=== PATIENT | female | born 1950 | race Caucasian/White ===

== ENCOUNTER → 2018-03-16 09:42 | Outpatient (CLI) | payer MEDICARE, SELFPAY ==
[2018-03-16 13:06] LABS: Absolute Lymphocyte Count 1.81 X10^3/ul (0.83-4.51); Absolute Neutrophil Count 7.1 X10^3/uL (2.0-7.7); Basophil# 0.03 X10^3/uL; Basophil% 0.3 % (0-1); Eosinophil# 0.27 X10^3/uL; Eosinophils% 2.7 % (0-5); Hematocrit 35.3 % (37-47); Hemoglobin 11.6 g/dl (12.0-15.0); Lymphocyte # 1.81 X10^3/ul (4.0); Lymphocyte % 18.4 % (19-41); Mean Corp Hgb Conc 32.9 g/gl (32-36); Mean Corpuscular Hgb 31.4 pg (27.0-32.0); Mean Corpuscular Volume 95.7 fL (81-99); Mean Platelet Vol. 10.9 fl (6.2-12.0); Monocyte# 0.65 X10^3/uL; Monocyte% 6.6 % (0-10); Neutrophil # 7.08 X10^3/uL (2.7-7.7); Neutrophil % 71.9 % (47-70); POSITIVE COUNT NO; POSITIVE DIFFERENTIAL NO; POSITIVE MORPHOLOGY NO; Platelet Count 295 K/mm3 (150-450); RBC Distribution Width CV 14.4 % (11.6-14.6); Red Blood Count 3.69 M/mm3 (4.2-5.4); White Blood Count 9.9 K/mm3 (4.4-11.0)
[2018-03-16 13:12] LABS: International Normalized Ratio 1.1; Prothrombin Time (Protime)PT. 13.7 SECONDS (11.7-14.9)
[2018-03-16 13:13] LABS: Partial Thromboplast Time 33.5 Seconds (24.1-36.2)
[2018-03-16 13:30] LABS: ALB/GLOB Ratio 0.8 RATIO (0.9-2.4); AST(SGOT) 16 U/L (15-37); Alanine Aminotransfer ALT/SGPT 20 U/L (13-56); Albumin, Serum 3.3 g/dL (3.2-5.0); Alkaline Phosphatase 110 U/L (45-117); Anion Gap 10 (5-15); BUN 39 mg/dL (7-18); BUN/Creat Ratio 26.9 RATIO (10-20); Calcium,Total 8.8 mg/dL (8.5-10.1); Chloride 110 mmol/L (98-107); Cholesterol 169 mg/dL (200); Creatinine, Serum 1.45 mg/dL (0.55-1.02); EST Glomerular Filtration Rate 38 mL/min (>60); Est Glom Filt Rate - Afr Amer 46 mL/min (>60); Free T3 2.4 pg/mL (2.18-3.98); Globulin 4.1 g/dL (2.2-4.2); Glucose 95 mg/dL (74-106); High Density Lipoprotein 43 mg/dL; Protein, Total 7.4 g/dL (6.4-8.2); Sodium Level 145 mmol/L (136-145); T4 Free Direct 1.14 ng/dL (0.76-1.46); Thyroid Stim Hormone (TSH) 1.02 uIU/mL (0.358-3.74); Triglycerides 68 mg/dL; Very Low Density Lipoprotein 14 mg/dL (5-40)
[2018-03-22 20:08] LABS: Dilute Russell Viper Venom 49.7 sec (0.0-47.0); Dilute Russell Viper Venom Mix 42.9 sec (0.0-47.0); PTT-LA 37.8 sec (0.0-51.9); Thrombin Time 16.8 sec (0.0-23.0); dPT Confirm Ratio 1.23 Ratio (0.00-1.40)
[2018-03-23 07:02] LABS: Antithrombin 3 Function 105 % (75-135); Interpretation Comment: (.); Protein S, Free 155 % (57-157); Protein S, Total 107 % (60-150)
== END ==
PROVIDERS: Family Provider Family Medicine; PCP Family Medicine; Visit Provider Family Medicine
DX: R68.89 Other general symptoms and signs (principal); I10 Essential (primary) hypertension; Z86.711 Personal history of pulmonary embolism
CPT/HCPCS: 36415; 80053; 80061; 81241; 84439; 84443; 84481; 85025; 85300; 85305; 85306; 85610; 85730; 86147; 86376

== ENCOUNTER 2018-04-09 02:37 | Emergency (ER) | payer MEDICARE, SELFPAY ==
[2018-04-09 02:38] VITALS: BP 136/61; PULSE 94; RESP 16; TEMP 36.6; O2SAT 98; BMI 41.5
[2018-04-09 03:45] LABS: Mucous, Urine 0 SEEN /hpf (<or=2+); Squamous Epithelial Cells - UA 0 SEEN /hpf (5-10)
[2018-04-09 03:46] LABS: Color, Urine Yellow (Yellow); Glucose, Dipstick Normal (Normal); Ketone-Dipstick 15 mg/dl (Negative); Leukocyte Esterase-Dipstick 500 /ul (Negative); Nitrite-Dipstick Positive (Negative); Occult Blood-Urine 25 /ul (Negative); Protein-Dipstick 30 mg/dl (Negative); Specific Gravity, Urine 1.015 (1.002-1.030); Urine Bilirubin Dipstick Negative (Negative); Urine Clarity Cloudy (Clear); Urine Urobilinogen 1 mg/dl (Normal)
[2018-04-09] MEDS: 0.9% Normal Saline 1,000 ML 1000 ML IV (03:50)
[2018-04-09] MEDS: Ondansetron 4 MG/2 ML Vial IV (03:50)
[2018-04-09] MEDS: Morphine 4 MG/ML Syringe IV (03:50)
[2018-04-09 03:57] LABS: Bacteria 2+ /hpf (None Seen); Red Blood Cells-Urine 0-5 SEEN /hpf (0-5); White Blood Cells 25-50 SEEN /hpf (0-5)
[2018-04-09 04:04] LABS: Absolute Neutrophil Count 13.7 X10^3/uL (2.0-7.7); Basophil# 0.03 X10^3/uL; Basophil% 0.2 % (0-1); Eosinophil# 0.02 X10^3/uL; Eosinophils% 0.1 % (0-5); Hematocrit 36.4 % (37-47); Hemoglobin 11.5 g/dl (12.0-15.0); Lymphocyte % 8.2 % (19-41); Mean Corp Hgb Conc 31.6 g/gl (32-36); Mean Corpuscular Hgb 30.2 pg (27.0-32.0); Mean Corpuscular Volume 95.5 fL (81-99); Mean Platelet Vol. 9.5 fl (6.2-12.0); Monocyte# 0.75 X10^3/uL; Monocyte% 4.7 % (0-10); Neutrophil # 13.73 X10^3/uL (2.7-7.7); Neutrophil % 86.6 % (47-70); Platelet Count 460 K/mm3 (150-450); RBC Distribution Width CV 14.2 % (11.6-14.6); RBC Distribution Width SD 49.1 fl (35.1-43.9); Red Blood Count 3.81 M/mm3 (4.2-5.4); White Blood Count 15.9 K/mm3 (4.4-11.0)
[2018-04-09 04:08] LABS: POSITIVE COUNT NO; POSITIVE DIFFERENTIAL NO; POSITIVE MORPHOLOGY NO
[2018-04-09 04:11] LABS: Anion Gap 8 (5-15); BUN 29 mg/dL (7-18); BUN/Creat Ratio 19.7 RATIO (10-20); Calcium,Total 9.2 mg/dL (8.5-10.1); Chloride 106 mmol/L (98-107); Creatinine, Serum 1.47 mg/dL (0.55-1.02); EST Glomerular Filtration Rate 38 mL/min (>60); Est Glom Filt Rate - Afr Amer 46 mL/min (>60); Estimated Creatinine Clearance 29.77 ml/min; Glucose 129 mg/dL (74-106); Potassium 4.2 mmol/L (3.5-5.1); Sodium Level 144 mmol/L (136-145)
--- NOTE | 2018-04-09 05:50 | ED.VISSUMM ---
- ER Visit Summary Date of Service: 04/09/18 Chief Complaint: Constipation History of Present Illness: The patient is a 68 F presents with concerns for constipation. She is status post left total knee arthroplasty on the and [place] by Dr. Sorenson. Patient is on oxycodone to taking it every 4 hours. She is on Senokot. However today states had nausea vomiting ?6-8 times with no hematemesis. Complains of chills and sweats. States that discomfort suprapubically. No urinary symptoms. Denies previous similar symptoms in the past. Patient states colonoscopy 4 years ago in [place]. Physical Examination: General: Alert and oriented ?3, no acute distress HEENT: Normocephalic, atraumatic. Moist mucosa membranes Neck: supple, nontender. Cardiovascular: Regular rate and rhythm, no murmurs Respiratory: Normal breath sounds, symmetric, no distress Abdomen: Soft, mild suprapubic tenderness without guarding or rebound. No right lower quadrant or left lower quadrant tenderness. Nondistended Extremities: Nontender, no edema, pulses intact ?4 Neuro: no focal neurological deficits. Test Results: CBC white count 15.9, hemoglobin 0.5. Creatinine 1.47. Urine leukocytes 500, positive nitrites, WBCs 25-50, 2+ bacteria. Urine culture sent and is pending. CT scan abdomen pelvis normal appendix, diffuse stools however mostly right side with no fecal impaction. Emergency Department Course and Treatment: Patient nontoxic, nonsurgical abdomen. With her suprapubic discomfort complains of chills and sweats. Workup initiated rule out potential diverticulitis. White count 15.9, urine did note signs of infection. Her CT scan notes a normal appendix with stool in the right side primarily there is no impaction. Initially treated morphine and Zofran IV fluids. Symptoms significantly improved. Due to her discomfort suprapubically with a white count chills and sweats will cover for urinary tract infection. Rocephin given. She started on Keflex. Given anti-emetics along with added MiraLAX for her constipation. Patient will follow-up as an outpatient. She return if any worsening symptoms. All questions were answered. Treatment Plan: [] Disposition: Discharge Impression: 1. Suprapubic abdominal pain 2. Urinary tract infection 3. Constipation This note was generated with [employer] dictation software. It may contain incorrect words, spelling, and punctuation that were not noted in review of the chart prior to signing ED Disposition - Plan for ED Patient: Disposition: Home or Assisted Living Chief Complaint: Constipation Diagnosis: Abdominal pain, Constipation, UTI (urinary tract infection) Instructions: ED Constipation, ED UTI Cystitis Female Prescriptions: Ondansetron [Zofran Odt] 4 mg PO Q8H PRN PRN #10 tablet PRN Reason: Nausea Cephalexin [Keflex] 500 mg PO Q12H #20 capsule Polyethylene Glycol 3350 [Miralax] 119 gm PO TID #1 bottle Referrals: Rober Cannon MD [Primary Care Provider] - 3-5 Days
[2018-04-09] MEDS: Ceftriaxone 1 GM/50 ML BAG IV (05:59)
[2018-04-09 06:53] VITALS: BP 124/60; PULSE 87; RESP 16; O2SAT 98
== END 2018-04-09 06:54 | disposition home or self-care (01) ==
PROVIDERS: Emergency Provider Emergency Medicine; Family Provider Family Medicine; PCP Family Medicine
DX: R10.9 Unspecified abdominal pain (principal); K59.00 Constipation, unspecified; N39.0 Urinary tract infection, site not specified; Z96.652 Presence of left artificial knee joint; E78.00 Pure hypercholesterolemia, unspecified
CPT/HCPCS: 74176; 80048; 81001; 85025; 87077; 87086; 87088; 87186; 96361; 96365; 96375; 99284; J7030; J2405

== ENCOUNTER → 2019-07-19 17:18 | Outpatient (CLI) | payer MEDICARE, MEDICAID, SELFPAY ==
--- NOTE | 2019-07-19 17:25 | RAD_ITS ---
STUDY: X-RAY - LEFT ANKLE REASON FOR EXAM: Female, 69 years old. Pain TECHNIQUE: 3 view(s) of the ankle. COMPARISON: None. FINDINGS: There is remote nonunited fracture of the medial malleolus with residual ossicle. There is no acute fracture or dislocation. Mineralization is decreased with possible periarticular accentuation. There are degenerative changes in the subtalar joint. Soft tissues demonstrate atherosclerotic calcifications in the arterial vessels and a possible calcified post traumatic granuloma in the Achilles tendon. There is irregularity of the superior talus seen on only one view, unclear etiology. There is smooth dense periosteal reaction in the mid tibia, incompletely evaluated due to extension superior to the top of the film. RAD/Ankle min 3 Views IMPRESSION: 1. No acute findings. 2. Remote medial malleolar fracture. 3. Periarticular osteopenia, this can be seen with inflammatory arthritis. Serologic evaluation is advised. 4. Questionable superior talar irregularity, possibly focal AVM. 5. Chronic Achilles tendon trauma. 6. Accelerated atherosclerosis. 7. Fibula periosteal reaction, incompletely evaluated. Refer to assessment with full lower leg radiography. Electronically Signed: Aston Vance, at 18:08 EST Tel , Service support ,
== END ==
PROVIDERS: Family Provider Family Medicine; PCP Family Medicine; Referring Provider Family Medicine; Visit Provider Family Medicine
DX: M79.672 Pain in left foot (principal)
CPT/HCPCS: 73610

== ENCOUNTER → 2019-07-22 09:22 | Outpatient (CLI) | payer MEDICARE, SELFPAY ==
--- NOTE | 2019-07-22 09:30 | RAD_ITS ---
STUDY: X-RAY - LEFT FOOT CLINICAL: Female, 69 years old. Worsening pain. TECHNIQUE: 3 view(s) of the foot. COMPARISON: None. FINDINGS: Plantar calcaneal spur otherwise normal talus, calcaneus, and tarsal bones. Mild narrowing of the visualized subtalar, talonavicular, calcaneocuboid, tarsal and tarsometatarsal articulations. Normal metatarsi. There is mild degenerative arthrosis of the metatarsophalangeal joint of the hallux . Normal tibial and fibular sesamoid bones. There is minimal degenerative arthrosis of the interphalangeal joint of the great toe. Normal phalanges of the great toe. Normal second through fifth metatarsophalangeal joints. Narrowing of the interphalangeal joints otherwise normal phalanges of the lesser toes. Vascular calcifications noted. There is swelling surrounding the ankle. There is no demonstrated fracture. RAD/Foot min 3 Views IMPRESSION: Degenerative disease as described above. No acute fracture or subluxation. Electronically Signed: Marlena Paiz MD at 1:39 EST , Service support ,
--- NOTE | 2019-07-22 09:30 | RAD_ITS ---
STUDY: X-RAY - LEFT TIBIA AND FIBULA REASON FOR EXAM: Female, 69 years old. Worsening pain to heel and leg. TECHNIQUE: 2 view(s) of the tibia and fibula were obtained. COMPARISON: None. FINDINGS: There is demineralization of the tibia. There is demineralization of the fibula. There is a total knee prosthesis in place. There is sequela of an old fracture involving the proximal fibula diaphysis. Vascular calcifications noted. RAD/Tibia & Fibula 2 Views IMPRESSION: Osteopenia. No acute fracture or subluxation. Electronically Signed: Marlena Paiz MD at 1:40 EST , Service support ,
== END ==
PROVIDERS: Family Provider Family Medicine; PCP Family Medicine; Referring Provider Family Medicine; Visit Provider Family Medicine
DX: M79.672 Pain in left foot (principal)
CPT/HCPCS: 73590; 73630

== ENCOUNTER → 2019-09-12 | Outpatient (CLI) | payer MEDICARE, MEDICAID, SELFPAY ==
--- NOTE | 2019-09-12 11:05 | ART_ITS ---
Reason For Study: PVD, Claudication Procedure A bilateral lower extremity continuous wave Doppler with analog waveform analysis,segmental pressures,and ankle brachial indexes without exercise. Left Segmental Pressures Left brachial= 126mmHg. Left posterior tibial artery = 126mmHg. Left dorsalis pedis artery = 148mmHg. Left digit = 62 mmHg. The left dorsalis pedis waveforms are triphasic. The left posterior tibial artery waveforms are triphasic. Right Segmental Pressures Right brachial= 117mmHg. Right posterior tibial artery = >254mmHg. Right dorsalis pedis artery = >254mmHg. Right digit = 89 mmHg. The right dorsalis pedis waveforms are triphasic. The right posterior tibial artery waveforms are triphasic. Indices The right ankle brachial index by the dorsalis pedis is NC. The right ankle brachial index by the posterior tibial artery is NC. The right digital-brachial index is 0.71. The left ankle brachial index by the dorsalis pedis is 1.17. The left ankle brachial index by the posterior tibial artery is 1.00. The left digital-brachial index is 0.49. Interpretation Summary Triphasic Doppler waveforms are noted at ankle level bilaterally. Pulse-volume recordings appear satisfactory at all levels bilaterally, including low-thigh, calf, ankle, and digital levels. The resting right ankle-brachial index could not be determined due to the non-compressibility of the vasculature. The resting left ankle-brachial index is normal. The right digital-brachial index is low-normal. The left digital-brachial index is moderately diminished. There is evidence of arterial calcification at ankle level on the right. Arterial flow appears to be normal at ankle level bilaterally, and at digital level on the right. There is evidence of moderate, distal, small-vessel arterial occlusive disease at digital level on the left. Ordering Physician: Marsha Montgomery Referring Physician: Kang Cannon Performed By: Willinger, Kala, RVT
== END | disposition home or self-care (01) ==
LOC: CVS 11:00
PROVIDERS: PCP Family Medicine; Referring Provider Podiatrist; Visit Provider Podiatrist
DX: I73.9 Peripheral vascular disease, unspecified (principal)
CPT/HCPCS: 93923

== ENCOUNTER → 2020-02-21 | Outpatient (CLI) | payer MEDICARE, SELFPAY ==
[2020-02-21 18:16] LABS: Vitamin D,25 Hydroxy 33.6 ng/mL
[2020-02-21 18:46] LABS: ALB/GLOB Ratio 0.8 RATIO (0.9-2.4); AST(SGOT) 14 U/L (15-37); Alanine Aminotransfer ALT/SGPT 18 U/L (13-56); Albumin, Serum 3.6 g/dL (3.2-5.0); Alkaline Phosphatase 141 U/L (45-117); Anion Gap 6 (5-15); BUN 48 mg/dL (7-18); BUN/Creat Ratio 31.2 RATIO (10-20); Calcium,Total 8.7 mg/dL (8.5-10.1); Chloride 113 mmol/L (98-107); Cholesterol 189 mg/dL (200); Creatinine, Serum 1.54 mg/dL (0.55-1.02); EST Glomerular Filtration Rate 36 mL/min (>60); Est Glom Filt Rate - Afr Amer 43 mL/min (>60); Globulin 4.3 g/dL (2.2-4.2); Glucose 86 mg/dL (74-106); High Density Lipoprotein 48 mg/dL; Potassium 4.9 mmol/L (3.5-5.1); Protein, Total 7.9 g/dL (6.4-8.2); Sodium Level 143 mmol/L (136-145); Thyroid Stim Hormone (TSH) 1.06 uIU/mL (0.358-3.74); Triglycerides 53 mg/dL; Very Low Density Lipoprotein 11 mg/dL (5-40)
== END | disposition home or self-care (01) ==
LOC: MFPLAB 14:45
PROVIDERS: PCP Family Medicine; Referring Provider Family Medicine; Visit Provider Family Medicine
DX: I10 Essential (primary) hypertension (principal); Z13.21 Encounter for screening for nutritional disorder; Z13.29 Encounter for screening for other suspected endocrine disorder; Z13.220 Encounter for screening for lipoid disorders
CPT/HCPCS: 36415; 80053; 80061; 82306; 84443

== ENCOUNTER → 2020-03-01 | Outpatient (CLI) | payer MEDICARE, MEDICAID, SELFPAY ==
--- NOTE | 2020-03-01 14:30 | BI_ITS ---
MAMMOGRAPHY - BILATERAL SCREENING REASON FOR EXAM: Female, 70 years old. Routine annual screening examination. PERTINENT HISTORY: Daughter with breast cancer. Grandmother with breast cancer. TECHNIQUE: Digital bilateral breast katia (3D mammographic acquisition) in the CC and MLO projections. 2-D mediolateral oblique (MLO) and craniocaudad (CC) views of both breasts were obtained. CAD: Full Field Digital Mammography with Computer Added Detection was performed. COMPARISON: None. Baseline examination. FINDINGS: Breast Composition: There are scattered areas of fibroglandular density. There are no dominant masses or suspicious calcifications. Scattered benign appearing bilateral calcifications. Benign appearing axillary lymph nodes. No other significant abnormalities are identified. There has been no significant change since the prior study. BI/SCREEN MAMM (CAD) W/KATIA BILAT IMPRESSION: Stable bilateral screening mammogram. Yearly follow-up mammogram recommended. (A) ASSESSMENT CATEGORY: BIRADS Category 2: Benign. A letter regarding these results will be sent to the patient by the facility within 30 days. Approximately 10% of breast cancers are not detected by mammography. A normal mammogram should not delay biopsy of a clinically suspicious abnormality. [id number] Electronically Signed: Angel Johnson, at 8:37 EDT , Service support ,
--- NOTE | 2020-03-01 14:47 | BD_ITS ---
STUDY: DUAL ENERGY X-RAY ABSORPTIOMETRY / DXA REASON FOR EXAM: Female, 70 years old. 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 COMPARISON: None. FINDINGS: Lumbar Spine (L1-L4): g/cm2 (1.449) / T-score (2.4) / Z-score (4.0) Findings are suggestive of normal bone density with a low fracture risk. Left Femur Total: g/cm2 (0.928) / T-score (-0.6) / Z-score (0.7) Left Femoral Neck: g/cm2 (0.788) / T-score (-1.8) / Z-score (-0.2) Right Femur Total: g/cm2 (0.870) / T-score (-1.1) / Z-score (0.3) Right Femoral Neck: g/cm2 (0.729) / T-score (-2.2) / Z-score (-0.6) BD/Dexa Bone Density Study IMPRESSION: The patient is considered osteopenic as outlined below according to World [place] Organization (WHO) criteria with a moderate fracture risk. Reference Information: The T-score is the number of standard deviations above or below the standard which is normal for young adults at their peak bone mineral density. The World Health Organization (WHO) interprets the T-scores as follows: Above -1 Normal bone density Between -1 and -2.5 Osteopenia Equal to / or below -2.5 Osteoporosis As a practical clinical guideline, osteopenia may be graded as follows: Mild -1 through -1.5 Moderate -1.6 through -2.0 Severe -2.1 through -2.4 The Z-score is the number of standard deviations above or below age-matched controls. A Z-score of less than -1.5 would be considered abnormal. References: 1. NIH Osteoporosis and Related Bone Diseases http://www.osteo.org 2. International Society for Clinical Densitometry http://www.iscd.org 3. National Osteoporosis Foundation http://www.nof.org Electronically Signed: Angel Johnson, at 11:51 EDT , Service support ,
== END | disposition home or self-care (01) ==
LOC: OPBD 14:15
PROVIDERS: PCP Family Medicine; Referring Provider Family Medicine; Visit Provider Family Medicine
DX: Z12.31 Encounter for screening mammogram for malignant neoplasm of breast (principal); N95.9 Unspecified menopausal and perimenopausal disorder
CPT/HCPCS: 77063; 77067; 77080

== ENCOUNTER → 2020-05-21 | Outpatient (CLI) | payer MEDICARE, MEDICAID, SELFPAY ==
[2020-05-21 13:26] LABS: Anion Gap 6 (5-15); BUN 37 mg/dL (7-18); BUN/Creat Ratio 23.1 RATIO (10-20); Calcium,Total 9.4 mg/dL (8.5-10.1); Chloride 108 mmol/L (98-107); EST Glomerular Filtration Rate 34 mL/min (>60); Est Glom Filt Rate - Afr Amer 41 mL/min (>60); Glucose 117 mg/dL (74-106); Magnesium 2.2 mg/dL (1.6-2.6); Phosphorus 2.9 mg/dL (2.5-4.9); Potassium 4.8 mmol/L (3.5-5.1); Sodium Level 138 mmol/L (136-145)
[2020-05-22 13:12] LABS: PTHIN 73.1 pg/mL (18.4-80.1)
== END | disposition home or self-care (01) ==
LOC: MFPLAB 09:54
PROVIDERS: PCP Family Medicine; Visit Provider Family Medicine
DX: M85.80 Other specified disorders of bone density and structure, unspecified site (principal)
CPT/HCPCS: 36415; 80048; 82330; 83735; 83970; 84100

== ENCOUNTER → 2020-06-26 16:37 | Outpatient (CLI) | payer MEDICARE, MEDICAID, SELFPAY ==
--- NOTE | 2020-06-26 16:40 | RAD_ITS ---
STUDY: X-RAY - LEFT WRIST REASON FOR EXAM: Female, 70 years old. Left wrist pain. Lumps at the base of the thumb. TECHNIQUE: 3 view(s) of the wrist were obtained. COMPARISON: None. FINDINGS: Normal visualized distal radius and ulna. There is degenerative arthrosis of the radiocarpal articulation. Normal distal radioulnar articulation. Normal carpal bones. There is widening of the scapholunate articulation suggesting a sprain of the scapholunate interosseous ligament. Normal carpometacarpal articulation of the thumb. Normal second through fifth carpometacarpal articulations. Normal visualized metacarpal bones. The soft tissue structures are unremarkable. No soft tissue mass is seen. Vascular calcifications are seen within the volar aspect of the lateral wrists. 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 Electronically Signed: Shilo Maya DO at 22:43 EST Tel [phone], Service support ,
== END ==
PROVIDERS: PCP Family Medicine; Referring Provider Family Medicine; Visit Provider Family Medicine
DX: M25.532 Pain in left wrist (principal)
CPT/HCPCS: 73110

== ENCOUNTER → 2020-07-13 | Outpatient (CLI) | payer MEDICARE, MEDICAID, SELFPAY | END | disposition home or self-care (01) | LOC: LABSPEC 10:32 | PROVIDERS: PCP Family Medicine; Referring Provider Family Medicine; Visit Provider Family Medicine | DX: N39.0 Urinary tract infection, site not specified (principal) | CPT/HCPCS: 87077; 87086; 87088; 87186 ==

== ENCOUNTER 2020-09-15 16:53 | Emergency (ER) | payer MEDICARE, MEDICAID, SELFPAY ==
[2020-09-15 16:53] VITALS: BP 149/85; PULSE 77; RESP 18; TEMP 36.3; O2SAT 99; BMI 46.3
--- NOTE | 2020-09-15 17:12 | ED.DCSUM_ITS ---
- ER Visit Summary Date of Service: 09/15/20 Chief Complaint: Atraumatic left lateral wrist pain mild redness. History of Present Illness: The patient is a 70 F of gout. Also kidney stones renal insufficiency. She is not diabetic. She denies any trauma or injury to her left wrist or hand. She denies any cat or animal bites. States yesterday started having some mild pain to left lateral wrist minimal redness. Minimal swelling. Denies any streaks. No fever or chills. She has had gout in her foot before and says it feels similar but she is never had no wrist or hand. She is also had cellulitis before but said this seems to be different than that. Physical Examination: Appearing older female. Vital signs are stable afebrile. HEENT exam unremarkable. Neck nontender no lymphadenopathy. Lungs clear to auscultation bilaterally. Heart regular rhythm rate about 75. Abdomen soft nontender. Patient moving all 4 extremities. Neurovascular intact. The left lateral wrist is mildly tender. She has pain with flexion extension of left wrist ulnar and radial deviation. There is really not significant swelling there is minimal redness. There is no lymphangitic streaking is not warm to the touch. Its only mildly tender. The left hand is neurovascular intact she is a strong radial pulse. The forearm otherwise is unremarkable with no signs of trauma. No streaks. There is no axillary lymphadenopathy. Neurologically she is awake and alert with no focal motor deficits. Test Results: None Emergency Department Course and Treatment: Clinically this appears to be an acute gout flareup. I do not think an cellulitis. Is not warm to touch. There is no streaks. She is had no constitutional symptoms. There is no lymphadenopathy. She will be started on prednisone here 60 mg and Vicodin for pain. Treatment Plan: Vicodin for pain. Prednisone daily 40 mg for 9 more days. She has appointment to see her primary care physician on Thursday. If she is doing a lot worse return to emergency department. She understands we will treat this is gout and currently not has an infection. Disposition: Discharge Impression: Acute atraumatic left wrist pain secondary to acute gout flare This note was generated with [employer] ([employer])ation software. It may contain incorrect words, spelling, and punctuation that were not noted in review of the chart prior to signing ED Disposition - Plan for ED Patient: Referrals: Rober Cannon MD [Primary Care Provider] -
--- NOTE | 2020-09-15 17:15 | ED.DEP ---
ED Disposition - Plan for ED Patient: Disposition: Home or Assisted Living Instructions: ED Gout Prescriptions: Prednisone [Deltasone] 40 mg PO DAILY 9 Days tab Prescription Printed Hydrocodone Bitart/Apap 5-325 [Napanoch 5MG-325MG] 1 tab PO Q4H PRN PRN #20 tab PRN Reason: Pain/Inflammation Prescription Printed Referrals: Rober Cannon MD [Primary Care Provider] - Keep Samm appointment Additional Instructions: Is an 40 mg a day for the next 9 days starting tomorrow. Vicodin (Napanoch) for pain. May take 1 of these every 4 hours for pain. This is a narcotic pain medication it may cause you to be drowsy or constipated. Make sure you are drinking plenty of water and fruits, vegetables and fiber to prevent constipation. Follow-up with your doctor's appointment on Thursday. Return to the emergency department if you are feeling a lot worse or if you get a fever or red streaks.
[2020-09-15] MEDS: HYDROcodone Bitartrate/Apap 5/325 Tablet PO (17:24)
[2020-09-15] MEDS: predniSONE 20 MG Tablet 60 MG PO (17:25)
== END 2020-09-15 17:33 | disposition home or self-care (01) ==
PROVIDERS: Emergency Provider Emergency Medicine; PCP Family Medicine
DX: M10.9 Gout, unspecified (principal); I10 Essential (primary) hypertension; Z79.899 Other long term (current) drug therapy
CPT/HCPCS: 99283

== ENCOUNTER → 2021-07-11 14:56 | Outpatient (CLI) | payer MEDICARE, MEDICAID, SELFPAY ==
--- NOTE | 2021-07-11 15:00 | BI_ITS ---
MAMMOGRAPHY - BILATERAL SCREENING REASON FOR EXAM: Female, 71 years old. Routine annual screening examination. PERTINENT HISTORY: Daughter with breast cancer. Grandmother with breast cancer. TECHNIQUE: Digital bilateral breast katia (3D mammographic acquisition) in the CC and MLO projections. 2-D mediolateral oblique (MLO) and craniocaudad (CC) views of both breasts were obtained. CAD: Full Field Digital Mammography with Computer Added Detection was performed. COMPARISON: Comparison is made with prior study dated 03/01/2020. FINDINGS: Breast Composition: There are scattered areas of fibroglandular density. There now is evidence of a 1.2 cm nodule in the lateral superior aspect of the left breast anteriorly. Correlation with ultrasound is recommended. Stable small benign appearing bilateral axillary lymph nodes. No other significant abnormalities are identified. BI/SCRN MAMM (CAD)W/KATIA BILAT IMPRESSION: 1.2 cm nodule in the lateral superior aspect of the left breast anteriorly. Correlation with ultrasound is recommended. ASSESSMENT CATEGORY: BIRADS Category 0: Incomplete. Need additional imaging evaluation. A letter regarding these results will be sent to the patient by the facility within 30 days. Approximately 10% of breast cancers are not detected by mammography. A normal mammogram should not delay biopsy of a clinically suspicious abnormality. [id number] Electronically Signed: Angel Johnson MD at 15:47 EST , Service support ,
== END ==
PROVIDERS: PCP Family Medicine; Referring Provider Family Medicine; Visit Provider Family Medicine
DX: Z12.31 Encounter for screening mammogram for malignant neoplasm of breast (principal)
CPT/HCPCS: 77063; 77067

== ENCOUNTER → 2021-07-16 10:51 | Outpatient (CLI) | payer MEDICARE, MEDICAID, SELFPAY ==
--- NOTE | 2021-07-16 10:53 | US_ITS ---
STUDY: ULTRASOUND BREAST - LEFT REASON FOR EXAM: Female, 71 years old. Abnormal screening mammogram. TECHNIQUE: Axial and longitudinal images of the LEFT breast were performed with a high resolution ultrasound transducer. # OF IMAGES: 31 COMPARISON: Comparison is made with prior mammogram dated 07/11/2021. FINDINGS: LEFT Breast: The mammographic abnormality corresponds to 1.4 cm x 1.2 cm x 1.4 cm irregular jagged hypoechoic nodule at the 1 o''clock position of the breast at 3 cm from the nipple. Biopsy is recommended. US/Breast Limited Unilateral IMPRESSION: 1.4 cm x 1.2 cm x 1.4 cm irregular jagged hypoechoic nodule at the 1 o''clock position of the breast at 3 cm from nipple. Biopsy recommended. ASSESSMENT CATEGORY: BIRADS Category 4: Suspicious - Biopsy Should Be Considered. A letter regarding these results will be sent to the patient by the facility within 30 days. Electronically Signed: Angel Johnson MD at 12:35 EST , Service support ,
== END ==
PROVIDERS: PCP Family Medicine; Referring Provider Family Medicine; Visit Provider Family Medicine
DX: N63.21 Unspecified lump in the left breast, upper outer quadrant (principal)
CPT/HCPCS: 76642

== ENCOUNTER → 2021-07-23 13:37 | Outpatient (CLI) | payer MEDICARE, MEDICAID, SELFPAY ==
--- NOTE | 2021-07-23 | IMM_PTH ---
PATIENT: BREANNA YANES LOC: [facility] U#:[id number] AGE/SX: 75/F ROOM: RE07/23/[address]: Dr. Nichole Barrett MD : 1950 BED: DIS: SPEC #: [id number] RECD: 07/24/21 13:12 STATUS: HAYDEE REQ #: [id number] MARIAM: 07/23/21 00:[address]: Nichole Barrett DEPT: IMMUNOHISTOCHEMISTRY RECD BY: Norma Hernadez ENTERED: 07/24/21 13:14 SP TYPE: IMMUNO OTHR DR: Dr. Kang Cannon MD Tissues: Left breast, NOS Procedures: CALPONIN-1 (add) CK5-6 (add) CK8 (add) REYES-2 (add) E-CAD (add) HER2 ODILON (add) AR (add) P40 (add) ER (initial) PHYSICIAN & INSTITUTION [place] [facility] [phone] SPECIMEN INFORMATION: Tissue Source: Left breast Clinical Info: Left breast mass Specimen Number: [id number] CPT code: 23249, 44161 x7, 87294 x3 METHODOLOGY: Deparaffinized sections of prefer/formalin-fixed tissue or PAP/DQ stained slides are incubated with monoclonal/polyclonal antibodies/oligonucleotide probes. Localization is made via biotin free immunoperoxidase method. Appropriate controls are performed and reacted as expected. Results on target cell population are indicated in the following table: RESULTS: ANTIBODY / CLONE RESULT P53 (DO-7) positive, 2%, dim Ki-67 (30-9) positive, 75% CK8 (83ogkxS25) positive CK5-6 (D5 & 1684) negative Calponin-1 (RX533T) negative P40 (BC28) negative E-Cad (ECH-6) positive REYES-2 (SP21) positive, dim MORPHOMETRIC ANALYSIS ER (clone 6F11) >95%, strong AR (clone 16/1E2) >90%, weak to moderate Her-2Neu (clone CB11) 0 The prognostic test for HER2 is performed on formalin-fixed paraffin embedded tissue. A 3+ (positive) staining pattern is defined as intense, homogeneous, complete, circumferential membranous staining in >10% of contiguous tumor cells. A similar weak (2+) staining pattern is interpreted as equivocal. PINEDA follow-up testing is recommended for all equivocal cases. Positivity/negativity for ER/AR is reported if > or < 1% of the tumor cells are immuno- reactive, respectively. The ASCO/CAP criteria is used for scoring. Reference: Journal of Clinical Oncology, 2013; 31:5150-3474 & 2010; 16:2514-7199. Duration of fixation: 11.5 Hrs; Sample Adequate: Yes. These assays have not been validated on decalcified tissues. Results should be interpreted with caution given the likelihood of false negativity on decalcified specimens. These tests were developed and their performance characteristics determined by [facility]. They may not have been cleared or approved by the U.S. Food and Drug Administration. The FDA has determined that such clearance or approval is not necessary. The above immunohistochemical/dualISH markers are ordered and reviewed by the Pathologist. INTERPRETATION: Left breast, core biopsy: Invasive ductal carcinoma, grade 3. Positive for estrogen receptors (favorable prognostic indicator). Positive for progesterone receptors (favorable prognostic indicator). Negative for overexpression of RUI3bnz. AM:wiley 07/25/2021
--- NOTE | 2021-07-23 | BRBX_PTH ---
PATIENT: BREANNA YANES LOC: [facility] U#:[id number] AGE/SX: 75/F ROOM: RE07/23/[address]: Dr. Nichole Barrett MD : 1950 BED: DIS: SPEC #: [id number] RECD: 07/23/21 14:31 STATUS: HAYDEE MICHELLE #: [id number] MARIAM: 07/23/21 00:[address]: Nichole Barrett DEPT: SURGICAL PATHOLOGY RECD BY: Tony De La Paz ENTERED: 07/23/21 14:32 SP TYPE: BREAST BX DAREN DR: Dr. Kang Cannon MD Tissues: Left breast, NOS Procedures: Surgery Specimen Level IV HEADER OPERATION: Left breast biopsy PRE-OP DIAGNOSIS: Left breast mass TISSUE SUBMITTED: Left breast tissue MICROSCOPIC DIAGNOSIS Left breast mass, core biopsy: Invasive ductal carcinoma with the following characteristics: Maximal length ? 9.5 millimeters Nuclear grade ? 3/3 Other findings ? focal microcalcifications. See comment. AM:wiley 07/24/2021 COMMENT ER/CT/Wkf4kvs studies are being performed on sections of tumor and the results from this study will be reported separately ([id number]). MICROSCOPIC DESCRIPTION Slides are reviewed. GROSS DESCRIPTION Received in fixative is one container labeled with the patient's name and designated left breast biopsy. The specimen consists of multiple irregular and elongated fragments of madrid-yellow soft tissue ranging in size from 0.7 to 1 cm in length and averaging 0.2 cm in diameter. The specimen is submitted in its entirety in one cassette. / AM:wiley 07/23/21 TC:0 CPT: 75619
== END ==
PROVIDERS: PCP Family Medicine; Referring Provider Surgery; Visit Provider Surgery
DX: N63.0 Unspecified lump in unspecified breast (principal)
CPT/HCPCS: 88305; 88341; 88342

== ENCOUNTER 2021-08-15 08:24 | Day surgery (SDC) | payer MEDICARE, MEDICAID, SELFPAY ==
[2021-08-15] VITALS (11 sets, daily range): BP systolic 105–154; BP diastolic 57–85; PULSE 65–84; RESP 16–18; TEMP 35.6–36.8; O2SAT 94–100; BMI 45.3
--- NOTE | 2021-08-15 | IMM_PTH ---
PATIENT: BREANNA YANES LOC: [facility] – [place] U#:[id number] AGE/SX: 71/F ROOM: RE08/15/[address]: Dr. Nichole Barrett MD : 1950 BED: DIS: 08/15/2021 SPEC #: [id number] RECD: 08/20/21 14:04 STATUS: HAYDEE RECarmen #: [id number] MARIAM: 08/15/21 00:[address]: Nichole Barrett DEPT: IMMUNOHISTOCHEMISTRY RECD BY: Norma Hernadez ENTERED: 08/20/21 14:07 SP TYPE: IMMUNO OTHR DR: Dr. Kang Cannon MD Tissues: B - Axillary lymph node, NOS C - Left breast, NOS Procedures: E-CAD (initial) CALPONIN-1 (add) CK7 (add) CK8 (add) E-CAD (add) Pankeratin (initial) Pankeratin (add) P40 (add) PHYSICIAN & [address] [address] SPECIMEN INFORMATION: Tissue Source: A - Axillary sentinel lymph node, B - Additional axillary sentinel lymph node, C - Left breast mass Clinical Info: Invasive ductal carcinoma left breast Specimen Number: [id number] A1, B1, B2, C3, C7, C8, C10, C12 CPT code: 16880 x3, 33395 x26 METHODOLOGY: Deparaffinized sections of prefer/formalin-fixed tissue or PAP/DQ stained slides are incubated with monoclonal/polyclonal antibodies/oligonucleotide probes. Localization is made via biotin free immunoperoxidase method. Appropriate controls are performed and reacted as expected. Results on target cell population are indicated in the following table: RESULTS: ANTIBODY / CLONE RESULT Block A AE1-3 (AE1/AE3/PCK26) negative CK7 (OV-TL12/30) negative Block B1 AE1-3 (AE1/AE3/PCK26) negative CK7 (OV-TL12/30) negative Block B2 AE1-3 (AE1/AE3/PCK26) negative CK7 (OV-TL12/30) negative Block C3 P40 (BC28) negative E-Cad (ECH-6) positive CK8 (98tzqdW88) positive Calponin-1 (FP326Q) negative Block C7 P40 (BC28) negative E-Cad (ECH-6) positive CK8 (19zhynD15) positive Calponin-1 (MP368F) negative Block C8 P40 (BC28) negative E-Cad (ECH-6) negative CK8 (47qitkY75) positive Calponin-1 (PK360R) negative AE1-3 (AE1/AE3/PCK26) positive Block C10 P40 (BC28) negative E-Cad (ECH-6) negative CK8 (66atyeK11) positive Calponin-1 (NI748X) negative AE1-3 (AE1/AE3/PCK26) positive Block C12 P40 (BC28) negative E-Cad (ECH-6) positive CK8 (26qpxlH52) positive Calponin-1 (SA513M) negative AE1-3 (AE1/AE3/PCK26) positive These tests were developed and their performance characteristics determined by [facility]. They may not have been cleared or approved by the U.S. Food and Drug Administration. The FDA has determined that such clearance or approval is not necessary. The above immunohistochemical/dualISH markers are ordered and reviewed by the Pathologist. INTERPRETATION: A. Axillary sentinel lymph node, biopsy: One lymph node, negative for metastatic carcinoma. B. Additional axillary sentinel lymph node, biopsy: Two lymph nodes, negative for metastatic carcinoma. C. Left breast mass, lumpectomy with needle localization: Invasive ductal carcinoma (block C3, two foci, C7, C12). Invasive lobular carcinoma (C8 and C10). SJ:wiley 08/22/2021 Case has been reviewed in consultation with Dr. Brandt who concurs with the above diagnosis. IDC:AM
--- NOTE | 2021-08-15 | AXNB_PTH ---
PATIENT: BREANNA YANES LOC: [facility] – [place] U#:[id number] AGE/SX: 71/F ROOM: RE08/15/[address]: Dr. Nichole Barrett MD : 1950 BED: DIS: 08/15/2021 SPEC #: [id number] RECD: 08/15/21 12:12 STATUS: HAYDEE MICHELLE #: [id number] MARIAM: 08/15/21 00:[address]: Nichole Barrett DEPT: SURGICAL PATHOLOGY RECD BY: oNrma Hernadez ENTERED: 08/15/21 13:05 SP TYPE: AX NODE BX OTHR DR: Dr. Kang Cannon MD Tissues: A - Axillary lymph node, NOS B - Axillary lymph node, NOS C - Left breast, NOS D - Left breast, NOS Procedures: Frozen Section (charge) Frozen Section Add'l ([facility]) Surgery Specimen Level IV Surgery Specimen Level V Comments: @ Specimen number changed from [id number] to [id number] @ on 08/15/21 at 1344 by RGOOD. HEADER OPERATION: Left breast ultrasound-guided wire localized lumpectomy with sentinel node biopsy PRE-OP DIAGNOSIS: Invasive ductal carcinoma left breast TISSUE SUBMITTED: A - Axillary sentinel lymph node, FS, B - Additional axillary sentinel lymph node x2, FS, C - Left breast mass (long stitch - lateral, short stitch - superior), D - Inferior deep margin (long stitch - medial, short stitch - new margin) FROZEN SECTION DIAGNOSIS A. Left axillary sentinel lymph node, biopsy: One out of one lymph node negative for carcinoma. AM:wiley 08/15/2021 Case has been reviewed in consultation with Dr. Kaufman who concurs with the above diagnosis. IDC:LATASHA B. Additional left axillary sentinel lymph nodes, biopsy: Two out of two lymph nodes negative for carcinoma. AM:wiley 08/15/2021 MICROSCOPIC DIAGNOSIS A. Left axillary sentinel lymph node, biopsy: One lymph node, negative for metastatic carcinoma. See comment. B. Additional left axillary sentinel lymph nodes, biopsy: Two out of two lymph nodes, negative for metastatic carcinoma. See comment. C. Left breast, lumpectomy with needle localization: Invasive ductal carcinoma, multiple foci (x4). Invasive lobular carcinoma. Ductal carcinoma in situ. See cancer summary in the comment section. D. Inferior deep margin: Intraductal hyperplasia with multifocal atypia. Intraductal papilloma with atypia. Negative for carcinoma. LATASHA:wiley 08/20/2021 COMMENT A. The lymph node is negative for metastatic carcinoma on multiple H & E levels and immunohisto-chemical stains for cytokeratins ([id number]). B. The lymph nodes are negative for metastatic carcinoma on multiple H & E levels and immunohisto-chemical stains for cytokeratins ([id number]). C - Immunohistochemistry ([id number]) supports the diagnosis of multiple foci of invasive ductal carcinoma and invasive lobular carcinoma. C. BREAST CANCER SUMMARY Procedure - excision with needle localization Specimen laterality ? left Invasive tumor: Tumor site ? not specified Tumor size ? size of largest carcinoma 1.2 x 1 cm Histologic type ? invasive ductal carcinoma x 4 foci - Invasive lobular carcinoma, one focus. Histologic grade (Jessica grade) Invasive ductal carcinoma: Glandular/tubular differentiation score - 2 Nuclear pleomorphism score - 3 Mitotic count score - 3 Overall grade ? grade 3 (score of 8) Histologic grade (Boulder grade) invasive lobular carcinoma: Glandular/tubular differentiation score - 3 Nuclear pleomorphism score - 1 Mitotic count score - 1 Overall grade ? grade 1 (score of 5) Tumor focality ? multiple foci of invasive carcinoma Number of foci - 5 Size of individual foci ? largest focus of invasive ductal carcinoma measures 1.2 x 1 cm. Additional smaller foci measures 0.3 to 1 cm in greatest dimension (grossly identified tumor mass measures 1.0 cm in greatest dimension). Invasive lobular carcinoma measures 0.5 cm in greatest dimension. Ductal carcinoma in situ ? present Negative for extensive intraductal component (EIC). Size (extent) of DCIS ? DCIS comprise about 20% of the total tumor volume. Number of blocks with DCIS ? 7 Number of blocks examined ? 15 (including specimens C & D) Architectural pattern ? papillary, micropapillary, cribriform and solid Nuclear grade ? grade 2 (intermediate) Necrosis ? not identified Lobular carcinoma in situ - not identified Tumor extension: Skin ? not present Nipple ? not applicable Skeletal muscle ? not present Margins: Invasive and ductal carcinoma in situ are 0.1 cm away from the closest inferior margin in the lumpectomy specimen. Additional specimen D inferior margin is 0.8 cm in thickness, overall, the inferior margin is at least 0.9 cm from the invasive ductal carcinoma and ductal carcinoma in situ. Invasive ductal carcinoma and ductal carcinoma in situ are 0.2 cm away from the next closest posterior and superior margins. Invasive lobular carcinoma is present at the anterior margin. Regional lymph nodes: Number of lymph nodes examined ? 3 Number of sentinel lymph nodes examined - 3 Number of lymph nodes with macrometastases, micrometastases or isolated tumor cells - 0 Treatment effect ? no known presurgical therapy. Lymphvascular invasion ? not identified Distant metastasis ? not applicable Additional Pathologic Findings ? intraductal hyperplasia with multifocal atypia. Intraductal papilloma with atypia. Ancillary Studies: Previously performed on same tumor ([id number] / [id number]) ER: positive (>95%, strong) MD: positive (.90%, weak to moderate) Iny1lcj: negative (0) Microcalcifications ? not identified Clinical History - Please make reference to previous specimen ([id number]) left breast, core biopsy with diagnosis of ?invasive ductal carcinoma.? PATHOLOGIC STAGE: pT1c(m) pN0(sn) pMx The above summary is in compliance with [employer] (CAP) Cancer Protocols Checklist and [place] Joint Committee on Cancer (AJCC), Staging Manual, 8th Ed. This case is discussed with Dr. Barrett on 08/22/21. Case has been reviewed in consultation with Dr. Brandt who concurs with the above diagnosis. IDC:AM MICROSCOPIC DESCRIPTION Slides are reviewed. GROSS DESCRIPTION A - Received fresh for frozen section consultation labeled with the patient's name is a specimen designated axillary sentinel lymph node, left. The specimen consists of an irregular fragment of yellow fatty tissue measuring 2.7 x 1.5 x 0.8 cm. Sections reveal a single nodule measuring 2.5 cm in greatest dimension. The nodule is bisected and totally submitted for frozen section consultation in one cassette. B - Received fresh for frozen section consultation labeled with the patient's name is a specimen designated additional left axillary sentinel lymph node x2. The specimen consists of two irregular fragments of yellow fatty tissue ranging in size from 1 to 2 cm. Each fragment is bisected and totally submitted in two blocks for frozen section consultation with each cassette containing one nodule. C - Received fresh for OR consultation labeled with the patient's name is a specimen designated left breast mass. The specimen consists of a wire-guided lumpectomy specimen measuring 5 x 4 x 2 cm and weighing 14 gm. The specimen is differentially inked as follows: anterior - yellow, posterior - black, superior - blue, inferior - green, medial - red and lateral - orange. Serial sections reveal a pink-madrid mass measuring 1 x 1 x 0.8 cm and located 0.2 cm from its closest (inferior) margin of excision. The proximity of the lesion to the margin is conveyed to the surgeon intraoperatively. The specimen is serially sectioned and totally submitted in 12 cassettes as follows: 1 & 2 - perpendicular margins, 3-6 ? mass, entirely submitted, 712 - remainder of the tissue. Note, specimen is submitted after additional fixation. D - Received in fixative is one container labeled with the patient's name and designated inferior deep margin. The specimen consists of an irregular fragment of madrid-yellow fibrofatty tissue measuring 3 x 2.5 x 0.8 cm. A short suture is present along one surface signifying the new (true) margin. This margin is inked in black ink. A long suture is present at one edge signifying the medial margin. This margin is inked in red ink. The opposite margin is inked in blue ink. The specimen is serially sectioned in a medial to lateral fashion and totally submitted in three cassettes. / AM:wiley 08/16/2021 TC:0 CPT: 61162 x3, 95587, 75255 x2, 48261, 41118
--- NOTE | 2021-08-15 08:34 | HP.PCM_ITS ---
History and Physical Date of Admission: 08/15/21 Date of Service: 07/26/21 MR#:[id number]:[id number]: René YANES #:[id number]:1950 Provider:Dr. Nichole Barrett MDAge/Sex: 71/F [place] [place] Intake Intake Visit Reasons: Discuss breat biopsy results Chief Complaint: BIRADS 4 Left Breast Allergies No Known Allergies Allergy (Verified 07/26/21 08:36) Medications rivaroxaban [Xarelto] 10 mg PO DAILY 04/09/18 [History Confirmed 07/26/21] lisinopril-hydrochlorothiazide 1 ea PO DAILY 09/28/19 [History Confirmed 07/26/21] [facility] Medical History (Updated 07/26/21 @ 09:[address] Nichole Barrett MD) Abnormal mammogram of left breast DVT (deep venous thrombosis) Hypertension Pulmonary embolism UTI (urinary tract infection) Surgical History History of cholecystectomy History of total knee replacement Family History Grandmother Breast cancer Daughter Breast cancer Mother Colon cancer Social History Smoking Status: Never smoker alcohol intake: never substance use type: does not use HPI HPI HPI: BREANNA YANES, is a 71 F who presents to the office today for discussion of left breast biopsy pathology. Patient's pathology did show invasive ductal car cinoma, grade 3/3, ER/MT positive, HER-2/jersey negative, maximal length 9.5 mm. Patient is very apprehensive about the diagnosis as well as treatment. Patient is accompanied by her daughter who did previously have triple negative breast cancer. Patient's mother also had breast cancer and had issues with radiation so she is concerned about possibly getting radiation if she wanted the lumpectomy. Exam Const General: cooperative, healthy appearing and comfortable Chest Other: Left breast biopsy incision healing well with Steri-Strips, ecchymosis resolving Assessment and Plan Assessment and Plan (1) Invasive ductal carcinoma of left breast: Status: Acute Plan - Dr. Nichole Barrett MD: I have given the patient and her daughter options for initial surgical treatment. Options are the following: lumpectomy followed by radiation therapy vs. mastectomy vs. mastectomy followed by immediate reconstruction. I have described the procedures to the patient. I have described the advantages and disadvantages of the options, but I have told the patient that among the options, the survival rate for breast cancer is the same. I have told the patient that with all the surgeries that a sentinel lymph node biopsy is required. I have described the procedure of sentinel lymph node biopsy to the patient. I have told the patient that if the biopsy is positive for metastatic disease, then a full axillary lymph node dissection is required. I have told the patient that adjuvant chemotherapy will be required should the lymph nodes reveal metastatic disease. Also, a full lymph node dissection will increase the risk for lymphedema, especially if there are 4 or more lymph nodes positive for metastatic disease and radiation to the axilla is also required. I have told the patient the risks of surgery, including but not limited to: infection, bleeding, scar tissue, seroma and persistent seroma, lymph leak, injury to any blood vessels, injury to any nerves (particularly the long thoraci c, the thoracodorsal, and the second intercostal brachial and the resultant sequelae), lymphedema, cosmetic deformity, dysesthesias, wound infections, further surgery (especially if margins are not clear), complications of anesthesia, etc. the patient understands. The patient will think about the options and discuss it further with the family. The patient patient will have a follow-up appointment with Dr. Rivera discuss possible radiation. Patient will call the office to let us know what surgery she is planning on. I have answered all the patient?s questions at this point to her satisfaction and she has no further questions. Greater than 50% of direct patient contact was spent in counseling or coordination of care. I spent 25 minutes counseling the patient on breast cancer treatment surgically/medical and coordinating care. Addendum: Patient did meet with Dr. Rivera and does plan to have a left lumpectomy with sentinel lymph node biopsy, possible axillary lymph node dissection Nichole Barrett M.D. Pager: [phone] [facility] [address] [place] [address], [address] [place] [address] Office: [phone] Coding Level of Care Code Off vis,est,level 4 Diagnoses Invasive ductal carcinoma of left breast C50.912 07/26/21 1220<Electronically signed by Nichole Barrett MD>Date Nichole Barrett MD
[2021-08-15] MEDS: Lactated Ringers 1,000 ML 100 ML IV (08:55)
--- NOTE | 2021-08-15 09:00 | NM_ITS ---
PROCEDURE: NUCLEAR MEDICINE Injection Jackson Node - LEFT breast(s). REASON FOR EXAM: Female, 71 years old. Left breast cancer. TECHNIQUE: Jackson node localization using radionuclide methods of the LEFT breast(s) was performed following subcutaneous administration of 1.1 mCi of of sulfur colloid Tc-99m. COMPARISON STUDIES : NM - None. CR - Not available for review at this time. CT - Not available for review at this time. MR - Not available for review at this time. US - Not available for review at this time. FINDINGS: 1.1 mCi of technetium labeled sulfur colloid was injected subcutaneously in 4 equal aliquots in the left periareolar region. NM/Lymph Node Injection Only IMPRESSION: Subcutaneous injection of 1.1 mCi of technetium labeled sulfur colloid for sentinel node imaging. Electronically Signed: Angel Johnson MD at 9:50 EST , Service support ,
[2021-08-15] MEDS: 0.9% Normal Saline (Pres. free 10 ML Vial (11:35)
[2021-08-15] MEDS: Isosulfan Blue 1% 5 ML Vial (11:35)
--- NOTE | 2021-08-15 13:01 | BI_ITS ---
SURGICAL BREAST SPECIMEN RADIOGRAPH CLINICAL: Document presence of tissue clip marker in biopsy specimen. FINDINGS: Specimen shows presence of tissue clip marker. Electronically Signed: Angel Johnson MD at 14:05 EST , Service support , BI/Breast Biopsy Specimen
--- NOTE | 2021-08-15 13:05 | PCM.OPRPT ---
Report of Operation Date of Procedure: 08/15/21 Pre-Operative Diagnosis: Left invasive ductal carcinoma Post-Operative Diagnosis: Same Surgery/Procedure Performed:: Left ultrasound-guided needle localization lumpectomy, sentinel lymph node biopsy Description of Surgical Findings:: 3 sentinel lymph nodes negative Surgeon: Nichole Barrett wet process miller head assistant: Yumiko Smith Type of Anesthesia: General/Supplemental Anesthesiologist: Merrick Leary Special Medications: Ancef 2 g IV x1 Specimen's removed: 1. Left sentinel lymph node, 2. Additional left sentinel lymph nodes, 3. Left lumpectomy, 4. New inferior/deep margin Estimated Blood Loss (mL): 15 cc Description of Procedure: In radiology the breast tissue was injected with TC-9 9 sulfur colloid. 90 minutes later the patient was taken to the operating room and general anesthesia was induced. 5 cc of Lymphazurin 1% blue dye was injected in the 4 quadrants periareolar along with 10 cc of normal saline. This was massaged gently for 5 minutes. The left breast and axilla were prepped and draped in usual sterile fashion. A timeout was completed verifying correct patient, procedure, site, positioning, special equipment prior to beginning procedure. Handheld gamma probe was used to identify the location of the hottest spot in the axilla. Prior to the incision, the counts were made for. The incision was made in the blue and hot node was identified. The probe was placed in contact with the node in the 10 count was 238. The bed of the node measured 19 counts. Additional hot node was taken 10 count was 898 residual blood count was 4. An additional node with blue lymphatics was also taken with no 10 count. No additional blue or hot nodes were detected. Ultrasound was used to place the Kopan's needle just inferior to the mass. A curvilinear incision was planned in such a way as to minimize the amount of dissection to reach the mass. Flaps were raised in the location of the wire confirmed. The wire was delivered into the wound. 2 silk erilkj-yr-iaxde stay suture was placed around the wire and used for traction. Dissection was then taken down circumferentially, taking care to include the entire localization needle and wide margin of grossly normal tissue. The specimen and entire localizing wire were removed. The specimen was oriented and sent to radiology with the localization studies. Additional deep/inferior margin was taken and oriented and sent to pathology. Confirmation was received that the entire target lesion had been resected. The wound was irrigated. Hemostasis was checked. The breast and axillary wounds were closed with interrupted sutures of 3-0 Vicryl and subcuticular sutures of 4-0 Monocryl. No attempt was made to close the space. A dressing of fluff gauze and supportive bra placed. The patient tolerated procedure well was taken to the postanesthesia care in stable condition. Complications none
--- NOTE | 2021-08-15 13:09 | EX.PCM.DISCH ---
Discharge Instructions Diet Discharge Diet: Light diet - advance as tolerated Activity Discharge Activity: May Not Drive (while taking narcotic pain medications.) May shower in (days): 1 Lifting Restrictions: no lifting >20 lbs x 1 wk Dressing / Incision Call your doctor if your incision/area has: Continuous Slow Oozing, Sudden Increased Bleeding, Increased Pain/ Swelling, Increased Redness, Foul Smelling Discharge and Swelling at the incision site Call your doctor if you observe: Fever of 101 or Higher Remove Dressing in: 2 days Cleanse incision/area with: Soap & Water Additional Dressing/Incision Instructions:: Steri-Strips will fall off in 7 to 10 days, if they do not fall off okay to remove after 10 days. Wear supportive bra at night for the first couple nights as well as during the day. Okay to remove breast dressing in 1 to 2 days. Axilla incision will have glue which will start coming off around 5 days. Follow Up Care Please Follow Up With: Nichole Barrett MD When: Call the office for a follow-up appointment 2 weeks; after 5 PM and on the weekends call [phone] with any concerns. Test Results: Test results from this visit will be discussed in further detail at your follow-up appointment, if applicable. Discharge Plan Admission Attending Provider: Nichole Barrett Primary Care Provider: Rober Cannon Discharge Orders/Prescriptions Prescriptions: New oxycodone-acetaminophen [Percocet] 5-325 mg tablet 1 tab PO Q6H PRN (Reason: pain) 3 Days Qty: 10 RF: 0 Continued phenazopyridine 95 mg Tablet 190 mg PO DAILY RF: 0 lisinopril 10 mg tablet 10 mg PO DAILY RF: 0 Held Xarelto 10 MG tablet 10 mg PO DAILY RF: 0 Hold Instructions: Resume on 08/17/21. Referrals / Follow Up: Rober Cannon MD [Primary Care Provider] - Disposition Disposition (needs filled in before D/C Order can be placed): Home, Self Care
[2021-08-15] MEDS: Bupivacaine Mpf 0.5% 30 ML VIAL (13:15)
== END 2021-08-15 23:59 | disposition home or self-care (01) ==
LOC: SDC 08:25 → AC 08:26
PROVIDERS: PCP Family Medicine; Referring Provider Surgery; Visit Provider Surgery
PROC: 0HBV0ZZ Excision of Bilateral Breast, Open Approach (ICD-10-PCS; CPT 19302; principal; 2021-08-15 10:45)
DX: C50.912 Malignant neoplasm of unspecified site of left female breast (principal); Z17.0 Estrogen receptor positive status [ER+]; N60.92 Unspecified benign mammary dysplasia of left breast; D24.2 Benign neoplasm of left breast; I10 Essential (primary) hypertension; Z79.01 Long term (current) use of anticoagulants; Z79.899 Other long term (current) drug therapy; Z86.711 Personal history of pulmonary embolism; Z86.718 Personal history of other venous thrombosis and embolism; Z80.3 Family history of malignant neoplasm of breast
CPT/HCPCS: 19301; 38525; 00404; 38792; 76098; 88305; 88307; 88331; 88332; 88341; 88342; A9541; J7120; J2405; J3490; Q9968

== ENCOUNTER 2021-08-29 10:26 | Outpatient (CLI) | payer MEDICARE, MEDICAID, SELFPAY ==
--- NOTE | 2021-08-29 10:30 | MRI_ITS ---
STUDY: BILATERAL BREAST MR WITHOUT AND WITH CONTRAST REASON FOR EXAM: Female, 71 years old. Status post lumpectomy for multifocal invasive ductal carcinoma and invasive lobular carcinoma. TECHNIQUE: Multi-sequence multi-echo imaging of both breasts was performed with a dedicated breast coil. T1-weighted and T2-weighted images were performed before the administration of contrast. T1-weighted images were also performed after the administration of 21 cc of Dotarem contrast without complications. COMPARISON: Screening mammograms dated 07/11/2021 and 03/01/2020 and left breast ultrasound dated 07/16/2021. FINDINGS: RIGHT BREAST: The breast tissue is fatty with minimal background enhancement. There are no abnormal enhancing masses or areas of non-mass enhancement in the right breast. LEFT BREAST: The breast tissue is fatty with minimal background enhancement. Large seroma cavity in the retroareolar region measuring approximately 6.6 cm x 3 cm x 2.7 cm. Postsurgical changes in the upper outer left breast. There are no enlarged or abnormal lymph nodes. There is no abnormality in the visualized regions of the chest or liver. MRI/Breast Bilateral W/O and W IMPRESSION: Postsurgical changes of lumpectomy. No suspicious enhancing masses. Six-month follow-up diagnostic left breast mammogram would be appropriate. CATEGORY: BIRADS Category 2: Benign. A letter regarding these results will be sent to the patient by the facility within 30 days. Electronically Signed: Lawrence Dalal MD at 9:14 EST , Service support ,
[2021-08-29 11:11] LABS: CREATININE FINGERSTICK 1.1 mg/dL (0.55-1.02)
== END 2021-08-29 23:59 | disposition short-term general hospital (02) ==
LOC: MRI 10:30
PROVIDERS: PCP Family Medicine; Referring Provider Surgery; Visit Provider Surgery
DX: C50.912 Malignant neoplasm of unspecified site of left female breast (principal)
CPT/HCPCS: 77049; A9575; A4216; C8908

== ENCOUNTER 2021-09-05 14:41 | Observation (INO) | payer MEDICARE, MEDICAID, SELFPAY ==
[2021-09-03 11:12] LABS: Hematocrit 41.3 % (37-47); Hemoglobin 13.5 g/dL (12.0-15.0); Mean Corp Hgb Conc 32.7 g/dL (32-36); Mean Corpuscular Hgb 31.7 pg (27.0-32.0); Mean Corpuscular Volume 96.9 fL (81-99); Mean Platelet Vol. 10.3 fl (6.2-12.0); Platelet Count 302 K/mm3 (150-450); RBC Distribution Width CV 13.2 % (11.6-14.6); RBC Distribution Width SD 47.1 fl (35.1-43.9); Red Blood Count 4.26 M/mm3 (4.2-5.4)
[2021-09-03 11:21] LABS: International Normalized Ratio 1.1; Prothrombin Time (Protime)PT. 13.2 SECONDS (11.7-14.9)
[2021-09-03 11:22] LABS: Partial Thromboplast Time 33.6 Seconds (24.1-36.2)
[2021-09-03 11:55] LABS: AST(SGOT) 14 U/L (15-37); Alanine Aminotransfer ALT/SGPT 20 U/L (13-56); Albumin, Serum 3.3 g/dL (3.2-5.0); Alkaline Phosphatase 131 U/L (45-117); Anion Gap 4 (5-15); BUN 26 mg/dL (7-18); BUN/Creat Ratio 19.7 RATIO (10-20); Bilirubin, Direct 0.15 mg/dL (0.00-0.30); Calcium,Total 9.4 mg/dL (8.5-10.1); Chloride 111 mmol/L (98-107); Creatinine, Serum 1.32 mg/dL (0.55-1.02); EST Glomerular Filtration Rate 42 mL/min (>60); Est Glom Filt Rate - Afr Amer 51 mL/min (>60); Globulin 4.7 g/dL (2.2-4.2); Glucose 93 mg/dL (74-106); Potassium 4.5 mmol/L (3.5-5.1); Sodium Level 141 mmol/L (136-145)
--- NOTE | 2021-09-04 09:05 | EKG12_ITS ---
Test Reason : PRE OP Blood Pressure : / mmHG Vent. Rate : 063 BPM Atrial Rate : 063 BPM P-R Int : 136 ms QRS Dur : 072 ms QT Int : 404 ms P-R-T Axes : -08 005 057 degrees QTc Int : 413 ms Normal sinus rhythm Normal ECG Confirmed by BALWINDER LIMA, PARTH ([id number]), graphics editor YAMILETH HARMON ([id number]) on 09/04/2021 9:09:26 AM Referred By: Nichole Barrett Confirmed By:PARTH BRITT MD
[2021-09-05] VITALS (10 sets, daily range): BP systolic 102–157; BP diastolic 49–80; PULSE 65–92; RESP 15–18; TEMP 36.6–37.4; O2SAT 91–99; BMI 45.3; BMI 46.3
--- NOTE | 2021-09-05 | IMM_PTH ---
PATIENT: BREANNA YANES LOC: MS3 U#:[id number] AGE/SX: 71/F ROOM: NC311 RE09/05/[address]: Dr. Nichole Barrett MD : 1950 BED: 1 DIS: 09/06/2021 SPEC #: [id number] RECD: 09/11/21 12:20 STATUS: HAYDEE REQ #: [id number] MARIAM: 09/05/21 00:[address]: Nichole Barrett DEPT: IMMUNOHISTOCHEMISTRY RECD BY: Norma Hernadez ENTERED: 09/11/21 12:22 SP TYPE: IMMUNO OTHR DR: MD Dr. Kang Owens MD Tissues: A - Axillary lymph node, NOS B - Left breast, NOS Procedures: CK8 (initial) CALPONIN-1 (add) CK8 (add) E-CAD (add) Pankeratin (add) P40 (add) CK7 (initial) PHYSICIAN & [address] [address] SPECIMEN INFORMATION: Tissue Source: A ? Left axillary lymph node, B ? Left breast Clinical Info: Left breast cancer Specimen Number: [id number] A, B5-8, B11 CPT code: 56773 x2, 87370 x13 METHODOLOGY: Deparaffinized sections of prefer/formalin-fixed tissue or PAP/DQ stained slides are incubated with monoclonal/polyclonal antibodies/oligonucleotide probes. Localization is made via biotin free immunoperoxidase method. Appropriate controls are performed and reacted as expected. Results on target cell population are indicated in the following table: RESULTS: ANTIBODY / CLONE RESULT Block A CK7 (OV-TL12/30) negative AE1-3 (AE1/AE3/PCK26) negative Block B5 CK8 (55wuevA98) positive P40 (BC28) positive Calponin-1 (XI535M) positive Block B6 CK8 (94fqsrO97) positive P40 (BC28) positive Calponin-1 (SU217K) positive Block B7 CK8 (57cnjfZ60) positive P40 (BC28) negative Calponin-1 (LO118A) negative Block B8 CK8 (95uinmK23) positive P40 (BC28) positive Calponin-1 (PC583E) positive Block B11 E-Cad (ECH-6) positive These tests were developed and their performance characteristics determined by [facility]. They may not have been cleared or approved by the U.S. Food and Drug Administration. The FDA has determined that such clearance or approval is not necessary. The above immunohistochemical/dualISH markers are ordered and reviewed by the Pathologist. INTERPRETATION: A. Left axillary lymph node, biopsy: One out of one lymph node negative for carcinoma. B. Left breast, mastectomy: Minute focus of invasive ductal carcinoma (1 mm in diameter). AM:wiley 09/12/2021
--- NOTE | 2021-09-05 | AXNB_PTH ---
PATIENT: BREANNA YANES LOC: MS3 U#:[id number] AGE/SX: 71/F ROOM: [facility] RE09/05/[address]: Dr. Nichole Barrett MD : 1950 BED: 1 DIS: 09/06/2021 SPEC #: [id number] RECD: 09/05/21 15:30 STATUS: HAYDEE REQ #: [id number] MARIAM: 09/05/21 00:[address]: Nichole Barrett DEPT: SURGICAL PATHOLOGY RECD BY: Norma Hernadez ENTERED: 09/06/21 07:46 SP TYPE: AX NODE BX OTHR DR: MD Dr. Kang Owens MD Tissues: A - Axillary lymph node, NOS B - Left breast, NOS Procedures: Frozen Section (charge) Surgery Specimen Level IV Surgery Specimen Level V HEADER OPERATION: Mastectomy PRE-OP DIAGNOSIS: Left breast cancer TISSUE SUBMITTED: A - Left axillary lymph node, FS, B - Left breast, long stitch - lateral, short stitch - superior FROZEN SECTION DIAGNOSIS A. Left axillary lymph node, biopsy: Hemorrhagic node, negative for metastatic carcinoma. SJ:wiley 09/06/2021 MICROSCOPIC DIAGNOSIS A. Left axillary sentinel lymph node, biopsy: One out of one lymph node negative for carcinoma. B. Left breast, mastectomy: Invasive ductal carcinoma. See cancer checklist. AM:wiley 09/12/2021 COMMENT BREAST CANCER SUMMARY Procedure: Mastectomy Specimen Type: Total breast Size: 23 x 17 x 4 cm Laterality: Left breast Invasive Tumor: Tumor site: adjacent to biopsy cavity Size: 1 millimeter in diameter Histologic type: Invasive ductal carcinoma. Focality: Single focus of invasive carcinoma. Histologic grade ([place] grade): Glandular/tubular differentiation score: 1 Nuclear pleomorphism score: 2 Mitotic count score: 1 Overall grade: 1 (score of 4) Ductal Carcinoma In Situ: Not present Lobular Carcinoma In Situ: Not present Tumor extension: Skin: Free of carcinoma Nipple: Free of carcinoma Skeletal muscle: Not applicable (not present) Margins: Distance of invasive carcinoma from closest margin: 2.5 cm from posterior margin Lymph Nodes: Number of sentinel lymph nodes examined: 1 Total number of lymph nodes examined: 1 No evidence of macrometastases, micrometastases or isolated tumor cells Treatment Effect: Unknown Lymphvascular invasion: Not identified Calcifications: Present in non-neoplastic tissue Additional Pathologic Findings: Intraductal hyperplasia with focal atypical intraductal and lobular hyperplasia, intraductal papilloma, fibrocystic change, adenosis and Basal microcalcifications. Changes of previous biopsy/lumpectomy. Ancillary Studies: Previously performed on same tumor ([id number]) ER: positive (95%, strong) NH: positive (90%, weak to moderate) Fbj9ool: negative (0) Clinical History: Mass of breast. PATHOLOGIC STAGE: pTic N0(sn) Mx The above summary is in compliance with [employer] [place] [employer] (CAP) Cancer Protocol Checklist and [place] Joint Committee on Cancer (AJCC) Staging Manual, 8th Ed. Reference is made to the patient's previous left breast lumpectomy (S2) in which invasive ductal carcinoma, grade 3 was identified. Clinical correlation is suggested. A & B. Immunohistochemistry ([id number]) supports the above diagnosis. MICROSCOPIC DESCRIPTION Slides are reviewed. GROSS DESCRIPTION A - Received fresh for frozen section diagnosis labeled with the patient's name is a specimen designated left axillary lymph node. The specimen consists of a piece of adipose tissue containing a nodule measuring 2 x 1.5 x 0.7 cm. The specimen is bisected and reveals hemorrhagic cut surfaces. The entire specimen is submitted for frozen section diagnosis in one cassette. 09/06/2021 B - Received in fixative is one container labeled with the patient's name and designated left breast. The specimen consists of a mastectomy specimen consisting of breast tissue with overlying skin ellipse. The breast tissue measures 23 x 17 x 4 cm. The overlying skin piece measures 23 x 17 cm. The nipple measures 1.4 cm in greatest dimension. The specimen is oriented as follows: long suture ? lateral, short suture ? superior. The specimen is inked as follows: posterior - black, superior - blue, inferior - green, medial - red and lateral - orange. No skin lesion is identified. Serial sections reveal a biopsy cavity filled with serosanguinous fluid measuring 4 x 4 x 1.5 cm. The biopsy cavity is 2.5 cm away from the closest posterior margin. Sections of the rest of the specimen reveal madrid-yellow adipose cut surfaces without any mass lesion. Dynamics Ax Developer sections are submitted as follows: 1 ? nipple, entirely submitted. More sections will be submitted after additional fixation. / SJ:wiley 09/06/2021 2 & 3 ? perpendicular margin and skin, 4-9 ? biopsy cavity with adjacent tissue, 10-14 ? life assurance representative sections from the other uninvolved areas. Sections will be submitted after additional fixation. / SJ:wiley 09/09/2021 TC:0 CPT: 23515, 78997 x2
[2021-09-05] MEDS: Lactated Ringers 1,000 ML 15 ML IV (12:46)
--- NOTE | 2021-09-05 13:45 | HP.PCM.SX_ITS ---
HPI - General HPI Narrative BREANNA YANES, is a 71 F who presents for completion mastectomy. Patient did have a lumpectomy on the left she had multi foci of invasive ductal as well as invasive lobular which was at the margin. Patient did need to have the anterior margin reresected however patient has been thinking more about radiation and does not want any radiation just we we will plan to proceed with mastectomy of the left. At the time of surgery both sentinel nodes were negative [facility] Medical History (Updated 09/02/21 @ 14:53 by Violetta Hester) Abnormal mammogram of left breast Arthritis DVT (deep venous thrombosis) Easy bruising Excessive bleeding Hypertension Non-smoker PONV (postoperative nausea and vomiting) Post-menopausal Pulmonary embolism Shortness of breath on exertion UTI (urinary tract infection) Home Medications Xarelto 10 mg PO DAILY 04/09/18 [History Last Taken 09/01/21] lisinopril 10 mg PO DAILY 08/12/21 [History Last Taken Unknown] kkppxfqroei-txzhxt-hvzg gins [Azo Confidence] 2 tab PO DAILY 09/02/21 [History Last Taken Unknown] Allergy/AdvReac Type Severity Reaction Status Date / Time No Known Allergies Allergy Verified 09/05/21 12:37 Family History Grandmother Breast cancer Daughter Breast cancer Mother Colon cancer Surgical History (Updated 09/02/21 @ 14:53 by Violetta Hester) History of cholecystectomy History of lumpectomy of left breast History of total knee replacement Hx of abdominoplasty Social History Smoking Status: Never smoker alcohol intake: never substance use type: does not use Vital Signs Vital Signs Vital Signs: 09/05/21 12:39 Temperature 98.9 F Temperature Source Temporal Pulse Rate 65 Respiratory Rate 16 Respiratory Pattern Normal Blood Pressure 103/49 L Blood Pressure Mean 67 Blood Pressure Source Monitor Blood Pressure Position Semi-Fowlers Blood Pressure Location Right Arm Pulse Ox 99 Oxygen Delivery Method Room Air Weight Weight: 240 lb 4.862 oz Body Mass Index (BMI) 45.3 Physical Exam Const oriented x3 and no apparent distress Chest Chest Narrative: Left breast incision healing well, left axillary incision also healing well. Resp normal respiratory effort Cardio regular rate GI soft to palpation and non-tender Skin Skin Narrative: Incisions healing well in the left breast/left axilla Neuro oriented x3 and CN's II-XII intact bilaterally Psych Mood & Affect: anxious Results Lab / Micro Data Result Diagrams: 09/03/21 10:15 09/03/21 10:15 Assessment & Plan Assessment/Plan (1) Invasive ductal carcinoma of left breast: (2) Invasive lobular carcinoma of left breast in female: PLAN: Patient has elected to do a completion mastectomy on the left-- as she does not want radiation therapy. I have told the patient the risks of surgery, including but not limited to: infection, bleeding, scar tissue, seroma and persistent seroma, lymph leak, injury to any blood vessels, injury to any nerves (particularly the long thoracic, the thoracodorsal, and the second intercostal brachial and the resultant sequelae), lymphedema, cosmetic deformity, dysesthesias, wound infections, further surgery (especially if margins are not clear), complications of anesthesia, etc. the patient understands. I have answered all the patient?s questions at this point to her satisfaction and she has no further questions. Nichole Barrett M.D. Pager: [phone] [facility] [address] [place] [address] [place] [address] Office: [phone] Procedure Criteria Type of Procedure Procedure Type: Elective Elective Risks - COVID COVID Risk Discussion: The surgeon/proceduralist and patient have discussed in detail the risk of exposure to and/or potential harm posed by the COVID-19 virus with having a surgery/procedure at this time versus the risk of delaying the surgery/procedure. It is not possible to know either the risk of delaying the surgery or procedure or chance of getting an infection with perfect accuracy, but a joint decision was made between the patient and the surgeon/proceduralist to proceed at this time with the scheduled surgery/procedure as indicated on the consent form.
[2021-09-05] MEDS: Cefazolin 2 GM in 0.9% Normal Saline 100 ML IV (14:58)
--- NOTE | 2021-09-05 16:15 | OP.PCM_ITS ---
Report of Operation Date of Procedure: 09/05/21 Pre-Operative Diagnosis: Left invasive ductal carcinoma, left invasive lobular carcinoma Post-Operative Diagnosis: Same Surgery/Procedure Performed:: Left mastectomy Description of Surgical Findings:: Frozen blue left axillary nodule?negative Surgeon: Nichole Barrett Type of Anesthesia: General/Supplemental Anesthesiologist: Henry Sloan Special Medications: Ancef 2 g IV x1 Specimen's removed: 1. Left axillary nodule, 2. Left mastectomy Drains: 15 Japanese LUCILLE drains x2 Estimated Blood Loss (mL): 60 cc Fluids Replaced: 1500 cc Description of Procedure: Indications: 71-year-old female previously underwent left lumpectomy and sentinel lymph node biopsy. 2 out of 2 nodes were negative however she did have a positive anterior margin with invasive lobular carcinoma and multi foci of invasive ductal in the specimen. Patient decided that she does not want to get radiation thus proceeding with a left mastectomy. Description of procedure: The patient was taken to the operating room and and a timeout was completed verifying correct patient, procedure, site, positioning, especially prior to beginning procedure. General anesthesia was induced. The left breast and axilla were prepped and draped in usual sterile fashion. Skin incision was made that encompassed the nipple areolar complex and the previous biopsy scar in past and generally oblique direction across the breast. Flaps are raised in the avascular plane between the prescription he continues tissues in the breast tissue from the clavicle superiorly, the sternum medially, the anterior rectus sheath inferiorly, and posterolateral border of the pectoralis major muscle laterally. Hemostasis was achieved in the flaps. Next, the breast tissue and underlying pectoralis fascia were excised from the pectoralis major muscle, progressing from medial to laterally. At the lateral border of the pectoralis major muscle, the breast tissue was swung laterally and the lateral pedicle identified with the breast tissue gave way to the fat of the axilla. There was an blue nodule in the axilla which was removed and sent for frozen. Frozen came back benign. The lateral pedicle was incised and the specimen removed and oriented for pathology. The wound was irrigated and hemostasis was achieved. Closed suction drains were brought into the operating field through a separate stab incision and sutured to skin with 3-0 nylon suture. The wound was closed with interrupted 3-0 Vicryl to the simultaneously followed by a subcuticular layer of 4-0 Monocryl and Steri-Strips. The wound was dressed with Telfa/4 x 4 fluffs/ABD pads/Jez wrap The patient tolerated procedure well and sent to postanesthesia care unit in stable condition. Complications none
[2021-09-05] MEDS: Bupivacaine 0.5% PF 10 ML VIAL (16:30)
[2021-09-05] MEDS: Ketorolac 15 MG/ML Vial IV (17:35)
--- NOTE | 2021-09-05 18:46 | PCS.PANDOC ---
PANDEMIC DOCUMENTATION INITIATED: Date: 03/25/2021 Time: 190
[2021-09-05] MEDS: Lactated Ringers 1,000 ML 100 ML IV (19:50)
[2021-09-05] MEDS: oxyCODONE 5 MG Tablet PO ×2 (19:50→23:53)
[2021-09-05] MEDS: Acetaminophen 325 MG Tablet 650 MG PO (19:50)
[2021-09-06 04:25] VITALS: BP 112/46; PULSE 64; RESP 18; TEMP 36.6; O2SAT 96
[2021-09-06] MEDS: oxyCODONE 5 MG Tablet PO ×4 (04:38→15:28)
[2021-09-06] MEDS: Acetaminophen 325 MG Tablet 650 MG PO ×2 (04:38→15:28)
[2021-09-06] MEDS: Lactated Ringers 1,000 ML 100 ML IV (04:39)
[2021-09-06 06:21] LABS: Absolute Lymphocyte Count 0.64 X10^3/uL (0.83-4.51); Absolute Neutrophil Count 12.9 X10^3/uL (2.0-7.7); Basophil# 0.01 X10^3/uL; Basophil% 0.1 % (0-1); Hematocrit 34.1 % (37-47); Hemoglobin 11.4 g/dL (12.0-15.0); Lymphocyte # 0.64 X10^3/ul (0.83-4.51); Lymphocyte % 4.5 % (19-41); Mean Corp Hgb Conc 33.4 g/dL (32-36); Mean Corpuscular Volume 95.8 fL (81-99); Mean Platelet Vol. 10.3 fl (6.2-12.0); Monocyte# 0.52 X10^3/uL; Monocyte% 3.7 % (0-10); NRBC Flagged by Analyzer 0 % (0-5); Neutrophil % 91.3 % (47-70); Platelet Count 254 K/mm3 (150-450); RBC Distribution Width CV 13.1 % (11.6-14.6); RBC Distribution Width SD 46.1 fl (35.1-43.9); Red Blood Count 3.56 M/mm3 (4.2-5.4); White Blood Count 14.1 K/mm3 (4.4-11.0)
--- NOTE | 2021-09-06 08:05 | PCM.PN.SRG ---
Subjective Subjective Patient's pain is controlled with pain meds. LUCILLE sanguinous only a small amount of output. Objective Data Objective Data Vital Signs: Vital Signs Temp Pulse Resp BP Pulse Ox 97.8 F 64 18 112/46 L 96 09/06/21 04:25 09/06/21 04:25 09/06/21 04:25 09/06/21 04:25 09/06/21 04:25 Oxygen Flow Rate (L/min) 2 Oxygen Delivery Method Room Air Weight: 245 lb 1.6 oz Body Mass Index (BMI) 46.3 Intake & Output: Intake and Output for Last 24 Hours 09/04/21 09/05/21 09/06/21 23:59 23:59 23:59 Intake Total 218.5 / 818.5 1681.67 / 1681.67 Output Total 30 / 480 475 / 475 Balance 188.5 / 338.5 1206.67 / 1206.67 Lab / Micro Data Result Diagrams: 09/06/21 05:50 09/03/21 10:15 Labs: Laboratory Results - last 24 hr 09/06/21 05:50: WBC 14.1 H, RBC 3.56 L, Hgb 11.4 L, Hct 34.1 L, MCV 95.8, MCH 32.0, MCHC 33.4, RDW Std Deviation 46.1 H, RDW Coeff of Zachary 13.1, Plt Count 254, MPV 10.3, Immature Gran % (Auto) 0.400, Neut % (Auto) 91.3 H, Lymph % (Auto) 4.5 L, [place] % (Auto) 3.7, Eos % (Auto) 0.0, Baso % (Auto) 0.1, Absolute Neuts (auto) 12.9 H, Absolute Lymphs (auto) 0.64 L, Nucleated RBC % 0 Physical Exam Narrative Left mastectomy incision dressed, clean dry and intact, healing well with Steri's. Jez wrap in place Const oriented x3 and no apparent distress Resp normal respiratory effort Cardio regular rate Assessment & Plan Assessment/Plan (1) S/P left mastectomy: (2) Invasive ductal carcinoma of left breast: (3) Invasive lobular carcinoma of left breast in female: PLAN: Patient is doing well. Tolerating diet. Continue JPs as well as Jez wrap on DC. Continue pain control Follow-up Thursday or Thursday in the office for one of the LUCILLE removals. Nichole Barrett M.D. Pager: [phone] [facility] [address] [place] [address] [address] [id number] Office: [phone]
--- NOTE | 2021-09-06 08:07 | EX.PCM.DISCH ---
Discharge Instructions Procedure Breast Surgery Diet Discharge Diet: No restrictions Activity Discharge Activity: May Not Drive (while taking narcotic pain meds.) May shower in (days): 1 Lifting Restrictions: 10 pounds for 2 weeks on the right Dressing / Incision Call your doctor if your incision/area has: Continuous Slow Oozing, Sudden Increased Bleeding, Increased Pain/ Swelling and Increased Redness Call your doctor if you observe: Fever of 101 or Higher Suture Line Care: Avoid Pulling/Pushing Remove Dressing in: 1 day (bulky dressing--change and replace ABD pads/ JEZ Wrap) Additional Dressing/Incision Instructions:: Remove bulky dressing tomorrow. ok to remove JEZ Wrap for redressing but replace JEZ wrap after. Okay to use a small towel placed over the incision to help create compression as well as comfort with the Jez wrap. Follow Up Care Please Follow Up With: Nichole Barrett MD When: Please call [phone] for an appointment to be seen Thursday or Thursday for one of the LUCILLE/drain removal Test Results: Test results from this visit will be discussed in further detail at your follow-up appointment, if applicable. Discharge Plan Admission Admit Date/Time: 09/05/21 14:41 Attending Provider: Nichole Barrett Primary Care Provider: Rober Cannon Consulting Providers: Felix Gutierres Instructions Additional Instructions / Restrictions: Okay to take ibuprofen 400-600 mg PO q6hr PRN along with the Percocet. Avoid Tylenol since there is already Tylenol in the Percocet. Take all pain meds with food. Percocet can cause constipation recommend taking daily or twice daily stool softener (i.e. Colace/docusate) while taking the pain meds. Recommend starting some MiraLAX later today (or tomorrow patient did get Dulcolax this morning) if no bowel movement. If still no bowel movement in 1 to 2 days recommend taking magnesium citrate half the bottle and waiting 4-6 hours if still no results take the other half the bottle. Discharge Orders/Prescriptions Prescriptions: New oxycodone-acetaminophen 5-325 mg tablet 1 tab PO Q6H PRN (Reason: pain) 3 Days Qty: 15 RF: 0 Continued lisinopril 10 mg tablet 10 mg PO DAILY RF: 0 raqnrmkmime-gswrzf-pcjp gins Tablet 2 tab PO DAILY RF: 0 Held Xarelto 10 MG tablet 10 mg PO DAILY RF: 0 Hold Instructions: until LUCILLE both removed Referrals / Follow Up: Rober Cannon MD [Primary Care Provider] - Disposition Disposition (needs filled in before D/C Order can be placed): Home, Self Care
[2021-09-06 08:25] VITALS: BP 102/49; PULSE 70; RESP 16; TEMP 36.4; O2SAT 97
[2021-09-06] MEDS: FLUCONAZOLE 150 MG TABLET PO (09:47)
[2021-09-06] MEDS: Docusate Sodium 100 MG Capsule PO (09:51)
--- NOTE | 2021-09-06 10:30 | CASEMGMT ---
RN CM in to pt room, pt up at window closing blinds. Pt states she feels comfortable with LUCILLE drains and going home. Denies any dc needs.
[2021-09-06] MEDS: Bisacodyl 5 MG Tablet PO (11:24)
[2021-09-06 15:24] VITALS: BP 115/63; PULSE 90; RESP 16; TEMP 36.5; O2SAT 96
== END 2021-09-06 18:58 | disposition home or self-care (01) ==
LOC: SDC 16:26 → MS3 16:26
PROVIDERS: Anesthesiology; Admitting Provider Surgery; PCP Family Medicine; Referring Provider Surgery; Visit Provider Surgery
PROC: (CPT 19307; principal; 2021-09-05 13:05)
DX: C50.912 Malignant neoplasm of unspecified site of left female breast (principal); Z79.01 Long term (current) use of anticoagulants; I10 Essential (primary) hypertension; Z86.718 Personal history of other venous thrombosis and embolism; M19.90 Unspecified osteoarthritis, unspecified site; Z86.711 Personal history of pulmonary embolism; Z79.899 Other long term (current) drug therapy
CPT/HCPCS: 19303; 38525; 38900; 36415; 80048; 80076; 85025; 85027; 85610; 85730; 88305; 88307; 88331; 88341; 88342; 93005; 96360; 96361; 99218; J7120; G0378; J2405

== ENCOUNTER 2021-10-02 09:02 | Day surgery (SDC) | payer MEDICARE, SELFPAY ==
--- NOTE | 2021-10-02 | COLBX_PTH ---
PATIENT: BREANNA YANES LOC: EN U#:[id number] AGE/SX: 71/F ROOM: RE10/02/[address]: Dr. Nichole Barrett MD : 1950 BED: DIS: 10/02/2021 SPEC #: [id number] RECD: 10/02/21 16:45 STATUS: HAYDEE MICHELLE #: [id number] MARIAM: 10/02/21 00:[address]: Nichole Barrett DEPT: SURGICAL PATHOLOGY RECD BY: Tony De La Paz ENTERED: 10/03/21 08:39 SP TYPE: COLON BX OT DR: Dr. Kang Cannon MD Tissues: A - Ascending colon B - Rectum, NOS Procedures: Surgery Specimen Level IV HEADER OPERATION: Colonoscopy (MAC) biopsy PRE-OP DIAGNOSIS: Status post left mastectomy, breast cancer TISSUE SUBMITTED: A ? Ascending colon biopsy, B ? Rectal biopsy MICROSCOPIC DIAGNOSIS A. Ascending colon polyp, biopsy: Polypoid fragment of benign colonic mucosa. See comment. B. Rectum, biopsy: Tubular adenoma. AM:wiley 10/04/2021 COMMENT A. Neither hyperplastic nor adenomatous change is identified. Clinical correlation is suggested. MICROSCOPIC DESCRIPTION Slides are reviewed. GROSS DESCRIPTION A - Received in fixative is one container labeled with the patient's name and designated ascending colon biopsy. The specimen consists of one irregular fragment of light madrid soft tissue that measures 0.5 x 0.3 x 0.1 cm. The specimen is totally submitted in one cassette. B - Received in fixative is one container labeled with the patient's name and designated rectal biopsy. The specimen consists of one irregular fragment of light madrid soft tissue that measures 0.3 x 0.3 x 0.1 cm. The specimen is totally submitted in one cassette. / AM:wiley 10/03/2021 TC:5 CPT: 38144 x2
--- NOTE | 2021-10-02 09:23 | HP.PCM_ITS ---
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 Nichole Barrett MD) Arthritis Cancer of left female breast Degenerative joint disease DVT (deep venous thrombosis) Easy bruising Encounter for education ER+ (estrogen receptor positive status) Excessive bleeding Family history of colon cancer in mother Hypertension Hypertension Non-smoker Osteopenia after menopause Post-menopausal Pulmonary embolism Shortness of breath on exertion UTI (urinary tract infection) Surgical History History of cholecystectomy History of left mastectomy (~08/2021) History of lumpectomy of left breast History of total knee replacement Hx of abdominoplasty Family History Grandmother Breast cancer Daughter Breast cancer Mother Colon cancer Social History Smoking Status: Never smoker alcohol intake: never substance use type: does not use HPI HPI HPI: BREANNA YANES, is a 71 F who presents to the office today for follow-up status post completion left mastectomy after initial lumpectomy and sentinel lymph node biopsy. Patient is doing well incision healing well. Patient has been wearing her Jez wrap. Patient is due to start endocrine therapy. Patient states that her mom had colon cancer in her early to mid 60s and she her last colonoscopy was 3 years ago but she did have polyps at that time and is due for another colonoscopy. Patient states she has bowel movements every day or every other day. Denies any blood in her stool. Denies any chronic abdominal pain. ROS General General: No weight change, appetite, fatigue, colon cancer or breast cancer HEENT HEENT: No difficulty swallowing, eye injury, eye surgery, swollen glands or ho arseness Endo Endocrine: No thyroid disease, diabetes mellitus, thyroid cancer, Hair loss, heat intolerance or cold intolerance Skin Skin: No rash or changing moles Musc Musculoskeletal: No back problems, arthritis, rheumatoid arthritis, gout or joint pain Cardio Cardiovascular: Yes high blood pressure; No murmur, pacemaker, heart disease, atrial fibrillation, heart attack, heart stent, palpitations, shortness of breat with exertion or chest pain Psych Psychiatric: No depression, anxiety or hearing voices Resp Respiratory: No shortness of breath, No sleep apnea, No cough, No COPD, No asthma, No emphysema and No wheezing Gastro Gastrointestinal: No abdominal pain, No nausea or vomiting, No diarrhea, No constipation, No blood in stool, No acid reflux, No hemorrhoids, No ulcers, No gallbladder problem and No black,tarry stools Terence Hematologic: Yes blood thinners, No blood disorders, No bleeding, No anemia and Yes blood clots Neuro Neurologic: No confusion Exam Const General: cooperative, healthy appearing, comfortable and no acute distress Neck Neck: normal visual inspection Chest Other: Left mastectomy incision healing well. Previous LUCILLE sites also healing well Resp Effort & Inspection: normal respiratory effort Cardio Rate: regular rate GI Inspection: non-distended Palpation: soft, no guarding and nontender Skin General: no rashes or lesions noted Neuro General: patient oriented x3 Psych Affect: normal affect COVID (Procedure Consent) Procedure Criteria Procedure Criteria: Yes Elective The surgeon/proceduralist and patient have discussed in detail the risk of exposure to and/or potential harm posed by the COVID-19 virus with having a surgery/procedure at this time versus the risk of delaying the surgery/procedure. It is not possible to know either the risk of delaying the surgery or procedure or chance of getting an infection with perfect accuracy, but a joint decision was made between the patient and the surgeon/proceduralist to proceed at this time with the scheduled surgery/procedure as indicated on the consent form. Assessment and Plan Assessment and Plan (1) S/P left mastectomy: Status: Chronic Plan - Dr. Nichole Barrett MD: Patient mastectomy incisions healing well. Continue to follow-up with oncology. We will plan to see the patient again in approximately 6 months from surgery. Did give her a brochure for prosthesis/bras from [employer] in [place], do not need to wear the Jez wrap for compression anymore. (2) Cancer of left female breast : Status: Acute Qualifiers: Breast location: overlapping sites of breast Estrogen receptor status: positive Qualified Code(s): C50.812 - Malignant neoplasm of overlapping sites of left female breast; Z17.0 - Estrogen receptor positive status [ER+] (3) Family history of colon cancer in mother: Status: Acute Plan - Dr. Nichole Barrett MD: Patient will need to hold her Xarelto x 3 days I have discussed the above with the patient. I have offered the patient colonoscopy for evaluation. I have explained the risks/benefits of the procedure and described the procedure. I have discussed the risks with the patient, including but not limited to: infection, bleeding, perforation of the GI tract requiring emergency surgery, inability to complete the procedure, injury to any internal organs, complications of anesthesia, etc. - the patient understands and agrees to proceed. I have answered all the patient's questions to the patient's satisfaction and the patient has no further questions. The patient has been given instructions for the colon cleansing preparation. Dulcolax/magnesium citrate prep x 2 days Nichole Barrett M.D. Pager: [phone] [facility] [address] [place] [address], [address] [place] [address] Office: [phone] Coding Level of Care Code Global Post Op Diagnoses S/P left mastectomy Z90.12 Cancer of left female breast C50.812; Z17.0 Breast location: overlapping sites of breast Estrogen receptor status: positive Family history of colon cancer in mother Z80.0 09/25/21 0917<Electronically signed by Nichole Barrett MD>Date Nichole Barrett MD
[2021-10-02 09:28] VITALS: BP 130/50; PULSE 76; RESP 16; TEMP 36.4; O2SAT 98; BMI 44.1
[2021-10-02] MEDS: Lactated Ringers 1,000 ML 15 ML IV (09:36)
[2021-10-02 10:30] VITALS: BP 130/50; BP 93/52; PULSE 70; RESP 16; TEMP 36.8; O2SAT 99
--- NOTE | 2021-10-02 10:30 | OP.COLON_ITS ---
Patient Name: Leyla Webster Procedure Date: 10/02/2021 9:50 AM Date of : 1950 Age: 71 Procedure: Colonoscopy Indications: High risk colon cancer surveillance: Personal history of colonic polyps, Family history of colon cancer in a first-degree relative Providers: Nichole Barrett MD Referring MD: Rober Cannon Medicines: Monitored Anesthesia Care Patient Profile: This is a 71 year old female. Last Colonoscopy: 3 years ago. Complications: No immediate complications. Procedure: Pre-Anesthesia Assessment: - Prior to the procedure, a History and Physical was performed, and patient medications and allergies were reviewed. The patient's tolerance of previous anesthesia was also reviewed. The risks and benefits of the procedure and the sedation options and risks were discussed with the patient. All questions were answered, and informed consent was obtained. Prior Anticoagulants: The patient has taken Xarelto (rivaroxaban), last dose was 3 days prior to procedure. ASA Grade Assessment: Per anesthesia. After reviewing the risks and benefits, the patient was deemed in satisfactory condition to undergo the procedure. After I obtained informed consent, the scope was passed under direct vision. Throughout the procedure, the patient's blood pressure, pulse, and oxygen saturations were monitored continuously. The colonoscope was introduced through the anus and advanced to the cecum, identified by the appendiceal orifice, ileocecal valve and palpation. The colonoscopy was performed without difficulty. The patient tolerated the procedure well. The quality of the bowel preparation was good. Scope In: 10:06:05 AM Scope Withdrawal Time 0 hours 10 minutes 12 seconds Scope Out: 10:24:13 AM Total Procedure Duration Time 0 hours 18 minutes 8 seconds Findings: Hemorrhoids were found on perianal exam. Non-bleeding internal hemorrhoids were found. The hemorrhoids were Grade I (internal hemorrhoids that do not prolapse). Multiple small-mouthed diverticula were found in the entire colon. Two sessile polyps were found in the rectum and ascending colon. The polyps were less than 5 mm in size. These polyps were removed with a cold biopsy forceps. Resection and retrieval were complete. The exam was otherwise without abnormality. Impression: - Hemorrhoids found on perianal exam. - Non-bleeding internal hemorrhoids. - Diverticulosis in the entire examined colon. - Two less than 5 mm polyps in the rectum and in the ascending colon, removed with a cold biopsy forceps. Resected and retrieved. - The examination was otherwise normal. Recommendation: - Discharge patient to home. - High fiber diet. - Continue present medications. - Await pathology results. - Repeat colonoscopy in 3 years for surveillance based on pathology results. Procedure Code(s): --- Professional --- 79174, PT, Colonoscopy, flexible; with biopsy, single or multiple Diagnosis Code(s): --- Professional --- Z86.010, Personal history of colonic polyps K64.0, First degree hemorrhoids D12.2, Benign neoplasm of ascending colon K62.1, Rectal polyp Z80.0, Family history of malignant neoplasm of digestive organs K57.30, Diverticulosis of large intestine without perforation or abscess without bleeding CPT copyright 2017 [employer]. All rights reserved. The codes documented in this report are preliminary and upon manager of sales review may be revised to meet current compliance requirements. MD Nichole Liz MD 10/02/2021 10:29:49 AM This report has been signed electronically. Number of Addenda: 0 Note Initiated On: 10/02/2021 9:50 AM
--- NOTE | 2021-10-02 10:31 | OP.CCLET_ITS ---
10/02/2021 Rober Cannon [address] [place] [address] Re : Colonoscopy procedure for Leyla Webster Dear Dr. Cannon This procedure was performed on Saturday, October 02, 2021. My impressions and recommendations are as follows: Impressions : - Hemorrhoids found on perianal exam. - Non-bleeding internal hemorrhoids. - Diverticulosis in the entire examined colon. - Two less than 5 mm polyps in the rectum and in the ascending colon, removed with a cold biopsy forceps. Resected and retrieved. - The examination was otherwise normal. Recommendations : - Discharge patient to home. - High fiber diet. - Continue present medications. - Await pathology results. - Repeat colonoscopy in 3 years for surveillance based on pathology results. My findings are described in the full procedure note, which is enclosed. If I can be of further assistance, please feel free to contact me at Doctor phone number(s): , Work: . Sincerely, MD Nichole Liz MD 10/02/2021 10:29:49 AM This report has been signed electronically.
[2021-10-02 10:40] VITALS: BP 106/61; BP 130/50; PULSE 63; RESP 16; O2SAT 99
[2021-10-02 10:45] VITALS: BP 104/58; BP 130/50; PULSE 64; RESP 16; O2SAT 100
[2021-10-02 10:48] VITALS: BP 104/58; BP 130/50; PULSE 65; RESP 16; TEMP 36.9; O2SAT 100
[2021-10-02 11:30] VITALS: BP 130/50
== END 2021-10-02 23:59 | disposition home or self-care (01) ==
LOC: EN 09:04 → AC 09:04
PROVIDERS: PCP Family Medicine; Referring Provider Family Medicine; Visit Provider Surgery
PROC: 0DJD8ZZ Inspection of Lower Intestinal Tract, Via Natural or Artificial Opening Endoscopic (ICD-10-PCS; CPT 45378; principal; 2021-10-02 10:10)
DX: Z12.11 Encounter for screening for malignant neoplasm of colon (principal); K64.0 First degree hemorrhoids; K57.30 Diverticulosis of large intestine without perforation or abscess without bleeding; K64.4 Residual hemorrhoidal skin tags; D12.8 Benign neoplasm of rectum; K63.5 Polyp of colon; Z80.0 Family history of malignant neoplasm of digestive organs; I10 Essential (primary) hypertension; M19.90 Unspecified osteoarthritis, unspecified site; Z86.718 Personal history of other venous thrombosis and embolism; Z86.711 Personal history of pulmonary embolism; Z79.01 Long term (current) use of anticoagulants; Z79.899 Other long term (current) drug therapy
CPT/HCPCS: 45380; 88305; J7120; J2405

== ENCOUNTER 2022-06-07 12:42 | Emergency (ER) | payer MEDICARE, MEDICAID, SELFPAY ==
[2022-06-07 12:43] VITALS: BP 139/61; PULSE 83; RESP 14; TEMP 36.8; O2SAT 100; BMI 45.1
--- NOTE | 2022-06-07 13:04 | EX.ED.UPPERE ---
HPI History of Present Illness Chief Complaint: Upper Extremity Injury Informant: patient Onset/Context/Timing Onset: Weeks (1-2) Context: Gradual Onset Timing: Continuous Quality of Pain: Aching Location: R wrist Current Severity: Moderate Maximum Severity: Severe Worsened by: movement Relieved by: remaining still Associated Symptoms Associated Symptoms: Negative for Parasthesia, Weakness or Loss of Funtion Narrative Narrative: Gradual onset without injury of pain in the right wrist. She is right-hand dominant. It is really becoming disabling because now she is having trouble wiping herself due to the pain. She was scheduled to see her doctor but that got delayed because of a in the family and she cannot be seen for over another week which is why she presents here since the pain is getting worse. She denies any fevers or chills. She is on anastrozole for breast cancer, she has had gout in the past in her ankles. This is according to the patient's history. She denies any injury or any other symptoms. [facility] Medical History Arthritis Cancer of left female breast Degenerative joint disease DVT (deep venous thrombosis) Easy bruising Encounter for education ER+ (estrogen receptor positive status) Excessive bleeding Family history of colon cancer in mother Foot fracture, left Hypertension Hypertension Non-smoker Osteopenia after menopause Post-menopausal Pulmonary embolism Shortness of breath on exertion UTI (urinary tract infection) Home Medications rivaroxaban 10 mg tablet (Xarelto) 10 mg PO DAILY 04/09/18 [History Last Taken 09/27/21] lisinopril 10 mg tablet 10 mg PO DAILY 08/12/21 [History Last Taken 10/02/21] tramadol 50 mg tablet 50 mg PO Q6H PRN pain 3 days #15 tabs 09/16/21 [Rx Last Taken 10/01/21] cranberry fruit concentrate 250 mg chewable tablet (Azo Cranberry) 250 mg PO DAILY 09/17/21 [History Last Taken 10/01/21] anastrozole 1 mg tablet 1 mg PO DAILY #90 tabs 01/07/22 [Rx Last Taken Unknown] calcium carbonate 500 mg calcium (1,250 mg) chewable tablet (Calcium 500) 500 mg PO BID 04/02/22 [History Last Taken Unknown] cholecalciferol (vitamin D3) 50 mcg (2,000 unit) capsule 50 mcg PO DAILY 04/02/22 [History Last Taken Unknown] hydrocodone-acetaminophen 5-325mg 5mg-325mg 1 tab PO Q6H PRN PRN Pain 3 days #10 TABLETS 06/07/22 [Rx Last Taken Unknown] prednisone 10 mg tablet 10 mg PO UD #30 tabs 06/07/22 [Rx Last Taken Unknown] Allergy/AdvReac Type Severity Reaction Status Date / Time No Known Allergies Allergy Verified 06/07/22 12:43 Family History Grandmother Breast cancer Daughter Breast cancer Mother Colon cancer Surgical History History of cholecystectomy History of left mastectomy (~08/2021) History of lumpectomy of left breast History of total knee replacement Hx of abdominoplasty Social History Smoking Status: Never smoker alcohol intake: never substance use type: does not use ROS ROS ED Constitutional Constitutional ED: Denies chills or fever(s) Musculoskeletal Musculoskeletal: Reports extremity pain; Denies neck pain Integumentary Denies Abrasions, rash or wounds Neurologic Neurologic: Denies paresthesias or weakness EXAM Physical Exam Const Vital Signs: 06/07/22 12:43 Temperature 98.2 F Temperature Source Temporal Pulse Rate 83 Respiratory Rate 14 Blood Pressure 139/61 H Blood Pressure Mean 87 Pulse Ox 100 Oxygen Delivery Method Room Air Positive well nourished and well developed General Appearance ED: well developed and NAD Neck full ROM and supple Back/Spine normal ROM and normal to inspection Extremity normal to inspection Extremity Narrative: Excellent short arc range of motion of the right wrist, but with pain at extremes especially. No erythema. Mildly warm compared with the surrounding hand and forearm. No swelling. Mild tenderness in the right wrist area, not specific to a bony prominence. Neurovascularly intact distally, 2+/4 radial pulse. Neuro oriented x3, no focal motor deficits and no sensory deficits noted Sensorium / Orientation: alert Psych mental status grossly normal and thought process normal Skin no wounds Rashes: no rashes MDM MDM MDM Narrative Medical decision making narrative: Work-up is consistent with gout, as I discussed with the patient, definitive diagnosis involves point fluid out of the joint for analysis, but I really feel the patient does not likely have a septic arthritis, and she does feel like this probably is gout based on her prior experience with it. Furthermore, I think the risks of putting a needle in her joint with her anticoagulated outweighs the potential benefits here. I started her on prednisone, she was advised that if the prednisone happens to make it worse to return to the ER immediately and discontinue it, but otherwise to follow-up with her doctor as scheduled. She is comfortable with that plan was also given a prescription for some analgesics and a splint to use as needed for comfort. Laboratory Tests 06/07/22 06/07/22 Range/Units 13:54 13:54 WBC 10.3 (4.4-11.0) K/mm3 RBC 4.13 L (4.2-5.4) M/mm3 Hgb 13.4 (12.0-15.0) g/dL Hct 40.1 (37-47) % MCV 97.1 (81-99) fL MCH 32.4 H (27.0-32.0) pg MCHC 33.4 (32-36) g/dL RDW Std Deviation 48.4 H (35.1-43.9) fl RDW Coeff of Zachary 13.5 (11.6-14.6) % Plt Count 293 (150-450) K/mm3 MPV 10.3 (6.2-12.0) fl Immature Gran % (Auto) 0.300 (0.0-0.9) % Neut % (Auto) 68.9 (47-70) % Lymph % (Auto) 19.9 (19-41) % Paulding % (Auto) 7.5 (0-10) % Eos % (Auto) 2.6 (0-5) % Baso % (Auto) 0.8 (0-1) % Absolute Neuts (auto) 7.1 (2.0-7.7) X10^3/uL Absolute Lymphs (auto) 2.06 (0.83-4.51) X10^3/uL Nucleated RBC % 0 (0-5) % ESR 37 H (0-30) mm/hr Sodium 142 (136-145) mmol/L Potassium 4.3 (3.5-5.1) mmol/L Chloride 110 H (98-107) mmol/L Carbon Dioxide 27.0 (21.0-32.0) mmol/L Anion Gap 5 (5-15) BUN 37 H (7-18) mg/dL Creatinine 1.61 H (0.55-1.02) mg/dL Estim Creat Clear Calc 24.54 ml/min Est GFR (MDRD) Af Amer 41 L (>60) mL/min Est GFR (MDRD) Non-Af 34 L (>60) mL/min BUN/Creatinine Ratio 23.0 H (10-20) RATIO Glucose 129 H (74-106) mg/dL Uric Acid 8.6 H (2.6-6.0) mg/dL Calcium 9.5 (8.5-10.1) mg/dL C-React Prot Ext Range 4.33 H (0.0-3.0) mg/L Discharge Plan Triage Chief Complaint: Upper Extremity Injury ED Provider: Javier Vela Dx/Rx/DC Orders Clinical Impression: Acute gout of right wrist Instructions: ED Gout Prescriptions: New hydrocodone-acetaminophen [hydrocodone-acetaminophen] 1 TABLET tablet 1 tab PO Q6H PRN PRN (Reason: Pain) 3 Days Qty: 10 0RF prednisone 10 MG tablet 10 mg PO UD Qty: 30 0RF Rx Instructions: Take 4 tablets daily for 3 days, then 3 daily for 3 days, then 2 daily for 3 days, then 1 a day for 3 days No Action tramadol 50 mg tablet 50 mg PO Q6H PRN (Reason: pain) 3 Days Qty: 15 0RF Azo Cranberry 250 mg tablet,chewable 250 mg PO DAILY calcium carbonate [Calcium 500] 500 mg calcium (1,250 mg) tablet,chewable 500 mg PO BID cholecalciferol (vitamin D3) 50 mcg (2,000 unit) capsule 50 mcg PO DAILY Xarelto 10 MG tablet 10 mg PO DAILY Hold Instructions: until LUCILLE both removed Label Comments: pt states last dose was 09/01/[address] 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 lisinopril 10 mg tablet 10 mg PO DAILY Label Comments: TAKE 1 TABLET BY MOUTH DAILY anastrozole 1 mg tablet 1 mg PO DAILY Qty: 90 1RF Primary Care Provider: Rober Cannon Referrals: Ranney,Rober, MD [Primary Care Provider] - Keep Samm appointment Disposition Disposition: Home, Self Care
--- NOTE | 2022-06-07 13:12 | RAD_ITS ---
STUDY: X-RAY - RIGHT WRIST REASON FOR EXAM: Female, 72 years old. pain TECHNIQUE: 3 view(s) of the wrist were obtained. COMPARISON: None. FINDINGS: There is demineralization of the radius and ulna. Abnormal radiocarpal articulation with narrowing. There is a missing proximal marker of the wrist. Normal distal radioulnar articulation. There is a degenerative appearance of the carpal bones. There is a abnormal placement of the lunate seen on the dorsal aspect of the wrist with a abnormal appearing scapholunate angle best seen on the lateral view.-Since the lunate appears directly dorsal to the scaphoid rather than lateral or towards the ulnar side. Normal carpometacarpal articulation of the thumb. There is degenerative arthrosis with of the second through fifth carpometacarpal. There is demineralization of the metacarpal bones. There is soft tissue edema. RAD/Wrist min 3 Views IMPRESSION: Findings are highly suspicious for age-indeterminate lunotriquetral ligament injury and volar intercalated segment instability, visi . Recommend consideration for follow-up MRI of the wrist. Electronically Signed: Nida Rader MD at 14:09 EDT ,
[2022-06-07 14:06] LABS: Erythrocyte Sedimentation Rate 37 mm/hr (0-30)
[2022-06-07 14:08] LABS: Absolute Lymphocyte Count 2.06 X10^3/uL (0.83-4.51); Absolute Neutrophil Count 7.1 X10^3/uL (2.0-7.7); Basophil# 0.08 X10^3/uL; Basophil% 0.8 % (0-1); Eosinophil# 0.27 X10^3/uL; Eosinophils% 2.6 % (0-5); Hematocrit 40.1 % (37-47); Hemoglobin 13.4 g/dL (12.0-15.0); Lymphocyte # 2.06 X10^3/ul (0.83-4.51); Lymphocyte % 19.9 % (19-41); Mean Corp Hgb Conc 33.4 g/dL (32-36); Mean Corpuscular Hgb 32.4 pg (27.0-32.0); Mean Corpuscular Volume 97.1 fL (81-99); Mean Platelet Vol. 10.3 fl (6.2-12.0); Monocyte# 0.77 X10^3/uL; Monocyte% 7.5 % (0-10); NRBC Flagged by Analyzer 0 % (0-5); Neutrophil # 7.12 X10^3/uL (2.7-7.7); Neutrophil % 68.9 % (47-70); Platelet Count 293 K/mm3 (150-450); RBC Distribution Width CV 13.5 % (11.6-14.6); RBC Distribution Width SD 48.4 fl (35.1-43.9); Red Blood Count 4.13 M/mm3 (4.2-5.4); White Blood Count 10.3 K/mm3 (4.4-11.0)
[2022-06-07 14:15] LABS: Anion Gap 5 (5-15); BUN 37 mg/dL (7-18); CRP 4.33 mg/L (0.0-3.0); Calcium,Total 9.5 mg/dL (8.5-10.1); Chloride 110 mmol/L (98-107); Creatinine, Serum 1.61 mg/dL (0.55-1.02); EST Glomerular Filtration Rate 34 mL/min (>60); Est Glom Filt Rate - Afr Amer 41 mL/min (>60); Estimated Creatinine Clearance 24.54 ml/min; Glucose 129 mg/dL (74-106); Potassium 4.3 mmol/L (3.5-5.1); Sodium Level 142 mmol/L (136-145); Uric Acid 8.6 mg/dL (2.6-6.0)
[2022-06-07] MEDS: predniSONE 20 MG Tablet 40 MG PO (14:59)
== END 2022-06-07 15:15 | disposition home or self-care (01) ==
PROVIDERS: Emergency Provider Emergency Medicine; PCP Family Medicine; Visit Provider Emergency Medicine
DX: M10.031 Idiopathic gout, right wrist (principal); Z79.52 Long term (current) use of systemic steroids
CPT/HCPCS: 73110; 80048; 84550; 85025; 85652; 86140; 99282

== ENCOUNTER → 2022-09-09 | Outpatient (CLI) | payer MEDICARE, MEDICAID, SELFPAY ==
--- NOTE | 2022-09-09 13:29 | BI_ITS ---
MAMMOGRAPHY - UNILATERAL SCREENING: RIGHT BREAST REASON FOR EXAM: Female, 72 years old. Routine annual screening examination (unilateral). PERTINENT HISTORY: Personal history of breast cancer. Prior left mastectomy. The right with breast cancer. Grandmother with breast cancer. TECHNIQUE: Digital unilateral breast katia (3D mammographic acquisition) in the CC and MLO projections. 2-D mediolateral oblique (MLO) and craniocaudad (CC) views of both breasts were obtained. CAD: Full Field Digital Mammography with Computer Added Detection was performed. COMPARISON: Comparison is made with prior study dated 07/11/2021 and 08/15/2021. FINDINGS: Breast Composition: There are scattered areas of fibroglandular density. There are no dominant masses or suspicious calcifications. Stable small benign-appearing right axillary lymph nodes. No other significant abnormalities are identified. There has been no significant change since the prior study. BI/SCREEN MAMM (CAD) W/KATIA UNI R IMPRESSION: Stable unilateral screening mammogram. Yearly follow-up mammogram recommended. (A) ASSESSMENT CATEGORY: BIRADS Category 2: Benign. A letter regarding these results will be sent to the patient by the facility within 30 days. Approximately 10% of breast cancers are not detected by mammography. A normal mammogram should not delay biopsy of a clinically suspicious abnormality. [id number] Electronically Signed: Angel Johnson MD at 14:42 EST ,
== END | disposition home or self-care (01) ==
PROVIDERS: PCP Family Medicine; Visit Provider Internal Medicine Hematology & Oncology
DX: Z12.31 Encounter for screening mammogram for malignant neoplasm of breast (principal); Z90.12 Acquired absence of left breast and nipple
CPT/HCPCS: 77063; 77067

== ENCOUNTER → 2022-09-25 | Outpatient (CLI) | payer MEDICARE, MEDICAID, SELFPAY ==
--- NOTE | 2022-09-25 12:59 | BD_ITS ---
STUDY: DUAL ENERGY X-RAY ABSORPTIOMETRY / DXA REASON FOR EXAM: Female, 72 years old. M85.89 TECHNIQUE: Bone Mineral Density (BMD) measurements of lumbar spine and bilateral hips were obtained. COMPARISON: Comparison is made with prior study 03/01/2020. FINDINGS: Lumbar Spine (L1-L4): g/cm2 (1.204) / T-score (1.5) / Z-score (3.7) Findings are suggestive of normal bone density with a low fracture risk. Left Femur Total: g/cm2 (0.898) / T-score (-0.4) / Z-score (1.2) Left Femoral Neck: g/cm2 (0.762) / T-score (-0.8) / Z-score (1.0) Right Femur Total: g/cm2 (0.815) / T-score (-1.0) / Z-score (0.5) Right Femoral Neck: g/cm2 (0.622) / T-score (-2.0) / Z-score (-0.2) The T-Scores on the most recent prior examination were: Lumbar Spine (L1-L4): There has been worsening of bone density since the previous examination. Left Femur Total: which represents an improvement of 4%. Right Femur Total: which represents an improvement of 0.9%. BD/Dexa Bone Density Study IMPRESSION: The patient is considered osteopenic as outlined below according to World [place] Organization (WHO) criteria with a moderate fracture risk. There has been improvement of bone density since the previous examination. Reference Information: The T-score is the number of standard deviations above or below the standard which is normal for young adults at their peak bone mineral density. The World Health Organization (WHO) interprets the T-scores as follows: Above -1 Normal bone density Between -1 and -2.5 Osteopenia Equal to / or below -2.5 Osteoporosis As a practical clinical guideline, osteopenia may be graded as follows: Mild -1 through -1.5 Moderate -1.6 through -2.0 Severe -2.1 through -2.4 The Z-score is the number of standard deviations above or below age-matched controls. A Z-score of less than -1.5 would be considered abnormal. References: 1. NIH Osteoporosis and Related Bone Diseases www osteo.org 2. International Society for Clinical Densitometry www iscd.org 3. National Osteoporosis Foundation www nof.org Electronically Signed: Angel Johnson MD at 13:27 EST ,
== END | disposition home or self-care (01) ==
PROVIDERS: PCP Family Medicine; Visit Provider Family Medicine
DX: I10 Essential (primary) hypertension (principal); M85.89 Other specified disorders of bone density and structure, multiple sites
CPT/HCPCS: 36415; 77080; 80048; 82306; 82330; 83735; 83970; 84100; 84443

== ENCOUNTER → 2022-09-25 | Outpatient (CLI) | payer MEDICARE, MEDICAID, SELFPAY ==
[2022-09-25 15:27] LABS: Vitamin D,25 Hydroxy 47.6 ng/mL
[2022-09-25 15:35] LABS: Anion Gap 8 (5-15); BUN 35 mg/dL (7-18); BUN/Creat Ratio 24.5 RATIO (10-20); Calcium,Total 9.4 mg/dL (8.5-10.1); Chloride 109 mmol/L (98-107); Creatinine, Serum 1.43 mg/dL (0.55-1.02); EST Glomerular Filtration Rate 39 mL/min (>60); Est Glom Filt Rate - Afr Amer 47 mL/min (>60); Glucose 110 mg/dL (74-106); Magnesium 2.4 mg/dL (1.6-2.6); Potassium 4.8 mmol/L (3.5-5.1); Sodium Level 142 mmol/L (136-145); Thyroid Stim Hormone (TSH) 1.28 uIU/mL (0.358-3.74)
[2022-09-25 16:05] LABS: PTHIN 89.9 pg/mL (18.4-80.1)
== END | disposition home or self-care (01) ==
LOC: MFPLAB 12:25
PROVIDERS: PCP Family Medicine; Referring Provider Family Medicine; Visit Provider Family Medicine
DX: M85.80 Other specified disorders of bone density and structure, unspecified site (principal); I10 Essential (primary) hypertension
CPT/HCPCS: 36415; 80048; 82306; 82330; 83735; 83970; 84100; 84443

== ENCOUNTER 2022-09-29 11:46 | Emergency (ER) | payer MEDICARE, MEDICAID, SELFPAY ==
[2022-09-29 11:47] VITALS: BP 141/75; PULSE 69; RESP 18; TEMP 36.3; O2SAT 100; BMI 44.6
--- NOTE | 2022-09-29 12:42 | ED.VIS.CHEST ---
HPI History of Present Illness Chief Complaint: Chest Other Detail of Chief Complaint: Left-sided chest pain Informant: patient Onset/Context/Timing Onset: Weeks (1 week ago after walking friend's dog) Activity at onset: sudden Timing: Continuous Quality: Positive for Aching Location: Left Parasternal Current Severity: Mild Maximum Severity: Severe Worsened By: Movement of Arm, Movement of Torso and Palpation; Not Worsened By Exertion, Eating, Breathing or Coughing Relieved By: Remaining Still Associated Symptoms: Negative for Nausea, Vomiting, Diaphoresis, Dyspnea, Cough, Fever, Lightheadedness, Acid Reflux or Palpitations Narrative Narrative: Patient is a 72-year-old woman with history of hypertension, osteopenia, breast cancer status post left mastectomy. She also has history of degenerative joint disease. Patient presents with left chest pain after walking friend's dog. She states the dog jerked. She had pain immediately. She has been applying heat. She has done nothing else for the pain. Movement makes it worse. Palpation makes it worse. She denies radiation. She denies nausea, vomiting, diaphoresis or shortness of breath. She denies leg pain, swelling discoloration. She has a remote history of DVT. She is on Xarelto. Prior Similar Symptoms: No Recent Illness/Hospitalization: No CVD Risk Factors: Positive for Hypertension; Negative for Diabetes, Hypercholesterolemia or Family History 1' </=55 PE Risk Factors: Positive for Prior DVT or PE; Negative for Recent Travel/Surgery, Recent Immobilization, Cancer or OCP + Smoking + >/=35 TAD Risk Factors: Positive for Hypertension; Negative for Marfan's Syndrome or Family History [facility] Medical History Arthritis Cancer of left female breast Degenerative joint disease DVT (deep venous thrombosis) Easy bruising Encounter for education ER+ (estrogen receptor positive status) Excessive bleeding Family history of colon cancer in mother Foot fracture, left Hypertension Hypertension Non-smoker Osteopenia after menopause Post-menopausal Pulmonary embolism Shortness of breath on exertion UTI (urinary tract infection) Home Medications rivaroxaban 10 mg tablet (Xarelto) 10 mg PO DAILY 04/09/18 [History Last Taken 09/27/21] lisinopril 10 mg tablet 10 mg PO DAILY 08/12/21 [History Last Taken 10/02/21] tramadol 50 mg tablet 50 mg PO Q6H PRN pain 3 days #15 tabs 09/16/21 [Rx Last Taken 10/01/21] cranberry fruit concentrate 250 mg chewable tablet (Azo Cranberry) 250 mg PO DAILY 09/17/21 [History Last Taken 10/01/21] calcium carbonate 500 mg calcium (1,250 mg) chewable tablet (Calcium 500) 500 mg PO BID 04/02/22 [History Last Taken Unknown] cholecalciferol (vitamin D3) 50 mcg (2,000 unit) capsule 50 mcg PO DAILY 04/02/22 [History Last Taken Unknown] hydrocodone-acetaminophen 5-325mg 5mg-325mg 1 tab PO Q6H PRN PRN Pain 3 days #10 TABLETS 06/07/22 [Rx Last Taken Unknown] prednisone 10 mg tablet 10 mg PO UD #30 tabs 06/07/22 [Rx Last Taken Unknown] anastrozole 1 mg tablet 1 mg PO DAILY #90 tabs 06/24/22 [Rx Last Taken Unknown] Allergy/AdvReac Type Severity Reaction Status Date / Time No Known Allergies Allergy Verified 09/09/22 14:33 Family History Grandmother Breast cancer Daughter Breast cancer Mother Colon cancer Surgical History History of cholecystectomy History of left mastectomy (~08/2021) History of lumpectomy of left breast History of total knee replacement Hx of abdominoplasty Social History (Updated 09/29/22 @ 12:[address] William Madsen MD) household members: spouse Smoking Status: Never smoker alcohol intake: never substance use type: does not use ROS ROS ED Constitutional Constitutional ED: Denies chills, fever(s), subjective, sweats or weight loss Eyes Eyes: Reports none ENT ENT ED: Denies ear pain, rhinorrhea or sore throat Cardiovascular Cardiovascular: Reports as per HPI Respiratory/Chest Respiratory/Chest: Denies cough, dyspnea or dyspnea on exertion Gastrointestinal Gastrointestinal: Denies abdominal pain, nausea or vomiting Musculoskeletal Musculoskeletal: Denies arthralgias, back pain, myalgias or neck pain Hematologic/Lymphatic Hematologic/Lymphatic: Denies easy bleeding or easy bruising EXAM Physical Exam Const Vital Signs: 09/29/22 11:47 Temperature 97.4 F L Temperature Source Temporal Pulse Rate 69 Respiratory Rate 18 Blood Pressure 141/75 H Blood Pressure Mean 97 Pulse Ox 100 Oxygen Delivery Method Room Air Positive well nourished, well developed and obese; Negative for cachectic, contractures or unkempt General Appearance ED: well developed and NAD; Negative for unkempt, cachectic or contractures Nutritional Appearance: obese; Negative for cachectic HEENT Reports TM's clear and moist mucous membranes normocephalic and atraumatic Tympanic Membrane ED: Yes TM's clear Eyes PERRL and EOMs intact bilaterally General Eye ED: Negative for pale conjunctiva or scleral icterus Neck no lymphadenopathy, supple and no JVD Chest Wall inspection of chest normal and palpation of chest normal Chest Narrative: There is pain to palpation over the second, third, fourth and fifth left intercostal space. There is no crepitus or subcutaneous air. Resp normal respiratory effort and clear to auscultation bilaterally Cardio regular rate, regular rhythm, S1 normal heart sound, S2 normal heart sound and no murmurs Extremity normal to inspection General Extremety ED: Negative for edema or pulses abnormal General Extremity: Negative for edema or pulses abnormal Neuro oriented x3, CN's II-XII intact bilaterally and no sensory deficits noted Sensorium / Orientation: awake Psych mental status grossly normal Appearance: Negative for unkempt Skin no rashes or lesions noted and no wounds MDM MDM MDM Narrative Medical decision making narrative: Patient left-sided chest pain. History and physicals consistent with muscular pain. Patient was informed that application of heat initially makes the pain worse. She was instructed to apply ice 6-10 times a day and take Tylenol since NSAIDs are contraindicated and steroids are of no value. Patient was informed and based on her age and recent studies muscle relaxants are not indicated. She was informed that the muscle axis on beers list and have significant potential complications in person of her age. Rhythm Strip Rhythm Strip: Sinus Rhythm Rate: 65 Ectopy: None Discharge Plan Triage Chief Complaint: Chest Other ED Provider: CaleWilliam Dx/Rx/DC Orders Clinical Impression: Muscle strain of anterior chest wall, S/P left mastectomy, Osteopenia after menopause, Hypertension, Anticoagulant long-term use Instructions: ED Chest Wall Strain Prescriptions: No Action tramadol 50 mg tablet 50 mg PO Q6H PRN (Reason: pain) 3 Days Qty: 15 0RF Azo Cranberry 250 mg tablet,chewable 250 mg PO DAILY calcium carbonate [Calcium 500] 500 mg calcium (1,250 mg) tablet,chewable 500 mg PO BID cholecalciferol (vitamin D3) 50 mcg (2,000 unit) capsule 50 mcg PO DAILY Xarelto 10 MG tablet 10 mg PO DAILY Hold Instructions: until LUCILLE both removed Label Comments: pt states last dose was 09/01/[address] 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 Apply ice 20 to 30 minutes per application 6-10 times a day 2. Take Tylenol for pain [id number] for the next 3 to 5 days 3. Avoid activity that causes you to have increased pain Disposition Disposition: Home, Self Care
== END 2022-09-29 13:08 | disposition home or self-care (01) ==
PROVIDERS: Emergency Provider Emergency Medicine; PCP Family Medicine; Visit Provider Emergency Medicine
DX: S29.011A Strain of muscle and tendon of front wall of thorax, initial encounter (principal); I10 Essential (primary) hypertension; Z78.0 Asymptomatic menopausal state; Z90.12 Acquired absence of left breast and nipple; Z79.01 Long term (current) use of anticoagulants; E66.9 Obesity, unspecified; Z79.899 Other long term (current) drug therapy; M85.80 Other specified disorders of bone density and structure, unspecified site; Z85.3 Personal history of malignant neoplasm of breast; X50.0XXA Overexertion from strenuous movement or load, initial encounter; Y93.K1 Activity, walking an animal
CPT/HCPCS: 99282

== ENCOUNTER → 2022-10-06 | Outpatient (CLI) | payer MEDICARE, SELFPAY ==
--- NOTE | 2022-10-06 12:54 | CT_ITS ---
PROCEDURE: CT RIGHT KNEE WITHOUT CONTRAST REASON FOR EXAM: Female, 72 years old. Preoperative planning for the [employer] Robotic knee surgery. Knee pain. TECHNIQUE: Transaxial CT of the hip, knee and ankle were obtained. Coronal and sagittal reconstruction images of the knee were provided. Individualized dose optimization techniques were used for this CT. COMPARISON: None. FINDINGS: Standard protocol for the preoperative planning for the [employer] robotic knee surgery was performed. Osteopenia. Moderate arthrosis of the right hip with osteophytes. Enthesopathic changes. Moderate tricompartmental arthrosis of the right knee with osteophytes. Superior and inferior patellar spurs. Moderate arthrosis of the tibiotalar joint, the subtalar joint and mid foot. Large calcaneal spurs. CT/Extremity Lower without Contra IMPRESSION: Preoperative M[employer] Robotic knee surgical CT evaluation with findings as described above. Electronically Signed: Lawrence Dalal, at 13:29 EST ,
== END | disposition home or self-care (01) ==
PROVIDERS: PCP Family Medicine; Referring Provider Specialist; Visit Provider Specialist
DX: M21.161 Varus deformity, not elsewhere classified, right knee (principal); G89.29 Other chronic pain; M25.569 Pain in unspecified knee
CPT/HCPCS: 73700

== ENCOUNTER 2022-11-06 18:33 | Emergency (ER) | payer MEDICARE, MEDICAID, SELFPAY ==
[2022-11-06 18:34] VITALS: BP 111/63; PULSE 76; RESP 14; TEMP 36.1; O2SAT 97
[2022-11-06 20:14] VITALS: BMI 42.8
--- NOTE | 2022-11-06 20:34 | EX.ED.DYSGE1 ---
HPI <NASREEN Grewal - Last Filed: 11/06/22 21:20> History of Present Illness Chief Complaint: Lower Extremity Injury Narrative Narrative: Presenting today with postop pain after having a right-sided total knee replacement last Thursday. She states that she has had a difficult time controlling her pain with the prescription pain medication she was given and has also had a difficult time eating as she is nauseous and dry heaves almost every time she eats. Patient also reports that she has had a productive cough since having her surgery as well as chills and is worried that she could have pneumonia. She denies any chest pain, shortness of breath, abdominal pain, and fever. She had this procedure done at [place] and is unsure who her surgeon was. [facility] <NASREEN Grewal - Last Filed: 11/06/22 21:20> [facility] Medical History Arthritis Cancer of left female breast Degenerative joint disease DVT (deep venous thrombosis) Easy bruising Encounter for education ER+ (estrogen receptor positive status) Excessive bleeding Family history of colon cancer in mother Foot fracture, left Hypertension Hypertension Non-smoker Osteopenia after menopause Post-menopausal Pulmonary embolism Shortness of breath on exertion UTI (urinary tract infection) Home Medications rivaroxaban 10 mg tablet (Xarelto) 10 mg PO DAILY 04/09/18 [History Last Taken 09/27/21] lisinopril 10 mg tablet 10 mg PO DAILY 08/12/21 [History Last Taken 10/02/21] tramadol 50 mg tablet 50 mg PO Q6H PRN pain 3 days #15 tabs 09/16/21 [Rx Last Taken 10/01/21] cranberry fruit concentrate 250 mg chewable tablet (Azo Cranberry) 250 mg PO DAILY 09/17/21 [History Last Taken 10/01/21] calcium carbonate 500 mg calcium (1,250 mg) chewable tablet (Calcium 500) 500 mg PO BID 04/02/22 [History Last Taken Unknown] cholecalciferol (vitamin D3) 50 mcg (2,000 unit) capsule 50 mcg PO DAILY 04/02/22 [History Last Taken Unknown] hydrocodone-acetaminophen 5-325mg 5mg-325mg 1 tab PO Q6H PRN PRN Pain 3 days #10 TABLETS 06/07/22 [Rx Last Taken Unknown] prednisone 10 mg tablet 10 mg PO UD #30 tabs 06/07/22 [Rx Last Taken Unknown] anastrozole 1 mg tablet See Rx Instructions .Route .COMPLEX #90 tabs 10/15/22 [Rx Last Taken Unknown] ondansetron 4 mg disintegrating tablet 4 mg PO Q8H PRN PRN Nausea #10 tabs 11/06/22 [Rx Last Taken Unknown] Allergy/AdvReac Type Severity Reaction Status Date / Time No Known Allergies Allergy Verified 11/06/22 18:34 Family History Grandmother Breast cancer Daughter Breast cancer Mother Colon cancer Surgical History History of cholecystectomy History of left mastectomy (~08/2021) History of lumpectomy of left breast History of total knee replacement Hx of abdominoplasty Social History household members: spouse Smoking Status: Never smoker alcohol intake: never substance use type: does not use ROS <NASREEN Grewal - Last Filed: 11/06/22 21:20> ROS ED Constitutional Constitutional ED: Denies chills, fever(s) or sweats Eyes Eyes: Denies blurry vision or diplopia Cardiovascular Cardiovascular: Denies chest pain or palpitations Respiratory/Chest Respiratory/Chest: Reports cough; Denies dyspnea, tachypnea or wheezing Gastrointestinal Gastrointestinal: Reports nausea and vomiting; Denies abdominal pain, constipation or diarrhea Genitourinary Genitourinary ED: Denies dysuria, hematuria or urinary urgency Musculoskeletal Musculoskeletal: Reports arthralgias; Denies back pain, myalgias or neck pain Integumentary Denies abscess, Abrasions or rash Neurologic Neurologic: Denies confusion, dizziness or paresthesias Psychiatric Psychiatric: Denies anxiety, depression, suicidal ideation or suicidal thoughts EXAM <NASREEN Grewal - Last Filed: 11/06/22 21:20> Physical Exam Const Vital Signs: 11/06/22 18:34 Temperature 97 F L Temperature Source Temporal Pulse Rate 76 Respiratory Rate 14 Blood Pressure 111/63 Blood Pressure Mean 79 Pulse Ox 97 Oxygen Delivery Method Room Air Positive well nourished, well developed and no apparent distress General Appearance ED: well developed HEENT Reports normocephalic and head/scalp atraumatic Mouth ED: Yes moist mucous membranes normal Eyes PERRL and EOMs intact bilaterally Neck full ROM and supple Chest Wall inspection of chest normal Resp normal respiratory effort and clear to auscultation bilaterally Cardio regular rate and regular rhythm GI soft to palpation, non-tender, non-distended and no masses Back/Spine normal ROM and normal to inspection Extremity Extremity Narrative: Right-sided knee replacement with sutures intact, no dehiscence, no erythema, warmth, edema, or purulent discharge from the area. Neuro oriented x3, CN's II-XII intact bilaterally, moves all extremities, no focal motor deficits and no sensory deficits noted Sensorium / Orientation: awake and alert Psych mental status grossly normal and thought process normal Skin no rashes or lesions noted and no wounds <Dr. William Madsen MD - Last Filed: 11/06/22 23:03> Physical Exam Const Vital Signs: 11/06/22 18:34 Temperature 97 F L Temperature Source Temporal Pulse Rate 76 Respiratory Rate 14 Blood Pressure 111/63 Blood Pressure Mean 79 Pulse Ox 97 Oxygen Delivery Method Room Air MDM <NASREEN Grewal - Last Filed: 11/06/22 21:20> [facility] MDM Narrative Medical decision making narrative: Patient presenting today with postop pain, nausea, vomiting, and a cough. She had a total knee replacement on the right side last Thursday at [place]. She is unsure who her surgeon is. She states her pain is uncontrolled with the prescription pain medication she was given. Chest x-ray obtained to rule out pneumonia patient states her cough is worsening and she had chills. Patient has been given pain control and Zofran. Lab Data Labs: Laboratory Results - last 24 hr 11/06/22 11/06/22 21:12 21:12 WBC 7.1 RBC 3.30 L Hgb 10.1 L Hct 31.4 L MCV 95.2 MCH 30.6 MCHC 32.2 RDW Std Deviation 47.1 H RDW Coeff of Zachary 13.5 Plt Count 354 MPV 9.7 Immature Gran % (Auto) 0.400 Neut % (Auto) 60.5 Lymph % (Auto) 24.3 [place] % (Auto) 13.4 H Eos % (Auto) 1.0 Baso % (Auto) 0.4 Absolute Neuts (auto) 4.3 Absolute Lymphs (auto) 1.72 Nucleated RBC % 0 Differential Comment SCANNED Atypical Lymphocytes 1+ Sodium 134 L Potassium 3.9 Chloride 100 Carbon Dioxide 28.0 Anion Gap 6 BUN 45 H Creatinine 2.05 H Estim Creat Clear Calc 20.20 Est GFR (MDRD) Af Amer 31 L Est GFR (MDRD) Non-Af 25 L BUN/Creatinine Ratio 22.0 H Glucose 104 Calcium 9.2 Radiography Diagnostic Testing: Clinical Impression(s) from Imaging Studies Chest X-Ray 11/06/22 21:20 IMPRESSION: Right basilar interstitial prominence. Electronically Signed: Camden Hagen DO at 22:15 EDT , <Dr. William Madsen MD - Last Filed: 11/06/22 23:03> [facility] Narrative Medical decision making narrative: Patient presenting today with postop pain, nausea, vomiting, and a cough. She had a total knee replacement on the right side last Thursday at [place]. She is unsure who her surgeon is. She states her pain is uncontrolled with the prescription pain medication she was given. Chest x-ray obtained to rule out pneumonia patient states her cough is worsening and she had chills. Patient has been given pain control and Zofran. I have personally performed a face to face assessment of the patient and have reviewed the CHRISTIN Note. I performed a substantive portion of the visit including all aspects of the following. My posada findings include: History is remarkable for recent total knee arthroplasty. She also presents with cough. Patient denies fever or chills. She states the cough is slightly productive. She denies wheezing. She denies pleuritic chest pain. She denies hemoptysis. She denies GI symptoms. She denies urologic symptoms. Exam is remarkable for morbid obesity. Vital signs unremarkable. HEENT exam is unremarkable. Lungs are clear to auscultation. There are symmetric breath sounds noted. Heart is regular. There is no murmur, gallop or rub. Lower extremity exam is unremarkable. There is expected postoperative changes noted. There is no concern for DVT. Medical Decision Making with patient having cough will obtain x-ray to evaluate for aspiration/pneumonia. Suspect the cough is due to recent intubation for total knee arthroplasty. CBC was obtained to assess white count differential. BMP was obtained since she does have history of renal insufficiency and has had nausea and vomiting. She was treated with Zofran. She has passed p.o. challenge. She complained of heartburn and was treated with GI cocktail with improvement. Other additions or changes: Patient's been informed of her laboratory results. She was instructed to increase fluid intake. She was instructed to take antiacid 4 times a day. Lab Data Attestation: I reviewed the patient's lab results. Lab results narrative: Patient is anemic compared to most recent H&H however she has been anemic in the past. Suspect this is due to blood loss from her total knee arthroplasty. Creatinine is elevated 2.05. This is above baseline. She has acute on chronic kidney disease. Electrolytes are couple. Labs: Laboratory Results - last 24 hr 11/06/22 11/06/22 21:12 21:12 WBC 7.1 RBC 3.30 L Hgb 10.1 L Hct 31.4 L MCV 95.2 MCH 30.6 MCHC 32.2 RDW Std Deviation 47.1 H RDW Coeff of Zachary 13.5 Plt Count 354 MPV 9.7 Immature Gran % (Auto) 0.400 Neut % (Auto) 60.5 Lymph % (Auto) 24.3 [place] % (Auto) 13.4 H Eos % (Auto) 1.0 Baso % (Auto) 0.4 Absolute Neuts (auto) 4.3 Absolute Lymphs (auto) 1.72 Nucleated RBC % 0 Differential Comment SCANNED Atypical Lymphocytes 1+ Sodium 134 L Potassium 3.9 Chloride 100 Carbon Dioxide 28.0 Anion Gap 6 BUN 45 H Creatinine 2.05 H Estim Creat Clear Calc 20.20 Est GFR (MDRD) Af Amer 31 L Est GFR (MDRD) Non-Af 25 L BUN/Creatinine Ratio 22.0 H Glucose 104 Calcium 9.2 Radiography Chest X-Ray - ED: 2 View and Read by ED Physician (2 view chest x-ray is suboptimal due to insufficient inspiratory volume. Cardiac silhouette is unremarkable. Heart size is unremarkable. Perihilar regions unremarkable. Osseous structures are unremarkable.) Diagnostic Testing: Clinical Impression(s) from Imaging Studies Chest X-Ray 11/06/22 21:20 IMPRESSION: Right basilar interstitial prominence. Electronically Signed: Camden Hagen DO at 22:15 EDT , Treatment and Re-Evaluation :: Patient was reassessed at 2242. She did report improvement with GI cocktail and is passed p.o. challenge. Her nausea is resolved. Will discharge with prescription for Zofran. Discharge Plan Triage Chief Complaint: Lower Extremity Injury ED Midlevel Provider: Janey Hedrick ED Provider: William Madsen Dx/Rx/DC Orders Clinical Impression: Post-operative nausea and vomiting, S/P left mastectomy, Hypertension, Acute kidney injury superimposed on CKD, Cough Instructions: ED Chronic Kidney Disease (CKD), ED Vomiting (Adult) Prescriptions: New ondansetron [ondansetron] 4 mg tablet,disintegrating 4 mg PO Q8H PRN PRN (Reason: Nausea) Qty: 10 0RF No Action tramadol 50 mg tablet 50 mg PO Q6H PRN (Reason: pain) 3 Days Qty: 15 0RF Azo Cranberry 250 mg tablet,chewable 250 mg PO DAILY calcium carbonate [Calcium 500] 500 mg calcium (1,250 mg) tablet,chewable 500 mg PO BID cholecalciferol (vitamin D3) 50 mcg (2,000 unit) capsule 50 mcg PO DAILY Xarelto 10 MG tablet 10 mg PO DAILY Hold Instructions: until LUCILLE both removed Label Comments: pt states last dose was 09/01/[address] 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 lisinopril 10 mg tablet 10 mg PO DAILY Label Comments: TAKE 1 TABLET BY MOUTH DAILY hydrocodone-acetaminophen [hydrocodone-acetaminophen] 1 TABLET tablet 1 tab PO Q6H PRN PRN (Reason: Pain) 3 Days Qty: 10 0RF prednisone 10 MG tablet 10 mg PO UD Qty: 30 0RF Rx Instructions: Take 4 tablets daily for 3 days, then 3 daily for 3 days, then 2 daily for 3 days, then 1 a day for 3 days anastrozole 1 mg tablet See Rx Instructions .ROUTE .COMPLEX Qty: 90 0RF Dose Instruction: TAKE 1 TABLET BY MOUTH EVERY DAY Rx Instructions: TAKE 1 TABLET BY MOUTH EVERY DAY Primary Care Provider: Rober Cannon Referrals: Rober Cannon MD [Primary Care Provider] - 3-5 Days Activity Restrictions/Additional Instructions: 1. You need to increase your p.o. intake over the next 2 to 3 days. 2. You need to contact Dr. Alcazar for outpatient blood test to reassess your kidney function in 3 to 5 days Disposition Disposition: Home, Self Care
[2022-11-06] MEDS: Ondansetron 4 MG/2 ML Vial IV (21:11)
[2022-11-06] MEDS: Morphine 4 MG/ML Syringe IV ×2 (21:11→23:15)
--- NOTE | 2022-11-06 21:20 | RAD_ITS ---
INDICATION: cough EXAMINATION/TECHNIQUE: X-RAY - XR Chest 2 Views COMPARISON: None. FINDINGS: LINES/DEVICES: None. LUNGS: No consolidation, edema or effusion. Right basilar interstitial prominence. No pneumothorax. MEDIASTINUM AND CARDIOVASCULAR STRUCTURES: Cardiac silhouette not enlarged. Central airways and mediastinal contour are unremarkable. BONES AND SOFT TISSUES: Degenerative vertebral changes. RAD/Chest PA and Lateral IMPRESSION: Right basilar interstitial prominence. Electronically Signed: Camden Hagen DO at 22:15 EDT Reading Location ID and State: [id number] / [place] Tel [phone], Service support ,
[2022-11-06 21:43] LABS: Absolute Lymphocyte Count 1.72 X10^3/uL (0.83-4.51); Absolute Neutrophil Count 4.3 X10^3/uL (2.0-7.7); Basophil# 0.03 X10^3/uL; Basophil% 0.4 % (0-1); Eosinophil# 0.07 X10^3/uL; Hematocrit 31.4 % (37-47); Hemoglobin 10.1 g/dL (12.0-15.0); Lymphocyte # 1.72 X10^3/ul (0.83-4.51); Lymphocyte % 24.3 % (19-41); Mean Corp Hgb Conc 32.2 g/dL (32-36); Mean Corpuscular Hgb 30.6 pg (27.0-32.0); Mean Corpuscular Volume 95.2 fL (81-99); Mean Platelet Vol. 9.7 fl (6.2-12.0); Monocyte# 0.95 X10^3/uL; Monocyte% 13.4 % (0-10); NRBC Flagged by Analyzer 0 % (0-5); Neutrophil # 4.27 X10^3/uL (2.7-7.7); Neutrophil % 60.5 % (47-70); POSITIVE MORPHOLOGY YES; Platelet Count 354 K/mm3 (150-450); RBC Distribution Width CV 13.5 % (11.6-14.6); RBC Distribution Width SD 47.1 fl (35.1-43.9); White Blood Count 7.1 K/mm3 (4.4-11.0)
[2022-11-06 21:56] LABS: Anion Gap 6 (5-15); BUN 45 mg/dL (7-18); Calcium,Total 9.2 mg/dL (8.5-10.1); Chloride 100 mmol/L (98-107); Creatinine, Serum 2.05 mg/dL (0.55-1.02); EST Glomerular Filtration Rate 25 mL/min (>60); Est Glom Filt Rate - Afr Amer 31 mL/min (>60); Glucose 104 mg/dL (74-106); Potassium 3.9 mmol/L (3.5-5.1); Sodium Level 134 mmol/L (136-145)
[2022-11-06 22:11] LABS: Differential Indicated SCAN CRITERIA MET
[2022-11-06 22:15] LABS: Atypical Lymphocyte 1+ %
[2022-11-06 22:16] LABS: Differential Comment SCANNED
[2022-11-06] MEDS: Mag Hydrox/Al Hydrox/Simeth 30 ML UDC PO (22:26)
== END 2022-11-06 23:56 | disposition home or self-care (01) ==
PROVIDERS: Physician Assistant; Emergency Provider Emergency Medicine; PCP Family Medicine; Visit Provider Emergency Medicine
DX: G89.18 Other acute postprocedural pain (principal); Z96.651 Presence of right artificial knee joint; I12.9 Hypertensive chronic kidney disease with stage 1 through stage 4 chronic kidney disease, or unspecified chronic kidney disease; N18.9 Chronic kidney disease, unspecified; R11.2 Nausea with vomiting, unspecified; Z90.12 Acquired absence of left breast and nipple; R05.9 Cough, unspecified
CPT/HCPCS: 71046; 80048; 85025; 96374; 96375; 96376; 99283; A4216; J2405

== ENCOUNTER 2022-11-10 04:32 | Emergency (ER) | payer MEDICARE, MEDICAID, SELFPAY ==
[2022-11-10 04:33] VITALS: BP 132/65; PULSE 88; RESP 15; TEMP 37; O2SAT 98
[2022-11-10 04:34] VITALS: BP 132/65; PULSE 91; RESP 16; TEMP 36.9; O2SAT 98; BMI 41.1
--- NOTE | 2022-11-10 05:13 | CT_ITS ---
EXAM: CT ABDOMEN AND PELVIS WITH INTRAVENOUS CONTRAST CLINICAL INDICATION: abd pain and constipation abd pain and constipation. Black stool. Patient is on Coumadin. History of breast cancer, cholecystectomy, left mastectomy and lumpectomy. TECHNIQUE: Helically acquired images were obtained of the abdomen and pelvis with intravenous contrast. This CT exam was performed using one or more of the following dose reduction techniques: automated exposure control, adjustment of the mA and/or kV according to patient size, and/or use of iterative reconstruction technique. This report was created using [employer] report [employer] technology. CONTRAST: IV 100mL Isovue-370 RADIATION DOSE: CTDIvol = 19.03 mGy, DLP = 1351.87 mGy-cm COMPARISON: CT scan abdomen and pelvis . FINDINGS: LOWER THORAX: There is a small hiatal hernia. Lung bases are clear. No cardiomegaly. No significant pericardial effusion. ABDOMEN: LIVER: Unremarkable. Homogeneous. No focal mass. GALLBLADDER AND BILE DUCTS: The gallbladder is absent. No intra- or extrahepatic biliary ductal dilation. PANCREAS: Unremarkable. No focal cystic or solid mass. SPLEEN: Unremarkable. Normal size without focal cystic or solid mass. ADRENALS: Unremarkable. No nodules. KIDNEYS AND URETERS: See below. STOMACH AND BOWEL: There are colonic diverticula. There is mural thickening of the mid and proximal sigmoid colon with adjacent fat infiltration, consistent with mild acute diverticulitis. There is no demonstrated abscess or free intraperitoneal air. There is prominent fecal material in the rectum, which might represent fecal impaction. No stomach or bowel distention. PELVIS: APPENDIX: A normal appendix is seen on axial images 65-67. BLADDER: Unremarkable. REPRODUCTIVE: There is a T-shaped IUD which is adequately positioned in the uterus. ABDOMEN and PELVIS: INTRAPERITONEAL SPACE: Unremarkable. No ascites or other fluid collection. No free air. BONES/JOINTS: There are multilevel degenerative changes in the visualized spine. No suspicious lytic or blastic abnormality. SOFT TISSUES: Unremarkable. No discrete abdominal or pelvic wall hernia. VASCULATURE: Unremarkable. Abdominal aorta is non-dilated. LYMPH NODES: Unremarkable. No enlarged lymph nodes. TUBES, LINES AND DEVICES: There are 5 mm and 3 mm nonobstructive right renal calculi. There are no demonstrated ureteral catheter hydronephrosis. CT/Abdomen/Pelvis W IV Cont ONLY IMPRESSION: 1. Mild acute diverticulitis of the sigmoid colon. No demonstrated abscess or free intraperitoneal air. 2. Prominent rectal feces, possibly representing fecal impaction. 3. Small hiatal hernia. 4. Previous cholecystectomy. 5. Small nonobstructive right renal calculi. No demonstrated ureteral calculi or hydronephrosis. 6. IUD in place. Electronically Signed: Darrel Haji MD at 7:06 EDT ,
--- NOTE | 2022-11-10 05:15 | ED.VIS.GI ---
HPI HPI - GI History of Present Illness Chief Complaint: Constipation Detail of Chief Complaint: Lower abdominal and rectal pain. Informant: patient and spouse/S.O. Abdominal Pain/Flank Pain Onset: Days Context: Gradual Onset Timing: Intermittent Current Severity: Mild Maximum Severity: Mild Worsened by: Nothing Relieved by: Nothing Nausea/Vomiting/Emesis GI Symptom: Positive for Nausea and Vomiting Onset: Days Quality: Positive for Nonbilious Severity: Mild Diarrhea/Melena/Hematochezia GI Symptom: Negative for Diarrhea, Melena or Hematochezia Associated Symptoms Associated Symptoms: Negative for Dysuria, Frequency, Hematuria or Urgency Narrative Narrative: 72-year-old female history of breast cancer diagnosed in 2021. Prior history of DVT and PE reportedly on Coumadin. Patient states that she had knee replacement surgery done in the right knee around October [address] Sammy Singleton done at [facility]. States that she has had constipation and is now having small amounts of loose stool. Prior similar symptoms: No Recent Illness/Hospitalization: Yes PFSH [facility] Medical History Arthritis Cancer of left female breast Degenerative joint disease DVT (deep venous thrombosis) Easy bruising Encounter for education ER+ (estrogen receptor positive status) Excessive bleeding Family history of colon cancer in mother Foot fracture, left Hypertension Hypertension Non-smoker Osteopenia after menopause Post-menopausal Pulmonary embolism Shortness of breath on exertion UTI (urinary tract infection) Home Medications rivaroxaban 10 mg tablet (Xarelto) 10 mg PO DAILY 04/09/18 [History Last Taken 09/27/21] lisinopril 10 mg tablet 10 mg PO DAILY 08/12/21 [History Last Taken 10/02/21] tramadol 50 mg tablet 50 mg PO Q6H PRN pain 3 days #15 tabs 09/16/21 [Rx Last Taken 10/01/21] cranberry fruit concentrate 250 mg chewable tablet (Azo Cranberry) 250 mg PO DAILY 09/17/21 [History Last Taken 10/01/21] calcium carbonate 500 mg calcium (1,250 mg) chewable tablet (Calcium 500) 500 mg PO BID 04/02/22 [History Last Taken Unknown] cholecalciferol (vitamin D3) 50 mcg (2,000 unit) capsule 50 mcg PO DAILY 04/02/22 [History Last Taken Unknown] hydrocodone-acetaminophen 5-325mg 5mg-325mg 1 tab PO Q6H PRN PRN Pain 3 days #10 TABLETS 06/07/22 [Rx Last Taken Unknown] prednisone 10 mg tablet 10 mg PO UD #30 tabs 06/07/22 [Rx Last Taken Unknown] anastrozole 1 mg tablet See Rx Instructions .Route .COMPLEX #90 tabs 10/15/22 [Rx Last Taken Unknown] ondansetron 4 mg disintegrating tablet 4 mg PO Q8H PRN PRN Nausea #10 tabs 11/06/22 [Rx Last Taken Unknown] amoxicillin 875 mg-potassium clavulanate 125 mg tablet 1 tab PO BID 14 days #28 tabs 11/10/22 [Rx Last Taken Unknown] Allergy/AdvReac Type Severity Reaction Status Date / Time No Known Allergies Allergy Verified 11/06/22 18:34 Family History Grandmother Breast cancer Daughter Breast cancer Mother Colon cancer Surgical History History of cholecystectomy History of left mastectomy (~08/2021) History of lumpectomy of left breast History of total knee replacement Hx of abdominoplasty Social History household members: spouse Smoking Status: Never smoker alcohol intake: never substance use type: does not use ROS ROS ED ROS Narrative Nausea and vomiting. Rectal pain. Review of Systems ROS Unobtainable: Denies due to encephalopathy Constitutional Constitutional ED: Denies chills or fever(s) ENT ENT ED: Denies ear pain Cardiovascular Cardiovascular: Denies chest pain Respiratory/Chest Respiratory/Chest: Denies cough Gastrointestinal Gastrointestinal: Reports abdominal pain, constipation, nausea and vomiting Genitourinary Genitourinary ED: Denies dysuria or hematuria Musculoskeletal Musculoskeletal: Denies arthralgias or back pain Integumentary Denies abscess or Abrasions Neurologic Neurologic: Denies headache(s) Psychiatric Psychiatric: Denies anxiety Endocrine Endocrinology: Denies polydipsia Hematologic/Lymphatic Hematologic/Lymphatic: Denies easy bleeding or easy bruising Allergic/Immunologic Allergic/Immunologic ED: Denies mouth swelling or tongue swelling EXAM Physical Exam Narrative Exam Narrative: 72-year-old female. Vital signs are stable afebrile. She does look septic or toxic. No distress. H EENT exam unremarkable. Neck nontender. Lungs clear to auscultation bilaterally. Heart regular rhythm rate about 90 no murmur. Abdomen soft nondistended normal bowel sounds no peritoneal signs. Minimal suprapubic tenderness. No organomegaly or masses. No pulsatile mass. No signs of obstruction. Moving all 4 extremities. Well-healing right knee anterior incision dry and clean. No signs of infection. Calves are nontender without edema. Neurologically she is awake alert with no focal motor deficits. Const Vital Signs: 11/10/22 04:34 11/10/22 04:33 Temperature 98.5 F 98.6 F Temperature Source Temporal Temporal Pulse Rate 91 88 Respiratory Rate 16 15 Blood Pressure 132/65 H 132/65 H Blood Pressure Mean 87 87 Pulse Ox 98 98 Oxygen Delivery Method Room Air Room Air Positive well nourished, well developed and obese; Negative for cachectic, contractures or unkempt General Appearance ED: well developed and NAD; Negative for unkempt, cachectic, contractures or pallor Nutritional Appearance: obese; Negative for cachectic HEENT Reports moist mucous membranes normocephalic and atraumatic; Negative for trauma or tenderness Eyes PERRL and EOMs intact bilaterally General Eye ED: Negative for pale conjunctiva or scleral icterus Neck no lymphadenopathy, supple and no JVD General: Negative for tenderness Carotids: Negative for other Lymph Lymphatic: Negative for other Resp normal respiratory effort and clear to auscultation bilaterally Effort and Inspection: Negative for respiratory distress Auscultation: Negative for rales, rhonchi or wheezes Cardio regular rate, regular rhythm, S1 normal heart sound, S2 normal heart sound and no murmurs Rhythm: Negative for abnormal rhythm GI non-distended and no masses; Negative for non-tender GI Narrative: Very mild suprapubic tenderness only. No peritoneal signs. No signs of obstruction. No distention. Right upper and right lower quadrants are unremarkable. No mass or pulsatile mass. Positive bowel sounds. Inspection: Negative for abdominal distention Auscultation: normoactive bowel sounds Palpation: soft and tender; Negative for guarding, rigid, hepatomegaly, splenomegaly, hernia, mass, pulsatile mass or rebound tenderness present Back/Spine no CVA tenderness Extremity full ROM Extremity Narrative: Except right knee status post right knee replacement. Incision is dry and clean. Sutures in place. No cellulitis. General Extremety ED: Negative for edema or tenderness General Extremity: Negative for edema Neuro CN's II-XII intact bilaterally and moves all extremities Sensorium / Orientation: alert, oriented to person, oriented to place and oriented to time; Negative for orientation impaired, confused, lethargic or stuporous Motor Exam: strength 5/5 throughout Psych mental status grossly normal and thought process normal Appearance: Negative for unkempt Attitude: No agitated Mood & Affect: Negative for depressed, anxious or tearful Skin no wounds General Skin Exam: Negative for jaundice or pallor Lesions: no lesions Rashes: no rashes Trauma: Negative for abrasion Nails: Negative for discolored MDM MDM MDM Narrative Medical decision making narrative: 72-year-old female complaining constipation now may have overflow incontinence of the stool. Complaint of rectal pain. She did have a recent knee replacement surgery which appears to be going well. She was seen here 7 days ago and had unremarkable labs. Screening labs and a CAT scan of the obtained. I do not make much of her abdominal pain on exam her abdomen is pretty benign. CAT scan and labs are consistent with constipation and sigmoid diverticulitis. Per patient and 's request we attempted a manual disimpaction and she could not even remotely tolerate that at all. There is no way she would tolerate a soapsuds enema. She will be treated with GoLytely at home. Placed on Augmentin 875 twice daily for 2 weeks for the diverticulitis. And follow-up with her primary care physician Dr. Gurdeep Alcazar. History & Record Review Discussion w/independent historian: Patient and Significant other Lab Data Attestation: I reviewed the patient's lab results. Lab results narrative: CBC shows elevated white count of 21.1. H&H 10.5 and 32.5. Platelets 433. Electrolytes show a gap of 6 BUN 42 creatinine 1.36 Liver enzymes are unremarkable. Lipase is normal at 209. Urine Alysis is shows 10-25 white cells rare bacteria and no nitrites. She is not having any urinary symptoms. CAT scan is consistent with acute sigmoid diverticulitis. No abscess or intraluminal air. Labs: Laboratory Results - last 24 hr 11/10/22 11/10/22 11/10/22 05:25 05:25 06:00 WBC 21.1 H RBC 3.39 L Hgb 10.5 L Hct 32.5 L MCV 95.9 MCH 31.0 MCHC 32.3 RDW Std Deviation 47.0 H RDW Coeff of Zachary 13.4 Plt Count 433 MPV 9.7 Immature Gran % (Auto) 0.600 Neut % (Auto) 92.6 H Lymph % (Auto) 3.7 L Price % (Auto) 3.0 Eos % (Auto) 0.0 Baso % (Auto) 0.1 Absolute Neuts (auto) 19.5 H Absolute Lymphs (auto) 0.79 L Nucleated RBC % 0 Sodium 139 Potassium 3.8 Chloride 107 Carbon Dioxide 26.0 Anion Gap 6 BUN 42 H Creatinine 1.36 H Estim Creat Clear Calc 30.44 Est GFR (MDRD) Af Amer 49 L Est GFR (MDRD) Non-Af 41 L BUN/Creatinine Ratio 30.9 H Glucose 153 H Calcium 9.1 Total Bilirubin 0.70 AST 19 ALT 14 Alkaline Phosphatase 86 Total Protein 7.2 Albumin 2.8 L Globulin 4.4 H Albumin/Globulin Ratio 0.6 L Lipase 209 Urine Color Yellow Urine Clarity Clear Urine pH 5.0 Ur Specific [place] 1.015 Urine Protein 30 H Urine Glucose (UA) Normal Urine Ketones 5 H Urine Occult Blood 25 H Urine Nitrite Negative Urine Bilirubin Negative Urine Urobilinogen 1 H Ur Leukocyte Esterase 25 H Urine RBC 0 SEEN Urine WBC 10-25 SEEN Ur Squamous Epith Cells 0 SEEN Urine Bacteria RARE Urine Mucus 0 SEEN Radiography Diagnostic Testing: Clinical Impression(s) from Imaging Studies Abdomen/Pelvis CT 11/10/22 05:13 IMPRESSION: 1. Mild acute diverticulitis of the sigmoid colon. No demonstrated abscess or free intraperitoneal air. 2. Prominent rectal feces, possibly representing fecal impaction. 3. Small hiatal hernia. 4. Previous cholecystectomy. 5. Small nonobstructive right renal calculi. No demonstrated ureteral calculi or hydronephrosis. 6. IUD in place. Electronically Signed: Darrel Haji MD at 7:06 EDT Reading Location ID and State: [facility] / [place] , Service support , Discharge Plan Triage Chief Complaint: Constipation ED Provider: Frank Jules Dx/Rx/DC Orders Clinical Impression: Diverticulitis of sigmoid colon, Acute constipation, History of knee replacement Instructions: ED Constipation (Adult), ED Diverticulitis Prescriptions: New amoxicillin-pot clavulanate 875-125 mg tablet 1 tab PO BID 14 Days Qty: 28 0RF No Action tramadol 50 mg tablet 50 mg PO Q6H PRN (Reason: pain) 3 Days Qty: 15 0RF Azo Cranberry 250 mg tablet,chewable 250 mg PO DAILY calcium carbonate [Calcium 500] 500 mg calcium (1,250 mg) tablet,chewable 500 mg PO BID cholecalciferol (vitamin D3) 50 mcg (2,000 unit) capsule 50 mcg PO DAILY Xarelto 10 MG tablet 10 mg PO DAILY Hold Instructions: until LUCILLE both removed Label Comments: pt states last dose was 09/01/[address] 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 lisinopril 10 mg tablet 10 mg PO DAILY Label Comments: TAKE 1 TABLET BY MOUTH DAILY hydrocodone-acetaminophen [hydrocodone-acetaminophen] 1 TABLET tablet 1 tab PO Q6H PRN PRN (Reason: Pain) 3 Days Qty: 10 0RF prednisone 10 MG tablet 10 mg PO UD Qty: 30 0RF Rx Instructions: Take 4 tablets daily for 3 days, then 3 daily for 3 days, then 2 daily for 3 days, then 1 a day for 3 days ondansetron [ondansetron] 4 mg tablet,disintegrating 4 mg PO Q8H PRN PRN (Reason: Nausea) Qty: 10 0RF anastrozole 1 mg tablet See Rx Instructions .ROUTE .COMPLEX Qty: 90 0RF Dose Instruction: TAKE 1 TABLET BY MOUTH EVERY DAY Rx Instructions: TAKE 1 TABLET BY MOUTH EVERY DAY Primary Care Provider: Rober Cannon Referrals: Rober Cannon MD [Primary Care Provider] - 3-5 Days Activity Restrictions/Additional Instructions: Plenty of fluids, fruits, vegetables and fiber to help with constipation. GoLytely the jug of liquid drink a 6 to 8 ounce glass every 1-2 hours until you have a significant bowel movement. You can stop once you have a significant bowel movement. Most of the constipation is in your rectum which is in the very far in your colon. You also have diverticulitis of your lower colon. This is an infection with inflammation. We placed on Augmentin 1 pill twice a day for 2 weeks. Follow-up with Dr. Gurdeep Alcazar in the next several days. Return to the emergency department if you are feeling worse or not improving. Disposition Disposition: Home, Self Care
[2022-11-10 05:34] LABS: Absolute Lymphocyte Count 0.79 X10^3/uL (0.83-4.51); Absolute Neutrophil Count 19.5 X10^3/uL (2.0-7.7); Basophil# 0.03 X10^3/uL; Basophil% 0.1 % (0-1); Hematocrit 32.5 % (37-47); Hemoglobin 10.5 g/dL (12.0-15.0); Lymphocyte # 0.79 X10^3/ul (0.83-4.51); Lymphocyte % 3.7 % (19-41); Mean Corp Hgb Conc 32.3 g/dL (32-36); Mean Corpuscular Volume 95.9 fL (81-99); Mean Platelet Vol. 9.7 fl (6.2-12.0); Monocyte# 0.63 X10^3/uL; NRBC Flagged by Analyzer 0 % (0-5); Neutrophil # 19.53 X10^3/uL (2.7-7.7); Neutrophil % 92.6 % (47-70); Platelet Count 433 K/mm3 (150-450); RBC Distribution Width CV 13.4 % (11.6-14.6); Red Blood Count 3.39 M/mm3 (4.2-5.4); White Blood Count 21.1 K/mm3 (4.4-11.0)
[2022-11-10 05:55] LABS: ALB/GLOB Ratio 0.6 RATIO (0.9-2.4); AST(SGOT) 19 U/L (15-37); Alanine Aminotransfer ALT/SGPT 14 U/L (13-56); Albumin, Serum 2.8 g/dL (3.2-5.0); Alkaline Phosphatase 86 U/L (45-117); Anion Gap 6 (5-15); BUN 42 mg/dL (7-18); BUN/Creat Ratio 30.9 RATIO (10-20); Calcium,Total 9.1 mg/dL (8.5-10.1); Chloride 107 mmol/L (98-107); Creatinine, Serum 1.36 mg/dL (0.55-1.02); EST Glomerular Filtration Rate 41 mL/min (>60); Est Glom Filt Rate - Afr Amer 49 mL/min (>60); Estimated Creatinine Clearance 30.44 ml/min; Globulin 4.4 g/dL (2.2-4.2); Glucose 153 mg/dL (74-106); Lipase 209 U/L (73-393); Potassium 3.8 mmol/L (3.5-5.1); Protein, Total 7.2 g/dL (6.4-8.2); Sodium Level 139 mmol/L (136-145)
[2022-11-10 06:14] LABS: Mucous, Urine 0 SEEN /hpf (<or=2+); Red Blood Cells-Urine 0 SEEN /hpf (0-5); Squamous Epithelial Cells - UA 0 SEEN /hpf (5-10)
[2022-11-10 06:24] LABS: Glucose, Dipstick Normal (Normal); Ketone-Dipstick 5 mg/dl (Negative); Leukocyte Esterase-Dipstick 25 /ul (Negative); Nitrite-Dipstick Negative (Negative); Occult Blood-Urine 25 /ul (Negative); Protein-Dipstick 30 mg/dl (Negative); Specific Gravity, Urine 1.015 (1.002-1.030); Urine Bilirubin Dipstick Negative (Negative); Urine Urobilinogen 1 mg/dl (Normal)
[2022-11-10 06:30] LABS: Color, Urine Yellow (Yellow); Urine Clarity Clear (Clear)
[2022-11-10 06:40] LABS: White Blood Cells 10-25 SEEN /hpf (0-5)
[2022-11-10 06:41] LABS: Bacteria RARE /hpf (None Seen)
--- NOTE | 2022-11-10 07:23 | ED.RN ---
STRAIGHT CATH BY ADVICE LINE RN
[2022-11-10 08:09] LABS: International Normalized Ratio 1.4; Prothrombin Time (Protime)PT. 16.6 SECONDS (11.7-14.9)
[2022-11-10 08:11] VITALS: BP 152/60; PULSE 93; RESP 14; O2SAT 95
[2022-11-10 08:23] VITALS: BP 156/72; PULSE 85; RESP 14; O2SAT 93
[2022-11-10 08:28] VITALS: BP 156/72; PULSE 85; RESP 14; O2SAT 93
[2022-11-10] MEDS: Electrolyte Solution/Peg's 4000 ML 2000 ML PO (08:49)
[2022-11-10] MEDS: Amox/Clavulanate 875 MG Tablet PO (08:49)
== END 2022-11-10 08:56 | disposition home or self-care (01) ==
PROVIDERS: Emergency Provider Emergency Medicine; PCP Family Medicine; Visit Provider Emergency Medicine
DX: K57.32 Diverticulitis of large intestine without perforation or abscess without bleeding (principal); Z96.651 Presence of right artificial knee joint; N39.490 Overflow incontinence; K59.00 Constipation, unspecified; E66.9 Obesity, unspecified
CPT/HCPCS: 74177; 80053; 81001; 83690; 85025; 85610; 99285; P9612; Q9967; A4216

== ENCOUNTER 2023-11-25 13:00 | Outpatient (RCR) | payer MEDICARE, MEDICAID, SELFPAY ==
--- NOTE | 2023-11-17 16:40 | HP.PTEVAL_ITS ---
Patient's Visit Information Visit Information Visit Information: BREANNA YANES is a 73 year old F referred to Physical Therapy by Dr. Kang Cannon MD with a diagnosis of BPPV. Date of Evaluation: 11/17/23 Physical Therapist: Merrick Berman, EFET, OCS, CSCS Visit Plan Frequency: 1-2x /Week Duration: 2-4 Weeks Plan: 1-2x/week for 204 weeks as needed to get rid of positional vertigo with positional ex. Much time spent educating patient on BPPV as well as benefits of [id number] says she will never ex but eventully states she loves it in the pool and would do that. but she knows what to do and just has not since (12 yrs ago) Subjective Subjective: I am dizzy intermittently. started 2 weeks ago for no reason. Happens with lying down and room spins for 5 minutes. has to sit up slowly. turning can cause it. Movements of head seem to cause it if she bends over. No prior history of this. Basic ADLs are going OK at home employed, retired. Sleeping is OK, sleeps sitting up to avoid dizzyness Objective Objective: Poor historian saying dizzy two weeks and then 8 months Cancer two years ago then 5 yrs ago. Walks into PT I slow with wide DANIEL and tired after 225 feet needing a rest. Trasnfers bed and chair I. rolling presents a challenge for patient. Steps prefers R up and down and needs a rail or two and pulls. cervical AROM WFL and without pain. UE AROM WFL - L hallpike sharla + R hallpike sharla for 10 sec up torsional nystagmus with spinning. Treated with modified bina and then negative test. Balance/Special Test Scores Functional Gait Assessment Score: 24 % Disability: 20.0000 Dizziness Score: 72 Goals Goal 1:: abolish dizzyness in bed at night Goal Time Frame: 2-4 Weeks Goal 2:: Pt feel dizzyness `100% abolished Goal Time Frame: 2-4 Weeks Goal 3:: pt to consider pool ex on own I Goal Time Frame: 2-4 Weeks Goal 4:: 30 or less DHI Goal Time Frame: 2-4 Weeks Rehabilitation Potential Physical Therapy Diagnosis: positional vertigo making bed uncomfortable Rehabilitation Potential: Good Anticipated Interventions Patient/Client Instruction: Educate patient on: Condition and Risk Factors For the Purpose of:: To increase tolerance to activity/condition/position Comment: positional treatments and ex For the Purpose of:: To increase tolerance to activity/condition/position Text: Thank you for the opportunity to evaluate your patient. For Medicare and Medicare HMO plans, please review the plan of care and approve it. It will need to be FAXED BACK to us at [phone] for Medicare purposes. For Medicare only, by signing this I certify the plan of care. Please let me know if there are questions or concerns regarding this plan of care. Physician Signature: Date:
--- NOTE | 2023-11-25 13:20 | HP.PTDCSUM ---
Discharge Summary D/C summary: It has been my pleasure to treat BREANNA YANES referred by Dr. Kang Cannon MD, with the diagnosis of BPPV for a total of 2 visit(s). Discharge Date: 11/25/23 Please see the following information for a summary of their discharge status. Subjective Subjective: Been feeling good but not confident that it will last. No dizzyness since last session but tries not to move. Overall Improvement % Improvement: 90 Objective Objective/Function: - B hallpike sharla - roll test improved balance. Can bend and touch floor and look up without dizzyness or LOB Moving well with increasing confidence. Goals Goal 1:: abolish dizzyness in bed at night Goal Progress: Goal Met Goal 2:: Pt feel dizzyness `100% abolished Goal Progress: 90%, confidence? Goal 3:: pt to consider pool ex on own I Goal Progress: not desired Goal 4:: 30 or less DHI Goal Progress: Goal Met Plan Plan: d/c, dizzyness appears abolished with positional treatments and pateint does not wish to pursue exercise despite my prompting. D/C Information d/c sentence: If there are questions or concerns regarding this patient's physical therapy, please feel free to call me at [phone]. Thank you for the referral of this patient. Sincerely, Merrick Berman, DPT, OCS, CSCS Balance/Gait/Functional tests Balance/Special Test Scores Functional Gait Assessment Score: 27 % Disability: 10.0000 Dizziness Score: 26 Improvement % Improvement: 90
== END 2023-11-25 19:00 | disposition home or self-care (01) ==
LOC: PT 13:00
PROVIDERS: PCP Family Medicine; Referring Provider Family Medicine; Visit Provider Family Medicine
DX: H81.10 Benign paroxysmal vertigo, unspecified ear (principal)
CPT/HCPCS: 97161; 97530

== ENCOUNTER 2023-12-02 21:36 | Emergency (ER) | payer MEDICARE, MEDICAID, SELFPAY ==
[2023-12-02 21:38] VITALS: BP 153/77; PULSE 82; RESP 16; TEMP 36.1; O2SAT 99; BMI 45.8
--- NOTE | 2023-12-02 22:31 | EX.ED.DYSGE1 ---
HPI History of Present Illness Chief Complaint: Other, Pain/Inj Informant: patient and spouse/S.O. Narrative Narrative: Patient is a 73-year-old female with past medical history of hypertension as well as breast cancer. She states that the breast cancer is old and she has been on daily pills for approximately 5 years. She reports that she noticed a few hours ago that if she touched the left portion of her forehead/zoroastrian that it was painful. She states there was no recent trauma. She denies any fevers or chills or overlying soft tissue changes. She states she looked in the mirror and felt that one of the veins in the head at that region were swollen. She states she contacted her daughter who told her she could potentially be having a stroke and therefore comes in for evaluation. Patient states that since arriving to the ER the pain has spontaneously improved but not completely resolved PFSH PFSH Medical History Anemia Arthritis Cancer of left female breast Degenerative joint disease DVT (deep venous thrombosis) Easy bruising Encounter for education ER+ (estrogen receptor positive status) Excessive bleeding Family history of colon cancer in mother Foot fracture, left Hypertension Hypertension Non-smoker Osteopenia after menopause Post-menopausal Pulmonary embolism Shortness of breath on exertion UTI (urinary tract infection) Home Medications lisinopril 10 mg tablet 10 mg PO DAILY 08/12/21 [History Last Taken 10/02/21] cranberry fruit concentrate 250 mg chewable tablet (Azo Cranberry) 250 mg PO DAILY 09/17/21 [History Last Taken 10/01/21] anastrozole 1 mg tablet See Rx Instructions .Route .COMPLEX #30 tabs 11/23/23 [Rx Last Taken Unknown] Allergy/AdvReac Type Severity Reaction Status Date / Time No Known Allergies Allergy Verified 12/02/23 21:38 Family History Grandmother Breast cancer Daughter Breast cancer Mother Colon cancer Surgical History History of cholecystectomy History of dilation and curettage History of left mastectomy (~08/2021) History of lumpectomy of left breast History of total knee replacement Hx of abdominoplasty Social History household members: spouse Smoking Status: Never smoker alcohol intake: never substance use type: does not use ROS ROS ED Constitutional Constitutional ED: Denies chills or fever(s) Eyes Eyes: Denies blurry vision, change in vision or diplopia ENT ENT ED: Denies ear pain or sore throat Cardiovascular Cardiovascular: Denies chest pain Respiratory/Chest Respiratory/Chest: Denies cough or dyspnea Gastrointestinal Gastrointestinal: Denies abdominal pain, diarrhea, nausea or vomiting Genitourinary Genitourinary ED: Denies dysuria Musculoskeletal Musculoskeletal: Denies myalgias or neck pain Integumentary Denies abscess, Abrasions or rash Neurologic Neurologic: Reports headache(s) and other Details: Positive pain with palpation of the left sided forehead/zoroastrian Hematologic/Lymphatic Hematologic/Lymphatic: Denies easy bleeding or easy bruising EXAM Physical Exam Const Vital Signs: 12/02/23 21:38 12/02/23 22:18 Temperature 97 F L Temperature Source Temporal Pulse Rate 82 Respiratory Rate 16 Respiratory Effort Normal Non-Labored Respiratory Pattern Normal Blood Pressure 153/77 H Blood Pressure Mean 102 Pulse Ox 99 Positive well nourished, well developed and obese General Appearance ED: well developed; Negative for pallor Nutritional Appearance: obese HEENT HEENT Narrative: Normocephalic atraumatic Patient does have 2 small dilated superficial veins along the left lateral forehead/temporal region near the area she reports is painful with palpation. There is no overlying erythema or warmth to suggest cellulitis or abscess and no vesicular lesion to suggest herpes zoster/shingles. No signs of depressed or basilar skull fracture Eyes PERRL and EOMs intact bilaterally Eyes Narrative: No pain with spontaneous eye motion Patient denies any change in vision Neck supple Neck Narrative: No nuchal rigidity or meningeal signs noted Resp normal respiratory effort and clear to auscultation bilaterally Cardio regular rate and regular rhythm Extremity normal to inspection Neuro oriented x3, CN's II-XII intact bilaterally and no sensory deficits noted Neuro Narrative: Cranial nerves II through XII are grossly intact there are no focal neurologic deficits No pronator drift no dysmetria no truncal ataxia NIH stroke scale score of 0 Sensorium / Orientation: alert Motor Exam: strength 5/5 throughout Psych mental status grossly normal Skin no rashes or lesions noted and no wounds General Skin Exam: Negative for jaundice or pallor MDM MDM MDM Narrative Medical decision making narrative: Patient arrived to the ER slightly hypertensive but does have a past medical history of this. She reported pain to the left sided forehead/temporal region of her scalp with palpation over the last few hours. Differential diagnosis is for cellulitis versus abscess versus shingles versus musculoskeletal pain. She did have 2 small superficial dilated blood vessels/veins in this area but when I palpated them she states that they were not painful in nature. There is also concern for potential temporal arteritis. I discussed with patient that the fact she has pain with palpation only in the small blood vessels along the scalp she was seeing would go against any type of acute stroke and she has a stroke scale score of 0 at this time. Therefore my concern that her symptoms would progress to stroke are very low. I did offer that we would perform a CT scan of her brain to ensure that there is no obvious mass or bleed. I also offered basic laboratory studies to check inflammatory markers for potential infection or temporal arteritis. The patient states that she is already starting to feel better after arriving to the ER with less pain with palpation then she had at home and states that at rest as long as she is not touching the area there is no pain whatsoever. Therefore she does not want to undergo the laboratory testing or imaging studies. I informed patient she can follow-up on an outpatient with her family doctor to discuss obtaining these tests or return to the ER if there is worsening of symptoms or change in her exam as the fact there is pain on palpation and a localized pattern is concerning for potential early shingles. Patient states she understands this and at this time as she does not want to undergo any workup other than the exam and my concern that there is an acute infection or neurologic event low she is otherwise safe for discharge History & Record Review Discussion w/independent historian: Patient and Significant other Discharge Plan Triage Chief Complaint: Other, Pain/Inj ED Provider: Yobany Dolan Dx/Rx/DC Orders Clinical Impression: Headache, Hypertension Instructions: Understanding Headache Pain Prescriptions: No Action Azo Cranberry 250 mg tablet,chewable 250 mg PO DAILY lisinopril 10 mg tablet 10 mg PO DAILY Patient Comments: TAKE 1 TABLET BY MOUTH DAILY anastrozole 1 mg tablet See Rx Instructions .ROUTE .COMPLEX Qty: 30 0RF Dose Instruction: TAKE 1 TABLET BY MOUTH EVERY DAY Rx Instructions: TAKE 1 TABLET BY MOUTH EVERY DAY Primary Care Provider: Kang Cannon Referrals: Kang Cannon MD [Primary Care Provider] - Activity Restrictions/Additional Instructions: Continue to watch the area of tenderness because if a rash develops your pain could be secondary to shingles or an infection such as cellulitis or abscess. Follow-up with your family doctor for repeat evaluation and return to the ER should you have any further concerns Disposition Disposition: Home, Self Care Discharge Date/Time: 12/02/23 22:43
== END 2023-12-02 22:43 | disposition home or self-care (01) ==
PROVIDERS: Emergency Provider Emergency Medicine; PCP Family Medicine; Visit Provider Emergency Medicine
DX: R51.9 Headache, unspecified (principal); I10 Essential (primary) hypertension; E66.9 Obesity, unspecified
CPT/HCPCS: 99282

== ENCOUNTER 2024-01-13 18:35 | Emergency (ER) | payer MEDICARE, MEDICAID, SELFPAY ==
[2024-01-13 18:36] VITALS: BP 128/61; PULSE 85; RESP 18; TEMP 36.1; O2SAT 97; BMI 45.0
--- NOTE | 2024-01-13 19:12 | EDS_ITS ---
HPI History of Present Illness Chief Complaint: Rash Detail of Chief Complaint: Rash Informant: patient Narrative Narrative: Patient presents to the emergency department with a rash that started today. She describes a lot of itching and discomfort. Patient tells me she finished Bactrim yesterday for a UTI. Denies any new soaps or detergents or other allergens. Denies any other new medications. She is never had allergy to Bactrim before. She has had it in the past. She denies fevers or chills or sweats or any other illness. PFSH PFS Medical History Anemia Arthritis Cancer of left female breast Degenerative joint disease DVT (deep venous thrombosis) Easy bruising Encounter for education ER+ (estrogen receptor positive status) Excessive bleeding Family history of colon cancer in mother Foot fracture, left Hypertension Hypertension Non-smoker Osteopenia after menopause Post-menopausal Pulmonary embolism Shortness of breath on exertion UTI (urinary tract infection) Home Medications ?Medication ?Instructions ?Recorded ?Last Taken ?Type lisinopril 10 mg tablet 10 mg PO DAILY 08/12/21 10/02/21 History cranberry fruit concentrate 250 mg 250 mg PO DAILY 09/17/21 10/01/21 History chewable tablet (Azo Cranberry) anastrozole 1 mg tablet See Rx Instructions .Route 11/23/23 Unknown Rx .COMPLEX #30 tabs hydroxyzine HCl 25 mg tablet 25 mg PO Q8H PRN itching #20 tabs 01/13/24 Unknown Rx prednisone 20 mg tablet 20 mg PO BID #10 tabs 01/13/24 Unknown Rx Allergy/AdvReac Type Severity Reaction Status Date / Time No Known Allergies Allergy Verified 01/13/24 18:36 Family History Grandmother Breast cancer Daughter Breast cancer Mother Colon cancer Surgical History History of cholecystectomy History of dilation and curettage History of left mastectomy (~08/2021) History of lumpectomy of left breast History of total knee replacement Hx of abdominoplasty Social History household members: spouse Smoking Status: Never smoker alcohol intake: never substance use type: does not use ROS ROS ED Review of Systems ROS Unobtainable: other Constitutional Constitutional ED: Reports lethargy; Denies chills, fever(s), sweats or weight loss Eyes Eyes: Denies blurry vision, change in vision or diplopia ENT ENT ED: Denies rhinorrhea or sore throat Cardiovascular Cardiovascular: Denies chest pain, orthopnea or racing heartbeat Respiratory/Chest Respiratory/Chest: Denies cough, dyspnea, dyspnea on exertion, orthopnea or sputum Gastrointestinal Gastrointestinal: Denies abdominal pain, diarrhea, nausea or vomiting Genitourinary Genitourinary ED: Denies dysuria, hematuria or urinary frequency Musculoskeletal Musculoskeletal: Denies arthralgias, back pain, myalgias or neck pain Integumentary Reports rash; Denies abscess or Abrasions Neurologic Neurologic: Denies headache(s) or weakness Psychiatric Psychiatric: Denies anxiety, depression or suicidal thoughts Endocrine Endocrinology: Denies polydipsia, polyphagia or polyuria Hematologic/Lymphatic Hematologic/Lymphatic: Denies easy bleeding, easy bruising or lymphadenopathy Allergic/Immunologic Allergic/Immunologic ED: Denies mouth swelling, tongue swelling or urticaria EXAM Physical Exam Const Vital Signs: 01/13/24 18:36 Temperature 97 F L Temperature Source Temporal Pulse Rate 85 Respiratory Rate 18 Blood Pressure 128/61 H Blood Pressure Mean 83 Pulse Ox 97 Oxygen Delivery Method Room Air Positive well nourished and well developed General Appearance ED: well developed and NAD HEENT Reports TM's clear and moist mucous membranes normocephalic and atraumatic; Negative for trauma or tenderness Tympanic Membrane ED: Yes TM's clear Eyes PERRL and EOMs intact bilaterally General Eye ED: Negative for pale conjunctiva or scleral icterus Neck no lymphadenopathy, supple and no JVD General: Negative for tenderness Chest Wall inspection of chest normal and palpation of chest normal Chest: Negative for tenderness Resp normal respiratory effort and clear to auscultation bilaterally Effort and Inspection: Negative for respiratory distress or pain with movement Auscultation: Negative for rhonchi, wheezes or diminished lung sounds Cardio regular rate, regular rhythm, S1 normal heart sound, S2 normal heart sound and no murmurs Peripheral Pulses: pulses 2+ throughout GI normal to inspection, nondistended, normoactive bowel sounds, soft to palpation, non-tender, non-distended and no masses Back/Spine no CVA tenderness and no thoracic nor lumbar tenderness Extremity normal to inspection General Extremety ED: Negative for edema General Extremity: Negative for edema Neuro oriented x3, CN's II-XII intact bilaterally, no sensory deficits noted and gait normal Sensorium / Orientation: awake, alert, oriented to person, oriented to place and oriented to time Motor Exam: strength 5/5 throughout and strength abnormal Psych mental status grossly normal Skin no wounds Skin Narrative: Patient with an erythematous red raised rash typical of urticaria involving the upper extremities as well as the abdomen and buttocks. MDM MDM MDM Narrative Medical decision making narrative: Patient presents with urticaria after just finishing antibiotic Bactrim yesterday. I suspect this is likely a reaction to the Bactrim. There is no evidence of angioedema on exam. No involvement of mucous membranes. Patient will be given prednisone and Atarax. Advised to avoid Bactrim in the future. Advised to follow-up with primary care physician within next 3 to 5 days. To return if tongue swelling or difficulty breathing or condition should worsen anyway. Discharge Plan Triage Chief Complaint: Rash ED Provider: Salena Burkett Dx/Rx/DC Orders Clinical Impression: Urticaria, Allergic drug reaction Instructions: ED Drug Reaction, Other, ED Hives (Adult) Prescriptions: New prednisone 20 mg tablet 20 mg PO BID Qty: 10 0RF hydroxyzine HCl 25 mg tablet 25 mg PO Q8H PRN (Reason: itching) Qty: 20 0RF No Action Azo Cranberry 250 mg tablet,chewable 250 mg PO DAILY lisinopril 10 mg tablet 10 mg PO DAILY Patient Comments: TAKE 1 TABLET BY MOUTH DAILY anastrozole 1 mg tablet See Rx Instructions .ROUTE .COMPLEX Qty: 30 0RF Dose Instruction: TAKE 1 TABLET BY MOUTH EVERY DAY Rx Instructions: TAKE 1 TABLET BY MOUTH EVERY DAY Primary Care Provider: Kang Cannon Referrals: Kang Cannon MD [Primary Care Provider] - 3-5 Days Print Language: Montserratian Disposition Disposition: Home, Self Care
[2024-01-13] MEDS: predniSONE 20 MG Tablet 40 MG PO (20:44)
[2024-01-13] MEDS: hydrOXYzine 10 MG Tablet PO (21:30)
[2024-01-13 21:33] VITALS: BP 122/80; PULSE 81; RESP 16; TEMP 36.8; O2SAT 98
== END 2024-01-13 21:34 | disposition home or self-care (01) ==
PROVIDERS: Emergency Provider Emergency Medicine; PCP Family Medicine; Visit Provider Emergency Medicine
DX: L50.9 Urticaria, unspecified (principal); T36.8X5A Adverse effect of other systemic antibiotics, initial encounter; I10 Essential (primary) hypertension
CPT/HCPCS: 99283

== ENCOUNTER 2024-01-22 15:10 | Inpatient (IN) | payer MEDICARE, MEDICAID, SELFPAY ==
[2024-01-22] VITALS (11 sets, daily range): BP systolic 90–128; BP diastolic 49–79; PULSE 102–117; RESP 18–25; TEMP 36.1–37.1; O2SAT 93–98; BMI 45.0; BMI 45.2
--- NOTE | 2024-01-22 15:20 | EKG12_ITS ---
Test Reason : SOB Blood Pressure : / mmHG Vent. Rate : 103 BPM Atrial Rate : 103 BPM P-R Int : 160 ms QRS Dur : 076 ms QT Int : 350 ms P-R-T Axes : 051 -15 048 degrees QTc Int : 458 ms Sinus tachycardia Otherwise normal ECG Confirmed by KVNG LIMA, HELEN ([id number]), subeditor YAMILETH HARMON ([id number]) on 01/25/2024 9:44:45 AM Referred By: Confirmed By:BRAYAN CALDERON MD
--- NOTE | 2024-01-22 15:25 | EDS_ITS ---
<Statement entered by Candy Webber MD - 01/22/24 17:17> I have personally performed a face to face assessment of the patient and have reviewed the CHRISTIN Note. Patient presents secondary to chest pressure, cough, shortness of breath that has been ongoing. She denies having fever. She reports pain is worse with cough but she has constant chest pain. In review of records it appears patient has a history of DVT and PE. She was prescribed Xarelto in February 2023. When I asked her if she was still taking this she denies stating that she stopped it herself because she does not like taking medication. Patient sitting upright in bed in no acute distress. She is anxious. Head and neck examination unremarkable. Heart is slightly tachycardic and regular. Lung sounds are clear throughout. Abdomen is soft and nontender. Neuro exam is unremarkable. CBC was a white count of 18.6 with 78% neutrophils. Chemistry studies significant for BUN of 47 and a creatinine of 1.67. Troponin is elevated at 240. EKG is sinus tach with no evidence of acute ischemia. CTA of the chest reveals bilateral pulmonary emboli per my interpretation. She was started on a heparin drip prior to official return of the CTA read. I did speak with the radiologist. Patient does have fairly extensive bilateral pulmonary emboli with evidence of right heart strain. Patient is currently on a heparin drip and is discussed with the hospitalist. She remains on room air at this time. She will be admitted to the ICU for close monitoring. HPI History of Present Illness Chief Complaint: Shortness of Breath Narrative Narrative: 74-year-old female with past medical history of HTN, DVT/PE, breast cancer s/p mastectomy 2 years ago on anastrozole presents with 4 days of runny nose and productive cough and chest pain with coughing and breathing. No fever or chills. She does not smoke and denies history of asthma or COPD. Her has similar URI symptoms. Patient states she had blood clot several years ago and was on Xarelto but stopped taking it herself. [facility] Medical History Anemia Arthritis Cancer of left female breast Degenerative joint disease DVT (deep venous thrombosis) Easy bruising Encounter for education ER+ (estrogen receptor positive status) Excessive bleeding Family history of colon cancer in mother Foot fracture, left Hypertension Hypertension Non-smoker Osteopenia after menopause Post-menopausal Pulmonary embolism Shortness of breath on exertion UTI (urinary tract infection) Home Medications ?Medication ?Instructions ?Recorded ?Last Taken ?Type lisinopril 10 mg tablet 10 mg PO DAILY 08/12/21 10/02/21 History cranberry fruit concentrate 250 mg 250 mg PO DAILY 09/17/21 10/01/21 History chewable tablet (Azo Cranberry) anastrozole 1 mg tablet See Rx Instructions .Route 11/23/23 Unknown Rx .COMPLEX #30 tabs hydroxyzine HCl 25 mg tablet 25 mg PO Q8H PRN itching #20 tabs 01/13/24 Unknown Rx prednisone 20 mg tablet 20 mg PO BID #10 tabs 01/13/24 Unknown Rx Allergy/AdvReac Type Severity Reaction Status Date / Time No Known Allergies Allergy Verified 01/22/24 15:11 Family History Grandmother Breast cancer Daughter Breast cancer Mother Colon cancer Surgical History History of cholecystectomy History of dilation and curettage History of left mastectomy (~08/2021) History of lumpectomy of left breast History of total knee replacement Hx of abdominoplasty Social History household members: spouse Smoking Status: Never smoker alcohol intake: never substance use type: does not use ROS ROS ED ROS Narrative Constitutional: Negative for fever, chills. ENT: Positive for rhinorrhea. CVS: Positive for chest pain. Negative for syncope. Respiratory: Positive for shortness of breath, cough. GI: Negative for abdominal pain, vomiting, diarrhea. EXAM Physical Exam Narrative Exam Narrative: CONST: Patient sitting in no acute distress. EYES: Normal inspection. ENT: Normal inspection, moist mucous membranes. NECK: Normal inspection. RESP: Frequent dry cough. No respiratory distress, CTAB. CVS: Regular rate and rhythm, no murmur, no gallop. SKIN: Color normal, no rash, warm, dry, intact. EXTREMITIES: Normal appearance, no pedal edema. NEURO: Alert and answering questions appropriately. PSYCH: Normal affect. Const Vital Signs: 01/22/24 15:11 01/22/24 15:18 Temperature 97 F L Temperature Source Temporal Pulse Rate 102 H Respiratory Rate 20 H Respiratory Effort Short of Breath Blood Pressure 107/49 L Blood Pressure Mean 68 Pulse Ox 97 Oxygen Delivery Method Room Air MDM MDM MDM Narrative Medical decision making narrative: History gathered from: Patient and Differential: Viral URI, pneumonia, ACS, PE Patient has had 4 days of chest pain, dyspnea, and cough. She has a history of DVT/PE and is not on anticoagulation. She appears well and nontoxic. She is tachycardic around 100 and sinus rhythm with otherwise normal vital signs. Lung sounds are clear. Labs show white count of 18.6, BUN 47, creatinine 1.67 slightly up from baseline. EKG is sinus tachycardia at 103 bpm with no acute ischemic changes. Troponin is 240. CTA shows extensive bilateral pulmonary emboli with right heart strain. Patient was started on IV heparin and case was discussed with the hospitalist for admission. Lab Data Attestation: I reviewed the patient's lab results. Labs: Laboratory Results - last 24 hr 01/22/24 15:24 WBC 18.6 H RBC 4.42 Hgb 13.8 Hct 43.5 MCV 98.4 MCH 31.2 MCHC 31.7 L RDW Std Deviation 50.9 H RDW Coeff of Zachary 14.0 Plt Count 215 MPV 10.3 Immature Gran % (Auto) 0.700 Neut % (Auto) 78.5 H Lymph % (Auto) 10.7 L Hodgeman % (Auto) 7.1 Eos % (Auto) 2.6 Baso % (Auto) 0.4 Absolute Neuts (auto) 14.6 H Absolute Lymphs (auto) 1.99 Nucleated RBC % 0 PT 15.9 H INR 1.3 APTT 28.5 Sodium 141 Potassium 4.6 Chloride 109 H Carbon Dioxide 21.0 Anion Gap 11 BUN 47 H Creatinine 1.67 H Estim Creat Clear Calc 34.57 Est GFR (MDRD) Af Amer 39 L Est GFR (MDRD) Non-Af 32 L BUN/Creatinine Ratio 28.1 H Glucose 206 H Calcium 9.6 Troponin I High Sens 240 H* Radiography Diagnostic Testing: Clinical Impression(s) from Imaging Studies Chest CTA 01/22/24 15:32 IMPRESSION: 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 No focal infiltrate or other significant abnormality Electronically Signed: Ronald Tenorio MD at 16:51 EDT , Discharge Plan Triage Chief Complaint: Shortness of Breath ED Midlevel Provider: Lucretia Coleman ED Provider: Candy Webber Dx/Rx/DC Orders Clinical Impression: Bilateral pulmonary embolism, Elevated troponin Prescriptions: No Action Azo Cranberry 250 mg tablet,chewable 250 mg PO DAILY lisinopril 10 mg tablet 10 mg PO DAILY Patient Comments: TAKE 1 TABLET BY MOUTH DAILY prednisone 20 mg tablet 20 mg PO BID Qty: 10 0RF hydroxyzine HCl 25 mg tablet 25 mg PO Q8H PRN (Reason: itching) Qty: 20 0RF anastrozole 1 mg tablet See Rx Instructions .ROUTE .COMPLEX Qty: 30 0RF Dose Instruction: TAKE 1 TABLET BY MOUTH EVERY DAY Rx Instructions: TAKE 1 TABLET BY MOUTH EVERY DAY Primary Care Provider: Kang Cannon Referrals: Kang Cannon MD [Primary Care Provider] - Print Language: Sinhala
[2024-01-22 15:32] LABS: Absolute Lymphocyte Count 1.99 X10^3/uL (0.83-4.51); Absolute Neutrophil Count 14.6 X10^3/uL (2.0-7.7); Basophil# 0.07 X10^3/uL; Basophil% 0.4 % (0-1); Eosinophil# 0.48 X10^3/uL; Eosinophils% 2.6 % (0-5); Hematocrit 43.5 % (37-47); Hemoglobin 13.8 g/dL (12.0-15.0); Lymphocyte # 1.99 X10^3/ul (0.83-4.51); Lymphocyte % 10.7 % (19-41); Mean Corp Hgb Conc 31.7 g/dL (32-36); Mean Corpuscular Hgb 31.2 pg (27.0-32.0); Mean Corpuscular Volume 98.4 fL (81-99); Mean Platelet Vol. 10.3 fl (6.2-12.0); Monocyte# 1.32 X10^3/uL; Monocyte% 7.1 % (0-10); NRBC Flagged by Analyzer 0 % (0-5); Neutrophil # 14.62 X10^3/uL (2.7-7.7); Neutrophil % 78.5 % (47-70); Platelet Count 215 K/mm3 (150-450); RBC Distribution Width SD 50.9 fl (35.1-43.9); Red Blood Count 4.42 M/mm3 (4.2-5.4); White Blood Count 18.6 K/mm3 (4.4-11.0)
--- NOTE | 2024-01-22 15:32 | CT_ITS ---
We are attempting to reach an attending provider to discuss findings. An addendum with communication details will be sent when the communication is complete. STUDY: CTA CHEST REASON FOR EXAM: Female, 74 years old. chest pain, cough, r/o pe RADIATION DOSAGE (If Supplied By Facility): CTDIvol = ( 13.76 ) mGy, DLP = ( 471.64 ) mGycm TECHNIQUE: The examination was performed with the intravenous administration of IV 75mL [id number]-370. Post-processing of the angiographic images was performed, with multiplanar reformation and 3D reconstruction. Individualized dose optimization techniques were used for this CT. COMPARISON: None. FINDINGS: There is intraluminal clot noted within the mid to distal distal main left and distal right pulmonary arteries extending into the proximal branches of the upper lobes bilaterally, the right middle lobe as well as the descending interlobar branches to the lower lobes bilaterally. There is also clot noted within segmental branches of the right lower and left lower lobe as well as subsegmental branches of the lower lobes more pronounced on the left. . Minor atherosclerotic change of the aorta without evidence for aneurysm. There is no demonstrated aortic dissection. Heart size is normal however there does appear to be straightening of the ventricular septal border suggesting presence of right ventricular strain. Clinical correlation recommended Normal mediastinum. Normal hilar regions. Normal visualized trachea and bronchi. The lungs are well expanded. Normal pulmonary parenchyma. Normal pleura. Normal chest wall structures. Dorsal spine demonstrates degenerative changes. Normal visualized upper abdomen. 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 No focal infiltrate or other significant abnormality Electronically Signed: Ronald Tenorio MD at 16:51 EDT ,
[2024-01-22 16:21] LABS: Anion Gap 11 (5-15); BUN 47 mg/dL (7-18); BUN/Creat Ratio 28.1 RATIO (10-20); Calcium,Total 9.6 mg/dL (8.5-10.1); Chloride 109 mmol/L (98-107); Creatinine, Serum 1.67 mg/dL (0.55-1.02); EST Glomerular Filtration Rate 32 mL/min (>60); Est Glom Filt Rate - Afr Amer 39 mL/min (>60); Estimated Creatinine Clearance 34.57 ml/min; Glucose 206 mg/dL (74-106); Potassium 4.6 mmol/L (3.5-5.1); Sodium Level 141 mmol/L (136-145); Troponin-I HS 240 pg/mL (3.0-54.0)
[2024-01-22 16:51] LABS: International Normalized Ratio 1.3; Prothrombin Time (Protime)PT. 15.9 SECONDS (11.7-14.9)
[2024-01-22 16:52] LABS: Partial Thromboplast Time 28.5 Seconds (24.1-36.2)
--- NOTE | 2024-01-22 17:04 | PCM.HP.STD ---
HPI - General General Date of Admission: 01/22/24 Date of Service: 01/22/24 Chief Complaint: Shortness of breath HPI Narrative BREANNA YANES, is a 74 F with history of left breast cancer s/p mastectomy, sigmoid diverticulitis, degenerative joint disease, hypertension. For the last 2 to 3 days she has been noticing worsening chest pain, associated with pressure and shortness of breath. Today she noticed that she was out of breath even while walking to the restroom and had hence decided to come to the ED. She has a prior history of pulmonary embolism and DVT in the past she says about 20 years back. No history of recurrent abortions in the past, no history of other features of hypercoagulable state in the past. She is taking Xarelto for a few years but stopped last year as there were no ongoing symptoms. Does not smoke, no marijuana use, her breast cancers is well controlled and right now on anastrozole therapy. She was recently seen in the ED on 01/13/2024 for concerns regarding a rash following initiation of Bactrim. At the time of presentation in the ED her blood pressure was 107/49, pulse 102, respiratory 20, temperature 97, labs showed WBC of 18.6, hemoglobin 1213.8, platelet 215, INR 15.9, sodium 141, BUN of 47 creatinine of 167, high-sensitivity troponin was 240. CTA showed fairly extensive bilateral pulmonary artery emboli in the mid to distal main left and distal right pulmonary arteries extending into the proximal branches of the upper lobe bilaterally the right middle lobe as well as descending interlobar branches. She has been started on heparin GTT in the ICU. [facility] Medical History Anemia Arthritis Cancer of left female breast Degenerative joint disease DVT (deep venous thrombosis) Easy bruising Encounter for education ER+ (estrogen receptor positive status) Excessive bleeding Family history of colon cancer in mother Foot fracture, left Hypertension Hypertension Non-smoker Osteopenia after menopause Post-menopausal Pulmonary embolism Shortness of breath on exertion UTI (urinary tract infection) Home Medications ?Medication ?Instructions ?Recorded ?Last Taken ?Type lisinopril 10 mg tablet 10 mg PO DAILY 08/12/21 10/02/21 History cranberry fruit concentrate 250 mg 250 mg PO DAILY 09/17/21 10/01/21 History chewable tablet (Azo Cranberry) anastrozole 1 mg tablet See Rx Instructions .Route 11/23/23 Unknown Rx .COMPLEX #30 tabs hydroxyzine HCl 25 mg tablet 25 mg PO Q8H PRN itching #20 tabs 01/13/24 Unknown Rx prednisone 20 mg tablet 20 mg PO BID #10 tabs 01/13/24 Unknown Rx Allergy/AdvReac Type Severity Reaction Status Date / Time No Known Allergies Allergy Verified 01/22/24 15:11 Family History Grandmother Breast cancer Daughter Breast cancer Mother Colon cancer Surgical History History of cholecystectomy History of dilation and curettage History of left mastectomy (~08/2021) History of lumpectomy of left breast History of total knee replacement Hx of abdominoplasty Social History household members: spouse Smoking Status: Never smoker alcohol intake: never substance use type: does not use ROS Review of Systems ROS Unobtainable: Denies due to encephalopathy, due to endotracheal tube, due to mental condition, due to mental status or other Constitutional Constitutional: Denies anorexia, change in weight, chills, fatigue, fever(s), malaise, night sweats, weakness or other Eyes Eyes: Denies blurry vision, change in eye color, change in vision, discharge from eye(s), double vision, erythema, eye pain, loss of vision or other ENT HEENT: Denies abnormal hearing, dysphagia, ear pain, epistaxis, headache(s), hearing loss, nasal congestion, nasal discharge, post nasal drip, sinus pressure, sore throat or other Cardiovascular Cardiovascular: Reports chest pain; Denies claudication, dyspnea on exertion, edema, lightheadedness, orthopnea, palpitations, paroxysmal nocturnal dyspnea, rapid heart rate, syncope or other Respiratory/Chest Respiratory/Chest: Reports shortness of breath at rest and shortness of breath with exertion Gastrointestinal Gastrointestinal: Denies abdominal pain, coffee ground emesis, constipation, diarrhea, dyspepsia, hematemesis, hematochezia, loose stools, melena, nausea, vomiting or other Genitourinary Genitourinary: Denies burning urination, difficulty urinating, dysuria, hematuria, nocturia, urinary frequency, urinary hesitancy, urinary incontinence, urinary urgency or other Musculoskeletal Musculoskeletal: Denies arthralgias, back pain, joint pain, joint stiffness, joint swelling, myalgias, neck pain or other Neurologic Neurologic: Denies abnormal gait, abnormal speech, confusion, disequilibrium, dizziness, focal weakness, headache(s), numbness, paresthesias, seizure-like activity, seizures, syncope, tingling, tremor(s) or other Psychiatric Psychiatric: Denies anxiety, depression, homicidal ideation, suicidal ideation or other Endocrine Endocrinology: Denies change in body appearance, cold intolerance, excessive sweating, heat intolerance, polydipsia, polyuria or other Vital Signs Vital Signs Vital Signs: 01/22/24 15:11 01/22/24 15:18 Temperature 97 F L Temperature Source Temporal Pulse Rate 102 H Respiratory Rate 20 H Respiratory Effort Short of Breath Blood Pressure 107/49 L Blood Pressure Mean 68 Pulse Ox 97 Oxygen Delivery Method Room Air Weight Weight: 238 lb 5.115 oz Body Mass Index (BMI) 45.0 Physical Exam Const alert and oriented x3 HEENT normocephalic Neck no lymphadenopathy Resp normal respiratory effort and no retractions Resp Narrative: Pain with deep inspiration Cardio regular rate and regular rhythm GI normal to inspection, nondistended, normoactive bowel sounds Neuro oriented x3 Results Medical Records Data Attestation: I reviewed the patient's medical records Lab / Micro Data Attestation: I reviewed the patient's lab results. 01/22/24 15:24 01/22/24 15:24 Labs: Laboratory Results - last 24 hr 01/22/24 15:24: WBC 18.6 H, RBC 4.42, Hgb 13.8, Hct 43.5, MCV 98.4, MCH 31.2, MCHC 31.7 L, RDW Std Deviation 50.9 H, RDW Coeff of Zachary 14.0, Plt Count 215, MPV 10.3, Immature Gran % (Auto) 0.700, Neut % (Auto) 78.5 H, Lymph % (Auto) 10.7 L, [place] % (Auto) 7.1, Eos % (Auto) 2.6, Baso % (Auto) 0.4, Absolute Neuts (auto) 14.6 H, Absolute Lymphs (auto) 1.99, Nucleated RBC % 0, PT 15.9 H, INR 1.3, APTT 28.5, Sodium 141, Potassium 4.6, Chloride 109 H, Carbon Dioxide 21.0, Anion Gap 11, BUN 47 H, Creatinine 1.67 H, Estim Creat Clear Calc 34.57, Est GFR (MDRD) Af Amer 39 L, Est GFR (MDRD) Non-Af 32 L, BUN/Creatinine Ratio 28.1 H, Glucose 206 H, Calcium 9.6, Troponin I High Sens 240 H* Micro: Microbiology 01/22/24 15:30 Mucosa - Nose SARS-CoV-2, Influenza & RSV (PCR) - Final Imaging Radiology Impression Chest CTA 01/22/24 15:32 IMPRESSION: 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 No focal infiltrate or other significant abnormality Electronically Signed: Ronald Tenorio MD at 16:51 EDT Reading Location ID and State: [facility] / [place] Tel , Service support , Assessment & Plan Assessment/Plan (1) Bilateral pulmonary embolism: PLAN: Plan 74-year-old female with a past medical history of left breast cancer, sigmoid diverticulitis, hypertension presents to the ED with concerns regarding shortness of breath chest pain and elevated troponin I levels. She is being admitted for the management of bilateral pulmonary artery embolism with right heart strain. She is hemodynamically stable and is being admitted to the ICU. She has a history of prior pulm embolism, but no other features of hypercoagulable state at this time. #Pulmonary embolism with right ventricular strain on imaging: She has a prior history of pulmonary embolism and DVT in the past she says about 20 years back. No history of recurrent abortions in the past, no history of other features of hypercoagulable state in the past. -Has received heparin bolus in the ED, continue heparin infusion -Spearer consult -Echocardiogram to evaluate cardiac status -Hemodynamically stable for now, continue to monitor -PT OT evaluation -Case management evaluation -Respiratory therapy evaluation # NELSY: - Likely pre-renal - IV fluids received one liter of NS in the ED - Will start fluid therapy after the echocardiogram -Daily creatinine monitoring #Breast cancer: -S/p mastectomy, no active disease -On anastrozole therapy, restart as an outpatient #Sigmoid diverticulosis: -No concerns at this time, continue to monitor #DVT: Already on therapy Charges/Coding Visit Charges Inpatient E&M: 61446 Init Hosp L2
[2024-01-22] MEDS: 0.9% Normal Saline (1000mL) 1,000 ML 999 ML IV (17:06)
[2024-01-22] MEDS: Heparin Injection (Vial) 5,000 UNIT/ML VIAL 8000 UNIT IV (17:07)
[2024-01-22] MEDS: HEPARIN/D5w 25,000 UNITS 25,000 UNITS/250 ML IV.SOLN. 15 UNITS CONT INF (17:07)
--- NOTE | 2024-01-22 17:08 | NURSING ---
ICU [facility] PULMONARY EMBOLI
--- NOTE | 2024-01-22 17:40 | ECHOD_ITS ---
Reason For Study: PE with Rt Heart Strain Procedure This was a 2D Doppler, Color Flow transthoracic echocardiogram. Exam performed portable in ICU/CCU. Left Ventricle Normal LV size. The estimated ejection fraction is 70 %. Diastolic function is indeterminate. No regional wall motion abnormalities noted. Right Ventricle Severely dilated right ventricle. Moderately decreased right ventricular systolic function. Atria The left and right atria are normal. No doppler evidence for ASD. Mitral Valve There is mild mitral annular calcification. There is no mitral valve stenosis. No mitral valve insufficiency. Tricuspid Valve There is no tricuspid stenosis. Moderate (2+) tricuspid valve insufficiency. Pulmonary artery systolic pressure is 65 mmHg. Aortic Valve Trisinus/trileaflet aortic valve. There is no aortic stenosis. No aortic valve insufficiency. Pulmonic Valve There is no pulmonic valvular stenosis. No pulmonic valve insufficiency. Great Vessels Normal aortic root. Pericardium/Pleural No pericardial effusion. MMode/2D Measurements & Calculations LVIDd: 3.2 cm IVSd: 1.4 cm Ao root diam: 3.0 cm LVIDs: 2.1 cm LVPWd: 1.3 cm RVDd: 5.5 cm FS: 34.3 % LAV(MOD-bp): 22.9 ml LVAd ap4: 11.1 cm2 SV(MOD-sp4): 14.1 ml LAV(MOD-bp) Indexed: 11.3 ml/m2 LVLd ap4: 5.4 cm LAV(MOD-sp2): 20.8 ml EDV(MOD-sp4): 19.9 ml LAV(MOD-sp4): 20.1 ml EDV(sp4-el): 19.5 ml LVAs ap4: 5.3 cm2 LVLs ap4: 4.6 cm ESV(MOD-sp4): 5.8 ml ESV(sp4-el): 5.1 ml EF(MOD-sp4): 71.0 % EF(sp4-el): 73.6 % SV(sp4-el): 14.3 ml LA A4 area: 12.4 cm2 LA dimension(2D): 3.2 cm RA A4 area: 18.2 cm2 TAPSE: 1.5 cm Time Measurements MV dec time: 0.20 sec Doppler Measurements & Calculations MV E max patrick: 46.5 cm/sec Lat Peak E' Patrick: 6.9 cm/sec Med Peak E' Patrick: 6.7 cm/sec MV A max patrick: 109.5 cm/sec E/E' lat: 6.7 E/E' med: 6.9 MV E/A: 0.42 Ao V2 max: 183.5 cm/sec LV V1 max: 127.9 cm/sec MV dec slope: 229.8 cm/sec2 Ao max P.5 mmHg LV V1 max P.5 mmHg Ao V2 mean: 154.6 cm/sec LV V1 mean P.0 mmHg Ao mean P.9 mmHg LV V1 mean: 111.0 cm/sec Ao V2 VTI: 32.3 cm LV V1 VTI: 22.8 cm AV (velocity ratio): 0.70 PA V2 max: 59.4 cm/sec TR max patrick: 379.4 cm/sec TR max P.6 mmHg ECHO/Echo Complete Interpretation Summary The estimated ejection fraction is 70 %. Diastolic function is indeterminate. Severely dilated right ventricle. Moderately decreased right ventricular systolic function Ordering Physician: Analisa Lynn Referring Physician: Kang Cannon Performed By: Maura Comer RDCS, RVT
[2024-01-22] MEDS: oxyCODONE 5 MG Tablet PO (18:04)
--- NOTE | 2024-01-22 18:52 | NURSING ---
Code blue alarm for pt's room activated by RN at bedside; pt assisted to commode while off of monitor and back to bed, pt felt dizzy and then had a syncopal episode where she was assisted to bed and placed on monitor, and slowly regained consciousness; HR ST of 115, pt began having nausea and dry-heaving, HR quickly dropped to the 40s; pt's HR stabilized to a rate of 105-110. Code blue canceled.
[2024-01-22] MEDS: Ondansetron 4 MG/2 ML Vial IV (19:07)
[2024-01-22] MEDS: 0.9% Saline Lock 10 ML Syringe IV ×2 (19:07→21:05)
[2024-01-22] MEDS: HYDROmorphone 0.5 MG/0.5 ML SYRINGE IV (21:05)
[2024-01-22 21:51] LABS: Troponin-I HS 686 pg/mL (3.0-54.0)
[2024-01-22 22:04] LABS: Bedside Glucose 145 mg/dL (74-106)
--- NOTE | 2024-01-22 23:15 | NURSING ---
This RN went in to pt's room to draw scheduled aPTT, pt's RAC PIV found to be leaking blood profusely, soiling gown and saturating the BP cuff; pt refused to change gown, stated I just got comfortable, leave it be. PIV site cleaned, new tegaderm placed and a pressure drsg was applied over insertion site and then secured by tape. Pt cristi all wel; educated on heparin gtt and risks.
[2024-01-23] VITALS (17 sets, daily range): BP systolic 104–139; BP diastolic 57–87; PULSE 93–112; RESP 14–22; TEMP 36.6–36.8; O2SAT 91–98; BMI 45.4
[2024-01-23] MEDS: HYDROmorphone 0.5 MG/0.5 ML SYRINGE IV ×2 (00:07→06:22)
[2024-01-23 00:31] LABS: Partial Thromboplast Time > 250.0 Seconds (24.1-36.2)
[2024-01-23] MEDS: 0.9% Saline Lock 10 ML Syringe IV ×2 (06:22→08:45)
[2024-01-23 06:36] LABS: Absolute Lymphocyte Count 2.26 X10^3/uL (0.83-4.51); Absolute Neutrophil Count 13.3 X10^3/uL (2.0-7.7); Basophil% 0.6 % (0-1); Eosinophil# 0.19 X10^3/uL; Eosinophils% 1.1 % (0-5); Hematocrit 40.2 % (37-47); Hemoglobin 12.7 g/dL (12.0-15.0); Lymphocyte # 2.26 X10^3/ul (0.83-4.51); Lymphocyte % 12.7 % (19-41); Mean Corp Hgb Conc 31.6 g/dL (32-36); Mean Corpuscular Hgb 31.3 pg (27.0-32.0); Mean Platelet Vol. 10.2 fl (6.2-12.0); Monocyte% 9.6 % (0-10); NRBC Flagged by Analyzer 0 % (0-5); Neutrophil # 13.34 X10^3/uL (2.7-7.7); Neutrophil % 75.2 % (47-70); POSITIVE DIFFERENTIAL YES; Platelet Count 210 K/mm3 (150-450); RBC Distribution Width SD 51.6 fl (35.1-43.9); Red Blood Count 4.06 M/mm3 (4.2-5.4); White Blood Count 17.7 K/mm3 (4.4-11.0)
[2024-01-23 06:40] LABS: Differential Indicated SCAN CRITERIA MET
[2024-01-23 06:56] LABS: ALB/GLOB Ratio 0.7 RATIO (0.9-2.4); AST(SGOT) 14 U/L (15-37); Alanine Aminotransfer ALT/SGPT 17 U/L (13-56); Albumin, Serum 2.8 g/dL (3.2-5.0); Alkaline Phosphatase 81 U/L (45-117); Anion Gap 9 (5-15); BUN 48 mg/dL (7-18); BUN/Creat Ratio 27.9 RATIO (10-20); Bilirubin, Direct 0.19 mg/dL (0.00-0.30); Calcium,Total 8.9 mg/dL (8.5-10.1); Chloride 109 mmol/L (98-107); Creatinine, Serum 1.72 mg/dL (0.55-1.02); EST Glomerular Filtration Rate 31 mL/min (>60); Est Glom Filt Rate - Afr Amer 38 mL/min (>60); Estimated Creatinine Clearance 33.77 ml/min; Globulin 4.2 g/dL (2.2-4.2); Glucose 167 mg/dL (74-106); Magnesium 2.5 mg/dL (1.6-2.6); Phosphorus 3.5 mg/dL (2.5-4.9); Potassium 4.7 mmol/L (3.5-5.1); Sodium Level 139 mmol/L (136-145); Thyroid Stim Hormone (TSH) 0.86 uIU/mL (0.358-3.74)
--- NOTE | 2024-01-23 08:33 | EKG12_ITS ---
Test Reason : chest pressue Blood Pressure : / mmHG Vent. Rate : 096 BPM Atrial Rate : 096 BPM P-R Int : 174 ms QRS Dur : 074 ms QT Int : 362 ms P-R-T Axes : -17 -40 033 degrees QTc Int : 457 ms Poor data quality, interpretation may be adversely affected Normal sinus rhythm Left axis deviation Abnormal ECG When compared with ECG of 22-JAN-2024 15:25, No significant change was found Confirmed by KIERAN LIMA, SHANTI ([id number]), food expeditor YAMILETH HARMON ([id number]) on 01/27/2024 10:04:12 AM Referred By: Confirmed By:SHANTI ALCARAZ MD
[2024-01-23] MEDS: Lidocaine Jelly 2% 20 ML Syringe (URO-JET) 1 APPLIC TOPICAL (08:45)
[2024-01-23 08:56] LABS: International Normalized Ratio 1.4; Prothrombin Time (Protime)PT. 16.7 SECONDS (11.7-14.9)
--- NOTE | 2024-01-23 09:00 | DS.PCM_ITS ---
Providers Date of Admission: 01/22/24 Date of Discharge: 01/23/24 Primary Care Physician: Dr. Kang Cannon MD Consultations 01/23/24 06:39 Consult: Agricultural Produce Commission Agent / Pulmonary Medicine Routine Consulting Provider: Intensivists/Pulmonary Med Reason for Consult: extensive bilateral PEs EMERGENT Consult: No Notified: Yes Date Notified: 01/23/24 Time Notified: 06:39 Method of Notification: Verbal 01/23/24 09:11 Consult: Vascular Surgery Routine Consulting Provider: Merrick De Jesus Reason for Consult: bilateral submassive PE EMERGENT Consult: No Notified: Yes Date Notified: 01/23/24 Time Notified: 09:11 Method of Notification: Verbal Reason For Visit: PULMONARY EMBOLI Diagnosis Discharge Diagnosis (1) Elevated troponin: Status: Acute Code(s): R79.89 - Other specified abnormal findings of blood chemistry (2) Bilateral pulmonary embolism: Status: Acute Code(s): I26.99 - Other pulmonary embolism without acute cor pulmonale Plan #Bilateral submassive PE * admitted with a complaint of chest pain and shortness of breath * CTA chest showed bilateral PE with intraluminal clot within the mid to distal main left and distal right pulmonary arteries extending into the proximal branches of the upper lobe bilaterally, the right lower lobe as well as the descending into the lobar branches to the lower lobes bilaterally with clots noted within segmental branches of the right lower and left lower lobe. There was evidence of right ventricular strain. * initial troponin was 240 and trended to 686. BNP ordered * on heparin drip. * Patient still having episodic chest pain. * EKG now shows left axis deviation * discussed with vascular surgery about whether patient may be a candidate for catheter directed thrombectomy due to heavy clot burden and persistent chest pain as well as right ventricular strain; vascular surgery will evaluate and determine if she is a candidate. * ctitical care consulted. * on 2L of oxygen. Titrate oxygen to maintain sats >90% * Main risk factor for the PE is her history of breast cancer and weight gain; she says she has gained at least 75 pounds over the last year. * I did speak to Dr. De Jesus about patient and he evaluated patient and felt that she would be a good candidate for catheter with thrombectomy. He said the earliest we can get to her is Thursday. * #Hypoxia due to bilateral submiassive PE: as above #History of breast cancer s/p left mastectomy: on anastrosole. #Hypertension; on lisinopril. #Anxiety: patient appears to be very anxious also. Will sart on PO ativan 0.5mg q8hr prn DVT prophylaxis: not indicated as patient is being treated for PE # 12:25pm: I was contacted by the washroom operator Dr. Jeffrey who had evaluated patient. Per their evaluation he is worried that she may have had a recurrence of the breast cancer leading to this bilateral PE with very heavy clot burden. His concern is that if she needs chemotherapy, she would need to have a good EF to undergo treatment. She is at a high risk of pulmonary infarction due to the heavy clot burden and so he feels that she needs the thrombectomy sooner rather than later to help preserve her EF in order for her to be able to undergo any treatment for breast cancer down the line. Will therefore seek to transfer patient to tertiary facility. Medications at Discharge Home Medications lisinopril 10 mg tablet 10 mg PO DAILY 08/12/21 cranberry fruit concentrate 250 mg chewable tablet (Azo Cranberry) 250 mg PO DAILY 09/17/21 anastrozole 1 mg tablet See Rx Instructions .Route .COMPLEX #30 tabs 11/23/23 hydroxyzine HCl 25 mg tablet 25 mg PO Q8H PRN itching #20 tabs 01/13/24 prednisone 20 mg tablet 20 mg PO BID #10 tabs 01/13/24 Hospital Course Operations None Procedures 2-D Echocardiogram Summary of Care Provided Minutes Spent on Discharge: 65 Hospital Course: Patient is a 74-year-old female with a past medical history of left breast cancer status postmastectomy who was admitted through the ED on 01/22/2024 with a complaint of shortness of breath and chest pain. His symptoms have been going on for about 2 days and gradually worsened to the point where she cannot even perform activities of daily living. She did have a history of PE and DVT in the past, saying was about 20 years prior. She had initially been on Coumadin and says she was switched to Xarelto but subsequently decided to stop taking the anticoagulants for by herself because she did not think she needed them. On admission in the ED, she was mildly tachycardic with heart rate of 102. High- sensitivity troponin was 240. CTA of the chest showed extensive bilateral PE in the mid to distal main left and right pulmonary arteries extending into the proximal branches of the upper lobes bilaterally, the right middle lobe as well as the descending interlobar branches. She was admitted and managed for submassive pulmonary embolism and started on heparin drip. Her troponins trended upwards to a peak of over 600. BNP was also done which was elevated. Of note his CTA of the chest did show right ventricular strain. Patient was not hypotensive during the admission. She did have intermittent chest pain during the admission. Critical care was consulted and evaluated patient. Critical care was concerned that he may have a recurrence of her breast cancer and so might need further therapy down the line. He was concerned that due to her heavy clot burden she was at increased risk of pulmonary infarction which could potentially affect her ejection fraction. She would need a good ejection fraction to be able to withstand chemotherapy if needed. Recommendation therefore was for patient to have catheter directed thrombectomy. Of note, this hospitalist had spoken to our vascular surgeon Dr. De Jesus earlier in the day about the patient see where she was a candidate for catheter directed thrombectomy. Vascular surgery agreed that she was a candidate for this but the earliest that the procedure could be done was Thursday. Critical care felt that she needed the catheter directed thrombectomy done earlier than Thursday and so recommended transfer. Patient was accepted at [facility] on 01/23/2024 and was transferred to [facility] on 01/23/2024. Of note, she did have 2D echo done during this admission which showed EF of 70% and indeterminate diastolic function with severely dilated right ventricle and moderately decreased right ventricular systolic function. Patient was seen and examined on the day of discharge. She had had some episodic chest pain during the day and also her blood pressure cuff had been moved to her leg which was causing pain. He felt better once the cuff was removed. Labs and vitals reviewed. Physical Exam Const alert and oriented x3 Constitutional Narrative: in moderate distress due to pain in LLE from BP cuff General Appearance: cooperative and comfortable HEENT normocephalic, head/scalp atraumatic, hearing grossly normal bilaterally, moist oral mucous membranes and oropharynx normal Mouth: oral and palatal mucosa normal Eyes PERRL and EOMs intact bilaterally Neck no lymphadenopathy, supple and no JVD Lymph Lymphatic: no lymphadenopathy noted and no lymphedema noted Resp normal respiratory effort and no retractions Resp Narrative: mildly diminished breath sounds bibasally, no wheezes or crackles. On 2L of oxygen by nasal canula Cardio regular rate, regular rhythm, S1 normal heart sound, S2 normal heart sound and no murmurs GI normal to inspection, nondistended, normoactive bowel sounds, soft to palpation, non-tender and non-distended Extremity normal to inspection, full ROM, normal capillary refill and no clubbing, cyanosis or edema General Extremity: no tenderness to palpation of joints or extremities Skin no rashes or lesions noted General Skin Exam: no breakdown Neuro oriented x3, CN's II-XII intact bilaterally, moves all extremities, no focal motor deficits, no sensory deficits noted and deep tendon reflexes 2+ bilaterally Sensorium / Orientation: awake and alert Motor Exam: strength 5/5 throughout and general weakness Psych thought process normal, cooperative and affect normal Appearance: appropriate Weight / BMI Weight Weight: 240 lb 11.916 oz Body Mass Index (BMI) 45.4 ABG / Lab / Microbiology Data 01/23/24 06:15 01/23/24 06:15 Laboratory: Laboratory Results - last 24 hr 01/23/24 06:15: Differential Comment SCANNED, Diff Path Review December01/23/24 08:00: PT 16.7 H, INR 1.4, APTT 232.8 H* 01/23/24 09:00: Troponin I High Sens 538 H*, B-Natriuretic Peptide 661.8 H 01/23/24 11:25: POC Glucose 151 H Microbiology: Microbiology 01/22/24 15:30 Mucosa - Nose SARS-CoV-2, Influenza & RSV (PCR) - Final Radiography Diagnostic Testing: Radiology Impression Echocardiogram 01/22/24 17:40 Interpretation Summary The estimated ejection fraction is 70 %. Diastolic function is indeterminate. Severely dilated right ventricle. Moderately decreased right ventricular systolic function Ordering Physician: Analisa Lynn Referring Physician: Kang Cannon Performed By: Maura Comer, ROLAND, RVT D/C Instructions Discharge Diet: Low fat / Low cholesterol Discharge Activity: Return to Normal Activity Meaningful Use Info Meaningful Use Meaningful Use Diagnoses (Choose all that apply): VTE Ischemic Stroke Statin Dosing Therapy Reference: STATIN DOSE THERAPY REFERENCE: * Patients > 75 years receive moderate or high dose statin therapy. * Patients 75 years or YOUNGER should receive HIGH intensity statin dose unless contraindicated. You will be required to document reason for non-treatment if statin daily dose does not meet guidelines. HIGH DOSE STATIN THERAPY DAILY Atorvastatin > than or = to 40 mg Rosuvastatin > than or = to 20 mg Amlodipine + Atorvastatin > than or = to 2.5/40 mg Ezetimibe + Simvastatin 10/80 mg Simvastatin 80mg VTE Anticoag overlap given w/in hospital stay or rx'd at pa?: Yes Pt receive overlap for 5 days?: No Reason overlap not ordered, prescribed, or given for 5 days: Treatment Not Indicated Discharge Plan Admission Admit Date/Time: 01/22/24 17:15 Primary Reason for Your Visit: submassive PE Attending Provider: Naye Chao Primary Care Provider: Kang Cannon Consulting Providers: Ky Nicholson; Mina Aggarwal; Harry Gama; Omar Bowden; Jeffrey Tran; Jessica Cooper; Raheel Del Angel; Julian Hughes; Farida Lubin; Martinez Ruvalcaba; Brian Ivy; Juanito Berry; Maximino Levy; Valeriano Figueroa; Gilmer Keys; Analisa Lynn; Merrick De Jesus Discharge Orders/Prescriptions Prescriptions: No Action Azo Cranberry 250 mg tablet,chewable 250 mg PO DAILY lisinopril 10 mg tablet 10 mg PO DAILY Patient Comments: TAKE 1 TABLET BY MOUTH DAILY prednisone 20 mg tablet 20 mg PO BID Qty: 10 0RF hydroxyzine HCl 25 mg tablet 25 mg PO Q8H PRN (Reason: itching) Qty: 20 0RF anastrozole 1 mg tablet See Rx Instructions .ROUTE .COMPLEX Qty: 30 0RF Dose Instruction: TAKE 1 TABLET BY MOUTH EVERY DAY Rx Instructions: TAKE 1 TABLET BY MOUTH EVERY DAY Referrals / Follow Up: Kang Cannon MD [Primary Care Provider] - Disposition Disposition (needs filled in before D/C Order can be placed): Acute Care Hospital Charges/Coding Visit Charges Inpatient E&M: 96027 Disch Hosp >30min
[2024-01-23 09:05] LABS: Partial Thromboplast Time 232.8 Seconds (24.1-36.2)
[2024-01-23 09:17] LABS: Differential Comment SCANNED
--- NOTE | 2024-01-23 09:21 | PN_ITS ---
Subjective Subjective Patient seen and examined. She was admitted with a complaint of shortness of breath and was found to have bilateral submassive PE; troponins were elevated and trended upwards and CTA chest showed evidence of right ventricular strain. She was started on heparin drip. Patient complaining of episodic chest pain today. She denied any palpitations, nausea, vomiting or any other symptoms. She is complaining of pain in her LLE as the BP cuff moved there, and she is having pain from the pressure of the BP cuff. BP cuff not on her LUE due to history of mastectomy, and on RUE due to her bleeding from IV lines due to the pressure from the BP cuff. Objective Data Objective Data Vital Signs: Vital Signs Temp Pulse Resp BP Pulse Ox O2 Del Method O2 Flow Rate 98 F 96 18 112/64 91 Nasal Cannula 2 01/23/24 04:00 01/23/24 07:00 01/23/24 07:00 01/23/24 07:00 01/23/24 08:00 01/23/24 08:00 01/23/24 08:00 Oxygen Flow Rate (L/min) 2 Oxygen Delivery Method Nasal Cannula Weight: 240 lb 11.916 oz Body Mass Index (BMI) 45.4 Intake & Output: Intake and Output for Last 24 Hours 01/21/24 01/22/24 01/23/24 23:59 23:59 23:59 Intake Total 1000 / 1000 188.75 / 188.75 Output Total 200 / 200 Balance 1000 / 1000 -11.25 / -11.25 Lab / Micro Data 01/23/24 06:15 01/23/24 06:15 Labs: Laboratory Results - last 24 hr 01/22/24 15:24: WBC 18.6 H, RBC 4.42, Hgb 13.8, Hct 43.5, MCV 98.4, MCH 31.2, M CHC 31.7 L, RDW Std Deviation 50.9 H, RDW Coeff of Zachary 14.0, Plt Count 215, MPV 10.3, Immature Gran % (Auto) 0.700, Neut % (Auto) 78.5 H, Lymph % (Auto) 10.7 L, [place] % (Auto) 7.1, Eos % (Auto) 2.6, Baso % (Auto) 0.4, Absolute Neuts (auto) 14.6 H, Absolute Lymphs (auto) 1.99, Nucleated RBC % 0, PT 15.9 H, INR 1.3, APTT 28.5, Sodium 141, Potassium 4.6, Chloride 109 H, Carbon Dioxide 21.0, Anion Gap 11, BUN 47 H, Creatinine 1.67 H, Estim Creat Clear Calc 34.57, Est GFR (MDRD) Af Amer 39 L, Est GFR (MDRD) Non-Af 32 L, BUN/Creatinine Ratio 28.1 H, Glucose 206 H, Calcium 9.6, Troponin I High Sens 240 H* 01/22/24 20:45: Troponin I High Sens 686 H* 01/22/24 21:46: POC Glucose 145 H 01/22/24 23:30: APTT > 250.0 H* 01/23/24 06:15: WBC 17.7 H, RBC 4.06 L, Hgb 12.7, Hct 40.2, MCV 99.0, MCH 31.3, MCHC 31.6 L, RDW Std Deviation 51.6 H, RDW Coeff of Zachary 14.0, Plt Count 210, MPV 10.2, Immature Gran % (Auto) 0.800, Neut % (Auto) 75.2 H, Lymph % (Auto) 12.7 L, [place] % (Auto) 9.6, Eos % (Auto) 1.1, Baso % (Auto) 0.6, Absolute Neuts (auto) 13.3 H, Absolute Lymphs (auto) 2.26, Nucleated RBC % 0, Differential Comment SCANNED, Diff Path Review December, Sodium 139, Potassium 4.7, Chloride 109 H, Carbon Dioxide 21.0, Anion Gap 9, BUN 48 H, Creatinine 1.72 H, Estim Creat Clear Calc 33.77, Est GFR (MDRD) Af Amer 38 L, Est GFR (MDRD) Non-Af 31 L, B UN/Creatinine Ratio 27.9 H, Glucose 167 H, Calcium 8.9, Phosphorus 3.5, Magnesium 2.5, Total Bilirubin 0.60, Direct Bilirubin 0.19, AST 14 L, ALT 17, Alkaline Phosphatase 81, Total Protein 7.0, Albumin 2.8 L, Globulin 4.2, A lbumin/Globulin Ratio 0.7 L, TSH 0.86 01/23/24 08:00: PT 16.7 H, INR 1.4, APTT 232.8 H* Micro: Microbiology 01/22/24 15:30 Mucosa - Nose SARS-CoV-2, Influenza & RSV (PCR) - Final Radiography Diagnostic Testing: Radiology Impression Chest CTA 01/22/24 15:32 IMPRESSION: 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 No focal infiltrate or other significant abnormality Electronically Signed: Ronald Tenorio MD at 16:51 EDT , ADDENDUM: 01/22/24 1718 IMPRESSION: 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 No focal infiltrate or other significant abnormality N.B. : The above Results were Read Back by Ronald Tenorio MD to Candy Webber MD, and understanding confirmed on 01/22/2024 17:11:57 (ET). Electronically Signed: Ronald Tenorio MD at 16:51 EDT , Physical Exam Const alert and oriented x3 Constitutional Narrative: in moderate distress ue to pain in LLE from BP cuff General Appearance: cooperative HEENT normocephalic, head/scalp atraumatic, moist oral mucous membranes and oropharynx normal Eyes PERRL and EOMs intact bilaterally Neck no lymphadenopathy and supple Lymph Lymphatic: no lymphadenopathy noted and no lymphedema noted Resp Resp Narrative: mildly diminished breath sounds bibasally, no wheezes or crackles. On 2L of oxygen by nasal canula Cardio regular rate, regular rhythm, S1 normal heart sound, S2 normal heart sound and no murmurs GI normal to inspection, nondistended, normoactive bowel sounds, soft to palpation, non-tender and non-distended Extremity normal capillary refill and no clubbing, cyanosis or edema General Extremity: no tenderness to palpation of joints or extremities Skin General Skin Exam: no breakdown Neuro CN's II-XII intact bilaterally, no focal motor deficits, no sensory deficits noted and deep tendon reflexes 2+ bilaterally Motor Exam: strength 5/5 throughout and general weakness Psych thought process normal and cooperative Appearance: appropriate Assessment & Plan Assessment/Plan (1) Elevated troponin: (2) Bilateral pulmonary embolism: PLAN: Plan #Bilateral submassive PE * admitted with a complaint of chest pain and shortness of breath * CTA chest showed bilateral PE with intraluminal clot within the mid to distal main left and distal right pulmonary arteries extending into the proximal branches of the upper lobe bilaterally, the right lower lobe as well as the descending into the lobar branches to the lower lobes bilaterally with clots noted within segmental branches of the right lower and left lower lobe. There was evidence of right ventricular strain. * initial troponin was 240 and trended to 686. BNP ordered * on heparin drip. * Patient still having episodic chest pain. * EKG now shows left axis deviation * discussed with vascular surgery about whether patient may be a candidate for catheter directed thrombectomy due to heavy clot burden and persistent chest pain as well as right ventricular strain; vascular surgery will evaluate and determine if she is a candidate. * ctitical care consulted. * on 2L of oxygen. Titrate oxygen to maintain sats >90% * Main risk factor for the PE is her history of breast cancer and weight gain; she says she has gained at least 75 pounds over the last year. * I did speak to Dr. De Jesus about patient and he evaluated patient and felt that she would be a good candidate for catheter with thrombectomy. He said the earliest we can get to her is Thursday. * #Hypoxia due to bilateral submiassive PE: as above #History of breast cancer s/p left mastectomy: on anastrosole. #Hypertension; on lisinopril. #Anxiety: patient appears to be very anxious also. Will sart on PO ativan 0.5mg q8hr prn DVT prophylaxis: not indicated as patient is being treated for PE # 12:25pm: I was contacted by the lab animal technologist Dr. Jeffrey who had evaluated patient. Per their evaluation he is worried that she may have had a recurrence of the breast cancer leading to this bilateral PE with very heavy clot burden. His concern is that if she needs chemotherapy, she would need to have a good EF to undergo treatment. She is at a high risk of pulmonary infarction due to the heavy clot burden and so he feels that she needs the thrombectomy sooner rather than later to help preserve her EF in order for her to be able to undergo any treatment for breast cancer down the line. Will therefore seek to transfer patient to tertiary facility. Charges/Coding Visit Charges Inpatient E&M: 01077 Subs Hosp L3
[2024-01-23 09:36] LABS: Troponin-I HS 538 pg/mL (3.0-54.0)
[2024-01-23 09:38] LABS: BNP,B-Type NATRIURETIC PEPTIDE 661.8 pg/mL (0-100)
[2024-01-23] MEDS: Nystatin Powder 15gm Bottle 1 APPLIC TOPICAL (10:43)
[2024-01-23] MEDS: LORazepam 0.5 MG Tablet PO (10:43)
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
[2024-01-23 11:42] LABS: Bedside Glucose 151 mg/dL (74-106)
--- NOTE | 2024-01-23 12:25 | CON.PCM.CC_ITS ---
HPI Consult Data Date of Consult: 01/23/24 HPI Narrative Reason for Consultation: PE HPI Narrative: BREANNA YANES, is a 74 woman with a history of left breast cancer s/p mastectomy (now only on daily anastrozole therapy), sigmoid diverticulitis, degenerative joint disease, hypertension and obesity who for the last 2 to 3 days she has been noticing worsening chest pain, associated with pressure and shortness of breath. Yesterday, she noticed that she was out of breath while walking to the restroom causing her to visit the ED. She has had a prior history of pulmonary embolism and DVT in the past she says about 20 years back. She was taking Xarelto for a few years but stopped last year as there were no ongoing symptoms. In the ED, blood pressure was 107/49, pulse 102, respiratory 20, temperature 97, labs showed WBC of 18.6, hemoglobin 1213.8, platelet 215, INR 15.9, sodium 141, BUN of 47 creatinine of 167, high-sensitivity troponin was 240. CTA showed fairly extensive bilateral pulmonary artery emboli in the mid to distal main left and distal right pulmonary arteries extending into the proximal branches of the upper lobe bilaterally the right middle lobe as well as descending interlobar branches. There was concern for right heart strain. She was started on heparin GTT in the ICU. Her troponin levels did continue to increase. She has continued to have CP and SOB. [facility] Medical History Anemia Foot fracture, left Family history of colon cancer in mother Encounter for education ER+ (estrogen receptor positive status) Degenerative joint disease Hypertension Osteopenia after menopause Cancer of left female breast Post-menopausal Arthritis Easy bruising Excessive bleeding Non-smoker Shortness of breath on exertion Pulmonary embolism Hypertension UTI (urinary tract infection) DVT (deep venous thrombosis) Home Medications ?Medication ?Instructions ?Recorded ?Last Taken ?Type lisinopril 10 mg tablet 10 mg PO DAILY 08/12/21 10/02/21 History cranberry fruit concentrate 250 mg 250 mg PO DAILY 09/17/21 10/01/21 History chewable tablet (Azo Cranberry) anastrozole 1 mg tablet See Rx Instructions .Route 11/23/23 Unknown Rx .COMPLEX #30 tabs hydroxyzine HCl 25 mg tablet 25 mg PO Q8H PRN itching #20 tabs 01/13/24 Unknown Rx prednisone 20 mg tablet 20 mg PO BID #10 tabs 01/13/24 Unknown Rx Allergy/AdvReac Type Severity Reaction Status Date / Time No Known Allergies Allergy Verified 01/22/24 15:11 Family History Grandmother Breast cancer Daughter Breast cancer Mother Colon cancer Surgical History History of appendectomy History of dilation and curettage History of left mastectomy (~08/2021) History of lumpectomy of left breast Hx of abdominoplasty History of cholecystectomy History of total knee replacement Social History household members: spouse Smoking Status: Never smoker alcohol intake: never substance use type: does not use ROS Cardiovascular Cardiovascular: Reports chest pain and dyspnea Respiratory/Chest Respiratory/Chest: Reports chest tightness Objective Data Objective Data Vital Signs: Vital Signs Last response 3 Temperature 36.8 C 01/23/24 08:00 Temperature Source Temporal 01/23/24 08:00 Pulse Rate 96 01/23/24 11:00 Pulse Strength Normal (2+) 01/22/24 21:23 Respiratory Rate 21 H 01/23/24 11:00 Respiratory Effort Short of Breath, Labored 01/23/24 08:00 Respiratory Depth Shallow 01/23/24 08:00 Respiratory Pattern Tachypnea 01/23/24 08:00 Blood Pressure 105/68 01/23/24 11:00 Blood Pressure Mean 80 01/23/24 11:00 Blood Pressure Source Monitor 01/23/24 11:00 Blood Pressure Position Semi-Fowlers 01/23/24 11:00 Blood Pressure Location Right Forearm 01/23/24 11:00 Pulse Ox 96 01/23/24 11:00 Oxygen Delivery Method Nasal Cannula 01/23/24 11:00 Oxygen Flow Rate (L/min) 2 01/23/24 11:00 I&O: I&O Last 24 Hours 3 01/22/24 01/23/24 01/23/24 23:59 11:59 23:59 Intake Total 1000 / 1000 308.75 / 308.75 Output Total 375 / 375 Balance 1000 / 1000 -66.25 / -66.25 I&O: Total Stay 3 01/22/24 15:10 thru 01/23/24 11:00 Intake Total 1308.75 Output Total 375 Balance 933.75 Current Meds Ordered / Administered: Current meds ordered / Administered 3 Generic Name Dose Route Start Last Admin Trade Name Teodoroq PRN Reason Stop Dose Admin Acetaminophen 650 mg 01/22/24 17:40 Acetaminophen 325 Mg Tablet PO Q6H PRN PRN Pain 1-10 Or Fever >100.7 Chlorhexidine Gluconate 1 each 01/23/24 11:30 Chlorhexidine Gluc 2% Cloth 1 Each Towelette TOPICAL DAILY [facility] Dextrose 0 gm 01/22/24 17:40 Dextrose 50%-Water 25 Gm/50 Ml Disp.Syrin IV X1 PRN HYPOGLYCEMIA Protocol Glucagon 1 mg 01/22/24 17:40 Glucagon 1 Mg/Ml Syringe IM X1 PRN HYPOGLYCEMIA Heparin Sodium (Porcine) 0 unit 01/22/24 16:40 Heparin Injection (Vial) 5,000 Unit/Ml Vial IV UD PRN dose adjustment Protocol Hydromorphone HCl 0.5 mg 01/22/24 20:35 01/23/24 06:22 Hydromorphone 0.5 Mg/0.5 Ml Syringe IV 0.5 mg Q2H PRN PRN Administration Pain Score 6-10 Hydroxyzine Pamoate 25 mg 01/22/24 17:40 Hydroxyzine Ami 25 Mg Capsule PO Q8H PRN itching Heparin Sodium/Dextrose 25,000 units in 250 mls @ 15 mls/hr 01/22/24 16:40 01/23/24 11:00 CONT INF 900 units/hr .[id number] NELLA 9 mls/hr Titration Protocol As Directed Sodium Chloride 250 mls @ 15 mls/hr 01/22/24 17:48 IV .[id number] PRN Additional IVPB Infusion Sodium Chloride 250 mls @ 15 mls/hr 01/22/24 17:48 IV .[id number] PRN Saline Flush Lisinopril 10 mg 01/23/24 10:00 01/23/24 10:44 Lisinopril 10 Mg Tablet PO Not Given DAILY NELLA Protocol Lorazepam 0.5 mg 01/23/24 09:12 01/23/24 10:43 Lorazepam 0.5 Mg Tablet PO 0.5 mg Q8H PRN PRN Administration ANXIETY Nystatin 1 applic 01/23/24 09:30 01/23/24 10:43 Nystatin Powder 15gm Bottle TOPICAL 1 applic TID NELLA Administration Protocol Ondansetron HCl 4 mg 01/22/24 18:55 01/22/24 19:07 Ondansetron 4 Mg/2 Ml Vial IV 4 mg Q8H PRN PRN Administration NAUSEA/VOMITING Oxycodone HCl 5 mg 01/22/24 17:40 01/22/24 18:04 Oxycodone 5 Mg Tablet PO 5 mg Q4H PRN PRN Administration Pain Score 4-10 Polyethylene Glycol 17 gm 01/23/24 06:52 Polyethylene Glycol 3350 17 Gm Packet PO DAILY PRN Constipation Sodium Chloride 10 - 40 ml 01/22/24 17:48 01/23/24 08:45 0.9% Saline Lock 10 Ml Syringe IV 10 ml UD PRN Administration SALINE FLUSH Physical Exam Const oriented x3 General Appearance: ill appearing HEENT normocephalic, head/scalp atraumatic and moist oral mucous membranes Eyes PERRL, EOMs intact bilaterally and conjunctivae normal Neck full ROM Resp Effort and Inspection: able to speak in complete sentences Auscultation: diminished lung sounds Cardio S1 normal heart sound and S2 normal heart sound Cardio Narrative: ? loud P2 GI normal to inspection, nondistended, normoactive bowel sounds Extremity General Extremity: edema Skin no rashes or lesions noted Neuro oriented x3 and moves all extremities Psych cooperative and affect normal Speech: normal speech Medical Records Data Attestation: I reviewed the patient's medical records Lab / Micro Data Attestation: I reviewed the patient's lab results. 01/23/24 06:15 01/23/24 06:15 Labs: Laboratory Results - last 24 hr 01/22/24 15:24: WBC 18.6 H, RBC 4.42, Hgb 13.8, Hct 43.5, MCV 98.4, MCH 31.2, M CHC 31.7 L, RDW Std Deviation 50.9 H, RDW Coeff of Zachary 14.0, Plt Count 215, MPV 10.3, Immature Gran % (Auto) 0.700, Neut % (Auto) 78.5 H, Lymph % (Auto) 10.7 L, Don[place]han % (Auto) 7.1, Eos % (Auto) 2.6, Baso % (Auto) 0.4, Absolute Neuts (auto) 14.6 H, Absolute Lymphs (auto) 1.99, Nucleated RBC % 0, PT 15.9 H, INR 1.3, APTT 28.5, Sodium 141, Potassium 4.6, Chloride 109 H, Carbon Dioxide 21.0, Anion Gap 11, BUN 47 H, Creatinine 1.67 H, Estim Creat Clear Calc 34.57, Est GFR (MDRD) Af Amer 39 L, Est GFR (MDRD) Non-Af 32 L, BUN/Creatinine Ratio 28.1 H, Glucose 206 H, Calcium 9.6, Troponin I High Sens 240 H* 01/22/24 20:45: Troponin I High Sens 686 H* 01/22/24 21:46: POC Glucose 145 H 01/22/24 23:30: APTT > 250.0 H* 01/23/24 06:15: WBC 17.7 H, RBC 4.06 L, Hgb 12.7, Hct 40.2, MCV 99.0, MCH 31.3, MCHC 31.6 L, RDW Std Deviation 51.6 H, RDW Coeff of Zachary 14.0, Plt Count 210, MPV 10.2, Immature Gran % (Auto) 0.800, Neut % (Auto) 75.2 H, Lymph % (Auto) 12.7 L, Doniphan % (Auto) 9.6, Eos % (Auto) 1.1, Baso % (Auto) 0.6, Absolute Neuts (auto) 13.3 H, Absolute Lymphs (auto) 2.26, Nucleated RBC % 0, Differential Comment SCANNED, Diff Path Review December, Sodium 139, Potassium 4.7, Chloride 109 H, Carbon Dioxide 21.0, Anion Gap 9, BUN 48 H, Creatinine 1.72 H, Estim Creat Clear Calc 33.77, Est GFR (MDRD) Af Amer 38 L, Est GFR (MDRD) Non-Af 31 L, B UN/Creatinine Ratio 27.9 H, Glucose 167 H, Calcium 8.9, Phosphorus 3.5, Magnesium 2.5, Total Bilirubin 0.60, Direct Bilirubin 0.19, AST 14 L, ALT 17, Alkaline Phosphatase 81, Total Protein 7.0, Albumin 2.8 L, Globulin 4.2, A lbumin/Globulin Ratio 0.7 L, TSH 0.86 01/23/24 08:00: PT 16.7 H, INR 1.4, APTT 232.8 H* 01/23/24 09:00: Troponin I High Sens 538 H*, B-Natriuretic Peptide 661.8 H 01/23/24 11:25: POC Glucose 151 H Micro: Microbiology 01/22/24 15:30 Mucosa - Nose SARS-CoV-2, Influenza & RSV (PCR) - Final Imaging Radiology Impression Chest CTA 01/22/24 15:32 IMPRESSION: 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 No focal infiltrate or other significant abnormality Electronically Signed: Ronald Tenorio MD at 16:51 EDT , ADDENDUM: 01/22/24 1718 IMPRESSION: 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 No focal infiltrate or other significant abnormality N.B. : The above Results were Read Back by Ronald Tenorio MD to Candy Webber MD, and understanding confirmed on 01/22/2024 17:11:57 (ET). Electronically Signed: Ronald Tenorio MD at 16:51 EDT , Assessment and Plan . Assessment and plan: 1. PE with concern for RV strain and possible infarction 2. Obesity 3. H/o Breast Cancer -Patient continues to have CP and SOB despite AC; she is high risk for infarction, PH, and loss of EF. She is not able to have a mechanical thrombectomy at this time and current AC may not be sufficient to decrease morbidity. There is a major concern given the degree of clot burden that her cancer may have returned and if that is the case, she need preservation of her EF to tolerate additional chemotherapeutic agents. At the current facility she will not be able to have her cath until Thursday (today is Thursday). I have spoke with the Vascular Surgeon (Dr. Justice) and the hospitalist (Dr. Chao) to express my concern. They agree that the best course of action is transfer to a facility that can accommodate her thrombectomy in the next 24 hours. -Con't Supplemental O2, titrate to keep O2 > 92% -Continuous telemonitoring -Continuos bedrest -Cont AC with heparin and follow for therapeutic levels -Keep MAP > 65 mmHg; vasopressors if needed -Cont to follow Troponin levels -ECHO cardiogram -Will need re-evaluation of malignancy -Keep NPO for potential thrombectomy -Follow blood lines and give blood products as needed -Follow renal function Critical Care Time: 65 The entirety of this encounter was done via Telemedicine
--- NOTE | 2024-01-23 12:45 | CASEMGMT ---
JOSE HARDING NOTE: Insurance review for hospitals In-network with?[employer] HMO Insurance if transfer is recommended is as follows: [facility], [place], [facility], [facility], [facility], [facility], [facility] ([facility]), [facility], and . Kayden HENDRIX RN CM
[2024-01-23] MEDS: CHLORHEXIDINE GLUC 2% CLOTH 1 EACH TOWELETTE TOPICAL (14:14)
[2024-01-23] MEDS: oxyCODONE 5 MG Tablet PO (14:14)
[2024-01-23] MEDS: HEPARIN/D5w 25,000 UNITS 25,000 UNITS/250 ML IV.SOLN. 9 UNITS CONT INF (15:22)
[2024-01-25 16:19] LABS: Pathologist Review Reviewed
== END 2024-01-23 15:50 | disposition short-term general hospital (02) | DRG 176 ==
LOC: ED 16:54 → ICU 17:16
PROVIDERS: Physician Assistant; Admitting Provider Internal Medicine; Emergency Provider Emergency Medicine; PCP Family Medicine; Visit Provider Student in an Organized Health Care Education/Training Program
DX: I26.99 Other pulmonary embolism without acute cor pulmonale (principal); N17.9 Acute kidney failure, unspecified; K57.30 Diverticulosis of large intestine without perforation or abscess without bleeding; Z86.711 Personal history of pulmonary embolism; Z86.718 Personal history of other venous thrombosis and embolism; Z79.811 Long term (current) use of aromatase inhibitors; Z85.3 Personal history of malignant neoplasm of breast
CPT/HCPCS: 71275; 80048; 80053; 82248; 82962; 83735; 83880; 84100; 84443; 84484; 85025; 85610; 85730; 87631; 93005; 93306; 97802; 99285; J7030; Q9967; A4216; J2405

== ENCOUNTER 2024-02-07 22:03 | Observation (INO) | payer MEDICARE, MEDICAID, SELFPAY ==
[2024-02-07 22:08] VITALS: BP 135/75; PULSE 120; RESP 18; TEMP 36.8; O2SAT 92; BMI 44.9
--- NOTE | 2024-02-07 22:21 | CT_ITS ---
EXAM: CT HEAD WITHOUT INTRAVENOUS CONTRAST CLINICAL INDICATION: fall, ramos TECHNIQUE: Multiple axial images were obtained of the head without intravenous contrast. This CT exam was performed using one or more of the following dose reduction techniques: automated exposure control, adjustment of the mA and/or kV according to patient size, and/or use of iterative reconstruction technique. RADIATION DOSE: CTDIvol = 44.99 mGy, DLP = 745.49 mGy-cm COMPARISON: No relevant prior studies available. 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 Mild generalized atrophy. Mild low density bilaterally in the deep white matter. No intra- or extra-axial hemorrhage. No intracranial mass or mass effect. Posterior fossa structures are unremarkable. No hydrocephalus. Basal cisterns are patent. BONES/JOINTS: Unremarkable. No discrete lytic or blastic abnormalities. SINUSES: Unremarkable as visualized. Clear. MASTOID AIR CELLS: Unremarkable. Clear. ORBITS: Visualized globes, extraocular muscles, optic nerves and retrobulbar fat appear unremarkable. CT/Brain/Head without Contrast IMPRESSION: 1. 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 2. Mild generalized atrophy. Mild low density bilaterally in the deep white matter. This likely represents chronic small vessel ischemic changes in the deep white matter. No acute intracranial abnormality. Electronically Signed: Luis Carlos Elise MD at 23:17 EDT ,
--- NOTE | 2024-02-07 22:23 | EX.ED.DYSGE1 ---
HPI History of Present Illness Chief Complaint: Fall Informant: patient and spouse/S.O. Narrative Narrative: Patient is a 74-year-old female with past medical history of hypertension who was recently sent to an outside facility secondary to DVT and PE. She states she spent 16 days at the outside facility secondary to her blood clots. She was discharged home from the facility today. She states that at the outside hospital she was able to get up and be placed in a wheelchair and taken from her hospital room to her car. She states after arriving home her was able to help her out of the car into her wheelchair and get her into the house. However she sat in her wheelchair throughout the day until she felt the need to get up and use the restroom. At that time she was too weak to stand and her could not lift her on her own so he had a friend come over to help. She states they were able to get her up but after 1 or 2 steps she could not support her weight anymore and she slid to the ground. She denies striking her head or any loss of consciousness but does report a headache at this time. She has concern that she will not be able to care for herself at home or with the help of her and therefore is in the ER at this time secondary to the headache and with concern about placement in a rehab facility [facility] Medical History (Updated 02/08/24 @ 02:[address] Yboany Dolan, ) Bilateral pulmonary embolism Anemia Foot fracture, left Family history of colon cancer in mother Encounter for education ER+ (estrogen receptor positive status) Degenerative joint disease Hypertension Osteopenia after menopause Cancer of left female breast Post-menopausal Arthritis Easy bruising Excessive bleeding Non-smoker Shortness of breath on exertion Pulmonary embolism Hypertension UTI (urinary tract infection) DVT (deep venous thrombosis) Home Medications ?Medication ?Instructions ?Recorded ?Last Taken ?Type lisinopril 10 mg tablet 10 mg PO DAILY 08/12/21 10/02/21 History cranberry fruit concentrate 250 mg 250 mg PO DAILY 09/17/21 10/01/21 History chewable tablet (Azo Cranberry) anastrozole 1 mg tablet See Rx Instructions .Route 11/23/23 Unknown Rx .COMPLEX #30 tabs hydroxyzine HCl 25 mg tablet 25 mg PO Q8H PRN itching #20 tabs 01/13/24 Unknown Rx prednisone 20 mg tablet 20 mg PO BID #10 tabs 01/13/24 Unknown Rx apixaban 5 mg tablet (Eliquis) 10 mg PO Q12H 02/07/24 Unknown History Allergy/AdvReac Type Severity Reaction Status Date / Time No Known Allergies Allergy Verified 02/07/24 22:13 Family History Grandmother Breast cancer Daughter Breast cancer Mother Colon cancer Surgical History History of appendectomy History of dilation and curettage History of left mastectomy (~08/2021) History of lumpectomy of left breast Hx of abdominoplasty History of cholecystectomy History of total knee replacement Social History household members: spouse Smoking Status: Never smoker alcohol intake: never substance use type: does not use ROS ROS ED Constitutional Constitutional ED: Denies chills or fever(s) Eyes Eyes: Denies blurry vision or change in vision ENT ENT ED: Denies sore throat Cardiovascular Cardiovascular: Denies chest pain or palpitations Respiratory/Chest Respiratory/Chest: Denies cough or dyspnea Gastrointestinal Gastrointestinal: Denies abdominal pain, diarrhea, nausea or vomiting Genitourinary Genitourinary ED: Denies dysuria Musculoskeletal Musculoskeletal: Denies back pain or neck pain Integumentary Denies Abrasions or rash Neurologic Neurologic: Reports headache(s) and weakness Hematologic/Lymphatic Hematologic/Lymphatic: Reports easy bleeding and easy bruising EXAM Physical Exam Const Vital Signs: 02/07/24 22:08 02/07/24 22:14 02/07/24 23:22 Temperature 98.2 F 97.8 F Temperature Source Oral Oral Pulse Rate 120 H 102 H Respiratory Rate 18 16 Respiratory Effort Normal Non-Labored Respiratory Depth Normal Respiratory Pattern Normal Blood Pressure 135/75 H 122/58 H Blood Pressure Mean 95 79 Pulse Ox 92 91 Oxygen Delivery Method Room Air Room Air Room Air 02/07/24 23:25 Temperature Temperature Source Pulse Rate Respiratory Rate 19 H Respiratory Effort Respiratory Depth Respiratory Pattern Blood Pressure 122/58 H Blood Pressure Mean 79 Pulse Ox 95 Oxygen Delivery Method Room Air Positive well nourished, well developed and obese General Appearance ED: well developed; Negative for pallor Nutritional Appearance: obese HEENT HEENT Narrative: Normocephalic atraumatic No signs of depressed or basilar skull fracture Eyes PERRL and EOMs intact bilaterally General Eye ED: Negative for scleral icterus Neck supple Neck Narrative: No bony deformity or step-off of the cervical spine no midline tenderness to palpation Chest Wall palpation of chest normal Chest Narrative: No chest wall pain on palpation no bony deformity or crepitance noted Resp normal respiratory effort and clear to auscultation bilaterally Cardio regular rhythm Rate: tachycardic GI normal to inspection, nondistended, normoactive bowel sounds, non-tender, non-distended and no masses Auscultation: normoactive bowel sounds Palpation: soft Back/Spine Back/Spine Narrative: No bony deformity or step-off of the thoracic or lumbar spine no midline tenderness to palpation Extremity normal to inspection Extremity Narrative: Pelvis is stable there is no shortening or external rotation of either lower extremity Neuro oriented x3, CN's II-XII intact bilaterally and no sensory deficits noted Sensorium / Orientation: alert Psych mental status grossly normal Skin no rashes or lesions noted Skin Narrative: No abrasions or ecchymosis noted General Skin Exam: Negative for jaundice or pallor MDM MDM MDM Narrative Medical decision making narrative: Patient arrived to the ER in no acute distress. She reported falling at home but states this was more like she slid out of her and friends arms and denies striking her head or LOC. However based on her history of anticoagulation and fall there is concern for subdural versus epidural versus subarachnoid hemorrhage. There is also concern for potential pubic rami or pelvic fracture. Therefore a CT of the head was obtained as well as pelvic x-ray. In order to ensure there is no other cause for her generalized weakness such as acute loss anemia acute kidney injury severe electrolyte abnormality or infection and elect to perform basic laboratory study. Labs reveal no clinically significant finding. Imaging studies revealed no signs of acute trauma. Therefore at this time as patient is too weak to ambulate and has demonstrated that she cannot care for self at home and her is not capable of helping with ambulation her only option is placement in a rehab facility. Patient states she would be agreeable to this. Therefore at this time medicine was contacted to admit the patient and she will be evaluated by social work and/or PT OT tomorrow to discuss inpatient rehab therapy. History & Record Review Discussion w/independent historian: Patient and Significant other Lab Data Attestation: I reviewed the patient's lab results. Labs: Laboratory Results - last 24 hr 02/07/24 22:35 WBC 10.0 RBC 3.56 L Hgb 11.3 L Hct 35.7 L MCV 100.3 H MCH 31.7 MCHC 31.7 L RDW Std Deviation 58.8 H RDW Coeff of Zachary 16.2 H Plt Count 456 H MPV 9.5 Immature Gran % (Auto) 0.900 Neut % (Auto) 73.0 H Lymph % (Auto) 16.7 L Bradford % (Auto) 6.9 Eos % (Auto) 1.9 Baso % (Auto) 0.6 Absolute Neuts (auto) 7.3 Absolute Lymphs (auto) 1.67 Nucleated RBC % 0 PT 22.2 H INR 2.0 APTT 39.0 H Sodium 140 Potassium 4.1 Chloride 109 H Carbon Dioxide 24.0 Anion Gap 7 BUN 14 Creatinine 1.28 H Estim Creat Clear Calc 45.06 Est GFR (MDRD) Af Amer 53 L Est GFR (MDRD) Non-Af 44 L BUN/Creatinine Ratio 10.9 Glucose 136 H Calcium 9.5 Radiography Diagnostic Testing: Clinical Impression(s) from Imaging Studies Brain CT 02/07/24 22:21 IMPRESSION: 1. 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 2. Mild generalized atrophy. Mild low density bilaterally in the deep white matter. This likely represents chronic small vessel ischemic changes in the deep white matter. No acute intracranial abnormality. Electronically Signed: Luis Carlos Elise MD at 23:17 EDT , Pelvis X-Ray 02/07/24 22:50 IMPRESSION: 1. No pelvic or hip fractures. 2. IUD in the mid pelvis. 3. Prominent enthesopathy and involving the anterior superior iliac spines, anterior inferior iliac spines and greater trochanters. 4. Degenerative changes in the lower lumbar spine. 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
--- NOTE | 2024-02-07 22:50 | RAD_ITS ---
EXAM: XR PELVIS, 1 OR 2 VIEWS CLINICAL INDICATION: fall TECHNIQUE: Frontal view of the pelvis. COMPARISON: CT scan of the abdomen and pelvis 11/10/2022. FINDINGS: BONES/JOINTS: IUD in the mid pelvis. Prominent enthesopathy and involving the anterior superior iliac spines, anterior inferior iliac spines and greater trochanters. Degenerative changes in the lower lumbar spine. No displaced fracture. No destructive or sclerotic lesions. Note that overlapping bowel shadows may however obscure fine detail. Sacroiliac joints are unremarkable. No widening of the pubic symphysis. SOFT TISSUES: Numerous surgical clips in the pelvis. No soft tissue swelling or gas. RAD/Pelvis 1 or 2 Views IMPRESSION: 1. No pelvic or hip fractures. 2. IUD in the mid pelvis. 3. Prominent enthesopathy and involving the anterior superior iliac spines, anterior inferior iliac spines and greater trochanters. 4. Degenerative changes in the lower lumbar spine. Electronically Signed: Luis Carlos Elise MD at 23:21 EDT ,
[2024-02-07 22:54] LABS: Absolute Lymphocyte Count 1.67 X10^3/uL (0.83-4.51); Absolute Neutrophil Count 7.3 X10^3/uL (2.0-7.7); Basophil# 0.06 X10^3/uL; Basophil% 0.6 % (0-1); Eosinophil# 0.19 X10^3/uL; Eosinophils% 1.9 % (0-5); Hematocrit 35.7 % (37-47); Hemoglobin 11.3 g/dL (12.0-15.0); Lymphocyte # 1.67 X10^3/ul (0.83-4.51); Lymphocyte % 16.7 % (19-41); Mean Corp Hgb Conc 31.7 g/dL (32-36); Mean Corpuscular Hgb 31.7 pg (27.0-32.0); Mean Corpuscular Volume 100.3 fL (81-99); Mean Platelet Vol. 9.5 fl (6.2-12.0); Monocyte# 0.69 X10^3/uL; Monocyte% 6.9 % (0-10); NRBC Flagged by Analyzer 0 % (0-5); Neutrophil # 7.31 X10^3/uL (2.7-7.7); Platelet Count 456 K/mm3 (150-450); RBC Distribution Width CV 16.2 % (11.6-14.6); RBC Distribution Width SD 58.8 fl (35.1-43.9); Red Blood Count 3.56 M/mm3 (4.2-5.4)
[2024-02-07 23:06] LABS: Anion Gap 7 (5-15); BUN 14 mg/dL (7-18); BUN/Creat Ratio 10.9 RATIO (10-20); Calcium,Total 9.5 mg/dL (8.5-10.1); Chloride 109 mmol/L (98-107); Creatinine, Serum 1.28 mg/dL (0.55-1.02); EST Glomerular Filtration Rate 44 mL/min (>60); Est Glom Filt Rate - Afr Amer 53 mL/min (>60); Estimated Creatinine Clearance 45.06 ml/min; Glucose 136 mg/dL (74-106); Potassium 4.1 mmol/L (3.5-5.1); Sodium Level 140 mmol/L (136-145)
[2024-02-07 23:10] LABS: Prothrombin Time (Protime)PT. 22.2 SECONDS (11.7-14.9)
[2024-02-07 23:22] VITALS: BP 122/58; PULSE 102; RESP 16; TEMP 36.6; O2SAT 91
[2024-02-07 23:25] VITALS: BP 122/58; RESP 19; O2SAT 95
[2024-02-07] MEDS: Acetaminophen 325 MG Tablet 650 MG PO (23:44)
--- NOTE | 2024-02-07 23:59 | HP.PCM.HOS_ITS ---
HPI - General General Date of Admission: 02/08/24 Date of Service: 02/08/24 Chief Complaint: Fall, adult FTT HPI Narrative The patient is a 74 y/o F w/ PMHx: Morbid obesity, Chronic anemia, Hx L Breast CA unclear type, CKD stage III unclear subtype, HTN, Hx VTE (DVT, PE) who presents to the [facility] ED on 02/07/24 with history of recently being discharged on day of presentation from skilled facility after a prolonged admission at with per description likely intervention but uncertain, specifically driving home with her but upon return to home she had difficulty getting out of the wheelchair to use the restroom and felt weak attempting to stand requiring even a friend to come over and help but eventually she has been able to appropriately walk or hold her own weight unfortunately falling with no loss of consciousness or trauma but following her fall reported headache thus given her concern for ability and safety of caring for self at home prompted transition to the ED for consideration of placement. She notes some general discomfort from her recent fall including her back, bilateral lower extremities but nothing specifically focal. She notes that her recent discharge she had been on oxycodone for discomfort because of her bilateral PE and intervention although again she has very difficult time describing these interventions. Workup in the ED included T98.2, heart rate 120, BP 135/75, respiratory rate 18, 92% on room air with most recent repeat vital signs heart rate 102, BP 122/58, respiratory rate 19, 95% room air, CBC with WBC 10, 11.3, MCV 100.3, platelet 456 without marked shift, coags with PT 22.2, INR 2, PTT 39.0, BMP with chloride 109, BUN/creatinine 14/1.28, GFR 44, glucose 136, CT of the brain with a small old left frontal centrum semiovale lacunar infarct, mild generalized atrophy, mild low density bilaterally in the deep white matter likely order entry representative of chronic small vessel ischemic changes, no intracranial acute finding, plain film of the hip and pelvis ease with no acute fracture, IUD in the mid pelvis noted, prominent enthesopathy involving the anterior superior iliac spines, anterior inferior iliac spines and greater trochanters, generative changes in the lower lumbar spine. In the ED patient ministered Tylenol 650 mg p.o. x 1. [facility] Medical History (Updated 02/08/24 @ 00:[address] Pat Elena MD) Bilateral pulmonary embolism Anemia Foot fracture, left Family history of colon cancer in mother Encounter for education ER+ (estrogen receptor positive status) Degenerative joint disease Hypertension Osteopenia after menopause Cancer of left female breast Post-menopausal Arthritis Easy bruising Excessive bleeding Non-smoker Shortness of breath on exertion Pulmonary embolism Hypertension UTI (urinary tract infection) DVT (deep venous thrombosis) Home Medications ?Medication ?Instructions ?Recorded ?Last Taken ?Type lisinopril 10 mg tablet 10 mg PO DAILY 08/12/21 10/02/21 History cranberry fruit concentrate 250 mg 250 mg PO DAILY 09/17/21 10/01/21 History chewable tablet (Azo Cranberry) anastrozole 1 mg tablet See Rx Instructions .Route 11/23/23 Unknown Rx .COMPLEX #30 tabs hydroxyzine HCl 25 mg tablet 25 mg PO Q8H PRN itching #20 tabs 01/13/24 Unknown Rx prednisone 20 mg tablet 20 mg PO BID #10 tabs 01/13/24 Unknown Rx apixaban 5 mg tablet (Eliquis) 10 mg PO Q12H 02/07/24 Unknown History Allergy/AdvReac Type Severity Reaction Status Date / Time No Known Allergies Allergy Verified 02/07/24 22:13 Family History Grandmother Breast cancer Daughter Breast cancer Mother Colon cancer Surgical History History of appendectomy History of dilation and curettage History of left mastectomy (~08/2021) History of lumpectomy of left breast Hx of abdominoplasty History of cholecystectomy History of total knee replacement Social History household members: spouse Smoking Status: Never smoker alcohol intake: never substance use type: does not use ROS ROS Narrative Admission Review of Systems: CONSTITUTIONAL: No weight loss, fever, chills, + weakness or fatigue. HEENT: Eyes: No visual loss, blurred vision, double vision or yellow sclerae. Ears, Nose, Throat: No hearing loss, sneezing, congestion, runny nose or sore throat. SKIN: No rash or itching, lesions, wounds except + staged ecchymoses, abrasions. CARDIOVASCULAR: No chest pain, chest pressure or chest discomfort, palpitations, edema, orthopnea, syncopal events. RESPIRATORY: No shortness of breath, cough or sputum, wheezing, hemoptysis. GASTROINTESTINAL: No anorexia, nausea, vomiting or diarrhea, abdominal pain, melena, BRBPR. GENITOURINARY: No dysuria, frequency, urgency or retention. NEUROLOGICAL: No headache, dizziness, syncope, paralysis, ataxia, numbness or tingling in the extremities, focal weakness, change in bowel or bladder control, seizure. MUSCULOSKELETAL: = muscle, back pain, joint pain or stiffness. HEMATOLOGIC: + Chronic anemia, easy bleeding/bruising. LYMPHATICS: No enlarged nodes. No history of splenectomy. PSYCHIATRIC: No history of depression or anxiety. ENDOCRINOLOGIC: No reports of sweating, cold or heat intolerance. No polyuria or polydipsia. ALLERGIES: + Allergic rhinitis. Vital Signs Vital Signs Vital Signs: 02/07/24 22:08 02/07/24 22:14 02/07/24 23:22 Temperature 98.2 F 97.8 F Temperature Source Oral Oral Pulse Rate 120 H 102 H Respiratory Rate 18 16 Respiratory Effort Normal Non-Labored Respiratory Depth Normal Respiratory Pattern Normal Blood Pressure 135/75 H 122/58 H Blood Pressure Mean 95 79 Pulse Ox 92 91 Oxygen Delivery Method Room Air Room Air Room Air 02/07/24 23:25 Temperature Temperature Source Pulse Rate Respiratory Rate 19 H Respiratory Effort Respiratory Depth Respiratory Pattern Blood Pressure 122/58 H Blood Pressure Mean 79 Pulse Ox 95 Oxygen Delivery Method Room Air Weight Weight: 237 lb 14.06 oz Body Mass Index (BMI) 44.9 Physical Exam Narrative Physical Examination: General: Awake, alert, oriented x 3 and cooperative, seated upright in the ED bed, fatigued otherwise no acute distress Skin: Normal color, normal turgor, no icterus, no cyanosis except very staged ecchymoses, abrasions. HEENT: AT/NC, EOMI, PERRLA, MMM, no carotid bruits or JVD noted; however thickened neck makes evaluation difficult. Lungs: Diminished, distant, mildly increased respiratory rate but no distress, no rales, ronchi or wheezing. Heart: Regular rate and rhythm; no gallop, rub audible. Abdomen: Soft, morbidly obese, NTTP, distant BS, difficult to appreciate distention and HSM given habitus. Extremities: No cyanosis, no clubbing, no marked peripheral edema but patient does report chronic discomfort with palpation of her lower extremities/chronic neuropathy. Neurological: Patient awake, alert, oriented as noted, cognitive function intact; pupils equally reactive to light and accommodation, cranial nerves grossly normal, moving all 4 extremities, no focal deficits, strength moderately to severely global decreased. Psychiatric: Affect appears fatigued otherwise normal, no acute evidence of depressive or anxiety feelings. Results Lab / Micro Data 02/07/24 22:35 02/07/24 22:35 Labs: Laboratory Results - last 24 hr 02/07/24 22:35: WBC 10.0, RBC 3.56 L, Hgb 11.3 L, Hct 35.7 L, MCV 100.3 H, MCH 31.7, MCHC 31.7 L, RDW Std Deviation 58.8 H, RDW Coeff of Zachary 16.2 H, Plt Count 456 H, MPV 9.5, Immature Gran % (Auto) 0.900, Neut % (Auto) 73.0 H, Lymph % (Auto) 16.7 L, [place] % (Auto) 6.9, Eos % (Auto) 1.9, Baso % (Auto) 0.6, Absolute Neuts (auto) 7.3, Absolute Lymphs (auto) 1.67, Nucleated RBC % 0, PT 22.2 H, INR 2.0, APTT 39.0 H, Sodium 140, Potassium 4.1, Chloride 109 H, Carbon Dioxide 24.0, Anion Gap 7, BUN 14, Creatinine 1.28 H, Estim Creat Clear Calc 45.06, Est GFR (MDRD) Af Amer 53 L, Est GFR (MDRD) Non-Af 44 L, BUN/Creatinine Ratio 10.9, Glucose 136 H, Calcium 9.5 Imaging Radiology Impression Brain CT 02/07/24 22:21 IMPRESSION: 1. 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 2. Mild generalized atrophy. Mild low density bilaterally in the deep white matter. This likely represents chronic small vessel ischemic changes in the deep white matter. No acute intracranial abnormality. Electronically Signed: Luis Carlos Elise MD at 23:17 EDT , Pelvis X-Ray 02/07/24 22:50 IMPRESSION: 1. No pelvic or hip fractures. 2. IUD in the mid pelvis. 3. Prominent enthesopathy and involving the anterior superior iliac spines, anterior inferior iliac spines and greater trochanters. 4. Degenerative changes in the lower lumbar spine. Electronically Signed: Luis Carlos Elise MD at 23:21 EDT , Assessment & Plan Assessment/Plan (1) Adult failure to thrive: PLAN: Plan The patient is a 74 y/o F w/ PMHx: Morbid obesity, Chronic anemia, Hx L Breast CA unclear type, CKD stage III unclear subtype, HTN, Hx VTE (DVT, PE) who presents to the [facility] ED on 02/07/24 with history of recently being discharged on day of presentation from skilled facility after a prolonged admission at with per description likely intervention but uncertain, specifically driving home with her but upon return to home she had difficulty getting out of the wheelchair to use the restroom and felt weak attempting to stand requiring even a friend to come over and help but eventually she has been able to appropriately walk or hold her own weight unfortunately falling with no loss of consciousness or trauma but following her fall reported headache thus given her concern for ability and safety of caring for self at home prompted transition to the ED for consideration of placement. #1. Mechanical fall, debility, adult failure that is thrive, unsafe for self- care: Will admit to medical surgical floor, maintain on fall precautions, records from recent prolonged admission at [facility] have been requested as patient was there for a significant manage time and recently then transition to skilled facility but discharged on day of presentation, will consult case management/social work to initiate process for placement as patient will need more prolonged skilled care, PT/OT consulted. #2. Recent VTE requiring intervention, unclear intervention type: Patient with recent history of DVT, bilateral PE and from description intervention but unclear exact extent, records from [facility] have been requested and are pending, will continue patient home Eliquis regimen. #3. History of left-sided breast cancer: Unclear exact type, status post lumpectomy and eventual left sided mastectomy, consider remission, encourage continued outpatient follow-up as previously arranged, continue patient chronic anastrozole regimen.. #4. History CVA: CT of the brain with a small old left frontal centrum semiovale lacunar infarct, will continue patient home Eliquis, hypertensive regimen, not on statin therapy, defer to outpatient. #5. Chronic macrocytic anemia: Admission hemoglobin 11.3, MCV 100.3, baseline hemoglobin primarily 12 range, most recently 01/23/2024 hemoglobin 12.7, will continue to trend. #6. Chronic Kidney Disease Stage III, unclear subtype: Admission BUN/Cr 14/1.28, GFR 44, baseline renal function primarily 1.4-1.6 although most recently 01/23/2024 creatinine 1.72 at that time, repeat CMP in AM. #7. Hypertension: Continue home regimen including lisinopril, PRN hydralazine. #8. Morbid Obesity: Weight loss and lifestyle changes encouraged. #9. DVT prophylaxis: Continue patient on Eliquis regimen. #10. CODE status: Patient does not have healthcare power banking attorney or living will in place but she notes she would prefer her daughter to be her medical decision-maker if this was necessary. Discussed CODE status at length including difference between FULL code, DNR-CCA and DNR-CC status. Following discussions about the differences in these status, requested Full Code status. Advanced Care Planning Face to Face Time: 16 minutes. Charges/Coding Visit Charges Inpatient E&M: 16477 Init Hosp L2 Procedures Hospitalists Procedures: 95678 Advncd Care Plan 30 Min
[2024-02-08 00:26] VITALS: BP 123/63; PULSE 100; RESP 18; TEMP 36.6; O2SAT 96
[2024-02-08 00:47] VITALS: BMI 44.0
[2024-02-08 00:53] VITALS: BP 129/59; PULSE 93; RESP 18; TEMP 36.8; O2SAT 97
[2024-02-08] MEDS: oxyCODONE 5 MG Tablet PO (01:22)
[2024-02-08 01:24] LABS: Color, Urine Amber (Yellow); Glucose, Dipstick Normal (Normal); Ketone-Dipstick 5 mg/dl (Negative); Leukocyte Esterase-Dipstick 500 /ul (Negative); Nitrite-Dipstick Negative (Negative); Occult Blood-Urine Negative /ul (Negative); Protein-Dipstick 30 mg/dl (Negative); Urine Bilirubin Dipstick Negative (Negative); Urine Clarity Clear (Clear); Urine Urobilinogen Normal (Normal)
[2024-02-08 01:31] LABS: Bacteria RARE /hpf (None Seen); Hyaline Cast 5-10 SEEN /lpf (0-5); Mucous, Urine 1+ /hpf (<or=2+); Red Blood Cells-Urine 0-5 SEEN /hpf (0-5); Squamous Epithelial Cells - UA 5-10 SEEN /hpf (5-10); Uric Acid Crystals Ur 1+ /hpf (<or=1+); White Blood Cells 10-25 SEEN /hpf (0-5)
[2024-02-08 05:23] VITALS: BP 108/52; PULSE 89; RESP 16; TEMP 37; O2SAT 95
[2024-02-08 05:53] VITALS: BMI 44.0
[2024-02-08 06:48] LABS: Absolute Lymphocyte Count 2.12 X10^3/uL (0.83-4.51); Absolute Neutrophil Count 7.1 X10^3/uL (2.0-7.7); Basophil# 0.06 X10^3/uL; Basophil% 0.6 % (0-1); Eosinophils% 1.9 % (0-5); Hematocrit 32.1 % (37-47); Hemoglobin 10.1 g/dL (12.0-15.0); Lymphocyte # 2.12 X10^3/ul (0.83-4.51); Lymphocyte % 20.3 % (19-41); Mean Corp Hgb Conc 31.5 g/dL (32-36); Mean Corpuscular Hgb 31.5 pg (27.0-32.0); Mean Platelet Vol. 9.2 fl (6.2-12.0); Monocyte% 8.6 % (0-10); NRBC Flagged by Analyzer 0 % (0-5); Neutrophil # 7.11 X10^3/uL (2.7-7.7); Neutrophil % 67.9 % (47-70); Platelet Count 391 K/mm3 (150-450); RBC Distribution Width CV 16.3 % (11.6-14.6); RBC Distribution Width SD 58.5 fl (35.1-43.9); Red Blood Count 3.21 M/mm3 (4.2-5.4); White Blood Count 10.5 K/mm3 (4.4-11.0)
[2024-02-08 07:21] LABS: ALB/GLOB Ratio 0.5 RATIO (0.9-2.4); AST(SGOT) 25 U/L (15-37); Alanine Aminotransfer ALT/SGPT 23 U/L (13-56); Albumin, Serum 2.4 g/dL (3.2-5.0); Alkaline Phosphatase 74 U/L (45-117); Anion Gap 5 (5-15); BUN 14 mg/dL (7-18); BUN/Creat Ratio 13.3 RATIO (10-20); Calcium,Total 9.1 mg/dL (8.5-10.1); Chloride 111 mmol/L (98-107); Creatinine, Serum 1.05 mg/dL (0.55-1.02); EST Glomerular Filtration Rate 55 mL/min (>60); Est Glom Filt Rate - Afr Amer 66 mL/min (>60); Estimated Creatinine Clearance 54.28 ml/min; Globulin 4.4 g/dL (2.2-4.2); Glucose 109 mg/dL (74-106); Potassium 3.4 mmol/L (3.5-5.1); Protein, Total 6.8 g/dL (6.4-8.2); Sodium Level 140 mmol/L (136-145)
--- NOTE | 2024-02-08 07:52 | PCM.PN.HOSP ---
Reason for Visit Reason for Visit: Fall Subjective Subjective Patient is a 74-year-old white female who presented to the emergency department [facility] on 02/07/2024 after sustaining a fall out of wheelchair and weakness with attempts to stand. She had recent hospitalization in mid January at which time she presented here and was transferred to [facility] for thrombectomy with massive PE. She had a 16-day hospital stay there at which time she was placed on a trial for pulmonary embolus and was randomized to the mechanical thrombectomy arm. Post procedurally she had complications with bleeding and required balloon tamponade as well as mechanical ventilation after intubation. She developed NELSY/ATN which required Lasix and pressor support with phenylephrine. Her blood pressures improved and she was stabilized on midodrine and then transferred out of the ICU on 02/05/2024. At that time her blood thinner was transitioned to Eliquis for which she is to be on 10 mg p.o. twice daily through 02/10/2024 and then transition to 5 mg p.o. twice daily. RV strain was reassessed by echocardiogram on 01/30/2023 and showed improvement in her right heart strain. It is documented that therapy recommended acute rehab at discharge however the patient opted for home health care and she was discharged on the same day of her presentation here. Her picked her up and was driving her home but upon return home she had difficulty getting out of the wheelchair to use the restroom and felt weak with attempts to stand. Unfortunately, she fell with no loss of consciousness or trauma but they brought her back to the hospital for concerns of safety and ability caring for self at home. They feel that she needs placement. Vital signs on presentation showed temperature 98.2, heart rate 120, blood pressure was 135/75, respiratory 16 and oxygen saturation was 92% on room air. CT of the brain showed an old small left frontal lacunar infarct with mild generalized atrophy and chronic small vessel changes with no acute bleeding. Plain films of the hip and pelvis were unremarkable for any acute findings. CBC showed a mild anemia which is relatively stable when compared to previous. BMP showed mild serum creatinine elevation 1.28 which is consistent with her baseline, but was otherwise unremarkable. Her UA is consistent with some dehydration but not infection. Given her mobility issues, she was admitted for potential placement for ongoing rehab. Patient states overall she is feeling well. She is concerned about her Eliquis dosing and we did discuss that I have reviewed this and found instructions from [facility] and her medications are ordered per their instructions. She does agree that she will need to go somewhere for rehab. Objective Data Objective Data Vital Signs: Vital Signs Temp Pulse Resp BP Pulse Ox O2 Del Method 98.6 F 89 16 108/52 L 95 Room Air 02/08/24 05:23 02/08/24 05:23 02/08/24 05:23 02/08/24 05:23 02/08/24 05:23 02/08/24 05:23 Oxygen Delivery Method Room Air Weight: 105.8 kg Body Mass Index (BMI) 44.0 Intake & Output: Intake and Output for Last 24 Hours 02/06/24 02/07/24 02/08/24 23:59 23:59 23:59 Intake Total 200 / 200 Output Total 300 / 300 Balance -100 / -100 Lab / Micro Data 02/08/24 06:15 02/08/24 06:15 Labs: Laboratory Results - last 24 hr 02/07/24 22:35: WBC 10.0, RBC 3.56 L, Hgb 11.3 L, Hct 35.7 L, MCV 100.3 H, MCH 31.7, MCHC 31.7 L, RDW Std Deviation 58.8 H, RDW Coeff of Zachary 16.2 H, Plt Count 456 H, MPV 9.5, Immature Gran % (Auto) 0.900, Neut % (Auto) 73.0 H, Lymph % (Auto) 16.7 L, [place] % (Auto) 6.9, Eos % (Auto) 1.9, Baso % (Auto) 0.6, Absolute Neuts (auto) 7.3, Absolute Lymphs (auto) 1.67, Nucleated RBC % 0, PT 22.2 H, INR 2.0, APTT 39.0 H, Sodium 140, Potassium 4.1, Chloride 109 H, Carbon Dioxide 24.0, Anion Gap 7, BUN 14, Creatinine 1.28 H, Estim Creat Clear Calc 45.06, Est GFR (MDRD) Af Amer 53 L, Est GFR (MDRD) Non-Af 44 L, BUN/Creatinine Ratio 10.9, Glucose 136 H, Calcium 9.5 02/08/24 01:10: Urine Color Kerri, Urine Clarity Clear, Urine pH 5.0, Ur Specific [place] 1.020, Urine Protein 30 H, Urine Glucose (UA) Normal, Urine Ketones 5 H, Urine Occult Blood Negative, Urine Nitrite Negative, Urine Bilirubin Negative, Urine Urobilinogen Normal, Ur Leukocyte Esterase 500 H, Urine RBC 0-5 SEEN, Urine WBC 10-25 SEEN, Ur Squamous Epith Cells 5-10 SEEN, Uric Acid Crystals 1+, Urine Bacteria RARE, Hyaline Casts 5-10 SEEN, Urine Mucus 1+ 02/08/24 06:15: WBC 10.5, RBC 3.21 L, Hgb 10.1 L, Hct 32.1 L, MCV 100.0 H, MCH 31.5, MCHC 31.5 L, RDW Std Deviation 58.5 H, RDW Coeff of Zachary 16.3 H, Plt Count 391, MPV 9.2, Immature Gran % (Auto) 0.700, Neut % (Auto) 67.9, Lymph % (Auto) 20.3, [place] % (Auto) 8.6, Eos % (Auto) 1.9, Baso % (Auto) 0.6, Absolute Neuts (auto) 7.1, Absolute Lymphs (auto) 2.12, Nucleated RBC % 0, Sodium 140, Potassium 3.4 L, Chloride 111 H, Carbon Dioxide 24.0, Anion Gap 5, BUN 14, Creatinine 1.05 H, Estim Creat Clear Calc 54.28, Est GFR (MDRD) Af Amer 66, Est GFR (MDRD) Non-Af 55 L, BUN/Creatinine Ratio 13.3, Glucose 109 H, Calcium 9.1, Total Bilirubin 0.50, AST 25, ALT 23, Alkaline Phosphatase 74, Total Protein 6.8, Albumin 2.4 L, Globulin 4.4 H, Albumin/Globulin Ratio 0.5 L Radiography Diagnostic Testing: Radiology Impression Brain CT 02/07/24 22:21 IMPRESSION: 1. 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 2. Mild generalized atrophy. Mild low density bilaterally in the deep white matter. This likely represents chronic small vessel ischemic changes in the deep white matter. No acute intracranial abnormality. Electronically Signed: Luis Carlos Elise MD at 23:17 EDT , Pelvis X-Ray 02/07/24 22:50 IMPRESSION: 1. No pelvic or hip fractures. 2. IUD in the mid pelvis. 3. Prominent enthesopathy and involving the anterior superior iliac spines, anterior inferior iliac spines and greater trochanters. 4. Degenerative changes in the lower lumbar spine. Electronically Signed: Luis Carlos Elise MD at 23:21 EDT , Physical Exam Const alert, oriented x3, no apparent distress and well nourished; Negative for average body habitus or healthy appearing Constitutional Narrative: Older, morbidly obese, white female, lying in bed, appears comfortable, nontoxic HEENT head/scalp atraumatic and moist oral mucous membranes HEENT Narrative: Mallampati 3, no thrush Head and Scalp: normocephalic Resp normal respiratory effort, no retractions, no use of accessory muscles and clear to auscultation bilaterally Auscultation: Negative for rales, rhonchi or wheezes Cardio regular rate, regular rhythm, S1 normal heart sound, S2 normal heart sound, no murmurs, no rub, no gallops and no clicks GI normal to inspection, nondistended, normoactive bowel sounds, soft to palpation and non-tender Extremity no clubbing, cyanosis or edema Extremity Narrative: Pedal pulses are 2+ Neuro oriented x3, moves all extremities and no focal motor deficits Speech: speech normal Psych affect normal Psych Narrative: Very pleasant, interacts appropriately, eye contact is good Assessment & Plan Assessment/Plan (1) Inability to walk: (2) Adult failure to thrive: (3) Debility: PLAN: Plan Debility/adult failure to thrive/inability to walk due to recent significant illness and deconditioning -PT/OT consultation -Labs are overall unimpressive for other etiology that could be contributing -Case management/social work consultation pending for assistance with discharge -Patient with commercial insurance and will need pre-CERT prior to discharge -Appears to be medically stable at this time for discharge once pre-CERT is obtained Recent PE/DVT -Initially admitted here in mid January and diagnosed with extensive bilateral PE and noted right ventricular strain -Ultimately transferred to [facility] where she was placed in a clinical trial and randomized to mechanical thrombectomy arm--> had post embolectomy bleeding that was stopped with balloon tamponade and required intubation--> developed NELSY due to ATN which required Lasix and pressor support with phenylephrine--> was discharged with midodrine however pressures are stable here -Currently on Eliquis 10 mg p.o. twice daily through 02/10/2024 with transition to 5 mg p.o. twice daily on 02/11/2024 -Follow-up echocardiogram showed no further right heart strain after thrombectomy -Follow-up with vascular medicine and cardiology as previously directed at discharge from [facility] History of left breast cancer -Type unclear but documented that it was ER positive -Previously had been on anastrozole--> unclear if she is still taking this or not as it has not been confirmed on her med rec -Will continue for now -Continue outpatient follow-up as previously directed History of stroke -CT brain shows small left frontal lacunar infarct -continue home Eliquis Chronic macrocytic anemia -hemoglobin is relatively stable -continue to trend CKD stage IIIb -Baseline hemoglobin fluctuates but appears to be between 1.25 and 1.65 -Currently 1.05 -Continue to monitor -Avoid nephrotoxins as able Hypertension -Patient is currently on no medications for this -Pressures are stable however off midodrine--> will hold and monitor -continue as needed hydralazine for systolic pressure greater than 160 Morbid obesity -BMI is 44.1 -Recommend weight loss -complicates treatment, prognosis, outcomes DVT prophylaxis -Continue home Eliquis CODE STATUS -Full code is verified at the time of admission Charges/Coding Visit Charges Inpatient E&M: 64205 Subs Hosp L2
[2024-02-08 08:15] VITALS: BP 119/59; PULSE 90; RESP 18; TEMP 36.6; O2SAT 95
[2024-02-08] MEDS: APIXABAN 5 MG TABLET 10 MG PO (09:42)
[2024-02-08] MEDS: Anastrozole 1 MG TABLET PO (09:42)
[2024-02-08] MEDS: Lisinopril 10 MG Tablet PO (09:42)
--- NOTE | 2024-02-08 10:15 | CASEMGMT ---
Discharge Planning A list of?SNF providers including quality and resource use data and consistent with the patient's preferred geographic region, medical needs, and insurance network was created in [employer] Guide.? This list was provided to the RN MEHDI. Ila Valladares, Discharge Planning Asst.
--- NOTE | 2024-02-08 11:32 | CASEMGMT ---
Dr. Albright states during rounds that the pt is needing SNF placement. This RN CM to pt room at this time and the pt states that she is agreeable to this plan. CARIE Thorpe business office assistant, printed off a local in-network list of SNF. List provided to the pt at this time. Pt states that she prefers [facility]. Referral to be made by SW. Pt educated to review the list and to select a couple of other choices in the case that TCU is unable to accept. SW to follow.
--- NOTE | 2024-02-08 12:36 | PCM.TXEXTCAR ---
Diet Diet Order/Speech Therapy: 02/08/24 00:37 Diet: Cardiac - Heart Healthy Food consistency:: Regular Liquid Consistency:: Regular/Thin Routine Orders/Code Status Suppository Frequency: Daily PRN O2 Frequency: PRN Keep PO Greater than or Equal to (%): 89 Routine Lab Work: CBC (1 week) and BMP (1 week) Code Status: Full Code Suggestions for Active Care Change Position every (hours): 2 Hours to sit in a chair: 2 Times a day to sit in chair: 3 Therapies Weight Bearing: Full weight bearing Physical Therapy: Eval and Treat Occupational Therapy: Eval and Treat Problem/Diagnosis (1) Inability to walk: Status: Acute Code(s): R26.2 - Difficulty in walking, not elsewhere classified (2) Adult failure to thrive: Status: Acute Code(s): R62.7 - Adult failure to thrive (3) Debility: Status: Acute Code(s): R53.81 - Other malaise Allergies/Procedures Done in Hospital Allergies No Known Allergies Allergy (Verified 02/07/24 22:13) Procedures: - (CT brain/pelvic x-ray) Type of Care/Length of Stay Estimated LOS: Convalescent Care Less Than 30 days Type of Care Needed: Skilled Rehab Potential: Good Prognosis: Good Additional Orders/Day of Discharge Day of Discharge: 02/08/24 Discharge Plan Admission Admit Date/Time: 02/07/24 23:59 Attending Provider: Makenna Albright Primary Care Provider: Kang Cannon Consulting Providers: Pat Elena Discharge Orders/Prescriptions Prescriptions: No Action Azo Cranberry 250 mg tablet,chewable 250 mg PO DAILY lisinopril 10 mg tablet 10 mg PO DAILY Patient Comments: TAKE 1 TABLET BY MOUTH DAILY Eliquis 5 mg tablet 10 mg PO Q12H Patient Comments: TAKE 10MG TWICE DAILY FOR 4 DAYS (STARTING 02/07/24) THEN 5MG TWICE DAILY oxycodone 5 mg tablet 5 mg PO TID PRN PRN (Reason: pain) midodrine 10 mg tablet 10 mg PO TID calcium carbonate-vitamin D3 [Calcium 600 + D(3)] 600 mg-10 mcg (400 unit) tablet 1 tab PO DAILY magnesium oxide 400 mg magnesium tablet 400 mg PO DAILY hydroxyzine HCl 25 mg tablet 25 mg PO Q8H PRN (Reason: itching) Qty: 20 0RF anastrozole 1 mg tablet See Rx Instructions .ROUTE .COMPLEX Qty: 30 0RF Dose Instruction: TAKE 1 TABLET BY MOUTH EVERY DAY Rx Instructions: TAKE 1 TABLET BY MOUTH EVERY DAY Referrals / Follow Up: Kang Cannon MD [Primary Care Provider] -
--- NOTE | 2024-02-08 12:37 | PCM.DC.SUM ---
Providers Date of Admission: 02/07/24 Primary Care Physician: Dr. Kang Cannon MD Reason For Visit: ADULT FTT, FALL Diagnosis Discharge Diagnosis (1) Inability to walk: Status: Acute Code(s): R26.2 - Difficulty in walking, not elsewhere classified (2) Adult failure to thrive: Status: Acute Code(s): R62.7 - Adult failure to thrive (3) Debility: Status: Acute Code(s): R53.81 - Other malaise Medications at Discharge Home Medications lisinopril 10 mg tablet 10 mg PO DAILY 08/12/21 cranberry fruit concentrate 250 mg chewable tablet (Azo Cranberry) 250 mg PO DAILY 09/17/21 anastrozole 1 mg tablet See Rx Instructions .Route .COMPLEX #30 tabs 11/23/23 hydroxyzine HCl 25 mg tablet 25 mg PO Q8H PRN itching #20 tabs 01/13/24 acetaminophen 325 mg tablet 650 mg (2 x 325 mg) PO Q4H PRN PRN Fever, pain 1-05/19 #1 TAB 02/08/24 apixaban 5 mg tablet (Eliquis) 10 mg (2 x 5 mg) PO Q12H #1 TAB 02/08/24 calcium carbonate 600 mg-vitamin D3 10 mcg (400 unit) tablet (Calcium 600 + D(3)) 1 tab PO DAILY 02/08/24 magnesium oxide 400 mg PO DAILY 02/08/24 oxycodone 5 mg tablet 5 mg PO TID PRN PRN pain 1 day #3 tabs 02/08/24 sennosides 8.6 mg-docusate sodium 50 mg tablet (Stool Softener-Stimulant Laxative) 2 tab PO BID PRN PRN Constipation #0 tabs 02/08/24 Hospital Course Summary of Care Provided Hospital Course: Patient is a 74-year-old white female who presented to the emergency department [facility] on 02/07/2024 after sustaining a fall out of wheelchair and weakness with attempts to stand. She had recent hospitalization in mid January at which time she presented here and was transferred to [facility] for thrombectomy with massive PE. She had a 16-day hospital stay there at which time she was placed on a trial for pulmonary embolus and was randomized to the mechanical thrombectomy arm. Post procedurally she had complications with bleeding and required balloon tamponade as well as mechanical ventilation after intubation. She developed NELSY/ATN which required Lasix and pressor support with phenylephrine. Her blood pressures improved and she was stabilized on midodrine and then transferred out of the ICU on 02/05/2024. At that time her blood thinner was transitioned to Eliquis for which she is to be on 10 mg p.o. twice daily through 02/10/2024 and then transition to 5 mg p.o. twice daily. RV strain was reassessed by echocardiogram on 01/30/2023 and showed improvement in her right heart strain. It is documented that therapy recommended acute rehab at discharge however the patient opted for home health care and she was discharged on the same day of her presentation here. Her picked her up and was driving her home but upon return home she had difficulty getting out of the wheelchair to use the restroom and felt weak with attempts to stand. Unfortunately, she fell with no loss of consciousness or trauma but they brought her back to the hospital for concerns of safety and ability caring for self at home. They feel that she needs placement. Vital signs on presentation showed temperature 98.2, heart rate 120, blood pressure was 135/75, respiratory 16 and oxygen saturation was 92% on room air. CT of the brain showed an old small left frontal lacunar infarct with mild generalized atrophy and chronic small vessel changes with no acute bleeding. Plain films of the hip and pelvis were unremarkable for any acute findings. CBC showed a mild anemia which is relatively stable when compared to previous. BMP showed mild serum creatinine elevation 1.28 which is consistent with her baseline, but was otherwise unremarkable. Her UA is consistent with some dehydration but not infection. Given her mobility issues, she was admitted for potential placement for ongoing rehab. She was admitted to medical floor and seen by physical and Occupational Therapy and they deemed her appropriate and in need of ongoing therapy services. Pre-CERT was submitted to the insurance [employer] and recent received approval for the transitional care unit on 02/08/2024. Patient was discharged in stable condition to TCU on 02/08/2024. She has to follow-up with cardiology and vascular surgery as scheduled for her prior to discharge from [facility]. She will need follow-up with her primary care physician after discharge from TCU. Discharge diagnoses: Debility Adult failure to thrive Inability to walk Recent PE/DVT History of left breast cancer History of stroke Chronic macrocytic anemia CKD stage IIIb Hypertension Morbid obesity Physical Exam Const alert, oriented x3, no apparent distress and well nourished; Negative for average body habitus or healthy appearing Constitutional Narrative: Older, morbidly obese, white female, lying in bed, appears comfortable, nontoxic General Appearance: cooperative, comfortable, well kempt and well developed Orientation / Consciousness: awake, oriented to person, oriented to place and oriented to time Exam Limitations: no limitations Nutritional Appearance: morbidly obese HEENT normocephalic, head/scalp atraumatic, hearing grossly normal bilaterally and moist oral mucous membranes HEENT Narrative: Mallampati 2-3, no thrush Resp normal respiratory effort, no retractions, no use of accessory muscles and clear to auscultation bilaterally Auscultation: Negative for rales, rhonchi or wheezes Cardio regular rate, regular rhythm, S1 normal heart sound, S2 normal heart sound, no murmurs, no rub, no gallops and no clicks GI normal to inspection, nondistended, normoactive bowel sounds, soft to palpation and non-tender Extremity no clubbing, cyanosis or edema Extremity Narrative: Pedal pulses are 2+ Neuro oriented x3, moves all extremities and no focal motor deficits Speech: speech normal Psych affect normal Psych Narrative: Very pleasant, interacts appropriately, eye contact is good Weight / BMI Weight Weight: 105.8 kg Body Mass Index (BMI) 44.0 ABG / Lab / Microbiology Data 02/08/24 06:15 02/08/24 06:15 Laboratory: Laboratory Results - last 24 hr 02/07/24 22:35: WBC 10.0, RBC 3.56 L, Hgb 11.3 L, Hct 35.7 L, MCV 100.3 H, MCH 31.7, MCHC 31.7 L, RDW Std Deviation 58.8 H, RDW Coeff of Zachary 16.2 H, Plt Count 456 H, MPV 9.5, Immature Gran % (Auto) 0.900, Neut % (Auto) 73.0 H, Lymph % (Auto) 16.7 L, Cook % (Auto) 6.9, Eos % (Auto) 1.9, Baso % (Auto) 0.6, Absolute Neuts (auto) 7.3, Absolute Lymphs (auto) 1.67, Nucleated RBC % 0, PT 22.2 H, INR 2.0, APTT 39.0 H, Sodium 140, Potassium 4.1, Chloride 109 H, Carbon Dioxide 24.0, Anion Gap 7, BUN 14, Creatinine 1.28 H, Estim Creat Clear Calc 45.06, Est GFR (MDRD) Af Amer 53 L, Est GFR (MDRD) Non-Af 44 L, BUN/Creatinine Ratio 10.9, Glucose 136 H, Calcium 9.5 02/08/24 01:10: Urine Color Kerri, Urine Clarity Clear, Urine pH 5.0, Ur Specific Sealy 1.020, Urine Protein 30 H, Urine Glucose (UA) Normal, Urine Ketones 5 H, Urine Occult Blood Negative, Urine Nitrite Negative, Urine Bilirubin Negative, Urine Urobilinogen Normal, Ur Leukocyte Esterase 500 H, Urine RBC 0-5 SEEN, Urine WBC 10-25 SEEN, Ur Squamous Epith Cells 5-10 SEEN, Uric Acid Crystals 1+, Urine Bacteria RARE, Hyaline Casts 5-10 SEEN, Urine Mucus 1+ 02/08/24 06:15: WBC 10.5, RBC 3.21 L, Hgb 10.1 L, Hct 32.1 L, MCV 100.0 H, MCH 31.5, MCHC 31.5 L, RDW Std Deviation 58.5 H, RDW Coeff of Zachary 16.3 H, Plt Count 391, MPV 9.2, Immature Gran % (Auto) 0.700, Neut % (Auto) 67.9, Lymph % (Auto) 20.3, Cook % (Auto) 8.6, Eos % (Auto) 1.9, Baso % (Auto) 0.6, Absolute Neuts (auto) 7.1, Absolute Lymphs (auto) 2.12, Nucleated RBC % 0, Sodium 140, Potassium 3.4 L, Chloride 111 H, Carbon Dioxide 24.0, Anion Gap 5, BUN 14, Creatinine 1.05 H, Estim Creat Clear Calc 54.28, Est GFR (MDRD) Af Amer 66, Est GFR (MDRD) Non-Af 55 L, BUN/Creatinine Ratio 13.3, Glucose 109 H, Calcium 9.1, Total Bilirubin 0.50, AST 25, ALT 23, Alkaline Phosphatase 74, Total Protein 6.8, Albumin 2.4 L, Globulin 4.4 H, Albumin/Globulin Ratio 0.5 L Radiography Diagnostic Testing: Radiology Impression Brain CT 02/07/24 22:21 IMPRESSION: 1. 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 2. Mild generalized atrophy. Mild low density bilaterally in the deep white matter. This likely represents chronic small vessel ischemic changes in the deep white matter. No acute intracranial abnormality. Electronically Signed: Luis Carlos Elise MD at 23:17 EDT , Pelvis X-Ray 02/07/24 22:50 IMPRESSION: 1. No pelvic or hip fractures. 2. IUD in the mid pelvis. 3. Prominent enthesopathy and involving the anterior superior iliac spines, anterior inferior iliac spines and greater trochanters. 4. Degenerative changes in the lower lumbar spine. Electronically Signed: Luis Carlos Elise MD at 23:21 EDT , D/C Instructions Discharge Diet: Low fat / Low cholesterol Meaningful Use Info Meaningful Use Meaningful Use Diagnoses (Choose all that apply): None applicable Ischemic Stroke Statin Dosing Therapy Reference: STATIN DOSE THERAPY REFERENCE: * Patients > 75 years receive moderate or high dose statin therapy. * Patients 75 years or YOUNGER should receive HIGH intensity statin dose unless contraindicated. You will be required to document reason for non-treatment if statin daily dose does not meet guidelines. HIGH DOSE STATIN THERAPY DAILY Atorvastatin > than or = to 40 mg Rosuvastatin > than or = to 20 mg Amlodipine + Atorvastatin > than or = to 2.5/40 mg Ezetimibe + Simvastatin 10/80 mg Simvastatin 80mg Discharge Plan Admission Admit Date/Time: 02/07/24 23:59 Primary Reason for Your Visit: Inability to walk/debility after prolonged hospitalization Attending Provider: Makenna Albright Primary Care Provider: Kang Cannon Consulting Providers: Pat Elena Instructions Additional Instructions / Restrictions: 1. Please follow-up with vascular surgery and cardiology as directed at discharge from [facility] Discharge Orders/Prescriptions Prescriptions: New sennosides-docusate sodium [Stool Softener-Stimulant Laxat] 8.6-50 mg Tablet 2 tab PO BID PRN PRN (Reason: Constipation) Qty: 0 0RF acetaminophen 325 mg Tablet 650 mg PO Q4H PRN PRN (Reason: Fever, pain -05/19) Qty: 1 0RF Continued Azo Cranberry 250 mg tablet,chewable 250 mg PO DAILY lisinopril 10 mg tablet 10 mg PO DAILY Patient Comments: TAKE 1 TABLET BY MOUTH DAILY calcium carbonate-vitamin D3 [Calcium 600 + D(3)] 600 mg-10 mcg (400 unit) tablet 1 tab PO DAILY magnesium oxide 400 mg magnesium tablet 400 mg PO DAILY oxycodone 5 mg tablet 5 mg PO TID PRN PRN (Reason: pain) 1 Days Qty: 3 0RF Eliquis 5 mg tablet 10 mg PO Q12H Qty: 1 0RF Patient Comments: TAKE 10MG TWICE DAILY FOR 4 DAYS (STARTING 02/07/24) THEN 5MG TWICE DAILY Rx Instructions: Take 10 mg twice a day through 02/10/2024 then transition to 5 mg p.o. twice daily indefinitely hydroxyzine HCl 25 mg tablet 25 mg PO Q8H PRN (Reason: itching) Qty: 20 0RF anastrozole 1 mg tablet See Rx Instructions .ROUTE .COMPLEX Qty: 30 0RF Dose Instruction: TAKE 1 TABLET BY MOUTH EVERY DAY Rx Instructions: TAKE 1 TABLET BY MOUTH EVERY DAY Discontinued midodrine 10 mg tablet 10 mg PO TID Referrals / Follow Up: Kang Cannon MD [Primary Care Provider] - Disposition Disposition (needs filled in before D/C Order can be placed): [facility] Facility Charges/Coding Visit Charges Inpatient E&M: 61653 Disch Hosp
--- NOTE | 2024-02-08 13:21 | CASEMGMT ---
Social Work Collaboration with RN MEHDI Aleman today regarding discharge planning. Recommendation for SNF level of care, with choice list provided to patient. First choice is [facility]. Referral to Miguelina in admissions at TCU. Patient can be accepted. Per Miguelina, able to obtain precert from insurance, directly after the submission. Patient can admit today if ready. Updated Dr. Albright who reports will discharge patient today. Updated Belinda RN, patient's RN for the day. Met with patient and bertin Jurado. Patient agreeable to discuss discharge plans with fiance present. Updated to acceptance by TCU and insurance approval for such. Patient agreeable to plan, as well as the fiance. Patient shared that just spent 16 days in the ICU in [place], was home for less than 24 hours before falling at home. Patient reports really wanted to try things at home, but now realizes that needs more help. Emotional support offered. Faxed discharge medication list and transfer summary to TCU. Updated Belinda that can call report and set discharge time for today. Plan: [facility], skilled level of care, short term less than 30 day stay. No other services requested or indicated. -ALMA DELIA Serra
--- NOTE | 2024-02-08 13:32 | PHA.DC_ITS ---
Pharmacy [place] Med Reconciliation Pharmacy Service has performed discharge medication reconciliation for this patient. The patient's discharge medication list was reviewed for discrepancies and discrepancies were resolved. Medications at Discharge Home Medications lisinopril 10 mg tablet 10 mg PO DAILY 08/12/21 cranberry fruit concentrate 250 mg chewable tablet (Azo Cranberry) 250 mg PO DAILY 09/17/21 anastrozole 1 mg tablet See Rx Instructions .Route .COMPLEX #30 tabs 11/23/23 hydroxyzine HCl 25 mg tablet 25 mg PO Q8H PRN itching #20 tabs 01/13/24 acetaminophen 325 mg tablet 650 mg (2 x 325 mg) PO Q4H PRN PRN Fever, pain - 05/19 #1 TAB 02/08/24 apixaban 5 mg tablet (Eliquis) 10 mg (2 x 5 mg) PO Q12H #1 TAB 02/08/24 calcium carbonate 600 mg-vitamin D3 10 mcg (400 unit) tablet (Calcium 600 + D(3)) 1 tab PO DAILY 02/08/24 magnesium oxide 400 mg PO DAILY 02/08/24 oxycodone 5 mg tablet 5 mg PO TID PRN PRN pain 1 day #3 tabs 02/08/24 sennosides 8.6 mg-docusate sodium 50 mg tablet (Stool Softener-Stimulant Laxative) 2 tab PO BID PRN PRN Constipation #0 tabs 02/08/24
[2024-02-08 14:05] VITALS: BP 136/69; PULSE 91; RESP 18; TEMP 36.8; O2SAT 97
--- NOTE | 2024-02-08 15:55 | CHAPLAIN ---
Type of Pastoral Visit _x__ Initial Visit ___ Follow-up Visit ___ On-call Visit ___ General Patient Visit ___ Spiritual Assessment ___ Family Conference ___ Bereavement ___ Rapid Response ___ Code Blue ___ Other (describe below) Pastoral Care Referral From _x__ Patient ___ Family ___ Nurse ___ Physician ___ Medical Director ___ Cardroom Manager ___ Other (describe below) Sacrament/Intervention _x__ Active listening ___ Anointing ___ Gnosticist ___ Bereavement ___ Communion _x__ Tea exploration ___ _x__ Life review _x__ Prayer ___ Reconciliation ___ Sacrament of Sick ___ Supportive presence ___ Wedding ___ Other (describe below) Pastoral Comments patient is very eager to receive spiritual care and 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
== END 2024-02-08 14:38 | disposition skilled nursing facility (03) ==
LOC: ED 02-08 00:03 → MS3 02-08 00:16
PROVIDERS: Admitting Provider Family Medicine; Emergency Provider Emergency Medicine; PCP Family Medicine; Visit Provider Internal Medicine
DX: R62.7 Adult failure to thrive (principal); E66.01 Morbid (severe) obesity due to excess calories; Z68.41 Body mass index [BMI] 40.0-44.9, adult; N18.32 Chronic kidney disease, stage 3b; R26.2 Difficulty in walking, not elsewhere classified; R53.1 Weakness; R53.81 Other malaise; I12.9 Hypertensive chronic kidney disease with stage 1 through stage 4 chronic kidney disease, or unspecified chronic kidney disease; D64.9 Anemia, unspecified; M19.90 Unspecified osteoarthritis, unspecified site; M85.80 Other specified disorders of bone density and structure, unspecified site; Z85.3 Personal history of malignant neoplasm of breast; Z78.0 Asymptomatic menopausal state; Z79.899 Other long term (current) drug therapy; Z79.52 Long term (current) use of systemic steroids; Z86.718 Personal history of other venous thrombosis and embolism; Z86.73 Personal history of transient ischemic attack (TIA), and cerebral infarction without residual deficits; Z79.01 Long term (current) use of anticoagulants; Z99.3 Dependence on wheelchair
CPT/HCPCS: 36415; 70450; 72170; 80048; 80053; 81001; 85025; 85610; 85730; 97162; 97166; 99221; 99285; A4216; G0378

== ENCOUNTER 2024-02-08 14:54 | Inpatient (IN) | payer MEDICARE, MEDICAID, SELFPAY ==
[2024-02-08 15:14] VITALS: BP 126/61; PULSE 91; RESP 16; TEMP 36.6; O2SAT 97; BMI 43.8
[2024-02-08] MEDS: oxyCODONE 5 MG Tablet PO (19:01)
--- NOTE | 2024-02-08 21:01 | PCM.HP.STD ---
HPI - General General Date of Admission: 02/08/24 Date of Service: 02/08/24 Chief Complaint: Here for rehabilitation. HPI Narrative 02/07/2024 BREANNA YANES, is a 74 Female who presents to [facility] ED with fall 2/2 weakness. Patient discharged from [facility], went home, too weak to care for herself, patient had declined inpatient rehab. Recent [facility] Hospitalization for massive pulmonary embolism, underwent mechanical thrombectomy, complicated by bleeding requiring balloon tamponade, acute respiratory failure requiring intubation. 02/07/2024 Admit to [facility] for placement. PT/OT for debility. 02/08/2024 Admit to TCU with debility, here for rehabilitation, strengthening, prior to discharge home with . [facility] Medical History (Updated 02/08/24 @ 21:[address] Yeison King MD) Bilateral pulmonary embolism Anemia Foot fracture, left Family history of colon cancer in mother Encounter for education ER+ (estrogen receptor positive status) Degenerative joint disease Hypertension Osteopenia after menopause Cancer of left female breast Post-menopausal Arthritis Easy bruising Excessive bleeding Non-smoker Shortness of breath on exertion Pulmonary embolism Hypertension UTI (urinary tract infection) DVT (deep venous thrombosis) Home Medications ?Medication ?Instructions ?Recorded ?Last Taken ?Type lisinopril 10 mg tablet 10 mg PO DAILY BP 08/12/21 10/02/21 History cranberry fruit concentrate 250 mg 250 mg PO DAILY urinary burning 09/17/21 10/01/21 History chewable tablet (Azo Cranberry) hydroxyzine HCl 25 mg tablet 25 mg PO Q8H PRN itching #20 tabs 01/13/24 Unknown Rx acetaminophen 325 mg tablet 650 mg (2 x 325 mg) PO Q4H PRN PRN 02/08/24 Unknown Rx Fever, pain 1-05/19 #1 TAB anastrozole 1 mg tablet 1 mg PO DAILY hormone therapy 02/08/24 Unknown History apixaban 5 mg tablet (Eliquis) 10 mg (2 x 5 mg) PO Q12H blood 02/08/24 Unknown Rx thinner #1 TAB calcium carbonate 600 mg-vitamin 1 tab PO DAILY supplement 02/08/24 Unknown History D3 10 mcg (400 unit) tablet (Calcium 600 + D(3)) magnesium oxide 400 mg PO DAILY supplement 02/08/24 Unknown History oxycodone 5 mg tablet 5 mg PO TID PRN PRN pain 1 day #3 02/08/24 Unknown Rx tabs sennosides 8.6 mg-docusate sodium 2 tab PO BID PRN PRN Constipation 02/08/24 Unknown Rx 50 mg tablet (Stool #0 tabs Softener-Stimulant Laxative) Allergy/AdvReac Type Severity Reaction Status Date / Time No Known Allergies Allergy Verified 02/07/24 22:13 Family History Grandmother Breast cancer Daughter Breast cancer Mother Colon cancer Surgical History History of appendectomy History of dilation and curettage History of left mastectomy (~08/2021) History of lumpectomy of left breast Hx of abdominoplasty History of cholecystectomy History of total knee replacement Social History household members: spouse Smoking Status: Never smoker alcohol intake: never substance use type: does not use ROS Constitutional Constitutional: Denies chills, fever(s) or weight gain ENT HEENT: Denies headache(s), nasal congestion or nasal discharge Cardiovascular Cardiovascular: Denies chest pain or palpitations Respiratory/Chest Respiratory/Chest: Denies cough, excessive phlegm production or shortness of breath with exertion Gastrointestinal Gastrointestinal: Denies abdominal pain, nausea or vomiting Genitourinary Genitourinary: Denies dysuria Musculoskeletal Musculoskeletal: Denies joint pain or joint swelling Integumentary Integumentary: Denies rash or wounds Neurologic Neurologic: Denies focal weakness, numbness or tingling Psychiatric Psychiatric: Denies anxiety, auditory hallucinations, depression, homicidal ideation or suicidal ideation Vital Signs Vital Signs Vital Signs: 02/08/24 15:14 02/08/24 17:15 Temperature 97.8 F Temperature Source Temporal Pulse Rate 91 Pulse Rhythm Regular Pulse Strength Normal (2+) Respiratory Rate 16 Respiratory Effort Normal Non-Labored Respiratory Depth Normal Respiratory Pattern Normal Blood Pressure 126/61 H Blood Pressure Mean 82 Blood Pressure Source Monitor Blood Pressure Position Semi-Fowlers Blood Pressure Location Right Arm Pulse Ox 97 Oxygen Delivery Method Room Air Room Air Weight Weight: 105.233 kg Body Mass Index (BMI) 43.8 Physical Exam Const alert General Appearance: cooperative HEENT normocephalic Eyes PERRL and EOMs intact bilaterally Neck supple, no JVD and no carotid bruits Resp normal respiratory effort, normal air movement and clear to auscultation bilaterally Cardio regular rate and regular rhythm GI normal to inspection, nondistended, normoactive bowel sounds, non-tender and non-distended Extremity normal capillary refill General Extremity: Negative for edema Skin no rashes or lesions noted General Skin Exam: no breakdown Psych affect normal Appearance: appropriate Assessment & Plan Assessment/Plan (1) Debility: (2) Pulmonary embolism: (3) Acute respiratory failure with hypoxia: (4) DVT (deep venous thrombosis): (5) History of breast cancer: (6) Stroke: (7) Morbid obesity: PLAN: Plan 74 year old female with below past medical history recent hospitalized for pulmonary embolism requiring mechanical thrombectomy, bleeding requiring balloon tamponade, acute respiratory failure requiring intubation, admitted to TCU with debility, here for rehabilitation, strengthening, prior to discharge home with . Debility - PT/OT. Pain - Tylenol 1000mg q6 prn pain (1-3), Oxycodone 5mg q4 prn pain (4-10). Bowel - senna/colace 2 tablets bid prn, Dulcolax 10mg pr daily prn. Adult immunization - Administer pneumonia vaccine, covid vaccine, flu vaccine as appropriate. DVT prophylaxis - on Eliquis. Breast cancer - Anastrozole 1mg daily. Pulmonary embolism s/p mechanical thrombectomy - Eliquis 10mg bid thru 02/10/2024, then 5mg bid. Calcium deficiency - Calcium D 1 tablet daiy Pruritus - Hydroxyzine 25mg q8 prn. Hypertension - Lisinopril 10mg daily. Hypomagnesemia - Magnesium chloride 128mg daily. Skin irritation - Senna/colace 2 tablets bid prn. Morbid Obesity - Weight loss recommended.
[2024-02-08] MEDS: APIXABAN 5 MG TABLET 10 MG PO (21:25)
[2024-02-08] MEDS: Menthol/Lanolin/Calamine/Znox 113 GM Tube 1 APPLIC TOPICAL (21:29)
[2024-02-09 05:45] LABS: Absolute Lymphocyte Count 2.09 X10^3/uL (0.83-4.51); Absolute Neutrophil Count 5.1 X10^3/uL (2.0-7.7); Basophil# 0.03 X10^3/uL; Basophil% 0.4 % (0-1); Eosinophil# 0.29 X10^3/uL; Eosinophils% 3.5 % (0-5); Hematocrit 33.1 % (37-47); Hemoglobin 10.1 g/dL (12.0-15.0); Lymphocyte # 2.09 X10^3/ul (0.83-4.51); Lymphocyte % 25.3 % (19-41); Mean Corp Hgb Conc 30.5 g/dL (32-36); Mean Corpuscular Hgb 31.2 pg (27.0-32.0); Mean Corpuscular Volume 102.2 fL (81-99); Mean Platelet Vol. 9.1 fl (6.2-12.0); Monocyte# 0.73 X10^3/uL; Monocyte% 8.8 % (0-10); NRBC Flagged by Analyzer 0 % (0-5); Neutrophil # 5.06 X10^3/uL (2.7-7.7); Neutrophil % 61.3 % (47-70); Platelet Count 390 K/mm3 (150-450); RBC Distribution Width CV 16.3 % (11.6-14.6); Red Blood Count 3.24 M/mm3 (4.2-5.4); White Blood Count 8.3 K/mm3 (4.4-11.0)
[2024-02-09 06:00] VITALS: BP 102/40; PULSE 84; RESP 16; TEMP 36.3; O2SAT 96
[2024-02-09 06:25] LABS: Anion Gap 7 (5-15); BUN 14 mg/dL (7-18); BUN/Creat Ratio 15.1 RATIO (10-20); Calcium,Total 9.3 mg/dL (8.5-10.1); Chloride 111 mmol/L (98-107); Creatinine, Serum 0.92 mg/dL (0.55-1.02); EST Glomerular Filtration Rate 63 mL/min (>60); Est Glom Filt Rate - Afr Amer 77 mL/min (>60); Estimated Creatinine Clearance 61.76 ml/min; Glucose 85 mg/dL (74-106); Potassium 3.5 mmol/L (3.5-5.1); Sodium Level 139 mmol/L (136-145)
[2024-02-09] MEDS: Calcium Carb/Vitamin D 1 TABLET Tablet PO (09:02)
[2024-02-09] MEDS: APIXABAN 5 MG TABLET 10 MG PO ×2 (10:23→19:57)
[2024-02-09] MEDS: Lisinopril 10 MG Tablet PO (10:23)
[2024-02-09] MEDS: Magnesium Chloride 64 MG Delay Rel.Tablet 128 MG PO (10:23)
[2024-02-09] MEDS: Anastrozole 1 MG TABLET PO (10:23)
[2024-02-09] MEDS: Menthol/Lanolin/Calamine/Znox 113 GM Tube 1 APPLIC TOPICAL ×2 (10:23→19:58)
[2024-02-09] MEDS: Tuberculin,Purif.prot.deriv. 50 TU/ML Vial 0.1 ML ID (10:38)
[2024-02-09] MEDS: oxyCODONE 5 MG Tablet PO (13:00)
[2024-02-09 14:21] VITALS: BP 119/58; PULSE 99; RESP 16; TEMP 36.5; O2SAT 97
[2024-02-09 15:10] VITALS: BMI 43.7
--- NOTE | 2024-02-09 15:29 | PCM.PN.DRR ---
Documented by User: Zonia Parikh 02/09/24 15:47 TCU RX Drug Regimen Review Subjective/Objective Subjective/Objective: Subjective: TCU Admission. 74 YOF presented to the ER with a fall, recently discharged from outside hospital. Hospitalized for pulmonary embolism requiring mechanical thrombectomy, bleeding requiring balloon tamponade, acute respiratory failure requiring intubation. Admitted to TCU wt debility for strengthening and rehabilitation. Objective: Allergies No Known Allergies Allergy (Verified 02/07/24 22:13) Current Medications Generic Name Dose Route Start Last Admin Trade Name Freq PRN Reason Stop Dose Admin Acetaminophen 1,000 mg 02/08/24 21:14 Acetaminophen 500 Mg Tablet PO Q6H PRN PRN Pain Score 1-3 Anastrozole 1 mg 02/09/24 10:00 02/09/24 10:23 Anastrozole 1 Mg Tablet PO 1 mg DAILY NELLA Administration Apixaban 10 mg 02/08/24 22:00 02/09/24 10:23 Apixaban 5 Mg Tablet PO 02/10/24 22:01 10 mg BID NELLA Administration Apixaban 5 mg 02/11/24 10:00 Apixaban 5 Mg Tablet PO BID NELLA Bisacodyl 10 mg 02/08/24 15:10 Bisacodyl 10 Mg Suppository RC DAILY PRN PRN Constipation Calamine/Phenol 1 applic 02/08/24 22:00 02/09/24 10:23 Menthol/Lanolin/Calamine/Znox 113 Gm Tube TOPICAL 1 applic BID NELLA Administration Protocol Calcium/Vitamin D 1 tablet 02/09/24 08:00 02/09/24 09:02 Calcium Carb/Vitamin D 1 Tablet Tablet PO 1 tablet DAILYCM NELLA Administration Hydroxyzine Pamoate 25 mg 02/08/24 15:04 Hydroxyzine Ami 25 Mg Capsule PO Q8H PRN itching Lisinopril 10 mg 02/09/24 10:00 02/09/24 10:23 Lisinopril 10 Mg Tablet PO 10 mg DAILY NELLA Administration Protocol Magnesium Chloride 128 mg 02/09/24 10:00 02/09/24 10:23 Magnesium Chloride 64 Mg Delay Rel.Tablet PO 128 mg DAILY NELLA Administration Oxycodone HCl 5 mg 02/08/24 21:14 02/09/24 13:00 Oxycodone 5 Mg Tablet PO 5 mg Q4H PRN PRN Administration Pain Score 4-10 or Pre PT/OT Senna/Docusate Sodium 2 tablet 02/08/24 15:04 Senna/Docusate Sodium 1 Tablet PO BID PRN PRN Constipation Sodium Chloride 10 - 40 ml 02/08/24 15:38 0.9% Saline Lock 10 Ml Syringe IV UD PRN SALINE FLUSH Tuberculin PPD 0.1 ml 02/16/24 10:00 Tuberculin,Purif.Prot.Deriv. 50 Tu/Ml Vial ID 02/16/24 10:01 X1 ONE Problem List Morbid obesity (Acute) Stroke (Acute) History of breast cancer (Acute) DVT (deep venous thrombosis) (Acute) Acute respiratory failure with hypoxia (Acute) Pulmonary embolism (Acute) Debility (Acute) Vital Signs Temp Pulse Resp BP Pulse Ox O2 Del Method 97.7 F L 99 16 119/58 L 97 Room Air 02/09/24 14:21 02/09/24 14:21 02/09/24 14:21 02/09/24 14:21 02/09/24 14:21 02/09/24 14:21 Oxygen Delivery Method Room Air Weight: 105.233 kg Body Mass Index (BMI) 43.8 Sodium 139 mmol/L (136-145) 02/09/24 05:21 Potassium 3.5 mmol/L (3.5-5.1) 02/09/24 05:21 Chloride 111 mmol/L (98-107) H 02/09/24 05:21 Carbon Dioxide 21.0 mmol/L (21.0-32.0) 02/09/24 05:21 Anion Gap 7 (5-15) 02/09/24 05:21 BUN 14 mg/dL (7-18) 02/09/24 05:21 Creatinine 0.92 mg/dL (0.55-1.02) 02/09/24 05:21 Est GFR (MDRD) Af Amer 77 mL/min (>60) 02/09/24 05:21 Est GFR (MDRD) Non-Af 63 mL/min (>60) 02/09/24 05:21 BUN/Creatinine Ratio 15.1 RATIO (10-20) 02/09/24 05:21 Glucose 85 mg/dL (74-106) 02/09/24 05:21 Assessment/Plan: 1. Pain: acetaminophen 1000mg PO Q6H PRN pain 1-3 and oxycodone 5mg PO Q4H PRN pain 4-10. Resident has not had any doses of acetaminophen but did have 1 dose of oxycodone for a pain of 6 in the back/ankle. Please continue to monitor for increased pain, constipation, respiratory depression and PRN usage. 2. Bowel: senna/docusate 2T PO BID PRN constipation and bisacodyl 10mg RC daily PRN constipation. Resident has not had any PRN doses. Please continue to monitor for constipation and PRN usage. Last documented bowel movement 02/09/24. 3. Pulmonary embolism s/p mechanical thrombectomy: apixaban 10mg PO BID thru 02/10/24 then 5mg BID thereafter. Please continue to monitor for S/S of bleeding, hemoglobin (last 10.1g/dL) and bruising. 4. Breast cancer: anastrozole 1mg PO daily. Please continue to monitor for S/S of hot flashes, GI disturbances and BMD. 5. Hypertension: lisinopril 10mg PO daily. Please continue to monitor BP (last 119/58), potassium (last 3.5mmol/L), SCr (last 0.92mg/dL) and cough. 6. Pruritus: hydroxyzine 25mg PO Q8 PRN itching. Resident has not had any PRN doses. Please continue to monitor for PRN usage and itching. 7. Calcium deficiency: calcium/vitamin D 1T PO DAILYCM. Please continue to monitor calcium (last 9.3mg/dL) and vitamin D (last 05/19/23). 8. Hypomagnesemia: magnesium chloride 128mg PO daily. Please contine to monitor magnesium levels (last 2.5mg/dL 01/23/24). Assessment/Plan for indications treated with psychotropic medications: None Medical chart and medication regimen reviewed. The following medication irregularities or issues were identified: None Date Date of Note:: 02/09/24 Documented by User: Dr. Yeison King MD 02/09/24 17:24 TCU RX Drug Regimen Review Provider Comments Provider responsibility Provider Comments to Recommendations by Pharmacy: Agree
[2024-02-09] MEDS: Acetaminophen 500 MG Tablet 1000 MG PO ×2 (15:49→19:59)
--- NOTE | 2024-02-09 17:49 | NURSING ---
New orders received for lidocaine patches to back, Xrays of lumbar region, and Oxycodone increase to 10mg q4h po prn. Patient updated.
--- NOTE | 2024-02-09 19:20 | RAD_ITS ---
INDICATION: Severe low back pain. EXAMINATION/TECHNIQUE: X-RAY - XR Spine Lumbar Min 4 Views COMPARISON: None. FINDINGS: VERTEBRAE: Vertebral body height is maintained, extensive diffuse marginal osteophyte formation and endplate sclerosis. No fractures noted. No spondylolisthesis. Preservation of the normal lumbar lordosis. Facet hypertrophic changes from L3 to S1. DISCS: Disc space narrowing endplate sclerosis most notable at L2-3, also noted at L3-4 and L5-S1. Marginal osteophyte formation is present. INCLUDED ABDOMEN: Included bowel gas pattern is non-obstructive. Incidental note of surgical clips in the pelvis, an IUD in the midline of the pelvis. RAD/L/S Spine Min 4 Views IMPRESSION: 1. Lumbar spondylosis, no evidence however of fracture or destructive bony process. No malalignment. Electronically Signed: Adrien Salazar MD at 0:56 EDT ,
[2024-02-09] MEDS: oxyCODONE 5 MG Tablet 10 MG PO (19:47)
[2024-02-09] MEDS: Baclofen 10 MG Tablet PO (19:48)
[2024-02-09] MEDS: 0.9% Saline Lock 10 ML Syringe IV (19:55)
[2024-02-10] MEDS: Acetaminophen 500 MG Tablet 1000 MG PO ×3 (06:31→20:53)
[2024-02-10] MEDS: Calcium Carb/Vitamin D 1 TABLET Tablet PO (08:22)
[2024-02-10] MEDS: Lisinopril 10 MG Tablet PO (08:22)
[2024-02-10] MEDS: Anastrozole 1 MG TABLET PO (08:22)
[2024-02-10] MEDS: APIXABAN 5 MG TABLET 10 MG PO ×2 (08:22→20:51)
[2024-02-10] MEDS: Magnesium Chloride 64 MG Delay Rel.Tablet 128 MG PO (08:22)
[2024-02-10] MEDS: Menthol/Lanolin/Calamine/Znox 113 GM Tube 1 APPLIC TOPICAL ×2 (08:26→20:53)
[2024-02-10 09:39] VITALS: BP 113/54; PULSE 76; RESP 16; TEMP 36.8; O2SAT 96
[2024-02-10] MEDS: Baclofen 10 MG Tablet PO ×2 (13:03→20:51)
--- NOTE | 2024-02-10 13:12 | CHAPLAIN ---
Type of Pastoral Visit ___ Initial Visit _x__ Follow-up Visit ___ On-call Visit ___ General Patient Visit ___ Spiritual Assessment ___ Family Conference ___ Bereavement ___ Rapid Response ___ Code Blue ___ Other (describe below) Pastoral Care Referral From _x__ Patient ___ Family ___ Nurse ___ Physician ___ Wire Strander ___ Quilting Machine Helper ___ Other (describe below) Sacrament/Intervention _x__ Active listening ___ Anointing ___ Worship ___ Bereavement ___ Communion ___ Tea exploration ___ ___ Life review ___ Prayer ___ Reconciliation ___ Sacrament of Sick ___ Supportive presence ___ Wedding ___ Other (describe below) Pastoral Comments follow up visit for this patient who was seen recently in [facility]; SO is with patient and they are eating lunch; pt reports on her start to therapy and walking some today; pt is hopeful to get strength back and to walk more; pt has plans for a vacation in March and wants to be able to go so she is motivated; no other needs today
[2024-02-10] MEDS: hydrOXYzine PAM 25 MG Capsule PO (20:51)
[2024-02-10] MEDS: oxyCODONE 5 MG Tablet 10 MG PO (20:52)
[2024-02-10] MEDS: Nystatin Powder 15gm Bottle 1 APPLIC TOPICAL (20:53)
[2024-02-10] MEDS: 0.9% Saline Lock 10 ML Syringe IV (20:58)
[2024-02-11] MEDS: Acetaminophen 500 MG Tablet 1000 MG PO ×3 (06:04→20:53)
[2024-02-11 10:01] VITALS: BP 107/52; PULSE 68; RESP 16; TEMP 36.7; O2SAT 93
[2024-02-11] MEDS: Calcium Carb/Vitamin D 1 TABLET Tablet PO (10:03)
[2024-02-11] MEDS: Magnesium Chloride 64 MG Delay Rel.Tablet 128 MG PO (10:03)
[2024-02-11] MEDS: Lisinopril 10 MG Tablet PO (10:03)
[2024-02-11] MEDS: APIXABAN 5 MG TABLET PO ×2 (10:03→20:49)
[2024-02-11] MEDS: Menthol/Lanolin/Calamine/Znox 113 GM Tube 1 APPLIC TOPICAL ×2 (10:04→20:40)
[2024-02-11] MEDS: Anastrozole 1 MG TABLET PO (10:04)
[2024-02-11] MEDS: Nystatin Powder 15gm Bottle 1 APPLIC TOPICAL ×2 (10:08→20:49)
[2024-02-11] MEDS: 0.9% Saline Lock 10 ML Syringe IV ×2 (13:19→20:39)
[2024-02-11 13:22] VITALS: PULSE 97; RESP 16; O2SAT 97
[2024-02-12] MEDS: oxyCODONE 5 MG Tablet 10 MG PO ×3 (04:28→21:42)
[2024-02-12] MEDS: Acetaminophen 500 MG Tablet 1000 MG PO ×3 (05:11→21:46)
--- NOTE | 2024-02-12 05:31 | NURSING ---
Resident reports poorly controlled pain to rt lateral thigh. In moderate distress. Refer to MAR for times of Oxycodone 10 mg and Tylenol 1000mg administration. Warm blanket applied to the affected area and a pillow was placed under the hip. Reports the pain feels like someone is stepping on her. Will continue to monitor. Call light w/ in reach.
[2024-02-12] MEDS: Calcium Carb/Vitamin D 1 TABLET Tablet PO (08:31)
[2024-02-12] MEDS: APIXABAN 5 MG TABLET PO ×2 (08:31→21:44)
[2024-02-12] MEDS: Magnesium Chloride 64 MG Delay Rel.Tablet 128 MG PO (08:31)
[2024-02-12] MEDS: Anastrozole 1 MG TABLET PO (08:31)
[2024-02-12] MEDS: Lisinopril 10 MG Tablet PO (08:31)
[2024-02-12] MEDS: Nystatin Powder 15gm Bottle 1 APPLIC TOPICAL ×2 (08:32→21:43)
[2024-02-12] MEDS: Menthol/Lanolin/Calamine/Znox 113 GM Tube 1 APPLIC TOPICAL ×2 (08:32→21:43)
[2024-02-12 10:18] VITALS: BP 115/51; PULSE 73; RESP 18; TEMP 36.3; O2SAT 96
--- NOTE | 2024-02-12 11:35 | CASEMGMT ---
Social Work Met with patient to complete initial assessment. Introduced self and role. Verified contacts. Confirmed code status as full code. SW requested pt to have dtr provide copies of advanced directives. Educated to [facility] insurance with NRD 02/18 and continued stay is not guaranteed with each review. Pt's goal is to DC home to the MIL suite attached to dtr's home. Pt does split her time at SO home as well. SW will continue to follow for DC planning. ANNI PalmaW
[2024-02-12] MEDS: Baclofen 10 MG Tablet PO (23:23)
[2024-02-12] MEDS: hydrOXYzine PAM 25 MG Capsule PO (23:23)
[2024-02-13] MEDS: Acetaminophen 500 MG Tablet 1000 MG PO ×3 (05:33→21:38)
[2024-02-13] MEDS: oxyCODONE 5 MG Tablet 10 MG PO ×2 (05:33→12:40)
[2024-02-13] MEDS: Anastrozole 1 MG TABLET PO (10:34)
[2024-02-13] MEDS: Calcium Carb/Vitamin D 1 TABLET Tablet PO (10:34)
[2024-02-13] MEDS: Lisinopril 10 MG Tablet PO (10:35)
[2024-02-13] MEDS: APIXABAN 5 MG TABLET PO ×2 (10:35→21:35)
[2024-02-13] MEDS: Magnesium Chloride 64 MG Delay Rel.Tablet 128 MG PO (10:35)
[2024-02-13] MEDS: Menthol/Lanolin/Calamine/Znox 113 GM Tube 1 APPLIC TOPICAL ×2 (10:37→21:31)
[2024-02-13] MEDS: Nystatin Powder 15gm Bottle 1 APPLIC TOPICAL ×2 (10:38→21:32)
[2024-02-13] MEDS: Lidocaine 5% Patch 2 PATCH TOPICAL (12:41)
[2024-02-13 16:00] VITALS: BP 108/84; PULSE 65; RESP 16; TEMP 36.6; O2SAT 96
[2024-02-13] MEDS: Baclofen 10 MG Tablet PO (21:31)
--- NOTE | 2024-02-13 21:47 | NURSING ---
Patient reports poor appetite, written communication left for Dr. Hollingsworth requesting possible appetite stimulant.
[2024-02-13 22:00] VITALS: PULSE 76; RESP 18; O2SAT 92
[2024-02-14] MEDS: Acetaminophen 500 MG Tablet 1000 MG PO ×3 (05:08→21:42)
[2024-02-14] MEDS: Menthol/Lanolin/Calamine/Znox 113 GM Tube 1 APPLIC TOPICAL ×2 (09:05→21:41)
[2024-02-14] MEDS: Anastrozole 1 MG TABLET PO (09:05)
[2024-02-14] MEDS: Calcium Carb/Vitamin D 1 TABLET Tablet PO (09:05)
[2024-02-14] MEDS: APIXABAN 5 MG TABLET PO ×2 (09:06→21:42)
[2024-02-14] MEDS: Lidocaine 5% Patch 2 PATCH TOPICAL (09:07)
[2024-02-14] MEDS: Nystatin Powder 15gm Bottle 1 APPLIC TOPICAL ×2 (09:08→21:40)
[2024-02-14] MEDS: Magnesium Chloride 64 MG Delay Rel.Tablet 128 MG PO (09:08)
[2024-02-14] MEDS: Senna/Docusate Sodium 1 Tablet 2 TABLET PO (09:12)
[2024-02-14] MEDS: Lisinopril 10 MG Tablet PO (09:15)
[2024-02-14 09:17] VITALS: BP 112/52; PULSE 89
--- NOTE | 2024-02-14 09:18 | NURSING ---
Addendum entered by Adam Shea 02/14/24 17:47: PT HAD POSITIVE RESULTS OF A LARGE BM. Original Note: PT HAS NOT HAD BM IN 3 DAYS. PRN MIONA GIVEN.
[2024-02-14 14:29] VITALS: BP 124/60; PULSE 82; RESP 12; TEMP 37; O2SAT 95
[2024-02-14] MEDS: oxyCODONE 5 MG Tablet 10 MG PO ×2 (16:33→21:47)
[2024-02-14] MEDS: Mirtazapine 15 MG Tablet PO (21:42)
[2024-02-14] MEDS: Hydrocortisone 2.5% Crm 1 APPLIC TOPICAL (21:53)
[2024-02-14 22:00] VITALS: PULSE 80; RESP 16; O2SAT 93
[2024-02-15] MEDS: Baclofen 10 MG Tablet PO (02:16)
[2024-02-15] MEDS: Acetaminophen 500 MG Tablet 1000 MG PO ×3 (05:54→20:54)
[2024-02-15 06:56] VITALS: PULSE 85; RESP 14; O2SAT 94
[2024-02-15] MEDS: Calcium Carb/Vitamin D 1 TABLET Tablet PO (08:20)
[2024-02-15] MEDS: Anastrozole 1 MG TABLET PO (08:21)
[2024-02-15] MEDS: APIXABAN 5 MG TABLET PO ×2 (08:21→20:55)
[2024-02-15] MEDS: Magnesium Chloride 64 MG Delay Rel.Tablet 128 MG PO (08:21)
[2024-02-15] MEDS: Lisinopril 10 MG Tablet PO (08:22)
[2024-02-15] MEDS: Menthol/Lanolin/Calamine/Znox 113 GM Tube 1 APPLIC TOPICAL ×2 (08:24→20:54)
[2024-02-15] MEDS: Hydrocortisone 2.5% Crm 1 APPLIC TOPICAL (08:24)
--- NOTE | 2024-02-15 08:24 | NURSING ---
Offered covid vaccine, VIS provided. Patient refuses at this time.
[2024-02-15] MEDS: Nystatin Powder 15gm Bottle 1 APPLIC TOPICAL ×2 (08:25→20:54)
--- NOTE | 2024-02-15 08:59 | NURSING ---
Food Safety Manager Note; MDS for 02/15/2024 Complete
[2024-02-15] MEDS: oxyCODONE 5 MG Tablet 10 MG PO ×2 (14:02→23:44)
[2024-02-15 16:00] VITALS: BP 97/47; PULSE 94; RESP 16; TEMP 36.6; O2SAT 97
--- NOTE | 2024-02-15 18:43 | RAD_ITS ---
INDICATION: Fall, pain. EXAMINATION/TECHNIQUE: X-RAY - RIGHT XR Knee 3 Views 3 VIEWS COMPARISON: None. FINDINGS: BONES: Surgical hardware femoral, tibial and patellar components of the joint prosthesis appear well situated in anatomic alignment. No fracture demonstrated. JOINTS: No dislocation. SOFT TISSUES: Unremarkable. RAD/Knee 3 Views IMPRESSION: No evidence of fracture. Total knee arthroplasty. Electronically Signed: Desire Mcdaniel MD at 3:44 EDT ,
--- NOTE | 2024-02-15 18:45 | NURSING ---
Patient down for knee Xrays.
[2024-02-15] MEDS: Mirtazapine 15 MG Tablet PO (20:55)
[2024-02-16 05:40] LABS: Absolute Lymphocyte Count 2.18 X10^3/uL (0.83-4.51); Absolute Neutrophil Count 3.1 X10^3/uL (2.0-7.7); Basophil# 0.05 X10^3/uL; Basophil% 0.8 % (0-1); Eosinophil# 0.37 X10^3/uL; Eosinophils% 5.8 % (0-5); Hematocrit 33.4 % (37-47); Hemoglobin 10.3 g/dL (12.0-15.0); Lymphocyte # 2.18 X10^3/ul (0.83-4.51); Lymphocyte % 34.1 % (19-41); Mean Corp Hgb Conc 30.8 g/dL (32-36); Mean Corpuscular Hgb 31.6 pg (27.0-32.0); Mean Corpuscular Volume 102.5 fL (81-99); Mean Platelet Vol. 9.7 fl (6.2-12.0); Monocyte# 0.72 X10^3/uL; Monocyte% 11.3 % (0-10); NRBC Flagged by Analyzer 0 % (0-5); Neutrophil # 3.07 X10^3/uL (2.7-7.7); Neutrophil % 47.8 % (47-70); Platelet Count 380 K/mm3 (150-450); RBC Distribution Width CV 15.1 % (11.6-14.6); RBC Distribution Width SD 57.2 fl (35.1-43.9); Red Blood Count 3.26 M/mm3 (4.2-5.4); White Blood Count 6.4 K/mm3 (4.4-11.0)
[2024-02-16] MEDS: oxyCODONE 5 MG Tablet 10 MG PO ×3 (06:08→20:00)
[2024-02-16] MEDS: Acetaminophen 500 MG Tablet 1000 MG PO ×3 (06:09→20:01)
[2024-02-16 06:25] LABS: Anion Gap 4 (5-15); BUN 31 mg/dL (7-18); BUN/Creat Ratio 22.5 RATIO (10-20); Calcium,Total 9.8 mg/dL (8.5-10.1); Chloride 113 mmol/L (98-107); Creatinine, Serum 1.38 mg/dL (0.55-1.02); EST Glomerular Filtration Rate 40 mL/min (>60); Est Glom Filt Rate - Afr Amer 48 mL/min (>60); Estimated Creatinine Clearance 41.12 ml/min; Glucose 103 mg/dL (74-106); Potassium 4.3 mmol/L (3.5-5.1); Sodium Level 142 mmol/L (136-145)
[2024-02-16] MEDS: Lisinopril 10 MG Tablet PO (08:58)
[2024-02-16] MEDS: Calcium Carb/Vitamin D 1 TABLET Tablet PO (08:58)
[2024-02-16] MEDS: Anastrozole 1 MG TABLET PO (08:58)
[2024-02-16] MEDS: APIXABAN 5 MG TABLET PO ×2 (08:58→20:01)
[2024-02-16] MEDS: Magnesium Chloride 64 MG Delay Rel.Tablet 128 MG PO (08:58)
[2024-02-16] MEDS: Menthol/Lanolin/Calamine/Znox 113 GM Tube 1 APPLIC TOPICAL ×2 (08:58→20:02)
[2024-02-16] MEDS: Nystatin Powder 15gm Bottle 1 APPLIC TOPICAL ×2 (08:59→20:01)
[2024-02-16 09:31] VITALS: BP 95/47; PULSE 77; RESP 18; TEMP 36.7; O2SAT 99
[2024-02-16] MEDS: Tuberculin,Purif.prot.deriv. 50 TU/ML Vial 0.1 ML ID (10:38)
[2024-02-16 15:00] VITALS: BMI 42.9
--- NOTE | 2024-02-16 15:42 | CASEMGMT ---
Social Work BIMS () and PHQ-9 () completed for MDS assessment. SW explored positive responses. Pt attributes her mood to being tired, painful, and unable to do anything d/t to recent medical decline. Pt does have dx of adult FTT. Pt stated she is receiving Melatonin each night to assist with falling asleep. Pt orders several items on meal tray to see what looks/tastes good, but usually doesn't bother eating. Pt has been recently started on appetite stimulant. Pt denied suggestions for other interventions, and did agree to notify this worker for ongoing support, if needed. SW will continue to monitor. Leti Chacko, ANNI NEVAREZW
[2024-02-16 19:40] VITALS: BP 108/54; PULSE 79; RESP 16; TEMP 36.3; O2SAT 94
[2024-02-16] MEDS: Senna/Docusate Sodium 1 Tablet 2 TABLET PO (20:00)
[2024-02-16] MEDS: Mirtazapine 15 MG Tablet PO (20:01)
[2024-02-17] MEDS: Acetaminophen 500 MG Tablet 1000 MG PO ×3 (05:43→21:13)
[2024-02-17] MEDS: Menthol/Lanolin/Calamine/Znox 113 GM Tube 1 APPLIC TOPICAL ×2 (08:23→21:09)
[2024-02-17] MEDS: Nystatin Powder 15gm Bottle 1 APPLIC TOPICAL ×2 (08:23→21:09)
[2024-02-17] MEDS: Calcium Carb/Vitamin D 1 TABLET Tablet PO (08:28)
[2024-02-17] MEDS: Anastrozole 1 MG TABLET PO (08:29)
[2024-02-17] MEDS: APIXABAN 5 MG TABLET PO (08:29)
[2024-02-17] MEDS: Magnesium Chloride 64 MG Delay Rel.Tablet 128 MG PO (08:29)
[2024-02-17 08:34] VITALS: BP 96/40; PULSE 91
[2024-02-17] MEDS: Lisinopril 10 MG Tablet PO (09:33)
[2024-02-17 09:35] VITALS: BP 120/64; PULSE 99
--- NOTE | 2024-02-17 10:35 | NURSING ---
Addendum entered by Adam Shea 02/17/24 15:29: RENAN BAGLEY IN TO SEE PT. SHE STATED SHE WILL PUT NEW ORDERS IN. RN AWARE Original Note: CONSULT IN FOR PT PER FOR RLE DVTS DESPITE BEING ON ELIQUIS. CALLED [facility] OFFICE. NO ANSWER LEFT MESSAGE FOR THEM TO CALL TCU BACK TO SCHEDULE A APPOINTMENT.
--- NOTE | 2024-02-17 13:35 | MDS.RN ---
Information for the MDS was obtained from review of the clinical record, interview of resident, staff, and direct observation of resident?s care.
[2024-02-17 15:01] VITALS: BP 101/54; PULSE 94; RESP 16; TEMP 36.7; O2SAT 94
--- NOTE | 2024-02-17 15:55 | CASEMGMT ---
Social Work IDT met with patient and dtr via conference call for care plan meeting. Discussed patient's progress in PT/OT/SN. Educated to [facility] insurance with NRD 02/18 and continued stay is not guaranteed with each review. Pt repeatedly states her goal is to return home and she 'can' return home. However, IDT expressed concern with pt's lack of independence currently. IDT extensively discussed the importance of participating in therapy, eating food, drinking water, to stay hydrated, nourished and energized. Encouraged pt to show therapists and nursing staff how much she can physical do on her own to ensure she will be safe at home. Dtr also expressed concern as she is leaving for vacation that has been planned for a year from February 18-, thus, if pt were to DC, pt would need to stay at SO's home with his assistance. Dtr inquired about other DC options. SW educated to SNF private pay with part B therapies. Pt/dtr cannot afford SNF. Pt agreed to show determination in regaining independence, pushing through pain - as appropriate, to remainder of stay. IDT commended for positive attitude and motivation. Dtr agreed to attend therapy session 02/16 to determine if dtr can care for pt at home, and pt to schedule SO for training on 02/18. Pt and dtr did identify pt having pain in throat and when swallowing. ST to be consulted for evaluation. Dtr to bring in pt's clothes, shoes and advanced directives at visit. SW will continue to follow for DC planning and support. ANNI Palma
[2024-02-17] MEDS: Enoxaparin 100 MG/ML Syringe SC (16:59)
[2024-02-17] MEDS: Hydrocortisone 2.5% Crm 1 APPLIC TOPICAL (16:59)
[2024-02-17 17:00] VITALS: PULSE 109; RESP 18; O2SAT 96
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
[2024-02-17] MEDS: Mirtazapine 15 MG Tablet PO (21:12)
[2024-02-17] MEDS: Senna/Docusate Sodium 1 Tablet 2 TABLET PO (21:15)
[2024-02-18] MEDS: Acetaminophen 500 MG Tablet 1000 MG PO ×3 (05:21→21:23)
[2024-02-18] MEDS: Enoxaparin 100 MG/ML Syringe SC ×2 (05:21→18:15)
[2024-02-18] MEDS: Calcium Carb/Vitamin D 1 TABLET Tablet PO (08:14)
[2024-02-18] MEDS: Lisinopril 10 MG Tablet PO (08:15)
[2024-02-18] MEDS: Magnesium Chloride 64 MG Delay Rel.Tablet 128 MG PO (08:15)
[2024-02-18] MEDS: Anastrozole 1 MG TABLET PO (08:15)
[2024-02-18] MEDS: Nystatin Powder 15gm Bottle 1 APPLIC TOPICAL ×2 (08:16→21:22)
[2024-02-18] MEDS: Senna/Docusate Sodium 1 Tablet 2 TABLET PO (08:20)
[2024-02-18] MEDS: Menthol/Lanolin/Calamine/Znox 113 GM Tube 1 APPLIC TOPICAL ×2 (08:20→21:22)
--- NOTE | 2024-02-18 11:02 | NURSING ---
Patient had a bout of nausea/vomiting after ambulating in kline with therapy. Patient taken back to room. Will continue to monitor.
[2024-02-18] MEDS: oxyCODONE 5 MG Tablet 10 MG PO ×2 (13:29→21:20)
[2024-02-18 14:26] VITALS: BP 115/59; PULSE 90; RESP 16; TEMP 36.8; O2SAT 96
[2024-02-18] MEDS: Mirtazapine 15 MG Tablet PO (21:23)
[2024-02-18 21:30] VITALS: PULSE 90; O2SAT 95
[2024-02-19] MEDS: Acetaminophen 500 MG Tablet 1000 MG PO ×3 (05:50→20:53)
[2024-02-19] MEDS: Enoxaparin 100 MG/ML Syringe SC ×2 (05:50→17:33)
[2024-02-19 06:20] VITALS: PULSE 94; O2SAT 95
[2024-02-19] MEDS: Calcium Carb/Vitamin D 1 TABLET Tablet PO (08:16)
[2024-02-19] MEDS: Menthol/Lanolin/Calamine/Znox 113 GM Tube 1 APPLIC TOPICAL ×2 (08:17→20:56)
[2024-02-19] MEDS: Anastrozole 1 MG TABLET PO (08:17)
[2024-02-19] MEDS: Magnesium Chloride 64 MG Delay Rel.Tablet 128 MG PO (08:17)
[2024-02-19] MEDS: Nystatin Powder 15gm Bottle 1 APPLIC TOPICAL ×2 (08:18→20:55)
[2024-02-19] MEDS: Lisinopril 10 MG Tablet PO (08:23)
[2024-02-19 08:27] VITALS: BP 119/62; PULSE 95
--- NOTE | 2024-02-19 11:36 | NURSING ---
THERAPY CAME TO THIS NURSE AND STATED PT REFUSED THERAPY DUE TO NOT FEELING GOOD,CHILLY AND ACHY. THIS NURSE ASKED PT WHAT WAS WRONG. PT STATED I JUST DONT FEEL GOOD,JARED COLD AND ACHY. VITALS DONE AND WNL. LUNGS CLEAR. PT THEN STATED SEE FELT SICK TO HER STOMACH. OFFERED PT PRN PAIN MED AND COMPAZINE. PT DECLINED MEDS. RN AWARE
[2024-02-19 11:40] VITALS: BP 120/56; PULSE 86; RESP 18; TEMP 36.8; O2SAT 95
[2024-02-19] MEDS: proCHLORPERazine 5 MG Tablet 10 MG PO (13:07)
--- NOTE | 2024-02-19 13:08 | NURSING ---
WHILE ROUNDING PT STATED SHE STILL FELT NAUSEATED AND DIDNT WANT TO EAT. TALKED PT INTO AT LEAST TRYING THE COMPAZINE TO SEE IF IT WOULD HELP HER. PT AGREED. WILL CONTINUE TO MONITOR.
[2024-02-19 13:55] VITALS: BP 101/57; PULSE 93; RESP 14; TEMP 36.9; O2SAT 95
[2024-02-19] MEDS: oxyCODONE 5 MG Tablet 10 MG PO (17:36)
[2024-02-19] MEDS: Mirtazapine 15 MG Tablet PO (20:53)
[2024-02-20] MEDS: Enoxaparin 100 MG/ML Syringe SC ×2 (05:51→17:30)
[2024-02-20] MEDS: Acetaminophen 500 MG Tablet 1000 MG PO ×3 (05:51→21:15)
[2024-02-20] MEDS: Nystatin Powder 15gm Bottle 1 APPLIC TOPICAL ×2 (08:56→21:13)
[2024-02-20] MEDS: Lisinopril 10 MG Tablet PO (08:57)
[2024-02-20] MEDS: oxyCODONE 5 MG Tablet 10 MG PO ×3 (08:57→21:14)
[2024-02-20] MEDS: Calcium Carb/Vitamin D 1 TABLET Tablet PO (08:57)
[2024-02-20] MEDS: Anastrozole 1 MG TABLET PO (08:57)
[2024-02-20] MEDS: Menthol/Lanolin/Calamine/Znox 113 GM Tube 1 APPLIC TOPICAL ×2 (08:57→21:12)
[2024-02-20] MEDS: Magnesium Chloride 64 MG Delay Rel.Tablet 128 MG PO (08:57)
[2024-02-20 10:59] VITALS: BP 110/52; PULSE 95; RESP 18; TEMP 37; O2SAT 97
[2024-02-20 21:00] VITALS: PULSE 104; O2SAT 95
[2024-02-20] MEDS: Mirtazapine 15 MG Tablet PO (21:15)
[2024-02-21] MEDS: Acetaminophen 500 MG Tablet 1000 MG PO ×3 (05:44→20:41)
[2024-02-21] MEDS: Enoxaparin 100 MG/ML Syringe SC ×2 (05:44→17:22)
[2024-02-21] MEDS: Calcium Carb/Vitamin D 1 TABLET Tablet PO (08:38)
[2024-02-21] MEDS: Anastrozole 1 MG TABLET PO (10:47)
[2024-02-21] MEDS: Magnesium Chloride 64 MG Delay Rel.Tablet 128 MG PO (10:48)
[2024-02-21] MEDS: Menthol/Lanolin/Calamine/Znox 113 GM Tube 1 APPLIC TOPICAL ×2 (10:48→20:38)
[2024-02-21] MEDS: Nystatin Powder 15gm Bottle 1 APPLIC TOPICAL ×2 (10:56→20:39)
[2024-02-21] MEDS: Lisinopril 10 MG Tablet PO (10:57)
[2024-02-21 14:35] VITALS: BP 106/51; PULSE 94; RESP 16; TEMP 36.8; O2SAT 97
[2024-02-21] MEDS: Mirtazapine 15 MG Tablet PO (20:40)
[2024-02-22] MEDS: Acetaminophen 500 MG Tablet 1000 MG PO ×3 (05:45→21:03)
[2024-02-22] MEDS: Enoxaparin 100 MG/ML Syringe SC ×2 (05:46→17:07)
[2024-02-22] MEDS: Anastrozole 1 MG TABLET PO (09:36)
[2024-02-22] MEDS: Calcium Carb/Vitamin D 1 TABLET Tablet PO (09:36)
[2024-02-22] MEDS: Magnesium Chloride 64 MG Delay Rel.Tablet 128 MG PO (09:37)
[2024-02-22] MEDS: Menthol/Lanolin/Calamine/Znox 113 GM Tube 1 APPLIC TOPICAL ×2 (09:37→21:02)
[2024-02-22] MEDS: Nystatin Powder 15gm Bottle 1 APPLIC TOPICAL ×2 (09:37→21:02)
[2024-02-22] MEDS: Lisinopril 10 MG Tablet PO (09:40)
[2024-02-22] MEDS: proCHLORPERazine 5 MG Tablet 10 MG PO (09:42)
[2024-02-22] MEDS: oxyCODONE 5 MG Tablet 10 MG PO ×3 (09:46→20:08)
[2024-02-22 09:49] VITALS: BP 120/50; PULSE 94
--- NOTE | 2024-02-22 09:50 | NURSING ---
PT SITTING ON TOILET DRY HEAVING. PT STATED SHE DIDNT FEEL WELL. PRN COMPAZINE GIVEN AND HAD PT EAT CRACKERS. PT REFUSE BREAKFAST. WILL CONTINUE TO MONITOR.
--- NOTE | 2024-02-22 15:06 | NURSING ---
PT CAME INTO ROOM AND STATED TO THIS NURSE ,WHAT ARE YOU ALL DOING ABOUT HER BLOOD CLOTS? THERE WAS SUPPOSE TO BE 2 DRS. COME IN TO SHE HER LAST THURSDAY AND NO ONE HAS CAME IN! THIS NURSE STATED TO THAT RENAN BAGLEY CAME IN THURSDAY AND SEEN PT AND GAVE NEW ORDERS. STATED WELL NO ONE TOLD US ANY THING. STATED TO THAT I DID TELL THEM BOTH ABOUT THE NEW ORDERS AND THAT SHE WAS IN WHEN HE WASN'T HERE. WELL THEN IF SHE WAS HERE THEN WHY DIDNT MY TELL ME. STATED TO SOME TIMES I FORGET WHEN I HAVE A LOT OF PEOPLE COME INTO MY ROOM AND I CANT KEEP TRACK OF EVERY ONE. STATED TO HOW DO YOU KNOW THAT FOR SURE AND THERE JUST TELLING YOU SHE CAME TO YOUR ROOM. THIS NURSE STATED TO THAT I WAS HERE THAT DAY AND SEEN KEVYN IN PT ROOM AND THAT SHE ALSO PUT ORDERS AND A NOTE IN IF HE WOULD LIKE TO SEE IT FOR PROOF! DECLINED AND SAID NOTHING ELSE. RN AWARE
[2024-02-22 16:00] VITALS: BP 198/54; PULSE 89; RESP 16; TEMP 36.8; O2SAT 96
[2024-02-22 19:50] VITALS: BP 102/46; PULSE 92; RESP 18; TEMP 36.8; O2SAT 94
[2024-02-22] MEDS: Mirtazapine 15 MG Tablet PO (21:03)
[2024-02-23 06:00] VITALS: BP 96/42; PULSE 80; RESP 16; TEMP 36.7; O2SAT 98
[2024-02-23] MEDS: Acetaminophen 500 MG Tablet 1000 MG PO ×3 (06:12→21:27)
[2024-02-23] MEDS: Enoxaparin 100 MG/ML Syringe SC ×2 (06:13→17:28)
[2024-02-23 07:56] LABS: Absolute Lymphocyte Count 2.87 X10^3/uL (0.83-4.51); Absolute Neutrophil Count 4.7 X10^3/uL (2.0-7.7); Basophil# 0.07 X10^3/uL; Basophil% 0.8 % (0-1); Eosinophil# 0.11 X10^3/uL; Eosinophils% 1.3 % (0-5); Hemoglobin 11.7 g/dL (12.0-15.0); Lymphocyte # 2.87 X10^3/ul (0.83-4.51); Lymphocyte % 33.7 % (19-41); Mean Corp Hgb Conc 30.8 g/dL (32-36); Mean Corpuscular Hgb 31.2 pg (27.0-32.0); Mean Corpuscular Volume 101.3 fL (81-99); Monocyte# 0.69 X10^3/uL; Monocyte% 8.1 % (0-10); NRBC Flagged by Analyzer 0 % (0-5); Neutrophil # 4.74 X10^3/uL (2.7-7.7); Neutrophil % 55.6 % (47-70); Platelet Count 308 K/mm3 (150-450); RBC Distribution Width CV 14.7 % (11.6-14.6); RBC Distribution Width SD 55.5 fl (35.1-43.9); Red Blood Count 3.75 M/mm3 (4.2-5.4); White Blood Count 8.5 K/mm3 (4.4-11.0)
[2024-02-23 08:23] LABS: Anion Gap 8 (5-15); BUN 28 mg/dL (7-18); Calcium,Total 9.7 mg/dL (8.5-10.1); Chloride 110 mmol/L (98-107); Glucose 98 mg/dL (74-106); Potassium 3.9 mmol/L (3.5-5.1); Sodium Level 138 mmol/L (136-145)
[2024-02-23 10:19] VITALS: BMI 42.1
[2024-02-23] MEDS: Anastrozole 1 MG TABLET PO (10:51)
[2024-02-23] MEDS: Magnesium Chloride 64 MG Delay Rel.Tablet 128 MG PO (10:51)
[2024-02-23] MEDS: Lisinopril 10 MG Tablet PO (10:51)
[2024-02-23] MEDS: Calcium Carb/Vitamin D 1 TABLET Tablet PO (10:51)
[2024-02-23] MEDS: oxyCODONE 5 MG Tablet 10 MG PO ×3 (10:53→19:10)
[2024-02-23] MEDS: Baclofen 10 MG Tablet PO (10:53)
[2024-02-23] MEDS: Nystatin Powder 15gm Bottle 1 APPLIC TOPICAL ×2 (10:55→21:27)
[2024-02-23] MEDS: Menthol/Lanolin/Calamine/Znox 113 GM Tube 1 APPLIC TOPICAL ×2 (10:55→21:28)
[2024-02-23] MEDS: proCHLORPERazine 5 MG Tablet 10 MG PO (12:41)
--- NOTE | 2024-02-23 15:13 | NURSING ---
Spoke with Rhea Brandt about repeat duplex. She said to continue current dose of lovenox, repeat scan looks stable. She said she'd planned to come see patient today after clinic hours.
[2024-02-23 16:00] VITALS: BP 108/56; PULSE 80; RESP 14; TEMP 36.8; O2SAT 97
[2024-02-23 16:46] LABS: BUN/Creat Ratio 37.3 RATIO (10-20); Creatinine, Serum 0.75 mg/dL (0.55-1.02); EST Glomerular Filtration Rate 81 mL/min (>60); Est Glom Filt Rate - Afr Amer 98 mL/min (>60); Estimated Creatinine Clearance 69.36 ml/min
--- NOTE | 2024-02-23 17:34 | PCM.PN.SRG ---
Subjective Subjective Patient was seen today resting in bed with her at bedside. She reports that her leg is more sore today following the ultrasound, but prior to that had been feeling better and she had been ambulating better as well. She otherwise denies any new pain/swelling in her lower extremities, CP, SOB. She is tolerating the lovenox injections. She denies any bloody stools, blood in the urine, nose bleeds. Objective Data Objective Data Vital Signs: Vital Signs Temp Pulse Resp BP Pulse Ox O2 Del Method 98.3 F 80 14 108/56 L 97 Room Air 02/23/24 16:00 02/23/24 16:00 02/23/24 16:00 02/23/24 16:00 02/23/24 16:00 02/23/24 16:00 Oxygen Delivery Method Room Air Weight: 222 lb 14.4 oz Body Mass Index (BMI) 42.1 Intake & Output: Intake and Output for Last 24 Hours 02/21/24 02/22/24 02/23/24 23:59 23:59 23:59 Intake Total 120 / 120 180 / 180 0 / 0 Balance 120 / 120 180 / 180 0 / 0 Medical Nutrition Assessment Dietitian: Malnutrition Criteria Met Start: 02/10/24 12:12 Freq: Status: Active Protocol: Document 02/17/24 14:50 SLA (Rec: 02/17/24 14:50 SLA [email or web address]) Nutrition Malnutrition Evidence of Malnutrition Exists Yes Malnutrition (severe): Acute Illness/Injury Evidenced By Suboptimal Energy Intake ( Severe),Weight Loss (Severe) Clinical Problem Acute Disease or Injury Related Malnutrition Etiology related to acute illness and inadequate oral intake Signs/Symptoms as evidenced by additional 1.9 kg wt loss and continued po intake meeting <75% of est nutritional needs since adm along with 7.4% unplanned wt loss and po intake meeting <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 Continue remeron to help encourage increased po intake Provide chocolate ensure plus high protein tid w/ meals for increased nutrition if consumed - res requesting to get on meal trays instead of at [facility]. Continue to monitor need for more aggressive nutrition support if po intake remains poor. Lab / Micro Data 02/23/24 07:19 02/23/24 07:19 Labs: Laboratory Results - last 24 hr 02/23/24 07:19: WBC 8.5, RBC 3.75 L, Hgb 11.7 L, Hct 38.0, MCV 101.3 H, MCH 31.2, MCHC 30.8 L, RDW Std Deviation 55.5 H, RDW Coeff of Zachary 14.7 H, Plt Count 308, MPV 11.0, Immature Gran % (Auto) 0.500, Neut % (Auto) 55.6, Lymph % (Auto) 33.7, [place] % (Auto) 8.1, Eos % (Auto) 1.3, Baso % (Auto) 0.8, Absolute Neuts (auto) 4.7, Absolute Lymphs (auto) 2.87, Nucleated RBC % 0, Sodium 138, Potassium 3.9, Chloride 110 H, Carbon Dioxide 20.0 L, Anion Gap 8, BUN 28 H, Creatinine 0.75, Estim Creat Clear Calc 69.36, Est GFR (MDRD) Af Amer 98, Est GFR (MDRD) Non-Af 81, BUN/Creatinine Ratio 37.3 H, Glucose 98, Calcium 9.7 Physical Exam Const alert, oriented x3 and no apparent distress General Appearance: cooperative and comfortable HEENT normocephalic, head/scalp atraumatic, hearing grossly normal bilaterally, external ears normal and external nose normal Nose: external nose normal Eyes EOMs intact bilaterally General Eye: normal appearance of both eyes Resp normal respiratory effort, normal air movement, no retractions and no use of accessory muscles Effort and Inspection: able to speak in complete sentences; Negative for labored, grunting, stridor or audible wheezes Cardio regular rate and regular rhythm Extremity Extremity Narrative: Palpable DP and PT pulses bilaterally. RLE with 1+ edema compared to LLE. No significant erythema or warmth. Skin no rashes or lesions noted Wounds: Negative for wounds noted Neuro oriented x3, CN's II-XII intact bilaterally, moves all extremities and no focal motor deficits Speech: speech normal Psych mental status grossly normal Appearance: grossly normal Attitude: calm Activity / Motor Behavior: appropriate eye contact Speech: normal speech Assessment & Plan Assessment/Plan (1) DVT (deep venous thrombosis): PLAN: Repeat venous duplex showed stable RLE DVT up to the femoral vein. Recommend continuing with therapeutic Lovenox x 6 months then repeat venous duplex prior to transitioning to oral anticoagulant. Repeat imaging sooner as needed with new/recurrent symptoms. At discharge, discussed with patient and her that I would [facility] given her recent procedure there, then may be reasonable to consider transferring care to our office if they prefer based on location. They may feel free to call our office with any questions/concerns in the meantime. Will sign off, please contact our office if any new concerns arise.
[2024-02-23] MEDS: Arthritis Pain Compound 60 CLICK TUBE TOPICAL (21:27)
[2024-02-23] MEDS: Mirtazapine 15 MG Tablet PO (21:27)
[2024-02-24] MEDS: oxyCODONE 5 MG Tablet 10 MG PO ×4 (00:01→22:39)
[2024-02-24] MEDS: Enoxaparin 100 MG/ML Syringe SC ×2 (06:29→17:17)
[2024-02-24] MEDS: Acetaminophen 500 MG Tablet 1000 MG PO ×3 (06:29→22:40)
--- NOTE | 2024-02-24 10:28 | CASEMGMT ---
Addendum entered by Leti hCacko 02/25/24 14:32: Received VM from RN that SO is requesting w/c at [place]. SW attempted to phone SO but pt's cell phone is listed as his contact number. SW followed up with pt on HHC choice. Pt stated SO is visiting today and will assist in making a selection. SW also inquired about FWW vs w/c and a working phone number for SO. Pt stated she has a FWW but it was SO's family members and would like a w/c. SW educated to insurance covering only one ambulation device and if FWW is not pt's, offered to coordinate that, and also recommended SO bring in walker for therapists to evaluate. Pt agreed and will contact SO, but would like a w/c for community distances. SW agreed to coordinate. Referral sent to [facility] for [place]/c via [facility]. Original Note: Social Work Insurance issued LCD 02/25, DC 02/26. SW spoke with pt, explained DC date and appeal rights. Pt agreeable to DC home. SW explained recommendations are for 02/03 care with all tasks, though, no safety concerns and can be left alone. Pt is adamant about returning home and stated SO or dtr will assist pt. Recommended skilled HHC. Pt agreeable and has no preference of agency. SW provided printed list of skilled HHC agencies with quality and resource data via [facility] [employer]. Pt to review and notify this worker of choices. Pt states she owns a FWW and has no other DME needs. SW offered to contact SO or dtr. Pt stated her dtr is on vacation and SO will be visiting this afternoon and will tell him. Pt states SO can transport at [place]. 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
[2024-02-24] MEDS: Calcium Carb/Vitamin D 1 TABLET Tablet PO (10:53)
[2024-02-24] MEDS: Nystatin Powder 15gm Bottle 1 APPLIC TOPICAL ×2 (10:54→22:46)
[2024-02-24] MEDS: Anastrozole 1 MG TABLET PO (10:54)
[2024-02-24] MEDS: Arthritis Pain Compound 60 CLICK TUBE TOPICAL ×2 (10:54→22:40)
[2024-02-24] MEDS: Menthol/Lanolin/Calamine/Znox 113 GM Tube 1 APPLIC TOPICAL ×2 (10:55→22:47)
[2024-02-24] MEDS: Magnesium Chloride 64 MG Delay Rel.Tablet 128 MG PO (10:56)
[2024-02-24] MEDS: Lisinopril 10 MG Tablet PO (10:57)
[2024-02-24 11:05] VITALS: BP 102/57; PULSE 121
[2024-02-24] MEDS: proCHLORPERazine 5 MG Tablet 10 MG PO (11:43)
--- NOTE | 2024-02-24 12:26 | NURSING ---
Went to help patient out of bathroom, said she felt sick, had vomited moderate amount in trash can. Helped her to bed per her request. She'd recently received compazine and oxycodone with small snack. Said she was feeling better once laying down. Provided fresh ice water and new ice for polar care to right knee.
[2024-02-24 12:38] VITALS: PULSE 99; O2SAT 96
--- NOTE | 2024-02-24 12:42 | NURSING ---
REPORTED TO THIS NURSE THAT PT HAD EMESES OF YELLOW FLUID. PRN COMPAZINE WA GIVEN 30 MINS BEFORE. CHECKED ON PT AND PT STATED SHE STILL FELT A LITTLE NAUSEATED. RN AWARE. WILL CONTINUE TO MONITOR.
[2024-02-24 13:32] VITALS: BP 96/63; PULSE 74; RESP 18; TEMP 36.6; O2SAT 98
--- NOTE | 2024-02-24 20:29 | DS.PCM_ITS ---
Providers Date of Admission: 02/08/24 Primary Care Physician: Dr. Kang Cannon MD Consultations 02/16/24 18:01 Consult: Vascular Surgery Routine Consulting Provider: Rhea Brandt Reason for Consult: RLE DVT despite Eliquis 5mg bid. EMERGENT Consult: No MD Notified: No Date Notified: 02/16/24 Time Notified: 18:01 Reason For Visit: ADULT FTT, FALL Diagnosis Discharge Diagnosis (1) DVT (deep venous thrombosis): Status: Acute Code(s): I82.409 - Acute embolism and thrombosis of unspecified deep veins of unspecified lower extremity Plan 74 year old female with below past medical history recent hospitalized for pulmonary embolism requiring mechanical thrombectomy, bleeding requiring balloon tamponade, acute respiratory failure requiring intubation, admitted to TCU with debility, here for rehabilitation, strengthening, prior to discharge home with . * Debility - PT/OT. * Pain - Tylenol 1000mg q6 prn pain (1-3), Oxycodone 5mg q4 prn pain (4-10). * Bowel - senna/colace 2 tablets bid prn, Dulcolax 10mg pr daily prn. * Adult immunization - Administer pneumonia vaccine, covid vaccine, flu vaccine as appropriate. * DVT prophylaxis - on Eliquis. * Breast cancer - Anastrozole 1mg daily. * Pulmonary embolism s/p mechanical thrombectomy - Eliquis 10mg bid thru 02/10/2024, then 5mg bid. * Calcium deficiency - Calcium D 1 tablet daiy * Pruritus - Hydroxyzine 25mg q8 prn. * Hypertension - Lisinopril 10mg daily. * Hypomagnesemia - Magnesium chloride 128mg daily. * Skin irritation - Senna/colace 2 tablets bid prn. * Morbid Obesity - Weight loss recommended. Medications at Discharge Home Medications lisinopril 10 mg tablet 10 mg PO DAILY BP 08/12/21 cranberry fruit concentrate 250 mg chewable tablet (Azo Cranberry) 250 mg PO DAILY urinary burning 09/17/21 hydroxyzine HCl 25 mg tablet 25 mg PO Q8H PRN itching #20 tabs 01/13/24 anastrozole 1 mg tablet 1 mg PO DAILY hormone therapy 02/08/24 calcium carbonate 600 mg-vitamin D3 10 mcg (400 unit) tablet (Calcium 600 + D(3)) 1 tab PO DAILY supplement 02/08/24 magnesium oxide 400 mg PO DAILY supplement 02/08/24 acetaminophen 500 mg tablet 1,000 mg (2 x 500 mg) PO Q8 #0 tabs 02/24/24 baclofen 10 mg tablet 10 mg PO TID PRN Muscle Spasm 30 days #90 tabs 02/24/24 enoxaparin 100 mg/mL subcutaneous syringe 100 mg subcut Q12@0600,1800 30 days #60 mL 02/24/24 mirtazapine 15 mg tablet 15 mg PO QHS 30 days #30 tabs 02/24/24 oxycodone 5 mg tablet 10 mg (2 x 5 mg) PO Q4H PRN PRN Pain Score 4-10 Or Pre Pt/Ot 3 days #36 tabs 02/24/24 prochlorperazine maleate 5 mg tablet 10 mg (2 x 5 mg) PO Q4H PRN PRN Nausea/Vomiting 7 days #36 tabs 02/24/24 sennosides 8.6 mg-docusate sodium 50 mg tablet (Stimulant Laxative Plus) 2 tab PO BID PRN PRN Constipation 30 days #120 tabs 02/24/24 Hospital Course Operations - (Mechanical thrombectomy of saddle embolus.) Procedures None Summary of Care Provided Minutes Spent on Discharge: 35 Hospital Course: 74 year old female with below past medical history recent hospitalized for pulmonary embolism requiring mechanical thrombectomy, bleeding requiring balloon tamponade, acute respiratory failure requiring intubation, admitted to TCU with debility, here for rehabilitation, strengthening, prior to discharge home with . 02/16/2024 Doppler ultrasound right lower extremity showed acute dvt despite anticoagulation with Eliquis 5mg twice daily. 02/17/2024 Rhea Brandt (Vascular surgery) recommended changing Eliquis to Lovenox for right lower extremity dvt treatment, followed by repeat doppler right lower extremity in 1 week. Consider IVC filter if dvt continues to propagate. 02/23/2024 Doppler ultrasound right lower extremity dvt, no propagation. 02/23/2024 Rhea Brandt (Vascular surgery) recommended Lovenox x 6 months for right lower extremity dvt treatment. Stop date 08/18/2024. Follow up with either [facility] vascular surgery office or Dr. De Jesus/Rhea Brandt here at [facility]. Discharge home with assistance from daughter/significant other 02/27/2024, [facility] PT/OT/ST/SN/SW. Physical Exam Const alert General Appearance: cooperative HEENT normocephalic Eyes PERRL and EOMs intact bilaterally Neck supple, no JVD and no carotid bruits Resp normal respiratory effort, normal air movement and clear to auscultation bilaterally Cardio regular rate and regular rhythm GI normal to inspection, nondistended, normoactive bowel sounds, non-tender and non-distended Extremity normal capillary refill General Extremity: Negative for edema Skin no rashes or lesions noted General Skin Exam: no breakdown Psych affect normal Appearance: appropriate Medical Records Data Medical Nutrition Assessment Dietitian: Malnutrition Criteria Met Start: 02/10/24 12:12 Freq: Status: Active Protocol: Document 02/24/24 12:23 SLA (Rec: 02/24/24 12:23 SLA [email or web address]) Nutrition Malnutrition Evidence of Malnutrition Exists Yes Malnutrition (severe): Acute Illness/Injury Evidenced By Suboptimal Energy Intake ( Severe),Weight Loss (Severe) Clinical Problem Acute Disease or Injury Related Malnutrition Etiology related to acute illness and inadequate oral intake Signs/Symptoms as evidenced by additional 3.8 % unintended wt loss and continued po intake meeting < 75% of est nutritional needs since adm along with 7.4% unplanned wt loss and po intake meeting <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 Continue remeron to help encourage increased po intake Continue to provide chocolate ensure plus high protein tid w / meals for increased nutrition if consumed - res requesting to get on meal trays instead of at [facility]pass. Continue to monitor need for more aggressive nutrition support if po intake remains poor. Weight / BMI Weight Weight: 101.106 kg Body Mass Index (BMI) 42.1 ABG / Lab / Microbiology Data 02/23/24 07:19 02/23/24 07:19 D/C Instructions Discharge Diet: No restrictions Discharge Activity: Return to Normal Activity, May Shower and Use Walker Weight Bearing Status: Weight bearing as tolerated Call your doctor if you observe: Fever of 101 or Higher, Inability to urinate, Inability to have a bowel movement, Shortness of breath, Dizziness, Fainting spells, Swelling in the ankles, Chest pain and Uncontrolled pain Additional Instructions: Discharge home with assistance from daughter/significant other 02/27/2024, [facility] PT/OT/ST/SN/SW. Please Follow Up With: Rhea Brandt PA When: 1 month. Meaningful Use Info Meaningful Use Meaningful Use Diagnoses (Choose all that apply): None applicable Ischemic Stroke Statin Dosing Therapy Reference: STATIN DOSE THERAPY REFERENCE: * Patients > 75 years receive moderate or high dose statin therapy. * Patients 75 years or YOUNGER should receive HIGH intensity statin dose unless contraindicated. You will be required to document reason for non-treatment if statin daily dose does not meet guidelines. HIGH DOSE STATIN THERAPY DAILY Atorvastatin > than or = to 40 mg Rosuvastatin > than or = to 20 mg Amlodipine + Atorvastatin > than or = to 2.5/40 mg Ezetimibe + Simvastatin 10/80 mg Simvastatin 80mg Discharge Plan Admission Admit Date/Time: 02/08/24 14:54 Primary Reason for Your Visit: Debility. Attending Provider: Yeison King Chi Primary Care Provider: Kang Cannon Instructions Additional Instructions / Restrictions: Discharge home with assistance from daughter/significant other 02/27/2024, [facility] PT/OT/ST/SN/SW. Discharge Orders/Prescriptions Prescriptions: New acetaminophen 500 mg Tablet 1,000 mg PO Q8 Qty: 0 0RF prochlorperazine maleate 5 mg Tablet 10 mg PO Q4H PRN PRN (Reason: Nausea/Vomiting) 7 Days Qty: 36 0RF sennosides-docusate sodium [Stimulant Laxative Plus] 8.6-50 mg Tablet 2 tab PO BID PRN PRN (Reason: Constipation) 30 Days Qty: 120 0RF baclofen 10 mg Tablet 10 mg PO TID PRN (Reason: Muscle Spasm) 30 Days Qty: 90 0RF mirtazapine 15 mg Tablet 15 mg PO QHS 30 Days Qty: 30 0RF oxycodone 5 mg Tablet 10 mg PO Q4H PRN PRN (Reason: Pain Score 4-10 Or Pre Pt/Ot) 3 Days Qty: 36 0RF enoxaparin 100 mg/mL Syringe 100 mg subcut Q12@0600,1800 30 Days Qty: 60 0RF Continued Azo Cranberry 250 mg tablet,chewable 250 mg PO DAILY lisinopril 10 mg tablet 10 mg PO DAILY Patient Comments: TAKE 1 TABLET BY MOUTH DAILY calcium carbonate-vitamin D3 [Calcium 600 + D(3)] 600 mg-10 mcg (400 unit) tablet 1 tab PO DAILY magnesium oxide 400 mg magnesium tablet 400 mg PO DAILY hydroxyzine HCl 25 mg tablet 25 mg PO Q8H PRN (Reason: itching) Qty: 20 0RF anastrozole 1 mg tablet 1 mg PO DAILY Rx Instructions: TAKE 1 TABLET BY MOUTH EVERY DAY Discontinued sennosides-docusate sodium [Stool Softener-Stimulant Laxat] 8.6-50 mg Tablet 2 tab PO BID PRN PRN (Reason: Constipation) Qty: 0 0RF acetaminophen 325 mg Tablet 650 mg PO Q4H PRN PRN (Reason: Fever, pain -05/19) Qty: 1 0RF oxycodone 5 mg tablet 5 mg PO TID PRN PRN (Reason: pain) 1 Days Qty: 3 0RF Eliquis 5 mg tablet 10 mg PO Q12H Qty: 1 0RF Patient Comments: TAKE 10MG TWICE DAILY FOR 4 DAYS (STARTING 02/07/24) THEN 5MG TWICE DAILY Rx Instructions: Take 10 mg twice a day through 02/10/2024 then transition to 5 mg p.o. twice daily indefinitely Referrals / Follow Up: Kang Cannon MD [Primary Care Provider] - 03/08/24 11:30 am Rhea Brandt PA [Med Staff - [facility]] - Within 2 Weeks Disposition Disposition (needs filled in before D/C Order can be placed): Home Health Service
[2024-02-24] MEDS: Baclofen 10 MG Tablet PO (22:40)
[2024-02-24] MEDS: Mirtazapine 15 MG Tablet PO (22:40)
[2024-02-25] MEDS: Acetaminophen 500 MG Tablet 1000 MG PO ×3 (05:32→21:19)
[2024-02-25] MEDS: Enoxaparin 100 MG/ML Syringe SC ×2 (05:33→18:21)
[2024-02-25] MEDS: Calcium Carb/Vitamin D 1 TABLET Tablet PO (09:53)
[2024-02-25] MEDS: Arthritis Pain Compound 60 CLICK TUBE TOPICAL ×2 (09:54→21:21)
[2024-02-25] MEDS: Anastrozole 1 MG TABLET PO (09:54)
[2024-02-25] MEDS: Magnesium Chloride 64 MG Delay Rel.Tablet 128 MG PO (09:55)
[2024-02-25] MEDS: Menthol/Lanolin/Calamine/Znox 113 GM Tube 1 APPLIC TOPICAL ×2 (09:55→21:20)
[2024-02-25] MEDS: Nystatin Powder 15gm Bottle 1 APPLIC TOPICAL ×2 (09:55→21:20)
--- NOTE | 2024-02-25 09:55 | MDS.RN ---
Pain interview for mds completed.
[2024-02-25] MEDS: Lisinopril 10 MG Tablet PO (09:56)
[2024-02-25 09:59] VITALS: BP 106/55; PULSE 111
[2024-02-25 13:25] VITALS: BP 129/77; PULSE 89; RESP 16; TEMP 36.2; O2SAT 97
[2024-02-25] MEDS: proCHLORPERazine 5 MG Tablet 10 MG PO (20:26)
[2024-02-25] MEDS: Mirtazapine 15 MG Tablet PO (21:20)
[2024-02-25] MEDS: oxyCODONE 5 MG Tablet 10 MG PO (21:26)
[2024-02-25] MEDS: Baclofen 10 MG Tablet PO (21:27)
[2024-02-26] MEDS: Enoxaparin 100 MG/ML Syringe SC ×2 (06:15→17:57)
[2024-02-26] MEDS: Acetaminophen 500 MG Tablet 1000 MG PO ×3 (06:15→22:18)
[2024-02-26 09:27] VITALS: BP 116/53; PULSE 101; RESP 16; TEMP 36.4; O2SAT 97
[2024-02-26] MEDS: Anastrozole 1 MG TABLET PO (09:32)
[2024-02-26] MEDS: Calcium Carb/Vitamin D 1 TABLET Tablet PO (09:32)
[2024-02-26] MEDS: Menthol/Lanolin/Calamine/Znox 113 GM Tube 1 APPLIC TOPICAL ×2 (09:33→22:20)
[2024-02-26] MEDS: Arthritis Pain Compound 60 CLICK TUBE TOPICAL ×2 (09:33→22:18)
[2024-02-26] MEDS: Lisinopril 10 MG Tablet PO (09:33)
[2024-02-26] MEDS: Nystatin Powder 15gm Bottle 1 APPLIC TOPICAL ×2 (09:33→22:19)
[2024-02-26] MEDS: Magnesium Chloride 64 MG Delay Rel.Tablet 128 MG PO (09:33)
[2024-02-26 09:37] VITALS: RESP 16; O2SAT 98
--- NOTE | 2024-02-26 13:12 | CASEMGMT ---
Social Work SW was notified that pt made comments of wanting to . SW met with pt at bedside to complete finalize DC plans, complete PHQ-9 and explore comments. Pt requesting [facility]. SW to place referral. BIMS () and PHQ-9 completed (06/05 - which is an improvement from admission MDS). Pt answered no to question 9 (thoughts of being better off or hurting self in some way). SW inquired about pt commenting to staff about wanting to . Pt stated, oh, I was just in a lot of pain. I didn't know who to express how much pain I was in, and I thought if I said that, that would help them understand. But I'm already doing better. SW explored further for more details. Pt stated, I wouldn't know what to do. If I tried to kill myself, that would hurt worse. I couldn't do that. Pt denied having any thoughts/plans/intents or past attempts of suicide and no family history. Pt is forward thinking and excited to DC home tomorrow. Pt is looking forward to being home with her SO and dtr, stating they both treat her well and will help her with anything. While pt was talking about her SO she commented that he's different around other people, which I haven't adjusted to yet. But he's always nice and loving to me, dotting, and we've been together for two years so I know he wouldn't change. SW explored further to ensure safety and well-being in the relationship. Pt provided some examples of how he talks to others, and pt states she does point it out to him. Pt explains he speaks in more of a rough manner to others, but SO states he just brushes it off that he is joking. Pt stated she was not raised that way; she treats others the way she wants to be treated. Shared her first marriage was terrible but her second marriage was to a district recruiter and was wonderful; both husbands which ended their relationship. SW educated to being treated with dignity and respect and although pt states she is being treated well, since pt has continuously witnessed SO treating others differently, he has that capabilities to treat pt that same way. Pt was adamant she would not put up with it and she would leave him. Pt does have the experiences of a good and bad marriage. Pt assures this worker she has no concerns, is safe at home and being with SO. SW encouraged to notify a trusted person or profressional if anything changes. Pt agrees. Pt appreciative of conversation. SW phoned referral to [facility] for PT/OT/ST/SN/SW for DC 02/26. W/C will be delivered to pt's room prior to DC. SO to transport at [place]. ANNI Palma
--- NOTE | 2024-02-26 14:21 | CASEMGMT ---
Social Work Received return call from [facility]. They can accept pt once pt is seen at PCPs office, which is currently scheduled for 03/08, and there are no earlier appts. In addition, to pt remaining at the same location during the visits. Pt cannot choose to be at dtr's house for one visit and [facility] for the second visit. SW left VM with dtr to update her as well. Leti Chacko, ANNI NEVAREZW
[2024-02-26] MEDS: oxyCODONE 5 MG Tablet 10 MG PO ×2 (14:22→22:19)
--- NOTE | 2024-02-26 18:13 | NURSING ---
pt & SO asking about a BSC since their BR is too small for both of them to fit in the space at same time for toileting, they are wanting to keep BSC in living room since more space for transfers. pt stated thats how I fell before coming in to hospital explained that [employer] sells them & this would be an option. pt Discharging home tomorrow AM
[2024-02-26] MEDS: Mirtazapine 15 MG Tablet PO (22:18)
[2024-02-27] MEDS: Acetaminophen 500 MG Tablet 1000 MG PO ×2 (05:58→13:58)
[2024-02-27] MEDS: Enoxaparin 100 MG/ML Syringe SC ×2 (05:58→16:41)
[2024-02-27 06:04] VITALS: RESP 17
[2024-02-27] MEDS: Lisinopril 10 MG Tablet PO (08:26)
[2024-02-27] MEDS: Magnesium Chloride 64 MG Delay Rel.Tablet 128 MG PO (08:26)
[2024-02-27] MEDS: Arthritis Pain Compound 60 CLICK TUBE TOPICAL (08:27)
[2024-02-27] MEDS: Calcium Carb/Vitamin D 1 TABLET Tablet PO (08:27)
[2024-02-27] MEDS: Anastrozole 1 MG TABLET PO (08:27)
[2024-02-27] MEDS: Menthol/Lanolin/Calamine/Znox 113 GM Tube 1 APPLIC TOPICAL (08:33)
[2024-02-27] MEDS: Nystatin Powder 15gm Bottle 1 APPLIC TOPICAL (08:33)
--- NOTE | 2024-02-27 09:40 | CASEMGMT ---
Addendum entered by Steffi Holly 02/27/24 14:20: Referral sent to [facility] via care[facility] with rx for w/c at this time. SW to follow up on Thursday. Original Note: Received tc from hospital addressograph operator that pt called and stated she needed her w/c delivered and it has not been delivered to her home and she cannot leave without it. Noted in notes, referral was sent via careport on the and was supposed to be delivered to pt room. Unable to see referral for this. TC to TCU, spoke with staff to confirm that the w/c was not delivered to the room. Per staff, it has not been. TC to [facility] manager marketing communications, spoke with answering service and requested returned call. [id number]-Received returned call from Kirti at [facility], she is requesting rx for pt as they do not have receipt of this. RN CM to TCU, rx not noted in pt chart. Left message with MERT Landeros to try to obtain location of rx. RN CM into pt room, pt lying in bed. Pt is aware that the rx cannot be located currently and asked if she could manage at home until Thursday for the w/c. Pt states as long as she is wheeled to the car upon dc, she will be fine until Thursday. Pt states she is also awaiting a BSC. Upon further questioning pt states that she is supposed to get that on her own because the insurance won't cover it. Discussed with her places to obtain this. Pt denies further needs. Updated pt nurse on status of w/c and that this will be delivered Thursday. MERT aware of need for rx to be sent to [facility] on Thursday.
[2024-02-27] MEDS: proCHLORPERazine 5 MG Tablet 10 MG PO (11:49)
[2024-02-27] MEDS: oxyCODONE 5 MG Tablet 10 MG PO (11:50)
[2024-02-27 16:35] VITALS: BP 92/60; PULSE 89; RESP 17; TEMP 37.2; O2SAT 95
[2024-02-27] MEDS: Meclizine HCl 25 MG Tablet PO (16:40)
[2024-02-27 17:21] VITALS: BP 92/60; PULSE 89; RESP 17; TEMP 37.2; O2SAT 95
--- NOTE | 2024-02-29 10:03 | CASEMGMT ---
Social Work SW followed up with [employer]iaison and w/c will be delivered to pt's home this date. ANNI PalmaW
== END 2024-02-27 17:00 | disposition home health service (06) | DRG 949 ==
PROVIDERS: Admitting Provider Family Medicine Geriatric Medicine; PCP Family Medicine; Visit Provider Family Medicine Geriatric Medicine
DX: Z48.812 Encounter for surgical aftercare following surgery on the circulatory system (principal); I26.99 Other pulmonary embolism without acute cor pulmonale; I82.431 Acute embolism and thrombosis of right popliteal vein; E44.1 Mild protein-calorie malnutrition; N17.9 Acute kidney failure, unspecified; Z68.41 Body mass index [BMI] 40.0-44.9, adult; C50.912 Malignant neoplasm of unspecified site of left female breast; E66.01 Morbid (severe) obesity due to excess calories; I10 Essential (primary) hypertension; M54.50 Low back pain, unspecified; M62.838 Other muscle spasm; Z79.811 Long term (current) use of aromatase inhibitors; Z79.899 Other long term (current) drug therapy; M85.80 Other specified disorders of bone density and structure, unspecified site
CPT/HCPCS: 36415; 72110; 73562; 80048; 85025; 92523; 92526; 92610; 97110; 97116; 97129; 97130; 97162; 97166; 97530; 97535; 97802; A4216

== ENCOUNTER → 2024-02-16 | Outpatient (CLI) | payer MEDICARE, MEDICAID, SELFPAY ==
--- NOTE | 2024-02-16 08:25 | VDLE_ITS ---
Reason For Study: RLE pain RIGHT LEFT CFV is compressible, spontaneous, phasic, CFV is compressible, spontaneous, phasic, competent and demonstrates normal competent, and demonstrates normal augmentation. augmentation. Acute deep vein thrombosis is noted in the FV. It is dilated and NONCOMPRESSIBLE. Acute deep vein thrombosis is noted in the POP V. It is dilated and NONCOMPRESSIBLE. Acute deep vein thrombosis is noted in the T/P Trunk. It is dilated and NONCOMPRESSIBLE. PTV is compressible. RT PerV is compressible. Procedure This is a venous duplex using B-mode, color flow and spectral Doppler. Exam performed portable in patient room. The exam was of fair technical quality due to pt intolerance to compression. Limited views of all veins. A preliminary report was called and/or faxed to the pt's RN. VL/Venous Duplex US, Unilateral Interpretation Summary Acute deep vein thrombosis is noted in the right femoral vein, popliteal vein, tibioperoneal trunk vein Ordering Physician: Yeison King Chi Performed By: Julius Milan RVT
== END | disposition home or self-care (01) ==
LOC: CVS 08:24
PROVIDERS: PCP Family Medicine; Referring Provider Family Medicine Geriatric Medicine; Visit Provider Family Medicine Geriatric Medicine
DX: M79.661 Pain in right lower leg (principal)
CPT/HCPCS: 93971

== ENCOUNTER → 2024-02-23 | Outpatient (CLI) | payer MEDICARE, MEDICAID, SELFPAY ==
--- NOTE | 2024-02-23 08:30 | VDLE_ITS ---
Reason For Study: Right leg swelling RIGHT LEFT GSV is normal. CFV is compressible, spontaneous, phasic, CFV is compressible, spontaneous, phasic, competent, and demonstrates normal competent and demonstrates normal augmentation. augmentation. Acute deep vein thrombosis is noted in the FV, PopV, T/P Trunk and Soleus V. It is dilated and NONCOMPRESSIBLE. PTV is compressible. RT PerV is compressible. Procedure This is a venous duplex using B-mode, color flow and spectral Doppler. Exam performed portable in patient room. The exam was of fair technical quality due to pt intolerance to compression. Limited views of all veins. Compared to 02/16/2024. A preliminary report was called and/or faxed to Voicemail. VL/Venous Duplex US, Unilateral Interpretation Summary Acute deep vein thrombosis is noted in the right femoral vein, popliteal vein, tibioperoneal trunk vein, soleus vein. Ordering Physician: Rhea Brandt Referring Physician: Kang Cannon MD Performed By: Kala Sofia RVT
== END | disposition home or self-care (01) ==
LOC: CVS 08:28
PROVIDERS: PCP Family Medicine; Referring Provider Physician Assistant; Visit Provider Physician Assistant
DX: R22.41 Localized swelling, mass and lump, right lower limb (principal)
CPT/HCPCS: 93971

== ENCOUNTER 2024-03-03 19:44 | Emergency (ER) | payer MEDICARE, MEDICAID, SELFPAY ==
[2024-03-03 19:47] VITALS: PULSE 112; RESP 22; TEMP 35.7; O2SAT 100
--- NOTE | 2024-03-03 20:00 | EDS_ITS ---
HPI HPI - GI History of Present Illness Chief Complaint: Nausea/Vomiting Informant: patient Narrative Narrative: 74-year-old female states she has been having vomiting and 0 oral fluid intake for the past 6 weeks. She states she was admitted to a [facility], she is not sure which 1, for about 5 weeks for a pulmonary embolus and right DVT in her leg. She states she has been home for about a week. She states that her doctor told her to come here for IV fluids because she is severely dehydrated. When asked when the last time she urinated was, it was right before she came. No issues with that. She denies any abdominal pain or diarrhea. She states she sometimes gets a little dyspnea when she exerts herself but it seems to be getting better, and the popliteal pain she describes has been improving as well. She denies any lightheadedness orthostatic syncope. [facility] Medical History History of pulmonary embolism Hypertension Current use of intermediate frame tender anticoagulation Bilateral pulmonary embolism Anemia Foot fracture, left Family history of colon cancer in mother Encounter for education ER+ (estrogen receptor positive status) Degenerative joint disease Hypertension Osteopenia after menopause Cancer of left female breast Post-menopausal Arthritis Easy bruising Excessive bleeding Non-smoker Shortness of breath on exertion Pulmonary embolism Hypertension UTI (urinary tract infection) DVT (deep venous thrombosis) Home Medications ?Medication ?Instructions ?Recorded ?Last Taken ?Type lisinopril 10 mg tablet 10 mg PO DAILY BP 08/12/21 10/02/21 History cranberry fruit concentrate 250 mg 250 mg PO DAILY urinary burning 09/17/21 10/01/21 History chewable tablet (Azo Cranberry) anastrozole 1 mg tablet 1 mg PO DAILY hormone therapy 02/08/24 Unknown History calcium carbonate 600 mg-vitamin 1 tab PO DAILY supplement 02/08/24 Unknown History D3 10 mcg (400 unit) tablet (Calcium 600 + D(3)) magnesium oxide 400 mg PO DAILY supplement 02/08/24 Unknown History acetaminophen 500 mg tablet 1,000 mg (2 x 500 mg) PO Q8 #0 tabs 02/24/24 Unknown Rx baclofen 10 mg tablet 10 mg PO TID PRN Muscle Spasm 30 02/24/24 Unknown Rx days #90 tabs enoxaparin 100 mg/mL subcutaneous 100 mg subcut Q12@0600,1800 30 02/24/24 Unknown Rx syringe days #60 mL mirtazapine 15 mg tablet 15 mg PO QHS 30 days #30 tabs 02/24/24 Unknown Rx oxycodone 5 mg tablet 10 mg (2 x 5 mg) PO Q4H PRN PRN 02/24/24 Unknown Rx Pain Score 4-10 Or Pre Pt/Ot 3 days #36 tabs prochlorperazine maleate 5 mg 10 mg (2 x 5 mg) PO Q4H PRN PRN 02/24/24 Unknown Rx tablet Nausea/Vomiting 7 days #36 tabs sennosides 8.6 mg-docusate sodium 2 tab PO BID PRN PRN Constipation 02/24/24 Unknown Rx 50 mg tablet (Stimulant Laxative 30 days #120 tabs Plus) meclizine 25 mg tablet 25 mg PO Q8H PRN PRN Dizziness #20 03/04/24 Unknown Rx tabs ondansetron 8 mg disintegrating 8 mg PO Q8H PRN nausea and 03/04/24 Unknown Rx tablet vomiting #20 tabs Allergy/AdvReac Type Severity Reaction Status Date / Time No Known Allergies Allergy Verified 03/03/24 19:47 Family History Grandmother Breast cancer Daughter Breast cancer Mother Colon cancer Surgical History History of appendectomy History of dilation and curettage History of left mastectomy (~08/2021) History of lumpectomy of left breast Hx of abdominoplasty History of cholecystectomy History of total knee replacement Social History household members: spouse Smoking Status: Never smoker alcohol intake: never substance use type: does not use ROS ROS ED Constitutional Constitutional ED: Reports malaise; Denies chills or fever(s) Eyes Eyes: Denies change in vision or diplopia ENT ENT ED: Denies rhinorrhea or sore throat Cardiovascular Cardiovascular: Denies chest pain or palpitations Respiratory/Chest Respiratory/Chest: Denies cough or dyspnea Gastrointestinal Gastrointestinal: Reports nausea and vomiting; Denies abdominal pain or diarrhea Genitourinary Genitourinary ED: Denies dysuria or hematuria Musculoskeletal Musculoskeletal: Denies back pain or neck pain Integumentary Denies abscess or rash Neurologic Neurologic: Denies headache(s), paresthesias or weakness Psychiatric Psychiatric: Denies suicidal thoughts Hematologic/Lymphatic Hematologic/Lymphatic: Reports easy bruising EXAM Physical Exam Const Vital Signs: 03/03/24 19:47 03/03/24 21:45 03/03/24 23:00 Temperature 96.2 F L Temperature Source Temporal Pulse Rate 112 H 97 78 Respiratory Rate 22 H 18 16 Blood Pressure 127/62 H 135/67 H Blood Pressure Mean 83 89 Pulse Ox 100 97 97 Oxygen Delivery Method Room Air Room Air Room Air Positive well nourished, well developed and obese General Appearance ED: well developed and NAD Nutritional Appearance: obese HEENT Reports moist mucous membranes normocephalic and atraumatic Eyes PERRL and EOMs intact bilaterally Neck full ROM and supple Resp normal respiratory effort and clear to auscultation bilaterally Cardio regular rate, regular rhythm and no murmurs Cardio Narrative: Mild tachycardia GI non-tender and non-distended GI Narrative: Diffuse lower abdominal wall bruising, from enoxaparin injections according to patient; minor tenderness in these areas but overall abdomen is benign and nontender. Auscultation: normoactive bowel sounds Palpation: soft Back/Spine no CVA tenderness General Back: other FROM Extremity normal to inspection General Extremety ED: Negative for edema, pulses abnormal or tenderness General Extremity: Negative for edema or pulses abnormal Neuro oriented x3, CN's II-XII intact bilaterally and no sensory deficits noted Sensorium / Orientation: awake and alert Motor Exam: strength 5/5 throughout Psych Mood & Affect: anxious Skin no rashes or lesions noted and no wounds Skin Narrative: Ecchymosis on lower abdominal wall otherwise no rashes or lesions. MDM MDM MDM Narrative Medical decision making narrative: Obtain some basic labs that shows that the patient has a mild NELSY. Her electrolytes are normal and her blood counts look great. She looks relatively well. She had a mild tachycardia with some fluids that resolved. Give her some Zofran her nausea improved she was tolerating oral fluids. Her arrived and offered more information. Apparently she did have some significant venous thrombosis recently and had thrombectomies apparently was in TCU for some time. He states that she has been complaining of dizziness like things are moving multiple times a day and it always seems to be whenever she tries to get up and get around. This has been going on for weeks. He states that from what he is seeing, she tends to vomit every time she gets dizzy. The patient really cannot tell me 1 where the other, she has a very poor historian. I had nursing give her a meclizine. On reevaluation she is feeling better. I personally got her up out of bed, give her a walker to borrow, she walked out of the room and into the hallway, and back and had 0 dizziness, 0 nausea, and is no t ataxic. She feels better. I do not think she needs to be admitted emergently for this NELSY, I think that she can drink fluids, I am encouraging her to drink boost or Ensure, she is concerned about taking her medications on an empty stomach because she has a poor appetite so hopefully that will help, and follow closely with her doctor for repeat labs and evaluation. I am prescribing her meclizine and Zofran, she was on hydroxyzine which I am having her discontinue if she still has it, she is comfortable with that plan. Lab Data Attestation: I reviewed the patient's lab results. Labs: Laboratory Results - last 24 hr 03/03/24 20:23 WBC 8.7 RBC 4.07 L Hgb 12.6 Hct 39.9 MCV 98.0 MCH 31.0 MCHC 31.6 L RDW Std Deviation 52.4 H RDW Coeff of Zachary 14.5 Plt Count 341 MPV 11.4 Immature Gran % (Auto) 0.300 Neut % (Auto) 74.9 H Lymph % (Auto) 14.1 L [place] % (Auto) 10.1 H Eos % (Auto) 0.1 Baso % (Auto) 0.5 Absolute Neuts (auto) 6.6 Absolute Lymphs (auto) 1.23 Nucleated RBC % 0 Sodium 140 Potassium 4.4 Chloride 109 H Carbon Dioxide 22.0 Anion Gap 9 BUN 34 H Creatinine 1.97 H Estim Creat Clear Calc 28.07 Est GFR (MDRD) Af Amer 32 L Est GFR (MDRD) Non-Af 27 L BUN/Creatinine Ratio 17.3 Glucose 127 H Calcium 10.1 Total Bilirubin 0.60 AST 51 H ALT 31 Alkaline Phosphatase 110 Total Protein 8.4 H Albumin 3.0 L Globulin 5.4 H Albumin/Globulin Ratio 0.6 L Discharge Plan Triage Chief Complaint: Nausea/Vomiting ED Provider: Javier Vela Dx/Rx/DC Orders Clinical Impression: Vomiting, Episodes of vertigo occurring daily, NELSY (acute kidney injury) Instructions: ED Vertigo, Unspecified Prescriptions: New meclizine 25 mg tablet 25 mg PO Q8H PRN PRN (Reason: Dizziness) Qty: 20 0RF ondansetron 8 mg tablet,disintegrating 8 mg PO Q8H PRN (Reason: nausea and vomiting) Qty: 20 0RF Continued Azo Cranberry 250 mg tablet,chewable 250 mg PO DAILY lisinopril 10 mg tablet 10 mg PO DAILY Patient Comments: TAKE 1 TABLET BY MOUTH DAILY calcium carbonate-vitamin D3 [Calcium 600 + D(3)] 600 mg-10 mcg (400 unit) tablet 1 tab PO DAILY magnesium oxide 400 mg magnesium tablet 400 mg PO DAILY anastrozole 1 mg tablet 1 mg PO DAILY Rx Instructions: TAKE 1 TABLET BY MOUTH EVERY DAY acetaminophen 500 mg Tablet 1,000 mg PO Q8 Qty: 0 0RF prochlorperazine maleate 5 mg Tablet 10 mg PO Q4H PRN PRN (Reason: Nausea/Vomiting) 7 Days Qty: 36 0RF sennosides-docusate sodium [Stimulant Laxative Plus] 8.6-50 mg Tablet 2 tab PO BID PRN PRN (Reason: Constipation) 30 Days Qty: 120 0RF baclofen 10 mg Tablet 10 mg PO TID PRN (Reason: Muscle Spasm) 30 Days Qty: 90 0RF mirtazapine 15 mg Tablet 15 mg PO QHS 30 Days Qty: 30 0RF oxycodone 5 mg Tablet 10 mg PO Q4H PRN PRN (Reason: Pain Score 4-10 Or Pre Pt/Ot) 3 Days Qty: 36 0RF enoxaparin 100 mg/mL Syringe 100 mg subcut Q12@0600,1800 30 Days Qty: 60 0RF Discontinued hydroxyzine HCl 25 mg tablet 25 mg PO Q8H PRN (Reason: itching) Qty: 20 0RF Primary Care Provider: Kang Cannon Referrals: Kang Cannon MD [Primary Care Provider] - As soon as possible Activity Restrictions/Additional Instructions: Try to get boost or Ensure shakes to drink twice daily, and drink plenty of fluids. This way you will get nutrition and stay hydrated even though you have a poor appetite. Take your medications as tolerated, the new dizziness pill that we prescribed is as needed, and you do not have to schedule it 3 times daily. The nausea medicine we prescribed you is also as needed. Print Language: Upper Sorbian Disposition Disposition: Home, Self Care
[2024-03-03 20:17] VITALS: BMI 41.8
[2024-03-03] MEDS: 0.9% Normal Saline (1000mL) 1,000 ML 999 ML IV (20:18)
[2024-03-03] MEDS: Ondansetron 4 MG/2 ML Vial IV (20:18)
[2024-03-03 20:27] LABS: Absolute Lymphocyte Count 1.23 X10^3/uL (0.83-4.51); Absolute Neutrophil Count 6.6 X10^3/uL (2.0-7.7); Basophil# 0.04 X10^3/uL; Basophil% 0.5 % (0-1); Eosinophil# 0.01 X10^3/uL; Eosinophils% 0.1 % (0-5); Hematocrit 39.9 % (37-47); Hemoglobin 12.6 g/dL (12.0-15.0); Lymphocyte # 1.23 X10^3/ul (0.83-4.51); Lymphocyte % 14.1 % (19-41); Mean Corp Hgb Conc 31.6 g/dL (32-36); Mean Platelet Vol. 11.4 fl (6.2-12.0); Monocyte# 0.88 X10^3/uL; Monocyte% 10.1 % (0-10); NRBC Flagged by Analyzer 0 % (0-5); Neutrophil # 6.55 X10^3/uL (2.7-7.7); Neutrophil % 74.9 % (47-70); Platelet Count 341 K/mm3 (150-450); RBC Distribution Width CV 14.5 % (11.6-14.6); RBC Distribution Width SD 52.4 fl (35.1-43.9); Red Blood Count 4.07 M/mm3 (4.2-5.4); White Blood Count 8.7 K/mm3 (4.4-11.0)
[2024-03-03 20:48] LABS: ALB/GLOB Ratio 0.6 RATIO (0.9-2.4); AST(SGOT) 51 U/L (15-37); Alanine Aminotransfer ALT/SGPT 31 U/L (13-56); Alkaline Phosphatase 110 U/L (45-117); Anion Gap 9 (5-15); BUN 34 mg/dL (7-18); BUN/Creat Ratio 17.3 RATIO (10-20); Calcium,Total 10.1 mg/dL (8.5-10.1); Chloride 109 mmol/L (98-107); Creatinine, Serum 1.97 mg/dL (0.55-1.02); EST Glomerular Filtration Rate 27 mL/min (>60); Est Glom Filt Rate - Afr Amer 32 mL/min (>60); Estimated Creatinine Clearance 28.07 ml/min; Globulin 5.4 g/dL (2.2-4.2); Glucose 127 mg/dL (74-106); Potassium 4.4 mmol/L (3.5-5.1); Protein, Total 8.4 g/dL (6.4-8.2); Sodium Level 140 mmol/L (136-145)
[2024-03-03 21:45] VITALS: BP 127/62; PULSE 97; RESP 18; O2SAT 97
[2024-03-03 23:00] VITALS: BP 135/67; PULSE 78; RESP 16; O2SAT 97
[2024-03-03] MEDS: Meclizine HCl 25 MG Tablet PO (23:29)
[2024-03-04 00:48] VITALS: BP 122/72; PULSE 70; RESP 16; TEMP 37; O2SAT 97
== END 2024-03-04 00:49 | disposition home or self-care (01) ==
PROVIDERS: Emergency Provider Emergency Medicine; PCP Family Medicine; Visit Provider Emergency Medicine
DX: R11.2 Nausea with vomiting, unspecified (principal); N17.9 Acute kidney failure, unspecified; I10 Essential (primary) hypertension; E86.0 Dehydration; R42 Dizziness and giddiness; E66.9 Obesity, unspecified; Z98.890 Other specified postprocedural states; Z86.718 Personal history of other venous thrombosis and embolism; Z79.01 Long term (current) use of anticoagulants
CPT/HCPCS: 80053; 85025; 96361; 96374; 99283; J7030; A4216; J2405

== ENCOUNTER 2024-03-27 15:01 | Inpatient (IN) | payer MEDICARE, MEDICAID, SELFPAY ==
[2024-03-27] VITALS (8 sets, daily range): BP systolic 80–108; BP diastolic 47–56; PULSE 82–89; RESP 12–19; TEMP 36.6–36.9; O2SAT 92–98; BMI 42.0; BMI 41.0
--- NOTE | 2024-03-27 15:30 | EDS_ITS ---
HPI HPI - GI History of Present Illness Chief Complaint: Nausea/Vomiting Informant: patient Nausea/Vomiting/Emesis GI Symptom: Positive for Nausea and Vomiting Onset: Weeks Severity: Moderate Diarrhea/Melena/Hematochezia GI Symptom: Negative for Diarrhea, Melena or Hematochezia Associated Symptoms Associated Symptoms: Negative for Dysuria, Frequency, Hematuria or Urgency Narrative Narrative: 74-year-old female with history of DVT and PEs on Eliquis. History of hypertension and anemia. Has been in the hospital both here in [facility] for the last 7 weeks or so. Said she was just discharged from there about a week ago. She has been having intermittent nausea and vomiting for weeks. She said she been having dizziness. But denies any abdominal pain or dysuria. She is had very little oral intake. Prior similar symptoms: Yes Recent Illness/Hospitalization: Yes [facility] Medical History History of pulmonary embolism Hypertension Current use of longterm anticoagulation Bilateral pulmonary embolism Anemia Foot fracture, left Family history of colon cancer in mother Encounter for education ER+ (estrogen receptor positive status) Degenerative joint disease Hypertension Osteopenia after menopause Cancer of left female breast Post-menopausal Arthritis Easy bruising Excessive bleeding Non-smoker Shortness of breath on exertion Pulmonary embolism Hypertension UTI (urinary tract infection) DVT (deep venous thrombosis) Home Medications ?Medication ?Instructions ?Recorded ?Last Taken ?Type lisinopril 10 mg tablet 10 mg PO DAILY BP 08/12/21 10/02/21 History mirtazapine 15 mg tablet 15 mg PO QHS 30 days #30 tabs 02/24/24 Unknown Rx oxycodone 5 mg tablet 10 mg (2 x 5 mg) PO Q4H PRN PRN 02/24/24 Unknown Rx Pain Score 4-10 Or Pre Pt/Ot 3 days #36 tabs prochlorperazine maleate 5 mg 10 mg (2 x 5 mg) PO Q4H PRN PRN 02/24/24 Unknown Rx tablet Nausea/Vomiting 7 days #36 tabs meclizine 25 mg tablet 25 mg PO Q8H PRN PRN Dizziness #20 03/04/24 Unknown Rx tabs ondansetron 8 mg disintegrating 8 mg PO Q8H PRN nausea and 03/04/24 Unknown Rx tablet vomiting #20 tabs anastrozole 1 mg tablet 1 mg PO DAILY #90 TABLETS 03/07/24 Unknown Rx apixaban 5 mg tablet (Eliquis) 5 mg PO Q12H 03/27/24 Unknown History Allergy/AdvReac Type Severity Reaction Status Date / Time No Known Allergies Allergy Verified 03/27/24 15:08 Family History Grandmother Breast cancer Daughter Breast cancer Mother Colon cancer Surgical History History of appendectomy History of dilation and curettage History of left mastectomy (~08/2021) History of lumpectomy of left breast Hx of abdominoplasty History of cholecystectomy History of total knee replacement Social History household members: spouse Smoking Status: Never smoker alcohol intake: never substance use type: does not use ROS ROS ED ROS Narrative Nausea and vomiting. She is chronic dizziness. Constitutional Constitutional ED: Denies chills or fever(s) ENT ENT ED: Denies ear pain Cardiovascular Cardiovascular: Denies chest pain Respiratory/Chest Respiratory/Chest: Denies cough or dyspnea Gastrointestinal Gastrointestinal: Denies abdominal pain Genitourinary Genitourinary ED: Denies dysuria or hematuria Musculoskeletal Musculoskeletal: Denies arthralgias, back pain, myalgias or neck pain Integumentary Denies abscess or Abrasions Neurologic Neurologic: Denies headache(s) Psychiatric Psychiatric: Denies anxiety or depression Endocrine Endocrinology: Denies polydipsia, polyphagia or polyuria Hematologic/Lymphatic Hematologic/Lymphatic: Denies easy bleeding, easy bruising or lymphadenopathy Allergic/Immunologic Allergic/Immunologic ED: Denies mouth swelling, tongue swelling or urticaria EXAM Physical Exam Narrative Exam Narrative: 74-year-old female clinically looks dehydrated. Initial blood pressure 80/55. She is afebrile. Patient appears somewhat uncapped. No one else present in room. H EENT exam pupils round reactive light. Dry mucous membranes. No trauma. No facial droop. Neck nontender. Lungs clear. Heart regular rhythm no murmur. Chest wall and ribs nontender. Abdomen soft nondistended normal bowel sounds no peritoneal signs. Nontender. Moving all 4 extremities. No deformity. 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 Normal dorsi plantarflexion. She is awake and alert. Answering questions and following commands. Const Vital Signs: 03/27/24 15:03 03/27/24 15:06 03/27/24 16:06 Temperature 98.2 F 98.2 F 98.2 F Temperature Source Oral Oral Oral Pulse Rate 85 85 84 Respiratory Rate 12 16 18 Blood Pressure 80/55 L 80/55 L 96/54 L Blood Pressure Mean 63 63 68 Pulse Ox 96 95 95 Oxygen Delivery Method Room Air Room Air Room Air 03/27/24 17:00 03/27/24 18:00 03/27/24 19:00 Temperature 97.8 F 98.2 F 98.2 F Temperature Source Oral Oral Oral Pulse Rate 82 86 88 Respiratory Rate 15 17 19 H Blood Pressure 106/54 L 104/53 L 105/47 L Blood Pressure Mean 71 70 66 Pulse Ox 94 94 92 Oxygen Delivery Method Room Air Room Air Room Air 03/27/24 19:37 Temperature 98.3 F Temperature Source Pulse Rate 85 Respiratory Rate 18 Blood Pressure 101/56 L Blood Pressure Mean 71 Pulse Ox 94 Oxygen Delivery Method Positive well nourished, well developed and obese; Negative for cachectic, contractures or unkempt General Appearance ED: well developed; Negative for unkempt, cachectic, contractures, NAD or pallor Nutritional Appearance: obese; Negative for cachectic HEENT Reports dry mucous membranes; Denies moist mucous membranes normocephalic and atraumatic; Negative for trauma or tenderness Mouth ED: Yes dry mucous membranes Mouth: dry mucous membranes Eyes PERRL and EOMs intact bilaterally General Eye ED: Negative for pale conjunctiva, scleral icterus or other Neck no lymphadenopathy, supple and no JVD General: Negative for tenderness Carotids: Negative for other Lymph Lymphatic: Negative for other Resp normal respiratory effort and clear to auscultation bilaterally Effort and Inspection: Negative for respiratory distress, retractions or pain with movement Auscultation: Negative for rales, rhonchi, wheezes or diminished lung sounds Cardio regular rate, regular rhythm, S1 normal heart sound, S2 normal heart sound and no murmurs Rate: Negative for bradycardia or tachycardic Rhythm: Negative for abnormal rhythm GI non-tender, non-distended and no masses Inspection: Negative for abdominal distention Auscultation: normoactive bowel sounds Palpation: soft; Negative for tender, guarding or rebound tenderness present Back/Spine no CVA tenderness General Back: Negative for CVA tenderness Cervical Spine: Negative for cervical spine tenderness Thoracic Spine / Upper Back: Negative for thoracic spinal tenderness Lumbar Spine / Lower Back: Negative for lumbar spinal tenderness Coccyx: Negative for other Extremity full ROM General Extremety ED: Negative for edema, tenderness or other findings General Extremity: Negative for edema or other findings Neuro CN's II-XII intact bilaterally and moves all extremities Sensorium / Orientation: alert, oriented to person, oriented to place and oriented to time; Negative for orientation impaired or confused Motor Exam: strength 5/5 throughout Psych mental status grossly normal and thought process normal Appearance: Negative for unkempt Attitude: No agitated Mood & Affect: Negative for depressed, anxious or tearful Skin no wounds General Skin Exam: Negative for jaundice or pallor Lesions: no lesions Rashes: no rashes Trauma: Negative for abrasion Nails: Negative for discolored MDM MDM MDM Narrative Medical decision making narrative: 74-year-old female with nausea and vomiting clinically dehydrated and hypotensive. Screening labs to be obtained. She is having no abdominal pain. I do not think she needs imaging at this time of her abdomen. Repeat exam patient is doing well at 730. Blood pressure is 101/50 2:06 liters of fluid. She looks and feels improved. Had a lengthy discussion with her and her daughter. She was started on IV Rocephin for UTI. History & Record Review Discussion w/independent historian: Patient Additional record(s) reviewed:: Prior inpatient record, Prior outpatient record, Prior ED visit and Prior labs Lab Data Attestation: I reviewed the patient's lab results. Lab results narrative: CBC shows a white count of 14. H&H 12.8 and 40. Platelets 349. Electrolytes show sodium 133. Gap 7. BUN and creatinine 23 and 1.25 which is her baseline renal insufficiency. Patient Glucose 137. Lactic acid normal at 1.6. Liver enzymes unremarkable. UA shows 10-25 white cells 3+ bacteria no nitrites consistent with UTI. Culture will be sent. She will be started on Rocephin. Labs: Laboratory Results - last 24 hr 03/27/24 03/27/24 15:50 16:10 WBC 14.0 H RBC 4.19 L Hgb 12.8 Hct 40.6 MCV 96.9 MCH 30.5 MCHC 31.5 L RDW Std Deviation 54.7 H RDW Coeff of Zachary 15.4 H Plt Count 349 MPV 11.0 Immature Gran % (Auto) 0.400 Neut % (Auto) 80.9 H Lymph % (Auto) 7.2 L [place] % (Auto) 11.1 H Eos % (Auto) 0.0 Baso % (Auto) 0.4 Absolute Neuts (auto) 11.3 H Absolute Lymphs (auto) 1.01 Nucleated RBC % 0 Differential Comment COMMENT Diff Path Review May foll Sodium 133 L Potassium 3.7 Chloride 98 Carbon Dioxide 28.0 Anion Gap 7 BUN 23 H Creatinine 1.25 H Estim Creat Clear Calc 42.66 Est GFR (MDRD) Af Amer 54 L Est GFR (MDRD) Non-Af 45 L BUN/Creatinine Ratio 18.4 Glucose 137 H Lactic Acid 1.6 Calcium 9.6 Total Bilirubin 2.20 H AST 19 ALT 10 L Alkaline Phosphatase 108 Total Protein 7.3 Albumin 2.5 L Globulin 4.8 H Albumin/Globulin Ratio 0.5 L Urine Color Kerri Urine Clarity Sl. Cloudy Urine pH 5.0 Ur Specific [place] 1.025 Urine Protein 30 H Urine Glucose (UA) Normal Urine Ketones 5 H Urine Occult Blood 25 H Urine Nitrite Negative Urine Bilirubin 1 H Urine Urobilinogen 8 H Ur Leukocyte Esterase 100 H Urine RBC 0 SEEN Urine WBC 10-25 SEEN Ur Squamous Epith Cells 0 SEEN Urine Bacteria 3+ Urine Mucus 0 SEEN Radiography Chest X-Ray - ED: 1 View and Read by ED Physician Diagnostic Testing: Clinical Impression(s) from Imaging Studies Chest X-Ray 03/27/24 15:55 IMPRESSION: No acute findings in the chest. Electronically Signed: Kaushik Ellis MD at 16:34 EDT , Discharge Plan Triage Chief Complaint: Nausea/Vomiting ED Provider: Frank Jules Dx/Rx/DC Orders Clinical Impression: Acute hypotension, Acute dehydration, Acute UTI, Chronic kidney disease, History of pulmonary embolism, Chronic anticoagulation Primary Care Provider: Kang Cannon Disposition Disposition: [facility] Care [facility]
--- NOTE | 2024-03-27 15:36 | EKG12_ITS ---
Test Reason : Blood Pressure : / mmHG Vent. Rate : 082 BPM Atrial Rate : 082 BPM P-R Int : 172 ms QRS Dur : 080 ms QT Int : 392 ms P-R-T Axes : 009 -23 067 degrees QTc Int : 457 ms Normal sinus rhythm Normal ECG Confirmed by KVNG LIMA, HELEN ([id number]), supervising film or videotape editor YAMILETH HARMON ([id number]) on 04/01/2024 7:11:01 AM Referred By: Confirmed By:BRAYAN CALDERON MD
[2024-03-27] MEDS: 0.9% Normal Saline (1000mL) 1,000 ML 1000 ML IV ×2 (15:45→17:14)
[2024-03-27] MEDS: Ondansetron 4 MG/2 ML Vial IV (15:45)
--- NOTE | 2024-03-27 15:55 | RAD_ITS ---
EXAM: XR CHEST, 1 VIEW CLINICAL INDICATION: weakness and hypotension TECHNIQUE: Frontal view of the chest. COMPARISON: 11/06/2022 FINDINGS: LUNGS AND PLEURAL SPACES: There is a rounded density in the left hilum which may represent a vascular coil. No pneumothorax. No effusion. HEART: Unremarkable. Cardiac silhouette not enlarged. MEDIASTINUM: Central airways and mediastinal contour are unremarkable. BONES/JOINTS: Unremarkable. No acute fracture. SOFT TISSUES: Unremarkable. RAD/Chest 1 View (Portable) IMPRESSION: No acute findings in the chest. Electronically Signed: Kaushik Ellis MD at 16:34 EDT ,
[2024-03-27 16:01] LABS: Absolute Lymphocyte Count 1.01 X10^3/uL (0.83-4.51); Absolute Neutrophil Count 11.3 X10^3/uL (2.0-7.7); Basophil# 0.06 X10^3/uL; Basophil% 0.4 % (0-1); Hematocrit 40.6 % (37-47); Hemoglobin 12.8 g/dL (12.0-15.0); Lymphocyte # 1.01 X10^3/ul (0.83-4.51); Lymphocyte % 7.2 % (19-41); Mean Corp Hgb Conc 31.5 g/dL (32-36); Mean Corpuscular Hgb 30.5 pg (27.0-32.0); Mean Corpuscular Volume 96.9 fL (81-99); Monocyte# 1.56 X10^3/uL; Monocyte% 11.1 % (0-10); NRBC Flagged by Analyzer 0 % (0-5); Neutrophil # 11.33 X10^3/uL (2.7-7.7); Neutrophil % 80.9 % (47-70); POSITIVE DIFFERENTIAL YES; Platelet Count 349 K/mm3 (150-450); RBC Distribution Width CV 15.4 % (11.6-14.6); RBC Distribution Width SD 54.7 fl (35.1-43.9); Red Blood Count 4.19 M/mm3 (4.2-5.4)
[2024-03-27 16:03] LABS: Differential Indicated SCAN CRITERIA MET
[2024-03-27 16:15] LABS: Mucous, Urine 0 SEEN /hpf (<or=2+); Squamous Epithelial Cells - UA 0 SEEN /hpf (5-10)
[2024-03-27 16:22] LABS: Lactic Acid 1.6 mmol/L (0.4-1.9)
[2024-03-27 16:23] LABS: ALB/GLOB Ratio 0.5 RATIO (0.9-2.4); AST(SGOT) 19 U/L (15-37); Alanine Aminotransfer ALT/SGPT 10 U/L (13-56); Albumin, Serum 2.5 g/dL (3.2-5.0); Alkaline Phosphatase 108 U/L (45-117); Anion Gap 7 (5-15); BUN 23 mg/dL (7-18); BUN/Creat Ratio 18.4 RATIO (10-20); Calcium,Total 9.6 mg/dL (8.5-10.1); Chloride 98 mmol/L (98-107); Creatinine, Serum 1.25 mg/dL (0.55-1.02); EST Glomerular Filtration Rate 45 mL/min (>60); Est Glom Filt Rate - Afr Amer 54 mL/min (>60); Estimated Creatinine Clearance 42.66 ml/min; Globulin 4.8 g/dL (2.2-4.2); Glucose 137 mg/dL (74-106); Potassium 3.7 mmol/L (3.5-5.1); Protein, Total 7.3 g/dL (6.4-8.2); Sodium Level 133 mmol/L (136-145)
[2024-03-27 16:29] LABS: Color, Urine Amber (Yellow); Glucose, Dipstick Normal (Normal); Ketone-Dipstick 5 mg/dl (Negative); Leukocyte Esterase-Dipstick 100 /ul (Negative); Nitrite-Dipstick Negative (Negative); Occult Blood-Urine 25 /ul (Negative); Protein-Dipstick 30 mg/dl (Negative); Specific Gravity, Urine 1.025 (1.002-1.030); Urine Bilirubin Dipstick 1 mg/dL (Negative); Urine Clarity Sl. Cloudy (Clear); Urine Urobilinogen 8 mg/dl (Normal)
[2024-03-27 16:56] LABS: Bacteria 3+ /hpf (None Seen); Red Blood Cells-Urine 0 SEEN /hpf (0-5); White Blood Cells 10-25 SEEN /hpf (0-5)
--- NOTE | 2024-03-27 19:24 | PCM.HP.STD ---
[facility] - General General Date of Admission: 03/27/24 Date of Service: 03/27/24 Chief Complaint: Nausea, Vomiting and Dizziness. [facility] Narrative BREANNA WEBSTER, is a 74 F with a past medical history of essential hypertension, morbid obesity; with BMI of 42.1 this admission, history of DVT/PE; on full-dose Lovenox after recent thrombectomies from lungs and both lower extremities, history of CVA, history of ER+ breast cancer; s/p Left mastectomy (2021) on Anastrozole, chronic anemia, history of vertigo; on prn Meclizine, history of adult [id number], history of cholecystectomy, history of appendectomy, history of abdominoplasty, history of D&C, history of foot fracture, osteoporosis, osteoarthritis and recent admissions here from February 07, 2024 to February 08, 2024 for treatment of ambulatory dysfunction and adult [id number]-wgnwzy in addition to another admission at the [facility] for intractable nausea and vomiting ~1 week ago who presents to [facility] ER complaining of yet more dizziness with intractable nausea and vomiting. Ms. Webster reports her symptoms began approximately 7 weeks prior to admission with intermittent nausea and vomiting with bilious emesis and very little oral intake. She also admits to coinciding dizziness that seems to trigger her waves of nausea and vomiting that she has not been able to control in spite of frequent and numerous antiemetics. She denies associated fever, chills, abdominal pain, diarrhea, constipation, dysuria, chest pain or SOB but she does admit to severe atraumatic Left wrist pain that is similar to her previous acute gout flares.. In the ER she was noted to have a UA positive for Acute Cystitis; without hematuria with a corresponding Leukocytosis of 14K present on admission complicated by clinical evidence of Intractable Nausea and Vomiting likely due to AE of Chronic BPPV along with incidentally noted hyperbilirubinemia of 2.2 mg/dL present on admission and hypoalbuminemia of 2.5 g/dL present on admission concerning for possible protein-calorie malnutrition due to poor oral intake along with clinical evidence of acute gout flare in the left wrist and she was then admitted to the general medical floor for ongoing care for a stay that is expected to extend beyond 2 midnights. [facility] Medical History (Updated 03/27/24 @ 23:[address] 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 Bilateral pulmonary embolism Anemia Foot fracture, left Family history of colon cancer in mother Encounter for education ER+ (estrogen receptor positive status) Degenerative joint disease Hypertension Osteopenia after menopause Cancer of left female breast Post-menopausal Arthritis Easy bruising Excessive bleeding Non-smoker Shortness of breath on exertion Pulmonary embolism Hypertension UTI (urinary tract infection) DVT (deep venous thrombosis) Home Medications ?Medication ?Instructions ?Recorded ?Last Taken ?Type lisinopril 10 mg tablet 10 mg PO DAILY BP 08/12/21 10/02/21 History mirtazapine 15 mg tablet 15 mg PO QHS 30 days #30 tabs 02/24/24 Unknown Rx oxycodone 5 mg tablet 10 mg (2 x 5 mg) PO Q4H PRN PRN 02/24/24 Unknown Rx Pain Score 4-10 Or Pre Pt/Ot 3 days #36 tabs prochlorperazine maleate 5 mg 10 mg (2 x 5 mg) PO Q4H PRN PRN 02/24/24 Unknown Rx tablet Nausea/Vomiting 7 days #36 tabs meclizine 25 mg tablet 25 mg PO Q8H PRN PRN Dizziness #20 03/04/24 Unknown Rx tabs ondansetron 8 mg disintegrating 8 mg PO Q8H PRN nausea and 03/04/24 Unknown Rx tablet vomiting #20 tabs anastrozole 1 mg tablet 1 mg PO DAILY #90 TABLETS 03/07/24 Unknown Rx apixaban 5 mg tablet (Eliquis) 5 mg PO DAILY BLOOD CLOTS 03/27/24 Unknown History baclofen 10 mg tablet 10 mg PO TID PRN PRN muscle spasm 03/27/24 Unknown History Allergy/AdvReac Type Severity Reaction Status Date / Time No Known Allergies Allergy Verified 03/27/24 15:08 Family History Grandmother Breast cancer Daughter Breast cancer Mother Colon cancer Surgical History History of appendectomy History of dilation and curettage History of left mastectomy (~08/2021) History of lumpectomy of left breast Hx of abdominoplasty History of cholecystectomy History of total knee replacement Social History household members: spouse Smoking Status: Never smoker alcohol intake: never substance use type: does not use ROS ROS Narrative Review of Systems: General: Patient denies fever or chills. HENT: Denies headache, denies stuffy nose, denies sore throat EYES: Denies changes in vision or discharge from eyes. Resp: Denies cough, denies shortness of breath Cardiac: Denies chest pain, palpitations or heart racing. GI: Patient admits to nausea and bilious emesis as per HPI but she denies abdominal pain, denies changes in bowel. : Denies changes in urination Extremity: Denies swelling Musculoskeletal: Patient admits to severe pain in her Left wrist without history of trauma typical of her previous gout flares as per HPI. Neuro: Patient denies headache, paresthesias or focal neurologic deficits. Heme: Denies any bleeding or bruising Skin: Denies rashes Psychiatric: No complaints voiced related to uncontrolled depression or anxiety. Endocrine: No polyuria, polydipsia or polyphagia. The rest of the 14 point ROS was negative except for positives in HPI. Vital Signs Vital Signs Vital Signs: 03/27/24 15:03 03/27/24 15:06 03/27/24 16:06 Temperature 98.2 F 98.2 F 98.2 F Temperature Source Oral Oral Oral Pulse Rate 85 85 84 Respiratory Rate 12 16 18 Blood Pressure 80/55 L 80/55 L 96/54 L Blood Pressure Mean 63 63 68 Pulse Ox 96 95 95 Oxygen Delivery Method Room Air Room Air Room Air 03/27/24 17:00 03/27/24 18:00 03/27/24 19:00 Temperature 97.8 F 98.2 F 98.2 F Temperature Source Oral Oral Oral Pulse Rate 82 86 88 Respiratory Rate 15 17 19 H Blood Pressure 106/54 L 104/53 L 105/47 L Blood Pressure Mean 71 70 66 Pulse Ox 94 94 92 Oxygen Delivery Method Room Air Room Air Room Air Weight Weight: 215 lb 9.793 oz Body Mass Index (BMI) 42.0 Physical Exam Const alert and oriented x3 Constitutional Narrative: Patient is morbidly obese and appears chronically ill. General Appearance: cooperative HEENT normocephalic, head/scalp atraumatic and hearing grossly normal bilaterally HEENT Narrative: Dry mucous membranes noted. Eyes PERRL and EOMs intact bilaterally Neck no lymphadenopathy and supple Resp normal respiratory effort, no retractions, no use of accessory muscles and clear to auscultation bilaterally Cardio regular rate and regular rhythm GI normal to inspection, nondistended, normoactive bowel sounds, soft to palpation, non-tender and non-distended GI Narrative: Morbidly obese. Extremity normal to inspection, full ROM and no clubbing, cyanosis or edema Skin Skin Narrative: Patient has no evidence of rash, abscess or jaundice. Neuro oriented x3, CN's II-XII intact bilaterally, moves all extremities and no focal motor deficits Sensorium / Orientation: awake, alert, oriented to person, oriented to place and oriented to time Speech: speech normal Psych affect normal Results Medical Records Data Attestation: I reviewed the patient's medical records Lab / Micro Data Attestation: I reviewed the patient's lab results. 03/27/24 15:50 03/27/24 15:50 Labs: Laboratory Results - last 24 hr 03/27/24 15:50: WBC 14.0 H, RBC 4.19 L, Hgb 12.8, Hct 40.6, MCV 96.9, MCH 30.5, MCHC 31.5 L, RDW Std Deviation 54.7 H, RDW Coeff of Zachary 15.4 H, Plt Count 349, MPV 11.0, Immature Gran % (Auto) 0.400, Neut % (Auto) 80.9 H, Lymph % (Auto) 7.2 L, [place] % (Auto) 11.1 H, Eos % (Auto) 0.0, Baso % (Auto) 0.4, Absolute Neuts (auto) 11.3 H, Absolute Lymphs (auto) 1.01, Nucleated RBC % 0, Differential Comment COMMENT, Diff Path Review December foll, Sodium 133 L, Potassium 3.7, Chloride 98, Carbon Dioxide 28.0, Anion Gap 7, BUN 23 H, Creatinine 1.25 H, Estim Creat Clear Calc 42.66, Est GFR (MDRD) Af Amer 54 L, Est GFR (MDRD) Non-Af 45 L, BUN/Creatinine Ratio 18.4, Glucose 137 H, Lactic Acid 1.6, Calcium 9.6, Total Bilirubin 2.20 H, AST 19, ALT 10 L, Alkaline Phosphatase 108, Total Protein 7.3, Albumin 2.5 L, Globulin 4.8 H, Albumin/Globulin Ratio 0.5 L 03/27/24 16:10: Urine Color Kerri, Urine Clarity Sl. Cloudy, Urine pH 5.0, Ur Specific [place] 1.025, Urine Protein 30 H, Urine Glucose (UA) Normal, Urine Ketones 5 H, Urine Occult Blood 25 H, Urine Nitrite Negative, Urine Bilirubin 1 H, Urine Urobilinogen 8 H, Ur Leukocyte Esterase 100 H, Urine RBC 0 SEEN, Urine WBC 10-25 SEEN, Ur Squamous Epith Cells 0 SEEN, Urine Bacteria 3+, Urine Mucus 0 SEEN Imaging Radiology Impression Chest X-Ray 03/27/24 15:55 IMPRESSION: No acute findings in the chest. Electronically Signed: Kaushik Ellis MD at 16:34 EDT , Assessment & Plan Assessment/Plan (1) Acute cystitis without hematuria: (2) Intractable nausea and vomiting: (3) BPPV (benign paroxysmal positional vertigo): QUALIFIERS: Laterality: unspecified laterality Qualified Code(s): H81.10 - Benign paroxysmal vertigo, unspecified ear (4) Hyperbilirubinemia: (5) Gout flare: QUALIFIERS: Gout site: wrist Gout etiology: idiopathic Laterality: left Qualified Code(s): M10.032 - Idiopathic gout, left wrist (6) Hypoalbuminemia: (7) History of pulmonary embolism: (8) Chronic anticoagulation: (9) Morbid obesity: PLAN: Plan 1. UA positive for Acute Cystitis; without hematuria with a corresponding Leukocytosis of 14K present on admission - Admit to general medical floor. Start empiric IV Rocephin and await culture and sensitivity data. Give Tylenol as needed for [id number] (level 1-5/10) pain or fever. Give morphine IV as needed for severe (level 6-10/10) pain. 2. Intractable Nausea and Vomiting likely due to AE of Chronic BPPV complicating #1 - Start scopolamine patch 1.5 mg topical every 72 hours. Continue meclizine as needed for breakthrough symptoms. Give IV Zofran as needed for nausea or vomiting. Give IM Phenergan as needed for breakthrough nausea and vomiting. 3. Acute gout flare in the Left wrist compounding #1 & #2 - Give Solu-Medrol 125 mg IV once along colchicine 0.6 mg p.o. twice daily. Patient should be switched to prednisone taper orally once her GI upset has resolved. 4. Hypoalbuminemia of 2.5 g/dL present on admission concerning for possible protein-calorie malnutrition due to poor oral intake for the past 7 weeks - We will consult dietitian for formal malnutrition evaluation without appreciated in advance. 5. Hyperbilirubinemia of 2.2 mg/dL present on admission with known history of cholecystectomy - Noted. Check CT scan of the abdomen and pelvis to evaluate for possible acute pathologic changes that would explain her symptomatology. Transaminases not elevated at this time. We will continue to monitor CMP daily to follow trend. 6. Recent admissions here from February 07, 2024 to February 08, 2024 for treatment of ambulatory dysfunction and adult [id number] in addition to another admission at the [facility] for intractable nausea and vomiting ~1 week ago - Noted. 7. History of DVT/PE; on full-dose Lovenox after recent thrombectomies from lungs and both lower extremities - Resume full-dose Lovenox as previous. 8. Morbid obesity; with BMI of 42.1 this admission - Weight loss will be recommended. Check TSH. This complicates her case and may hamper her recovery. 9. Essential hypertension - Continue current regimen plus give as needed IV hydralazine for systolic blood pressure greater than 160 mmHg. 10. History of CVA - Stable. 11. History of ER+ breast cancer; s/p Left mastectomy (2021) on Anastrozole - Noted. Resume Anastrozole as previous. 12. Chronic anemia - Stable with hemoglobin of 12.8 g/dL present on admission. 13. History of appendectomy - Noted. 14. History of abdominoplasty - Noted. 15. History of D&C - Noted for sake of completeness. 16. History of foot fracture - Stable. 17. Osteoporosis - Stable. 18. Osteoarthritis - Give Tylenol as needed. 19. DVT prophylaxis - Patient is already on full-dose Lovenox for #6 which will be continued. Total time: Approximately 75 minutes. Charges/Coding Visit Charges Inpatient E&M: 72878 Init Hosp L3
--- NOTE | 2024-03-27 21:12 | CT_ITS ---
EXAM: CT ABDOMEN AND PELVIS WITHOUT INTRAVENOUS CONTRAST CLINICAL INDICATION: Intractable nausea vomiting with hyperbili TECHNIQUE: Helically acquired images were obtained of the abdomen and pelvis without intravenous contrast. This CT exam was performed using one or more of the following dose reduction techniques: automated exposure control, adjustment of the mA and/or kV according to patient size, and/or use of iterative reconstruction technique. COMPARISON: No relevant prior studies available. FINDINGS: LOWER THORAX: There are moderate coronary artery calcifications. Lung bases are clear. No cardiomegaly. No significant pericardial effusion. ABDOMEN: LIVER: Unremarkable. Homogeneous. GALLBLADDER AND BILE DUCTS: Unremarkable. No calcified gallstones. No gallbladder distention or wall edema. No intra- or extrahepatic biliary ductal dilation. PANCREAS: Unremarkable. No focal cystic mass. SPLEEN: Unremarkable. Normal size without focal cystic or solid mass. ADRENALS: Unremarkable. No nodules. KIDNEYS AND URETERS: There are nonobstructing calyceal stones in the kidneys. Normal renal size and position. STOMACH AND BOWEL: There is colonic diverticulosis with no evidence of diverticulitis. No stomach or bowel distention. PELVIS: APPENDIX: No evidence of acute appendicitis. BLADDER: Unremarkable. REPRODUCTIVE: Unremarkable as visualized. No mass. ABDOMEN and PELVIS: INTRAPERITONEAL SPACE: Unremarkable. No ascites or other fluid collection. No free air. BONES/JOINTS: Unremarkable. No suspicious lytic or blastic abnormality. SOFT TISSUES: There are small rounded contusions in the subcutaneous tissues over the lower abdomen injection granulomas. No discrete abdominal or pelvic wall hernia. VASCULATURE: See above. LYMPH NODES: Unremarkable. No enlarged lymph nodes. TUBES, LINES AND DEVICES: Intrauterine device. CT/Abdomen/Pelvis without Cont IMPRESSION: Rounded contusions in the subcutaneous tissues over the lower abdomen which may be due to injection granulomas. No other acute abnormalities identified. Electronically Signed: Kaushik Ellis MD at 23:18 EDT ,
[2024-03-27] MEDS: Baclofen 10 MG Tablet PO (21:33)
[2024-03-27] MEDS: 0.9% Normal Saline (1000mL) 1,000 ML 70 ML IV (21:33)
[2024-03-27] MEDS: proMETHazine 25 MG/ML Syringe IM (21:33)
[2024-03-27] MEDS: Meclizine HCl 25 MG Tablet PO (21:33)
[2024-03-27] MEDS: Scopolamine 1mg/72hr Patch 1 PATCH TD (21:34)
[2024-03-27] MEDS: 0.9% Saline Lock 10 ML Syringe IV ×2 (21:35→22:12)
[2024-03-27] MEDS: Morphine 2 MG/ML Syringe IV (21:44)
[2024-03-27] MEDS: Ceftriaxone 1 GM/50 ML BAG IV (22:12)
[2024-03-27] MEDS: Mirtazapine 15 MG Tablet PO (22:12)
[2024-03-27] MEDS: Nystatin Powder 15gm Bottle 1 APPLIC TOPICAL (22:12)
[2024-03-27] MEDS: MethylPREDNISolone 125 MG/2 ML Vial IV (22:12)
[2024-03-27] MEDS: Colchicine 0.6 MG TABLET PO (22:13)
[2024-03-27] MEDS: Menthol/Lanolin/Calamine/Znox 113 GM Tube 1 APPLIC TOPICAL (22:15)
[2024-03-28 03:20] VITALS: BP 121/72; PULSE 80; RESP 18; TEMP 37.1; O2SAT 94
[2024-03-28] MEDS: Enoxaparin 100 MG/ML Syringe SC ×2 (05:05→18:47)
[2024-03-28 05:06] LABS: Absolute Lymphocyte Count 0.24 X10^3/uL (0.83-4.51); Basophil# 0.02 X10^3/uL; Basophil% 0.2 % (0-1); Hematocrit 36.9 % (37-47); Hemoglobin 11.7 g/dL (12.0-15.0); Lymphocyte # 0.24 X10^3/ul (0.83-4.51); Lymphocyte % 2.3 % (19-41); Mean Corp Hgb Conc 31.7 g/dL (32-36); Mean Corpuscular Volume 97.9 fL (81-99); Mean Platelet Vol. 11.4 fl (6.2-12.0); Monocyte# 0.15 X10^3/uL; Monocyte% 1.4 % (0-10); NRBC Flagged by Analyzer 0 % (0-5); Neutrophil # 9.98 X10^3/uL (2.7-7.7); Neutrophil % 95.7 % (47-70); POSITIVE DIFFERENTIAL YES; Platelet Count 306 K/mm3 (150-450); RBC Distribution Width CV 15.4 % (11.6-14.6); RBC Distribution Width SD 55.6 fl (35.1-43.9); Red Blood Count 3.77 M/mm3 (4.2-5.4); White Blood Count 10.4 K/mm3 (4.4-11.0)
[2024-03-28 05:46] LABS: ALB/GLOB Ratio 0.5 RATIO (0.9-2.4); AST(SGOT) 14 U/L (15-37); Alanine Aminotransfer ALT/SGPT 9 U/L (13-56); Albumin, Serum 2.1 g/dL (3.2-5.0); Alkaline Phosphatase 98 U/L (45-117); Anion Gap 8 (5-15); BUN 23 mg/dL (7-18); BUN/Creat Ratio 24.9 RATIO (10-20); Calcium,Total 8.8 mg/dL (8.5-10.1); Chloride 105 mmol/L (98-107); Creatinine, Serum 0.92 mg/dL (0.55-1.02); EST Glomerular Filtration Rate 63 mL/min (>60); Est Glom Filt Rate - Afr Amer 77 mL/min (>60); Estimated Creatinine Clearance 56.91 ml/min; Globulin 4.3 g/dL (2.2-4.2); Glucose 159 mg/dL (74-106); Magnesium 1.8 mg/dL (1.6-2.6); Phosphorus 2.4 mg/dL (2.5-4.9); Potassium 3.6 mmol/L (3.5-5.1); Protein, Total 6.4 g/dL (6.4-8.2); Sodium Level 135 mmol/L (136-145); Thyroid Stim Hormone (TSH) 0.541 uIU/mL (0.358-3.740)
[2024-03-28 10:00] VITALS: BP 98/61; PULSE 73; RESP 18; TEMP 37; O2SAT 93
[2024-03-28 10:33] LABS: Pathologist Review Reviewed
[2024-03-28] MEDS: 0.9% Normal Saline (1000mL) 1,000 ML 70 ML IV (11:42)
--- NOTE | 2024-03-28 12:00 | CASEMGMT ---
JOSE HARDING Assessment: Face to Face with pt for initial transition planning/care coordination assessment. RN MEHDI introduced self and role at [facility], pt voices understanding and consents to assessment. Pt is A&O x4 and answers all questions appropriately at this time. Care providers, pharmacy, and demographics verified/updated. Admitting Dx: UTI with intractable nausea and vomitting. Strata Score: 3 PCP: Kassandra Specialists: Heart, Contracts Manager, and urologist - cannot recall doctors names Preferred Pharmacy: [facility] Insurance: [employer] [facility], [facility] Prescription Benefit: yes LNOK: Sig Other, Daughter Living Arrangements: Pt lives alone in an appt with zero steps to enter. Pt reports currently staying with fiance because she is needing assistance. Pt reports fiance and pt daughter able to assist her at home. Daughter works so not able to be there all the time. Transportation: Pt drives self, currently fiance driving her when needed. DME: Walker, wheelchair, bedside commode. HHC/SNF: Denies Hx of SNF, states previously used HHC but does not recall what agency. Discussed DC needs, pt not agreeable to SNF, denies list of local facilities acceptable by pt insurance. Pt states no further concerns/needs. CM to follow. Advised pt to ask CM if any further question/concerns/needs arise, voices understanding. Pt Goal: Home Plan: TBD, Follow Therapy. 6 clicks = 14, pt 2 person assist. JOSE Cuevas CM
[2024-03-28] MEDS: Colchicine 0.6 MG TABLET PO (12:26)
[2024-03-28] MEDS: Magnesium Chloride 64 MG Delay Rel.Tablet 128 MG PO (12:26)
[2024-03-28] MEDS: Menthol/Lanolin/Calamine/Znox 113 GM Tube 1 APPLIC TOPICAL ×2 (12:26→22:28)
[2024-03-28] MEDS: Nystatin Powder 15gm Bottle 1 APPLIC TOPICAL ×2 (12:27→22:28)
--- NOTE | 2024-03-28 13:27 | PCM.PROGNOTE ---
Subjective Subjective Patient seen and examined. She was sleepy but had been able to wake up. She denied any fever, chills, palpitations, nausea or vomiting or any other symptoms. Review of systems otherwise negative. She still does complain of some dizziness from moving her head from side to side. Review of systems is otherwise negative. Objective Data Objective Data Vital Signs: Vital Signs Temp Pulse Resp BP Pulse Ox O2 Del Method 98.6 F 73 18 98/61 93 Room Air 03/28/24 10:00 03/28/24 10:00 03/28/24 10:00 03/28/24 10:00 03/28/24 10:00 03/28/24 11:17 Oxygen Delivery Method Room Air Weight: 209 lb Body Mass Index (BMI) 41.0 Intake & Output: Intake and Output for Last 24 Hours 03/26/24 03/27/24 03/28/24 23:59 23:59 23:59 Intake Total 2095.5 / 2095.5 1060 / 1060 Output Total 200 / 200 Balance 2095.5 / 2095.5 860 / 860 Medical Nutrition Assessment Dietitian: Malnutrition Criteria Met Start: 03/28/24 12:15 Freq: Status: Active Protocol: Document 03/28/24 12:15 SLA (Rec: 03/28/24 12:15 SLA [id number]) Nutrition Malnutrition Evidence of Malnutrition Exists Yes Malnutrition (severe): Acute Illness/Injury Evidenced By Suboptimal Energy Intake ( Severe),Weight Loss (Severe) Clinical Problem Acute Disease or Injury Related Malnutrition Etiology related to acute illness and inadequate energy intake Signs/Symptoms as evidenced by 6.3% unintended wt loss and po intake meeting <50% of estimated nutritional needs x <1 month Status Active Problem Recommendation Dietitian Recommendations/Changes As medically able, rec SUZANNE to liberal Regular diet d/t signs and symptoms of malnutrition As medically able, rec 4 oz ensure plus high protein 4x/ day w/ medpass for increased nutrition if consumed. Lab / Micro Data 03/28/24 04:28 03/28/24 04:28 Labs: Laboratory Results - last 24 hr 03/27/24 15:50: WBC 14.0 H, RBC 4.19 L, Hgb 12.8, Hct 40.6, MCV 96.9, MCH 30.5, MCHC 31.5 L, RDW Std Deviation 54.7 H, RDW Coeff of Zachary 15.4 H, Plt Count 349, MPV 11.0, Immature Gran % (Auto) 0.400, Neut % (Auto) 80.9 H, Lymph % (Auto) 7.2 L, [place] % (Auto) 11.1 H, Eos % (Auto) 0.0, Baso % (Auto) 0.4, Absolute Neuts (auto) 11.3 H, Absolute Lymphs (auto) 1.01, Nucleated RBC % 0, Differential Comment COMMENT, Diff Path Review Reviewed, Sodium 133 L, Potassium 3.7, Chloride 98, Carbon Dioxide 28.0, Anion Gap 7, BUN 23 H, Creatinine 1.25 H, Estim Creat Clear Calc 42.66, Est GFR (MDRD) Af Amer 54 L, Est GFR (MDRD) Non-Af 45 L, BUN/Creatinine Ratio 18.4, Glucose 137 H, Lactic Acid 1.6, Calcium 9.6, Total Bilirubin 2.20 H, AST 19, ALT 10 L, Alkaline Phosphatase 108, Total Protein 7.3, Albumin 2.5 L, Globulin 4.8 H, Albumin/Globulin Ratio 0.5 L 03/27/24 16:10: Urine Color Kerri, Urine Clarity Sl. Cloudy, Urine pH 5.0, Ur Specific [place] 1.025, Urine Protein 30 H, Urine Glucose (UA) Normal, Urine Ketones 5 H, Urine Occult Blood 25 H, Urine Nitrite Negative, Urine Bilirubin 1 H, Urine Urobilinogen 8 H, Ur Leukocyte Esterase 100 H, Urine RBC 0 SEEN, Urine WBC 10-25 SEEN, Ur Squamous Epith Cells 0 SEEN, Urine Bacteria 3+, Urine Mucus 0 SEEN 03/28/24 04:28: WBC 10.4, RBC 3.77 L, Hgb 11.7 L, Hct 36.9 L, MCV 97.9, MCH 31.0, MCHC 31.7 L, RDW Std Deviation 55.6 H, RDW Coeff of Zachary 15.4 H, Plt Count 306, MPV 11.4, Immature Gran % (Auto) 0.400, Neut % (Auto) 95.7 H, Lymph % (Auto) 2.3 L, [place] % (Auto) 1.4, Eos % (Auto) 0.0, Baso % (Auto) 0.2, Absolute Neuts (auto) 10.0 H, Absolute Lymphs (auto) 0.24 L, Nucleated RBC % 0, Sodium 135 L, Potassium 3.6, Chloride 105, Carbon Dioxide 22.0, Anion Gap 8, BUN 23 H, Creatinine 0.92, Estim Creat Clear Calc 56.91, Est GFR (MDRD) Af Amer 77, Est GFR (MDRD) Non-Af 63, BUN/Creatinine Ratio 24.9 H, Glucose 159 H, Calcium 8.8, Phosphorus 2.4 L, Magnesium 1.8, Total Bilirubin 1.60 H, AST 14 L, ALT 9 L, Alkaline Phosphatase 98, Total Protein 6.4, Albumin 2.1 L, Globulin 4.3 H, Albumin/Globulin Ratio 0.5 L, TSH 0.541 Radiography Diagnostic Testing: Radiology Impression Chest X-Ray 03/27/24 15:55 IMPRESSION: No acute findings in the chest. Electronically Signed: Kaushik Ellis MD at 16:34 EDT , Abdomen/Pelvis CT 03/27/24 21:12 IMPRESSION: Rounded contusions in the subcutaneous tissues over the lower abdomen which may be due to injection granulomas. No other acute abnormalities identified. Electronically Signed: Kaushik Ellis MD at 23:18 EDT , Physical Exam Const alert, oriented x3 and no apparent distress Constitutional Narrative: morbidly obese General Appearance: cooperative HEENT normocephalic, head/scalp atraumatic, moist oral mucous membranes and oropharynx normal Eyes PERRL and EOMs intact bilaterally Neck no lymphadenopathy and supple Lymph Lymphatic: no lymphadenopathy noted and no lymphedema noted Resp normal respiratory effort, normal air movement and clear to auscultation bilaterally Cardio regular rate, regular rhythm, S1 normal heart sound, S2 normal heart sound and no murmurs Peripheral Pulses: pulses 2+ throughout GI normal to inspection, nondistended, normoactive bowel sounds, soft to palpation, non-tender and non-distended Extremity normal capillary refill, no clubbing, cyanosis or edema and no calf tenderness General Extremity: no tenderness to palpation of joints or extremities Skin General Skin Exam: no breakdown Neuro CN's II-XII intact bilaterally, no focal motor deficits, no sensory deficits noted and deep tendon reflexes 2+ bilaterally Motor Exam: strength 5/5 throughout and general weakness Psych thought process normal, cooperative and affect normal Appearance: appropriate Assessment & Plan Assessment/Plan (1) Intractable nausea and vomiting: (2) Acute cystitis without hematuria: PLAN: Plan #Acute cystitis with hematuria currently on IV ceftriaxone urinalysis showed 3+ bacteria urine culture pending #Dizziness, likely due to BPPV says her dizziness is worsened by moving her head from side to side. on meclizine and IV zofran prn will benefit from vestibular therapy PT/OT on board. Fall precautions #Acute flare up of gout in left wrist: on IV solumedrol and PO cochicine #Hyperbilirubinemia: etiology is unclear. She does have a history of cholecystectomy. They have been extremely down today to 1.6. Will continue to monitor. #History of DVT and PE: on therapeutic dose of lovenox. has had thrombectomy from lungs and both lower exremities #Benign essential hypertension: #History of breast cancer: S/p left mastectomy. On anastrozole. #Morbid obesity: BMI is 41. Complicates acute care, expected recovery and prognosis. DVT prophylaxis: on therapeutic lovenox Charges/Coding Visit Charges Inpatient E&M: 87548 Subs Hosp L2
[2024-03-28 15:34] VITALS: BP 105/60; PULSE 85; RESP 18; TEMP 37.2; O2SAT 94
--- NOTE | 2024-03-28 16:00 | CASEMGMT ---
Discharge Planning A list of?HH providers including quality and resource use data and consistent with the patient's preferred geographic region, medical needs, and insurance network was created in [employer] Guide.? This list was provided to the RN MEHDI. Ila Valladares, Discharge Planning Asst.
[2024-03-28] MEDS: Mirtazapine 15 MG Tablet PO (22:27)
[2024-03-28] MEDS: Ceftriaxone 1 GM/50 ML BAG IV (22:28)
[2024-03-28 22:36] VITALS: BP 113/61; PULSE 88; RESP 16; TEMP 36.6; O2SAT 95
[2024-03-29] MEDS: 0.9% Normal Saline (1000mL) 1,000 ML 70 ML IV (02:06)
[2024-03-29] MEDS: Enoxaparin 100 MG/ML Syringe SC ×2 (04:33→18:34)
[2024-03-29 04:45] VITALS: BMI 43.2
[2024-03-29 04:57] VITALS: BP 110/61; PULSE 86; RESP 17; TEMP 36.6; O2SAT 97
[2024-03-29 07:50] LABS: Absolute Lymphocyte Count 0.75 X10^3/uL (0.83-4.51); Absolute Neutrophil Count 10.8 X10^3/uL (2.0-7.7); Basophil# 0.01 X10^3/uL; Basophil% 0.1 % (0-1); Eosinophil# 0.01 X10^3/uL; Eosinophils% 0.1 % (0-5); Hematocrit 34.1 % (37-47); Hemoglobin 10.7 g/dL (12.0-15.0); Lymphocyte # 0.75 X10^3/ul (0.83-4.51); Mean Corp Hgb Conc 31.4 g/dL (32-36); Mean Corpuscular Hgb 30.8 pg (27.0-32.0); Mean Corpuscular Volume 98.3 fL (81-99); Mean Platelet Vol. 11.6 fl (6.2-12.0); Monocyte# 0.77 X10^3/uL; Monocyte% 6.2 % (0-10); NRBC Flagged by Analyzer 0 % (0-5); Platelet Count 350 K/mm3 (150-450); RBC Distribution Width CV 15.1 % (11.6-14.6); RBC Distribution Width SD 54.5 fl (35.1-43.9); Red Blood Count 3.47 M/mm3 (4.2-5.4); White Blood Count 12.4 K/mm3 (4.4-11.0)
[2024-03-29] MEDS: Calcium Carb/Vitamin D 1 TABLET Tablet PO (07:57)
[2024-03-29] MEDS: Anastrozole 1 MG TABLET PO (07:57)
[2024-03-29] MEDS: Magnesium Chloride 64 MG Delay Rel.Tablet 128 MG PO (07:57)
[2024-03-29] MEDS: Colchicine 0.6 MG TABLET PO (07:57)
[2024-03-29] MEDS: Nystatin Powder 15gm Bottle 1 APPLIC TOPICAL ×2 (07:57→21:46)
[2024-03-29] MEDS: Menthol/Lanolin/Calamine/Znox 113 GM Tube 1 APPLIC TOPICAL ×2 (07:58→21:46)
[2024-03-29 08:15] LABS: Anion Gap 8 (5-15); BUN 27 mg/dL (7-18); BUN/Creat Ratio 34.5 RATIO (10-20); Chloride 111 mmol/L (98-107); Creatinine, Serum 0.78 mg/dL (0.55-1.02); EST Glomerular Filtration Rate 77 mL/min (>60); Est Glom Filt Rate - Afr Amer 93 mL/min (>60); Estimated Creatinine Clearance 67.45 ml/min; Glucose 107 mg/dL (74-106); Potassium 3.4 mmol/L (3.5-5.1); Sodium Level 140 mmol/L (136-145)
[2024-03-29 10:00] VITALS: BP 121/62; PULSE 88; RESP 16; TEMP 37.2; O2SAT 98
--- NOTE | 2024-03-29 11:02 | PN_ITS ---
Subjective Subjective Patient seen and examined. She complains of the pain in her left hand due to the gout. She has no other complaints and review of systems otherwise negative. She has remained hemodynamically stable. Objective Data Objective Data Vital Signs: Vital Signs Temp Pulse Resp BP Pulse Ox O2 Del Method 97.9 F 86 17 110/61 97 Room Air 03/29/24 04:57 03/29/24 04:57 03/29/24 04:57 03/29/24 04:57 03/29/24 04:57 03/29/24 10:47 Oxygen Delivery Method Room Air Weight: 220 lb 0.341 oz Body Mass Index (BMI) 43.2 Intake & Output: Intake and Output for Last 24 Hours 03/27/24 03/28/24 03/29/24 23:59 23:59 23:59 Intake Total 2095.5 / 2095.5 1240 / 1440 1250 / 1250 Output Total 400 / 800 500 / 500 Balance 2095.5 / 2095.5 840 / 640 750 / 750 Medical Nutrition Assessment Dietitian: Malnutrition Criteria Met Start: 03/28/24 12:15 Freq: Status: Active Protocol: Document 03/28/24 12:15 SLA (Rec: 03/28/24 12:15 SLA [email or web address]) Nutrition Malnutrition Evidence of Malnutrition Exists Yes Malnutrition (severe): Acute Illness/Injury Evidenced By Suboptimal Energy Intake ( Severe),Weight Loss (Severe) Clinical Problem Acute Disease or Injury Related Malnutrition Etiology related to acute illness and inadequate energy intake Signs/Symptoms as evidenced by 6.3% unintended wt loss and po intake meeting <50% of estimated nutritional needs x <1 month Status Active Problem Recommendation Dietitian Recommendations/Changes As medically able, rec SUZANNE to liberal Regular diet d/t signs and symptoms of malnutrition As medically able, rec 4 oz ensure plus high protein 4x/ day w/ medpass for increased nutrition if consumed. Lab / Micro Data 03/29/24 06:57 03/29/24 06:57 Labs: Laboratory Results - last 24 hr 03/29/24 06:57: WBC 12.4 H, RBC 3.47 L, Hgb 10.7 L, Hct 34.1 L, MCV 98.3, MCH 30.8, MCHC 31.4 L, RDW Std Deviation 54.5 H, RDW Coeff of Zachary 15.1 H, Plt Count 350, MPV 11.6, Immature Gran % (Auto) 0.600, Neut % (Auto) 87.0 H, Lymph % (Auto) 6.0 L, [place] % (Auto) 6.2, Eos % (Auto) 0.1, Baso % (Auto) 0.1, Absolute Neuts (auto) 10.8 H, Absolute Lymphs (auto) 0.75 L, Nucleated RBC % 0, Sodium 140, Potassium 3.4 L, Chloride 111 H, Carbon Dioxide 21.0, Anion Gap 8, BUN 27 H , Creatinine 0.78, Estim Creat Clear Calc 67.45, Est GFR (MDRD) Af Amer 93, Est GFR (MDRD) Non-Af 77, BUN/Creatinine Ratio 34.5 H, Glucose 107 H, Calcium 9.0 Micro: Microbiology 03/27/24 16:10 Urine, Clean Catch Urine Culture - Preliminary GNR lactose building drafting officer Gram negative nelson Physical Exam Const alert, oriented x3 and no apparent distress Constitutional Narrative: morbidly obese General Appearance: cooperative HEENT normocephalic, head/scalp atraumatic, hearing grossly normal bilaterally, moist oral mucous membranes and oropharynx normal Eyes PERRL and EOMs intact bilaterally Neck no lymphadenopathy and supple Lymph Lymphatic: no lymphadenopathy noted and no lymphedema noted Resp normal respiratory effort, normal air movement, no retractions, no use of accessory muscles and clear to auscultation bilaterally Cardio regular rate, regular rhythm, S1 normal heart sound, S2 normal heart sound and no murmurs Peripheral Pulses: pulses 2+ throughout GI normal to inspection, nondistended, normoactive bowel sounds, soft to palpation, non-tender and non-distended GI Narrative: Morbidly obese. Extremity normal to inspection, normal capillary refill, no clubbing, cyanosis or edema and no calf tenderness Extremity Narrative: has swelling of her left hand due to gout, unable to fully make a fist. Skin Skin Narrative: Patient has no evidence of rash, abscess or jaundice. General Skin Exam: no breakdown Neuro oriented x3, CN's II-XII intact bilaterally, moves all extremities, no focal motor deficits, no sensory deficits noted and deep tendon reflexes 2+ bilaterally Sensorium / Orientation: awake, alert, oriented to person, oriented to place and oriented to time Speech: speech normal Motor Exam: strength 5/5 throughout and general weakness Psych thought process normal, cooperative and affect normal Appearance: appropriate Assessment & Plan Assessment/Plan (1) Intractable nausea and vomiting: (2) Acute cystitis without hematuria: PLAN: Plan #Acute cystitis with hematuria * currently on IV ceftriaxone * urinalysis showed 3+ bacteria * urine culture growing gram negative nelson and GNR lactose building drafting officer. * #Dizziness, likely due to BPPV * says her dizziness is worsened by moving her head from side to side. * on meclizine and IV zofran prn * will benefit from vestibular therapy * PT/OT on board. * Fall precautions * #Acute flare up of gout in left wrist: on IV solumedrol and PO colchicine. Still having pain in her left hand. Will continue colchicine and switch to PO prednisone. #Hyperbilirubinemia: etiology is unclear. She does have a history of cholecystectomy. They have been extremely down today to 1.6. Will continue to monitor. #History of DVT and PE: on therapeutic dose of lovenox. has had thrombectomy from lungs and both lower exremities #Benign essential hypertension: on lisinopril. #History of breast cancer: S/p left mastectomy. On anastrozole. #Morbid obesity: BMI is 41. Complicates acute care, expected recovery and prognosis. DVT prophylaxis: on therapeutic lovenox Charges/Coding Visit Charges Inpatient E&M: 67266 Subs Hosp L2
--- NOTE | 2024-03-29 12:00 | CASEMGMT ---
Addendum entered by Steffi Holly 03/29/24 14:11: TC to Dr. Cannon's office, f/u appt for HH made for 04/06 at 1100. This was the first available appt. TC to Dayanara at [facility] to make aware, left vm. Original Note: JOSE CM into pt room to discuss dc planning. Pt states she would like [facility]. Discussed SN, PT and OT. Provided pt with a list of [employer] SAL[employer]PRESENT[employer]IVE created by dc lens assistant. Pt states she doesn't know who to pick. Read pt the star ratings, agenices and locations. Pt has chosen 1. [facility] 2. [facility] as she wants a local agency. TC to Dayanara at [facility], referral made, will await for acceptance. She asks for an appt to be made with when office opens up.
[2024-03-29] MEDS: Acetaminophen 325 MG Tablet 650 MG PO (14:52)
[2024-03-29] MEDS: predniSONE 20 MG Tablet 40 MG PO (14:53)
[2024-03-29 17:09] VITALS: BP 112/62; PULSE 74; RESP 18; TEMP 36.9; O2SAT 98
[2024-03-29 17:12] VITALS: O2SAT 97
[2024-03-29 19:45] VITALS: BP 121/68; PULSE 78; RESP 14; TEMP 36.6; O2SAT 95
[2024-03-29] MEDS: 0.9% Saline Lock 10 ML Syringe IV ×2 (20:05→21:44)
[2024-03-29] MEDS: Ceftriaxone 1 GM/50 ML BAG IV (21:45)
[2024-03-29] MEDS: Mirtazapine 15 MG Tablet PO (21:45)
[2024-03-30] MEDS: Enoxaparin 100 MG/ML Syringe SC ×2 (04:59→17:14)
[2024-03-30 05:11] VITALS: BP 124/81; PULSE 74; RESP 14; TEMP 36.3; O2SAT 96
[2024-03-30 06:00] VITALS: BMI 43.1
[2024-03-30 07:29] LABS: Absolute Lymphocyte Count 0.57 X10^3/uL (0.83-4.51); Absolute Neutrophil Count 5.8 X10^3/uL (2.0-7.7); Hematocrit 33.7 % (37-47); Hemoglobin 10.7 g/dL (12.0-15.0); Lymphocyte # 0.57 X10^3/ul (0.83-4.51); Lymphocyte % 8.4 % (19-41); Mean Corp Hgb Conc 31.8 g/dL (32-36); Mean Corpuscular Hgb 30.7 pg (27.0-32.0); Mean Corpuscular Volume 96.6 fL (81-99); Mean Platelet Vol. 11.2 fl (6.2-12.0); Monocyte# 0.39 X10^3/uL; Monocyte% 5.7 % (0-10); NRBC Flagged by Analyzer 0 % (0-5); Neutrophil # 5.81 X10^3/uL (2.7-7.7); Neutrophil % 85.5 % (47-70); POSITIVE DIFFERENTIAL YES; Platelet Count 327 K/mm3 (150-450); RBC Distribution Width CV 14.6 % (11.6-14.6); RBC Distribution Width SD 52.2 fl (35.1-43.9); Red Blood Count 3.49 M/mm3 (4.2-5.4); White Blood Count 6.8 K/mm3 (4.4-11.0)
[2024-03-30] MEDS: Anastrozole 1 MG TABLET PO (08:26)
[2024-03-30] MEDS: Calcium Carb/Vitamin D 1 TABLET Tablet PO (08:26)
[2024-03-30] MEDS: Colchicine 0.6 MG TABLET PO (08:26)
[2024-03-30] MEDS: Magnesium Chloride 64 MG Delay Rel.Tablet 128 MG PO (08:27)
[2024-03-30] MEDS: Lisinopril 10 MG Tablet PO (08:27)
[2024-03-30] MEDS: predniSONE 20 MG Tablet 40 MG PO (08:27)
[2024-03-30] MEDS: Nystatin Powder 15gm Bottle 1 APPLIC TOPICAL ×2 (08:29→22:16)
[2024-03-30] MEDS: Menthol/Lanolin/Calamine/Znox 113 GM Tube 1 APPLIC TOPICAL ×2 (08:30→22:16)
[2024-03-30 08:33] LABS: Anion Gap 5 (5-15); BUN 24 mg/dL (7-18); BUN/Creat Ratio 31.8 RATIO (10-20); Chloride 111 mmol/L (98-107); Creatinine, Serum 0.76 mg/dL (0.55-1.02); EST Glomerular Filtration Rate 80 mL/min (>60); Est Glom Filt Rate - Afr Amer 97 mL/min (>60); Estimated Creatinine Clearance 67.41 ml/min; Glucose 126 mg/dL (74-106); Potassium 3.4 mmol/L (3.5-5.1); Sodium Level 139 mmol/L (136-145)
[2024-03-30 08:59] VITALS: BP 106/73; PULSE 78; RESP 16; TEMP 36.4; O2SAT 95
--- NOTE | 2024-03-30 11:26 | CASEMGMT ---
Addendum entered by Elaine Gao 03/30/24 12:20: Per therapy tx note today, pt only able to side-step 2-3 ft to get to HOB and requiring 2 assist for bed mobility. Discussed this w/pt. She confirms she does not want to go to a SNF and wants HHC. Pt states she will be going to her fiance's home ([place]) @ [place] and that he will be able to take care of her, stating he has been doing this for her. She provided his address and [employer] updated. He lives in [place]. Call placed to Dayanara @ [facility] and she was made aware. She states it has been difficult to reach pt in the past and also requests that pt be made aware to not go back and forth b/w her home and Adrien's while getting [facility] services. JOSE HARDING back to room. Pt states she often does not answer her phone d/t receiving so many spam calls. She also states she plans to go to [place]rien's home @ [place] and stay there for awhile, as he helps to take care of her. Dayanara spoke w/pt at this time as well to reinforce the above and made pt aware when [facility] calls it will be from a [phone] #. Pt voices appreciation of this information. Original Note: JOSE HARDING NOTE: Per [facility]an[facility], they are able to accept pt. Made aware anticipate discharge home tomorrow. She was also made aware pt will need vestibular therapy per Dr Chao's note and this was added to C order. She states SOC slated for Thursday. DC plan updated and pt made aware. She denies other discharge needs/concerns at this time. Made aware to ask for CM if anything arises. Kayden HENDRIX RN, CM
[2024-03-30 11:27] VITALS: BP 127/78; PULSE 83; RESP 16; TEMP 36.3; O2SAT 96
--- NOTE | 2024-03-30 12:19 | PN_ITS ---
Subjective Subjective Patient seen and examined. She still complains of pain in her left hand. She says the pain from the gout is improved a bit but is still there. Review of systems otherwise negative. Objective Data Objective Data Vital Signs: Vital Signs Temp Pulse Resp BP Pulse Ox O2 Del Method 97.4 F L 83 16 127/78 H 96 Room Air 03/30/24 11:27 03/30/24 11:27 03/30/24 11:27 03/30/24 11:27 03/30/24 11:27 03/30/24 11:27 Oxygen Delivery Method Room Air Weight: 219 lb 12.814 oz Body Mass Index (BMI) 43.1 Intake & Output: Intake and Output for Last 24 Hours 03/28/24 03/29/24 03/30/24 23:59 23:59 23:59 Intake Total 1240 / 1440 2800 / 2800 Output Total 400 / 800 700 / 700 500 / 500 Balance 840 / 640 2100 / 2100 -500 / -500 Medical Nutrition Assessment Dietitian: Malnutrition Criteria Met Start: 03/28/24 12:15 Freq: Status: Active Protocol: Document 03/28/24 12:15 SLA (Rec: 03/28/24 12:15 SLA [email or web address]) Nutrition Malnutrition Evidence of Malnutrition Exists Yes Malnutrition (severe): Acute Illness/Injury Evidenced By Suboptimal Energy Intake ( Severe),Weight Loss (Severe) Clinical Problem Acute Disease or Injury Related Malnutrition Etiology related to acute illness and inadequate energy intake Signs/Symptoms as evidenced by 6.3% unintended wt loss and po intake meeting <50% of estimated nutritional needs x <1 month Status Active Problem Recommendation Dietitian Recommendations/Changes As medically able, rec SUZANNE to liberal Regular diet d/t signs and symptoms of malnutrition As medically able, rec 4 oz ensure plus high protein 4x/ day w/ medpass for increased nutrition if consumed. Lab / Micro Data 03/30/24 07:00 03/30/24 07:00 Labs: Laboratory Results - last 24 hr 03/30/24 07:00: WBC 6.8, RBC 3.49 L, Hgb 10.7 L, Hct 33.7 L, MCV 96.6, MCH 30.7, MCHC 31.8 L, RDW Std Deviation 52.2 H, RDW Coeff of Zachary 14.6, Plt Count 327, MPV 11.2, Immature Gran % (Auto) 0.400, Neut % (Auto) 85.5 H, Lymph % (Auto) 8.4 L, [place] % (Auto) 5.7, Eos % (Auto) 0.0, Baso % (Auto) 0.0, Absolute Neuts (auto) 5.8, Absolute Lymphs (auto) 0.57 L, Nucleated RBC % 0, Sodium 139, Potassium 3.4 L, Chloride 111 H, Carbon Dioxide 23.0, Anion Gap 5, BUN 24 H, Creatinine 0.76, Estim Creat Clear Calc 67.41, Est GFR (MDRD) Af Amer 97, Est GFR (MDRD) Non-Af 80, BUN/Creatinine Ratio 31.8 H, Glucose 126 H, Calcium 9.0 Micro: Microbiology 03/27/24 16:10 Urine, Clean Catch Urine Culture - Preliminary GNR lactose pharmacy coordinator Gram negative nelson Physical Exam Const alert, oriented x3 and no apparent distress Constitutional Narrative: morbidly obese General Appearance: cooperative HEENT normocephalic, head/scalp atraumatic, hearing grossly normal bilaterally, moist oral mucous membranes and oropharynx normal Eyes PERRL and EOMs intact bilaterally Neck no lymphadenopathy and supple Lymph Lymphatic: no lymphadenopathy noted and no lymphedema noted Resp normal respiratory effort, normal air movement, no retractions, no use of accessory muscles and clear to auscultation bilaterally Cardio regular rate, regular rhythm, S1 normal heart sound, S2 normal heart sound and no murmurs Peripheral Pulses: pulses 2+ throughout GI normal to inspection, nondistended, normoactive bowel sounds, soft to palpation, non-tender and non-distended GI Narrative: Morbidly obese. Extremity normal to inspection, normal capillary refill, no clubbing, cyanosis or edema and no calf tenderness Extremity Narrative: has swelling of her left hand due to gout, unable to fully make a fist due to pain General Extremity: no tenderness to palpation of joints or extremities Skin General Skin Exam: no breakdown Neuro oriented x3, CN's II-XII intact bilaterally, moves all extremities, no focal motor deficits, no sensory deficits noted and deep tendon reflexes 2+ bilaterally Sensorium / Orientation: awake, alert, oriented to person, oriented to place and oriented to time Speech: speech normal Motor Exam: strength 5/5 throughout and general weakness Psych thought process normal, cooperative and affect normal Appearance: appropriate Assessment & Plan Assessment/Plan (1) Intractable nausea and vomiting: (2) Acute cystitis without hematuria: PLAN: Plan #Acute cystitis with hematuria * currently on IV ceftriaxone * urinalysis showed 3+ bacteria * urine culture growing gram negative nelson and GNR lactose pharmacy coordinator; speciation is still pending. * #Dizziness, likely due to BPPV * improved markedly. Has no such complaints. * on meclizine and IV zofran prn * will benefit from vestibular therapy * PT/OT on board. * Fall precautions * #Acute flare up of gout in left wrist: Still having pain in her left hand. Will continue colchicine and continue PO prednisone. #Hyperbilirubinemia: etiology is unclear. She does have a history of cholecystectomy. has been trending downwards. Will monitor. #History of DVT and PE: on therapeutic dose of lovenox. has had thrombectomy from lungs and both lower exremities #Benign essential hypertension: on lisinopril. #History of breast cancer: S/p left mastectomy. On anastrozole. #Morbid obesity: BMI is 41. Complicates acute care, expected recovery and prognosis. DVT prophylaxis: on therapeutic lovenox Disposition: anticipate dc tomorrow Charges/Coding Visit Charges Inpatient E&M: 55718 Subs Hosp L2
[2024-03-30 15:28] VITALS: BP 106/67; PULSE 95; RESP 16; TEMP 36.5; O2SAT 94
[2024-03-30 20:55] VITALS: BP 117/58; PULSE 84; RESP 18; TEMP 37.1; O2SAT 98
[2024-03-30 20:58] VITALS: PULSE 84
[2024-03-30] MEDS: Ceftriaxone 1 GM/50 ML BAG IV (22:16)
[2024-03-30] MEDS: Mirtazapine 15 MG Tablet PO (22:17)
[2024-03-30] MEDS: Scopolamine 1mg/72hr Patch 1 PATCH TD (22:17)
[2024-03-31 01:00] VITALS: BP 107/55; PULSE 88; RESP 18; TEMP 37.1; O2SAT 98
[2024-03-31 04:26] VITALS: BMI 43.1
[2024-03-31 04:42] VITALS: BP 117/67; PULSE 69; RESP 18; TEMP 36.5; O2SAT 98
[2024-03-31] MEDS: Enoxaparin 100 MG/ML Syringe SC ×2 (04:49→17:40)
[2024-03-31 07:22] LABS: Absolute Lymphocyte Count 1.41 X10^3/uL (0.83-4.51); Absolute Neutrophil Count 4.9 X10^3/uL (2.0-7.7); Basophil# 0.01 X10^3/uL; Basophil% 0.1 % (0-1); Hemoglobin 10.9 g/dL (12.0-15.0); Lymphocyte # 1.41 X10^3/ul (0.83-4.51); Mean Corp Hgb Conc 32.1 g/dL (32-36); Mean Corpuscular Hgb 30.8 pg (27.0-32.0); Mean Platelet Vol. 11.3 fl (6.2-12.0); Monocyte# 0.71 X10^3/uL; Monocyte% 10.1 % (0-10); NRBC Flagged by Analyzer 0 % (0-5); Neutrophil % 69.4 % (47-70); Platelet Count 311 K/mm3 (150-450); RBC Distribution Width CV 14.4 % (11.6-14.6); RBC Distribution Width SD 50.8 fl (35.1-43.9); Red Blood Count 3.54 M/mm3 (4.2-5.4); White Blood Count 7.1 K/mm3 (4.4-11.0)
[2024-03-31 07:54] LABS: Anion Gap 5 (5-15); BUN 23 mg/dL (7-18); BUN/Creat Ratio 27.9 RATIO (10-20); Chloride 109 mmol/L (98-107); Creatinine, Serum 0.82 mg/dL (0.55-1.02); EST Glomerular Filtration Rate 72 mL/min (>60); Est Glom Filt Rate - Afr Amer 88 mL/min (>60); Estimated Creatinine Clearance 65.77 ml/min; Glucose 101 mg/dL (74-106); Potassium 3.4 mmol/L (3.5-5.1); Sodium Level 139 mmol/L (136-145)
[2024-03-31] MEDS: predniSONE 20 MG Tablet 40 MG PO (08:02)
[2024-03-31] MEDS: Anastrozole 1 MG TABLET PO (08:02)
[2024-03-31] MEDS: Calcium Carb/Vitamin D 1 TABLET Tablet PO (08:02)
[2024-03-31] MEDS: Menthol/Lanolin/Calamine/Znox 113 GM Tube 1 APPLIC TOPICAL ×2 (08:02→23:04)
[2024-03-31] MEDS: Nystatin Powder 15gm Bottle 1 APPLIC TOPICAL ×2 (08:02→23:05)
[2024-03-31] MEDS: Colchicine 0.6 MG TABLET PO (08:03)
[2024-03-31] MEDS: Magnesium Chloride 64 MG Delay Rel.Tablet 128 MG PO (08:03)
[2024-03-31] MEDS: Lisinopril 10 MG Tablet PO (08:03)
--- NOTE | 2024-03-31 09:25 | CASEMGMT ---
JOSE HARDING NOTE: Dayanara @ [facility] made aware pt is not discharging today. SOC is now slated for Thursday. Kayden HENDRIX RN, CM
[2024-03-31 09:47] VITALS: BP 121/82; PULSE 67; RESP 18; TEMP 36.6; O2SAT 98
--- NOTE | 2024-03-31 10:29 | PN_ITS ---
Subjective Subjective Patient seen and examined. She says she feels tired and weak and cannot go home today. She has no active complaitns. Pain in her left hand from gout is getting better. Review of systems is otherwise negative. She has remained hemodynamically stable. Objective Data Objective Data Vital Signs: Vital Signs Temp Pulse Resp BP Pulse Ox O2 Del Method 98 F 67 18 121/82 H 98 Room Air 03/31/24 09:47 03/31/24 09:47 03/31/24 09:47 03/31/24 09:47 03/31/24 09:47 03/31/24 09:47 Oxygen Delivery Method Room Air Weight: 219 lb 12.814 oz Body Mass Index (BMI) 43.1 Intake & Output: Intake and Output for Last 24 Hours 03/29/24 03/30/24 03/31/24 23:59 23:59 23:59 Intake Total 2800 / 2800 250 / 550 500 / 500 Output Total 700 / 700 500 / 700 400 / 400 Balance 2100 / 2100 -250 / -150 100 / 100 Medical Nutrition Assessment Dietitian: Malnutrition Criteria Met Start: 03/28/24 12:15 Freq: Status: Active Protocol: Document 03/28/24 12:15 SLA (Rec: 03/28/24 12:15 SLA [email or web address]) Nutrition Malnutrition Evidence of Malnutrition Exists Yes Malnutrition (severe): Acute Illness/Injury Evidenced By Suboptimal Energy Intake ( Severe),Weight Loss (Severe) Clinical Problem Acute Disease or Injury Related Malnutrition Etiology related to acute illness and inadequate energy intake Signs/Symptoms as evidenced by 6.3% unintended wt loss and po intake meeting <50% of estimated nutritional needs x <1 month Status Active Problem Recommendation Dietitian Recommendations/Changes As medically able, rec SUZANNE to liberal Regular diet d/t signs and symptoms of malnutrition As medically able, rec 4 oz ensure plus high protein 4x/ day w/ medpass for increased nutrition if consumed. Lab / Micro Data 03/31/24 07:01 03/31/24 07:01 Labs: Laboratory Results - last 24 hr 03/31/24 07:01: WBC 7.1, RBC 3.54 L, Hgb 10.9 L, Hct 34.0 L, MCV 96.0, MCH 30.8, MCHC 32.1, RDW Std Deviation 50.8 H, RDW Coeff of Zachary 14.4, Plt Count 311, MPV 11.3, Immature Gran % (Auto) 0.400, Neut % (Auto) 69.4, Lymph % (Auto) 20.0, M [place] % (Auto) 10.1 H, Eos % (Auto) 0.0, Baso % (Auto) 0.1, Absolute Neuts (auto) 4.9, Absolute Lymphs (auto) 1.41, Nucleated RBC % 0, Sodium 139, Potassium 3.4 L , Chloride 109 H, Carbon Dioxide 25.0, Anion Gap 5, BUN 23 H, Creatinine 0.82, Estim Creat Clear Calc 65.77, Est GFR (MDRD) Af Amer 88, Est GFR (MDRD) Non-Af 72, BUN/Creatinine Ratio 27.9 H, Glucose 101, Calcium 9.0 Micro: Microbiology 03/27/24 16:10 Urine, Clean Catch Urine Culture - Final Escherichia coli Physical Exam Const alert, oriented x3 and no apparent distress Constitutional Narrative: morbidly obese General Appearance: cooperative HEENT normocephalic, head/scalp atraumatic, hearing grossly normal bilaterally, moist oral mucous membranes and oropharynx normal Eyes PERRL and EOMs intact bilaterally Neck no lymphadenopathy and supple Lymph Lymphatic: no lymphadenopathy noted and no lymphedema noted Resp normal respiratory effort, normal air movement, no retractions, no use of accessory muscles and clear to auscultation bilaterally Cardio regular rate, regular rhythm, S1 normal heart sound, S2 normal heart sound and no murmurs Peripheral Pulses: pulses 2+ throughout GI normal to inspection, nondistended, normoactive bowel sounds, soft to palpation, non-tender and non-distended GI Narrative: Morbidly obese. Extremity Extremity Narrative: swelling in her left hand has improved. General Extremity: no tenderness to palpation of joints or extremities Skin General Skin Exam: no breakdown Neuro oriented x3, CN's II-XII intact bilaterally, moves all extremities, no focal motor deficits, no sensory deficits noted and deep tendon reflexes 2+ bilaterally Sensorium / Orientation: awake, alert, oriented to person, oriented to place and oriented to time Speech: speech normal Motor Exam: strength 5/5 throughout and general weakness Psych thought process normal, cooperative and affect normal Appearance: appropriate Assessment & Plan Assessment/Plan (1) Intractable nausea and vomiting: (2) Acute cystitis without hematuria: PLAN: Plan #Acute cystitis with hematuria * currently on IV ceftriaxone * urinalysis showed 3+ bacteria * urine culture growing E coli. * will switch to PO cefdinir * #Dizziness, likely due to BPPV * improved markedly. H * on meclizine and IV zofran prn * will benefit from vestibular therapy * PT/OT on board. * Fall precautions * #Acute flare up of gout in left wrist: Pain continues to improve. Will continue colchicine and continue PO prednisone. #Hyperbilirubinemia: etiology is unclear. She does have a history of cholecystectomy. has been trending downwards. Will monitor. #History of DVT and PE: on therapeutic dose of lovenox. has had thrombectomy from lungs and both lower exremities #Benign essential hypertension: on lisinopril. #History of breast cancer: S/p left mastectomy. On anastrozole. #Morbid obesity: BMI is 41. Complicates acute care, expected recovery and prognosis. DVT prophylaxis: on therapeutic lovenox Disposition: patient says she doesnt feel well enough to go home today. o work with PT/OT today to see if she will benefit from placement. If she doesnt need placement, for DC tomorrow. Charges/Coding Visit Charges Inpatient E&M: 88806 Subs Hosp L2
[2024-03-31 14:45] VITALS: BP 123/70; PULSE 68; RESP 18; TEMP 36.8; O2SAT 97
[2024-03-31 21:00] VITALS: BP 121/66; PULSE 70; RESP 18; TEMP 36.7; O2SAT 97
[2024-03-31] MEDS: Cefdinir 300 MG Capsule PO (23:05)
[2024-03-31] MEDS: Mirtazapine 15 MG Tablet PO (23:06)
[2024-04-01] MEDS: Enoxaparin 100 MG/ML Syringe SC (04:44)
[2024-04-01 05:09] VITALS: BMI 41.6
[2024-04-01 07:47] LABS: Absolute Lymphocyte Count 1.48 X10^3/uL (0.83-4.51); Absolute Neutrophil Count 4.8 X10^3/uL (2.0-7.7); Basophil# 0.01 X10^3/uL; Basophil% 0.1 % (0-1); Hematocrit 34.5 % (37-47); Hemoglobin 11.2 g/dL (12.0-15.0); Lymphocyte # 1.48 X10^3/ul (0.83-4.51); Lymphocyte % 21.4 % (19-41); Mean Corp Hgb Conc 32.5 g/dL (32-36); Mean Corpuscular Hgb 30.7 pg (27.0-32.0); Mean Corpuscular Volume 94.5 fL (81-99); Mean Platelet Vol. 11.1 fl (6.2-12.0); Monocyte% 8.7 % (0-10); NRBC Flagged by Analyzer 0 % (0-5); Neutrophil # 4.76 X10^3/uL (2.7-7.7); Neutrophil % 69.1 % (47-70); Platelet Count 304 K/mm3 (150-450); RBC Distribution Width CV 14.5 % (11.6-14.6); Red Blood Count 3.65 M/mm3 (4.2-5.4); White Blood Count 6.9 K/mm3 (4.4-11.0)
[2024-04-01 08:41] VITALS: BP 134/78; PULSE 84; RESP 18; TEMP 36.8; O2SAT 98
[2024-04-01 08:41] LABS: Anion Gap 6 (5-15); BUN 21 mg/dL (7-18); BUN/Creat Ratio 29.9 RATIO (10-20); Chloride 109 mmol/L (98-107); EST Glomerular Filtration Rate 87 mL/min (>60); Est Glom Filt Rate - Afr Amer 105 mL/min (>60); Glucose 85 mg/dL (74-106); Potassium 3.1 mmol/L (3.5-5.1); Sodium Level 139 mmol/L (136-145)
[2024-04-01] MEDS: Cefdinir 300 MG Capsule PO (08:45)
[2024-04-01] MEDS: Magnesium Chloride 64 MG Delay Rel.Tablet 128 MG PO (08:45)
[2024-04-01] MEDS: Calcium Carb/Vitamin D 1 TABLET Tablet PO (08:45)
[2024-04-01] MEDS: Colchicine 0.6 MG TABLET PO (08:46)
[2024-04-01] MEDS: Menthol/Lanolin/Calamine/Znox 113 GM Tube 1 APPLIC TOPICAL (08:46)
[2024-04-01] MEDS: predniSONE 20 MG Tablet 40 MG PO (08:46)
[2024-04-01] MEDS: Lisinopril 10 MG Tablet PO (08:46)
[2024-04-01] MEDS: Anastrozole 1 MG TABLET PO (08:46)
[2024-04-01] MEDS: Nystatin Powder 15gm Bottle 1 APPLIC TOPICAL (08:46)
--- NOTE | 2024-04-01 11:00 | CASEMGMT ---
Social Work- SW met with pt to discuss pt reports of feeling depressed. Pt reports that it is because I've spent 9 weeks in the hospital between [facility] and [facility]. Pt reports that at baseline she does not have depression. Pt reports that she does not need mental health referral or information because pt feels that when she is home, she will no longer be depressed. SW provided education and support; pt did agree that SW can leave mental health providers list. SW will remain available to follow up as needed. DAVID Armenta
--- NOTE | 2024-04-01 11:45 | DS.PCM_ITS ---
Providers Date of Admission: 03/27/24 Date of Discharge: 04/01/24 Primary Care Physician: Dr. Kang Cannon MD Reason For Visit: UTI WITH INTRACTABLE NAUSEA AND VOMITING Diagnosis Discharge Diagnosis (1) Intractable nausea and vomiting: Status: Acute Code(s): R11.2 - Nausea with vomiting, unspecified (2) Acute cystitis without hematuria: Status: Acute Code(s): N30.00 - Acute cystitis without hematuria Plan #Acute cystitis with hematuria * currently on IV ceftriaxone * urinalysis showed 3+ bacteria * urine culture growing E coli. * will switch to PO cefdinir * #Dizziness, likely due to BPPV * improved markedly. H * on meclizine and IV zofran prn * will benefit from vestibular therapy * PT/OT on board. * Fall precautions * #Acute flare up of gout in left wrist: Pain continues to improve. Will continue colchicine and continue PO prednisone. #Hyperbilirubinemia: etiology is unclear. She does have a history of cholecystectomy. has been trending downwards. Will monitor. #History of DVT and PE: on therapeutic dose of lovenox. has had thrombectomy from lungs and both lower exremities #Benign essential hypertension: on lisinopril. #History of breast cancer: S/p left mastectomy. On anastrozole. #Morbid obesity: BMI is 41. Complicates acute care, expected recovery and prognosis. DVT prophylaxis: on therapeutic lovenox Disposition: patient says she doesnt feel well enough to go home today. o work with PT/OT today to see if she will benefit from placement. If she doesnt need placement, for DC tomorrow. Medications at Discharge Home Medications lisinopril 10 mg tablet 10 mg PO DAILY BP 08/12/21 mirtazapine 15 mg tablet 15 mg PO QHS 30 days #30 tabs 02/24/24 oxycodone 5 mg tablet 10 mg (2 x 5 mg) PO Q4H PRN PRN Pain Score 4-10 Or Pre Pt/Ot 3 days #36 tabs 02/24/24 prochlorperazine maleate 5 mg tablet 10 mg (2 x 5 mg) PO Q4H PRN PRN Nausea/Vomiting 7 days #36 tabs 02/24/24 meclizine 25 mg tablet 25 mg PO Q8H PRN PRN Dizziness #20 tabs 03/04/24 ondansetron 8 mg disintegrating tablet 8 mg PO Q8H PRN nausea and vomiting #20 tabs 03/04/24 anastrozole 1 mg tablet 1 mg PO DAILY #90 TABLETS 03/07/24 apixaban 5 mg tablet (Eliquis) 5 mg PO DAILY BLOOD CLOTS 03/27/24 baclofen 10 mg tablet 10 mg PO TID PRN PRN muscle spasm 03/27/24 apixaban 5 mg tablet (Eliquis) 5 mg PO BID #60 tabs 04/01/24 cefdinir 300 mg capsule 300 mg PO Q12 #8 caps 04/01/24 prednisone 20 mg tablet 40 mg (2 x 20 mg) PO BREAKFAST #5 tabs 04/01/24 Hospital Course Operations None Procedures None Summary of Care Provided Minutes Spent on Discharge: 55 Hospital Course: Patient is a 74-year-old female with a past medical history as outlined was admitted through the ED on 03/27/2024 with a complaint of nausea and vomiting as well as dizziness. His symptoms started about 7 weeks prior to admission. She had also had decreased oral intake and says she had episodes of dizziness which to get her nausea and vomiting. On admission urinalysis showed evidence of UTI. She did have chronic BPPV she was thought to be contributing to her dizziness. She also complained of left wrist pain which was thought to be due to gout. She was admitted and managed for UTI as well as gout flare up. She was also treated for intractable nausea and vomiting due to BPPV. She was placed on scopolamine patch and meclizine. She was also placed on IV Zofran. She was started on IV ceftriaxone. Urine cultures grew E. coli so she was switched to p.o. cefdinir. Her dizziness subsequently improved and resolved. She was placed on colchicine and prednisone for her gout flareup. Her wrist pain subsequently improved and she felt better. She had been on therapeutic Lovenox was in the hospital due to her history of DVT and PE requiring thrombectomy. On discharge she says she had been on Eliquis at home so she was placed on p.o. Eliquis 5 mg twice daily to continue treatment for DVT and PE. She work with therapy and was recommended to go home with home health. She remains stable and was discharged on 04/01/2024. She is follow-up with her primary care doctor within 1 to 2 weeks. She was discharged with a prescription for p.o. cefdinir 300 mg twice daily for 5 days and also. Prednisone 40 mg daily for 5 days for her gout. Patient was seen and examined prior to discharge. She had no active complaints and had an uneventful night. Review of symptoms otherwise negative. Labs and vitals reviewed. Home medication reviewed and reconciled. Physical Exam Const alert, oriented x3 and no apparent distress Constitutional Narrative: morbidly obese General Appearance: cooperative, comfortable and well kempt Orientation / Consciousness: awake Exam Limitations: no limitations HEENT normocephalic, head/scalp atraumatic, hearing grossly normal bilaterally, moist oral mucous membranes and oropharynx normal Mouth: oral and palatal mucosa normal Eyes PERRL and EOMs intact bilaterally Neck no lymphadenopathy and supple Lymph Lymphatic: no lymphadenopathy noted and no lymphedema noted Resp normal respiratory effort, normal air movement, no retractions, no use of accessory muscles and clear to auscultation bilaterally Cardio regular rate, regular rhythm, S1 normal heart sound, S2 normal heart sound and no murmurs Peripheral Pulses: pulses 2+ throughout GI normal to inspection, nondistended, normoactive bowel sounds, soft to palpation, non-tender and non-distended GI Narrative: Morbidly obese. Extremity normal to inspection, normal capillary refill, no clubbing, cyanosis or edema and no calf tenderness Extremity Narrative: swelling in her left hand has improved. General Extremity: no tenderness to palpation of joints or extremities Skin no rashes or lesions noted General Skin Exam: no breakdown Neuro oriented x3, CN's II-XII intact bilaterally, moves all extremities, no focal motor deficits, no sensory deficits noted and deep tendon reflexes 2+ bilaterally Sensorium / Orientation: awake, alert, oriented to person, oriented to place and oriented to time Speech: speech normal Motor Exam: strength 5/5 throughout and general weakness Psych thought process normal, cooperative and affect normal Appearance: appropriate Medical Records Data Medical Nutrition Assessment Dietitian: Malnutrition Criteria Met Start: 03/28/24 12:15 Freq: Status: Active Protocol: Document 03/28/24 12:15 CHAPIN (Rec: 03/28/24 12:15 [facility] [id number]) Nutrition Malnutrition Evidence of Malnutrition Exists Yes Malnutrition (severe): Acute Illness/Injury Evidenced By Suboptimal Energy Intake ( Severe),Weight Loss (Severe) Clinical Problem Acute Disease or Injury Related Malnutrition Etiology related to acute illness and inadequate energy intake Signs/Symptoms as evidenced by 6.3% unintended wt loss and po intake meeting <50% of estimated nutritional needs x <1 month Status Active Problem Recommendation Dietitian Recommendations/Changes As medically able, rec SUZANNE to liberal Regular diet d/t signs and symptoms of malnutrition As medically able, rec 4 oz ensure plus high protein 4x/ day w/ medpass for increased nutrition if consumed. Weight / BMI Weight Weight: 212 lb 0.7 oz Body Mass Index (BMI) 41.6 ABG / Lab / Microbiology Data 04/01/24 07:02 04/01/24 07:02 Laboratory: Laboratory Results - last 24 hr 04/01/24 07:02: WBC 6.9, RBC 3.65 L, Hgb 11.2 L, Hct 34.5 L, MCV 94.5, MCH 30.7, MCHC 32.5, RDW Std Deviation 50.0 H, RDW Coeff of Zachary 14.5, Plt Count 304, MPV 11.1, Immature Gran % (Auto) 0.700, Neut % (Auto) 69.1, Lymph % (Auto) 21.4, [place] % (Auto) 8.7, Eos % (Auto) 0.0, Baso % (Auto) 0.1, Absolute Neuts (auto) 4.8, Absolute Lymphs (auto) 1.48, Nucleated RBC % 0, Sodium 139, Potassium 3.1 L , Chloride 109 H, Carbon Dioxide 24.0, Anion Gap 6, BUN 21 H, Creatinine 0.70, Estim Creat Clear Calc 66.00, Est GFR (MDRD) Af Amer 105, Est GFR (MDRD) Non-Af 87, BUN/Creatinine Ratio 29.9 H, Glucose 85, Calcium 9.0 Microbiology: Microbiology 03/27/24 16:10 Urine, Clean Catch Urine Culture - Final Escherichia coli D/C Instructions Discharge Diet: Low fat / Low cholesterol Discharge Activity: Return to Normal Activity Weight Bearing Status: Weight bearing as tolerated Call your doctor if you observe: Fever of 101 or Higher, Shortness of breath, Dizziness, Swelling in the ankles and Chest pain Meaningful Use Info Meaningful Use Meaningful Use Diagnoses (Choose all that apply): None applicable Ischemic Stroke Statin Dosing Therapy Reference: STATIN DOSE THERAPY REFERENCE: * Patients > 75 years receive moderate or high dose statin therapy. * Patients 75 years or YOUNGER should receive HIGH intensity statin dose unless contraindicated. You will be required to document reason for non-treatment if statin daily dose does not meet guidelines. HIGH DOSE STATIN THERAPY DAILY Atorvastatin > than or = to 40 mg Rosuvastatin > than or = to 20 mg Amlodipine + Atorvastatin > than or = to 2.5/40 mg Ezetimibe + Simvastatin 10/80 mg Simvastatin 80mg Discharge Plan Admission Admit Date/Time: 03/27/24 19:41 Primary Reason for Your Visit: UTI Attending Provider: Naye Chao Primary Care Provider: Kang Cannon Consulting Providers: Tian Bernard Instructions Patient Instructions: BPPV, ED UTIs Women Discharge Orders/Prescriptions Prescriptions: New prednisone 20 mg Tablet 40 mg PO BREAKFAST Qty: 5 0RF cefdinir 300 mg Capsule 300 mg PO Q12 Qty: 8 0RF Eliquis 5 mg tablet 5 mg PO BID Qty: 60 2RF Continued lisinopril 10 mg tablet 10 mg PO DAILY Patient Comments: TAKE 1 TABLET BY MOUTH DAILY prochlorperazine maleate 5 mg Tablet 10 mg PO Q4H PRN PRN (Reason: Nausea/Vomiting) 7 Days Qty: 36 0RF mirtazapine 15 mg Tablet 15 mg PO QHS 30 Days Qty: 30 0RF oxycodone 5 mg Tablet 10 mg PO Q4H PRN PRN (Reason: Pain Score 4-10 Or Pre Pt/Ot) 3 Days Qty: 36 0RF meclizine 25 mg tablet 25 mg PO Q8H PRN PRN (Reason: Dizziness) Qty: 20 0RF ondansetron 8 mg tablet,disintegrating 8 mg PO Q8H PRN (Reason: nausea and vomiting) Qty: 20 0RF Eliquis 5 mg tablet 5 mg PO DAILY Rx Instructions: BID X7 DAYS STARTING 03/18/24 THEN 1 TAB DAILY FOR 21 DAYS baclofen 10 mg tablet 10 mg PO TID PRN PRN (Reason: muscle spasm) anastrozole 1 mg tablet 1 mg PO DAILY Qty: 90 3RF Referrals / Follow Up: Kang Cannon MD [Primary Care Provider] - 04/06/24 11:00 am Disposition Disposition (needs filled in before D/C Order can be placed): Home Health Service Charges/Coding Visit Charges Inpatient E&M: 86095 Disch Hosp >30min
--- NOTE | 2024-04-01 12:21 | CASEMGMT ---
Addendum entered by Elaine Gao 04/01/24 13:10: Eliquis has been e-scribed to [facility] in addition to several other medications. Call placed to [facility] and spoke w/John. He states it is too soon for Eliquis to be picked up, stating it was filled @ another pharmacy 03/18. Pt made aware. She verifies she did pick it up @ [facility] and has it @ home. She is aware script is on file @ [facility] for her to pick it up once she is running low. She voices understanding. John had also stated the other medications that were sent to [facility] have been processed and there are is no co-pay. Pt made aware. She states her BF will be taking her home today and he can stop @ [facility] to pickling tank operator the medications. Addendum entered by Elaine Gao 04/01/24 13:00: ST eval has been completed. See assessment. Per ST, OP ST is not recommended. SW added to [facility] order for support. Call placed to [facility] and she was notified. Original Note: JOSE HARDING NOTE: Pt being discharged home. [facility] @ [facility] made aware. SOC slated for Thursday. Pt made aware. She denies having other discharge needs/concerns. Kayden HENDRIX RN, CM
[2024-04-01 14:52] VITALS: BP 124/75; PULSE 81; RESP 18; TEMP 37.1; O2SAT 99
== END 2024-04-01 17:57 | disposition home or self-care (01) | DRG 149 ==
LOC: ED 18:08 → MS3 20:00
PROVIDERS: Admitting Provider Internal Medicine; Emergency Provider Emergency Medicine; PCP Family Medicine; Visit Provider Student in an Organized Health Care Education/Training Program
DX: H81.10 Benign paroxysmal vertigo, unspecified ear (principal); Z68.41 Body mass index [BMI] 40.0-44.9, adult; C50.912 Malignant neoplasm of unspecified site of left female breast; E66.01 Morbid (severe) obesity due to excess calories; E86.0 Dehydration; E80.6 Other disorders of bilirubin metabolism; I95.9 Hypotension, unspecified; I12.9 Hypertensive chronic kidney disease with stage 1 through stage 4 chronic kidney disease, or unspecified chronic kidney disease; N18.9 Chronic kidney disease, unspecified; M10.032 Idiopathic gout, left wrist; R11.2 Nausea with vomiting, unspecified; M19.90 Unspecified osteoarthritis, unspecified site; Z17.0 Estrogen receptor positive status [ER+]; M81.0 Age-related osteoporosis without current pathological fracture; Z79.01 Long term (current) use of anticoagulants; Z79.811 Long term (current) use of aromatase inhibitors; Z86.73 Personal history of transient ischemic attack (TIA), and cerebral infarction without residual deficits; Z86.718 Personal history of other venous thrombosis and embolism; Z86.711 Personal history of pulmonary embolism; Z90.12 Acquired absence of left breast and nipple
CPT/HCPCS: 36415; 71045; 74176; 80048; 80053; 81001; 83605; 83735; 84100; 84443; 85025; 87077; 87086; 87088; 87186; 92610; 93005; 97110; 97116; 97162; 97166; 97530; 97535; 97802; 97803; 99285; P9612; A4216; J2405

== ENCOUNTER 2024-04-04 14:51 | Inpatient (IN) | payer MEDICARE, MEDICAID, SELFPAY ==
[2024-04-04] VITALS (9 sets, daily range): BP systolic 101–124; BP diastolic 52–98; PULSE 66–96; RESP 14–27; TEMP 36.1–36.8; O2SAT 97–99; BMI 41.7; BMI 40.7
--- NOTE | 2024-04-04 18:20 | EKG12_ITS ---
Test Reason : WEAKNESS Blood Pressure : / mmHG Vent. Rate : 077 BPM Atrial Rate : 077 BPM P-R Int : 170 ms QRS Dur : 078 ms QT Int : 410 ms P-R-T Axes : 000 -09 046 degrees QTc Int : 463 ms Normal sinus rhythm Minimal voltage criteria for LVH, may be normal variant ( R in aVL ) Borderline ECG Confirmed by Luis Carlos Hanks ([id number]), social media editor GIANNA KELLY ([id number]) on 04/06/2024 8:20:40 AM Referred By: HOLLY Confirmed By:Luis Carlos Hanks
--- NOTE | 2024-04-04 18:23 | EDS_ITS ---
HPI History of Present Illness Chief Complaint: Weakness Informant: patient Onset/Context/Timing Onset: Days (4) Context: Gradual Onset Timing: Continuous Quality: Weakness Location: Generalized Worsened by: Nothing Relieved by: Nothing Narrative Narrative: Patient presents with generalized weakness, nausea, and vomiting that has been getting worse over the last 4 days. Patient states she feels weak all over. Patient states he was having difficulty getting out of bed today. Patient states she was recently diagnosed with a urinary tract infection but has been unable to take her antibiotics for this. Patient states nothing makes her symptoms better and nothing makes them worse. Patient admits to some subjective chills. Patient admits to some nausea and vomiting. [facility] Medical History Gout flare Gout History of pulmonary embolism Hypertension Current use of chief radiology anticoagulation Bilateral pulmonary embolism Anemia Foot fracture, left Family history of colon cancer in mother Encounter for education ER+ (estrogen receptor positive status) Degenerative joint disease Hypertension Osteopenia after menopause Cancer of left female breast Post-menopausal Arthritis Easy bruising Excessive bleeding Non-smoker Shortness of breath on exertion Pulmonary embolism Hypertension UTI (urinary tract infection) DVT (deep venous thrombosis) Home Medications ?Medication ?Instructions ?Recorded ?Last Taken ?Type lisinopril 10 mg tablet 10 mg PO DAILY BP 08/12/21 10/02/21 History mirtazapine 15 mg tablet 15 mg PO QHS 30 days #30 tabs 02/24/24 Unknown Rx oxycodone 5 mg tablet 10 mg (2 x 5 mg) PO Q4H PRN PRN 02/24/24 Unknown Rx Pain Score 4-10 Or Pre Pt/Ot 3 days #36 tabs prochlorperazine maleate 5 mg 10 mg (2 x 5 mg) PO Q4H PRN PRN 02/24/24 Unknown Rx tablet Nausea/Vomiting 7 days #36 tabs meclizine 25 mg tablet 25 mg PO Q8H PRN PRN Dizziness #20 03/04/24 Unknown Rx tabs ondansetron 8 mg disintegrating 8 mg PO Q8H PRN nausea and 03/04/24 Unknown Rx tablet vomiting #20 tabs anastrozole 1 mg tablet 1 mg PO DAILY #90 TABLETS 03/07/24 Unknown Rx apixaban 5 mg tablet (Eliquis) 5 mg PO DAILY BLOOD CLOTS 03/27/24 Unknown History baclofen 10 mg tablet 10 mg PO TID PRN PRN muscle spasm 03/27/24 Unknown History apixaban 5 mg tablet (Eliquis) 5 mg PO BID #60 tabs 04/01/24 Unknown Rx cefdinir 300 mg capsule 300 mg PO Q12 #8 caps 04/01/24 Unknown Rx prednisone 20 mg tablet 40 mg (2 x 20 mg) PO BREAKFAST #5 04/01/24 Unknown Rx tabs Allergy/AdvReac Type Severity Reaction Status Date / Time No Known Allergies Allergy Verified 04/04/24 14:54 Family History Grandmother Breast cancer Daughter Breast cancer Mother Colon cancer Surgical History History of appendectomy History of dilation and curettage History of left mastectomy (~08/2021) History of lumpectomy of left breast Hx of abdominoplasty History of cholecystectomy History of total knee replacement Social History household members: spouse Smoking Status: Never smoker alcohol intake: never substance use type: does not use ROS ROS ED Constitutional Constitutional ED: Reports chills and subjective; Denies fever(s) Eyes Eyes: Denies blurry vision or change in vision ENT ENT ED: Denies rhinorrhea or sore throat Cardiovascular Cardiovascular: Reports chest pain; Denies palpitations Respiratory/Chest Respiratory/Chest: Denies cough or dyspnea Gastrointestinal Gastrointestinal: Reports nausea and vomiting Genitourinary Genitourinary ED: Reports dysuria; Denies hematuria or urinary frequency Musculoskeletal Musculoskeletal: Denies back pain or neck pain Integumentary Denies abscess or rash Neurologic Neurologic: Reports weakness; Denies headache(s) Allergic/Immunologic Allergic/Immunologic ED: Denies mouth swelling or urticaria EXAM Physical Exam Const Vital Signs: 04/04/24 14:54 04/04/24 16:59 04/04/24 17:15 Temperature 96.9 F L 97.9 F Temperature Source Temporal Oral Pulse Rate 96 78 Respiratory Rate 18 15 Respiratory Effort Normal Non-Labored Respiratory Pattern Normal Blood Pressure 111/73 122/74 H Blood Pressure Mean 85 90 Pulse Ox 97 99 Oxygen Delivery Method Room Air Room Air 04/04/24 18:00 04/04/24 19:00 04/04/24 20:00 Temperature 98.1 F 98.2 F Temperature Source Oral Oral Pulse Rate 86 80 69 Respiratory Rate 25 H 18 27 H Respiratory Effort Respiratory Pattern Blood Pressure 110/55 L 124/69 H 117/58 L Blood Pressure Mean 73 87 77 Pulse Ox 99 99 99 Oxygen Delivery Method Room Air Room Air 04/04/24 20:00 04/04/24 21:00 04/04/24 22:00 Temperature 98.3 F 98.2 F 98.3 F Temperature Source Oral Oral Oral Pulse Rate 79 78 72 Respiratory Rate 17 18 14 Respiratory Effort Respiratory Pattern Blood Pressure 117/98 H 123/75 H 117/52 L Blood Pressure Mean 104 91 73 Pulse Ox 99 99 99 Oxygen Delivery Method Room Air Room Air Room Air Positive well nourished and well developed General Appearance ED: well developed and NAD HEENT Reports dry mucous membranes Mouth ED: Yes dry mucous membranes Mouth: dry mucous membranes Neck supple and no JVD Resp normal respiratory effort and clear to auscultation bilaterally Cardio regular rate and regular rhythm GI non-tender and non-distended Palpation: soft Neuro oriented x3, CN's II-XII intact bilaterally and no sensory deficits noted Sensorium / Orientation: alert Motor Exam: strength 5/5 throughout Psych mental status grossly normal MDM MDM MDM Narrative Medical decision making narrative: Differential diagnosis includes urinary tract infection, sepsis, dehydration, electrolyte abnormality, viral illness, pneumonia, cardiac dysrhythmia, and cardiac ischemia. EKG will be obtained to assess for cardiac dysrhythmia and cardiac ischemia. Chest x-ray will be obtained to assess for pneumonia and bronchitis. CBC will be obtained to assess for leukocytosis and anemia. Basic metabolic profile will be obtained to assess for electrolyte abnormality and renal function. PT with INR and PTT will be obtained to assess for coagulopathy. High-sensitivity troponin will be obtained to assess for cardiac ischemia. 2-hour repeat high-sensitivity troponin will be obtained to assess for ongoing cardiac ischemia. Lactate will be obtained to assess for sepsis. Urinalysis will be obtained to assess for urinary tract infection. COVID-19, influenza, and RSV PCR will be obtained to assess for viral illness. Blood cultures will be obtained to assess for sepsis. Urine culture will be obtained to assess for urinary tract infection. Lab Data Attestation: I reviewed the patient's lab results. Lab results narrative: CBC was reviewed. There is a leukocytosis of 14.2. The remainder is within normal limits. PT with INR and PTT were reviewed. Pro time was 18.0 and INR is 1.5. PTT was normal at 31.9. Basic metabolic profile was reviewed. Potassium was low at 3.0. The remainder is within normal limits. Serum lactate was reviewed and was 2.0. Initial high-sensitivity troponin was reviewed and was normal at 31. 2-hour repeat high-sensitivity troponin was reviewed and was normal at 36. Urinalysis was reviewed. There is 2+ bacteria. There are 0-5 white blood cells. Leukocyte esterase was 25. COVID-19 PCR was reviewed and was positive. Influenza PCR was reviewed and was negative for influenza A and influenza B. RSV PCR was reviewed and was negative. Labs: Laboratory Results - last 24 hr 04/04/24 04/04/24 04/04/24 17:25 18:30 20:32 WBC 14.2 H RBC 4.50 Hgb 13.5 Hct 42.3 MCV 94.0 MCH 30.0 MCHC 31.9 L RDW Std Deviation 50.9 H RDW Coeff of Zachary 14.9 H Plt Count 245 MPV 11.5 Immature Gran % (Auto) 1.300 H Neut % (Auto) 79.8 H Lymph % (Auto) 11.4 L [place] % (Auto) 6.7 Eos % (Auto) 0.4 Baso % (Auto) 0.4 Absolute Neuts (auto) 11.4 H Absolute Lymphs (auto) 1.62 Nucleated RBC % 0 PT 18.0 H INR 1.5 APTT 31.9 Sodium 138 Potassium 3.0 L Chloride 102 Carbon Dioxide 25.0 Anion Gap 11 BUN 14 Creatinine 0.92 Estim Creat Clear Calc 57.47 Est GFR (MDRD) Af Amer 77 Est GFR (MDRD) Non-Af 64 BUN/Creatinine Ratio 15.2 Glucose 102 Lactic Acid 2.0 Calcium 9.3 Troponin I High Sens 31 36 Urine Color Yellow Urine Clarity Clear Urine pH 6.0 Ur Specific [place] 1.015 Urine Protein 30 H Urine Glucose (UA) Normal Urine Ketones 15 H Urine Occult Blood 10 H Urine Nitrite Negative Urine Bilirubin Negative Urine Urobilinogen 1 H Ur Leukocyte Esterase 25 H Urine RBC 0-5 SEEN Urine WBC 0-5 SEEN Ur Squamous Epith Cells 0 SEEN Urine Bacteria 2+ Hyaline Casts 0-5 SEEN Urine Mucus 2+ Radiography Chest X-Ray - ED: 2 View, Read by ED Physician, Read by Radiologist and No Acute Disease Diagnostic Testing: Clinical Impression(s) from Imaging Studies Chest X-Ray 04/04/24 18:47 IMPRESSION: Stable chest. No acute intrathoracic abnormality. Electronically Signed: Leslee Ramirez MD at 20:15 EDT , PA and lateral chest x-ray was obtained. There are 2 views. On my independent interpretation, lung tellez are clear. There is normal cardiac silhouette. Bony thorax is normal. There is no acute process noted. Radiologist also interpreted the x-ray and agrees. EKG Initial EKG: Interpretation: Sinus Rhythm (77) and Non-Specific ST Changes (There is left ventricular hypertrophy with nonspecific ST-T wave changes) Comments: EKG was obtained. On my independent interpretation, it showed a normal sinus rhythm with a rate of 77. IA interval, QRS interval, and QTc intervals were all normal. [place] was normal. There are left ventricular hypertrophy with nonspecific ST-T wave changes. Prior EKG tracings: available for review Prior: Unchanged (03/27/2024) Management Discussion w/another healthcare provider: Hospitalist Treatment and Re-Evaluation :: Patient was given IV fluids, morphine, and Zofran. Patient was given a dose of potassium. Patient was given a dose of Tylenol. Patient started on Rocephin for her bacteriuria. Prior urine culture was reviewed and showed E. coli which was sensitive to everything except Bactrim. Patient was advised of her findings. Patient was given a dose of Decadron here. Case was discussed with the hospitalist. He will admit the patient to his service. Patient understood and was agreeable with the plan. All questions were answered. Discharge Plan Triage Chief Complaint: Weakness ED Provider: Merrick Buck Dx/Rx/DC Orders Clinical Impression: COVID-19, Inability to walk, Debility, Hypokalemia Prescriptions: No Action lisinopril 10 mg tablet 10 mg PO DAILY Patient Comments: TAKE 1 TABLET BY MOUTH DAILY prochlorperazine maleate 5 mg Tablet 10 mg PO Q4H PRN PRN (Reason: Nausea/Vomiting) 7 Days Qty: 36 0RF mirtazapine 15 mg Tablet 15 mg PO QHS 30 Days Qty: 30 0RF oxycodone 5 mg Tablet 10 mg PO Q4H PRN PRN (Reason: Pain Score 4-10 Or Pre Pt/Ot) 3 Days Qty: 36 0R F meclizine 25 mg tablet 25 mg PO Q8H PRN PRN (Reason: Dizziness) Qty: 20 0RF ondansetron 8 mg tablet,disintegrating 8 mg PO Q8H PRN (Reason: nausea and vomiting) Qty: 20 0RF Eliquis 5 mg tablet 5 mg PO DAILY Rx Instructions: BID X7 DAYS STARTING 03/18/24 THEN 1 TAB DAILY FOR 21 DAYS baclofen 10 mg tablet 10 mg PO TID PRN PRN (Reason: muscle spasm) prednisone 20 mg Tablet 40 mg PO BREAKFAST Qty: 5 0RF cefdinir 300 mg Capsule 300 mg PO Q12 Qty: 8 0RF Eliquis 5 mg tablet 5 mg PO BID Qty: 60 2RF anastrozole 1 mg tablet 1 mg PO DAILY Qty: 90 3RF Primary Care Provider: Kang Cannon Referrals: Kang Cannon MD [Primary Care Provider] - Print Language: Nauruan Disposition Disposition: Acute Care Hospital [facility]
[2024-04-04] MEDS: Acetaminophen 500 MG Tablet 1000 MG PO (18:39)
[2024-04-04] MEDS: 0.9% Normal Saline (1000mL) 1,000 ML 1000 ML IV (18:39)
[2024-04-04 18:41] LABS: Squamous Epithelial Cells - UA 0 SEEN /hpf (5-10)
[2024-04-04 18:43] LABS: Color, Urine Yellow (Yellow); Glucose, Dipstick Normal (Normal); Ketone-Dipstick 15 mg/dl (Negative); Leukocyte Esterase-Dipstick 25 /ul (Negative); Nitrite-Dipstick Negative (Negative); Occult Blood-Urine 10 /ul (Negative); Protein-Dipstick 30 mg/dl (Negative); Specific Gravity, Urine 1.015 (1.002-1.030); Urine Bilirubin Dipstick Negative (Negative); Urine Clarity Clear (Clear); Urine Urobilinogen 1 mg/dl (Normal)
--- NOTE | 2024-04-04 18:47 | RAD_ITS ---
EXAM: XR CHEST, 2 VIEWS CLINICAL INDICATION: Weakness TECHNIQUE: Frontal and lateral views of the chest. COMPARISON: March 27, 2024, November 06, 2022, abdomen and pelvis CT March 27, 2024 FINDINGS: LUNGS AND PLEURAL SPACES: There is an irregular metallic structure projecting over the left hilum on the frontal view and over the posterior left lung and spine lateral view, possibly coils or external. No pneumothorax. No effusion. HEART: Unremarkable. Cardiac silhouette not enlarged. MEDIASTINUM: Central airways and mediastinal contour are unremarkable. BONES/JOINTS: Thoracic spondylosis and flowing ligamentous ossification anteriorly at mid to lower thoracic levels. SOFT TISSUES: Multiple surgical clips left chest wall or left upper arm are again included. RAD/Chest PA and Lateral IMPRESSION: Stable chest. No acute intrathoracic abnormality. Electronically Signed: Leslee Ramirez MD at 20:15 EDT ,
[2024-04-04 18:49] LABS: Absolute Lymphocyte Count 1.62 X10^3/uL (0.83-4.51); Absolute Neutrophil Count 11.4 X10^3/uL (2.0-7.7); Basophil# 0.05 X10^3/uL; Basophil% 0.4 % (0-1); Eosinophil# 0.05 X10^3/uL; Eosinophils% 0.4 % (0-5); Hematocrit 42.3 % (37-47); Hemoglobin 13.5 g/dL (12.0-15.0); Lymphocyte # 1.62 X10^3/ul (0.83-4.51); Lymphocyte % 11.4 % (19-41); Mean Corp Hgb Conc 31.9 g/dL (32-36); Mean Platelet Vol. 11.5 fl (6.2-12.0); Monocyte# 0.95 X10^3/uL; Monocyte% 6.7 % (0-10); NRBC Flagged by Analyzer 0 % (0-5); Neutrophil # 11.37 X10^3/uL (2.7-7.7); Neutrophil % 79.8 % (47-70); Platelet Count 245 K/mm3 (150-450); RBC Distribution Width CV 14.9 % (11.6-14.6); RBC Distribution Width SD 50.9 fl (35.1-43.9); White Blood Count 14.2 K/mm3 (4.4-11.0)
[2024-04-04 18:54] LABS: Anion Gap 11 (5-15); BUN 14 mg/dL (7-18); BUN/Creat Ratio 15.2 RATIO (10-20); Calcium,Total 9.3 mg/dL (8.5-10.1); Chloride 102 mmol/L (98-107); Creatinine, Serum 0.92 mg/dL (0.55-1.02); EST Glomerular Filtration Rate 64 mL/min (>60); Est Glom Filt Rate - Afr Amer 77 mL/min (>60); Estimated Creatinine Clearance 57.47 ml/min; Glucose 102 mg/dL (74-106); Sodium Level 138 mmol/L (136-145); Troponin-I HS (w/2H Reflex) 31 pg/mL (3.0-54.0)
--- NOTE | 2024-04-04 18:59 | ED.RN ---
DR BRASHER NOTIFIED LACTIC=2.0
[2024-04-04 19:07] LABS: International Normalized Ratio 1.5
[2024-04-04 19:08] LABS: Partial Thromboplast Time 31.9 Seconds (24.1-36.2)
[2024-04-04 19:26] LABS: Bacteria 2+ /hpf (None Seen); Red Blood Cells-Urine 0-5 SEEN /hpf (0-5); White Blood Cells 0-5 SEEN /hpf (0-5)
[2024-04-04 19:27] LABS: Hyaline Cast 0-5 SEEN /lpf (0-5); Mucous, Urine 2+ /hpf (<or=2+)
[2024-04-04] MEDS: Ceftriaxone 1 GM/50 ML BAG IV (20:04)
[2024-04-04] MEDS: Ondansetron 4 MG/2 ML Vial IV (20:21)
[2024-04-04] MEDS: Morphine 4 MG/ML Syringe IV (20:21)
[2024-04-04 20:25] LABS: Reflex Troponin-HS? (from REC) Y
[2024-04-04] MEDS: Potassium Chloride Oral Tablet 20 MEQ 40 MEQ PO (20:51)
[2024-04-04 21:07] LABS: Troponin-I HS 36 pg/mL (3.0-54.0)
--- NOTE | 2024-04-04 22:24 | PCM.HP.STD ---
[facility] - General General Date of Admission: 04/04/24 Date of Service: 04/04/24 Chief Complaint: Nausea, Vomiting and Generalized Weakness. [facility] Narrative BREANNA WEBSTER, is a 74 F with a past medical history of essential hypertension, morbid obesity; with BMI of 41.5 this admission, history of DVT/PE; on full-dose Lovenox after recent thrombectomies from lungs and both lower extremities, history of CVA, history of ER+ breast cancer; s/p Left mastectomy (2021) on Anastrozole, chronic anemia, history of vertigo; on prn Meclizine, history of adult [id number], history of cholecystectomy, history of appendectomy, history of abdominoplasty, history of D&C, history of foot fracture, osteoporosis, osteoarthritis and recent admissions here from February 07, 2024 to February 08, 2024 for treatment of ambulatory dysfunction and adult [id number] in addition to another admission at the [facility] for intractable nausea and vomiting ~2 weeks ago and a very recent admission here from March 27, 2024 to April 01, 2024 for treatment of acute cystitis; without hematuria complicated by intractable nausea and vomiting plus acute gout flare in her Left wrist who re-presents to [facility] ER complaining of nausea, vomiting and generalized weakness. Ms. Webster reports her symptoms began ~4 days prior to admission with the gradual-onset of progressively worsening generalized weakness with patient having difficulty just trying to get out of bed today so her home PT activated EMS for her. She also admits to a return of her intractable nausea and vomiting with bilious emesis and poor oral intake that also caused her to be unable to complete her course of antibiotics. She states nothing makes her symptoms better or worse. She admits to subjective fever, chills and dysuria but she denies headache, diarrhea, constipation, chest pain or SOB. In the ER her PCR assay returned positive for COVID-19 with a corresponding Leukocytosis of 14.2K this admission complicated by clinical evidence of respiratory insufficiency and laboratory evidence of Hypokalemia of 3 mmol/L present on admission compounded by generalized weakness with ambulatory dysfunction and she was then admitted to the PCU for ongoing care for a stay that is expected to extend beyond 2 midnights. [facility] Medical History Gout flare Gout History of pulmonary embolism Hypertension Current use of detention anticoagulation Bilateral pulmonary embolism Anemia Foot fracture, left Family history of colon cancer in mother Encounter for education ER+ (estrogen receptor positive status) Degenerative joint disease Hypertension Osteopenia after menopause Cancer of left female breast Post-menopausal Arthritis Easy bruising Excessive bleeding Non-smoker Shortness of breath on exertion Pulmonary embolism Hypertension UTI (urinary tract infection) DVT (deep venous thrombosis) Home Medications ?Medication ?Instructions ?Recorded ?Last Taken ?Type lisinopril 10 mg tablet 10 mg PO DAILY BP 08/12/21 10/02/21 History mirtazapine 15 mg tablet 15 mg PO QHS depressio 30 days #30 02/24/24 Unknown Rx tabs oxycodone 5 mg tablet 10 mg (2 x 5 mg) PO Q4H PRN PRN 02/24/24 Unknown Rx Pain Score 4-10 Or Pre Pt/Ot 3 days #36 tabs meclizine 25 mg tablet 25 mg PO Q8H PRN PRN Dizziness #20 03/04/24 Unknown Rx tabs ondansetron 8 mg disintegrating 8 mg PO Q8H PRN nausea and 03/04/24 Unknown Rx tablet vomiting #20 tabs anastrozole 1 mg tablet 1 mg PO DAILY breast cx #90 03/07/24 Unknown Rx TABLETS apixaban 5 mg tablet (Eliquis) 5 mg PO DAILY BLOOD CLOTS 03/27/24 Unknown History baclofen 10 mg tablet 10 mg PO TID PRN PRN muscle spasm 03/27/24 Unknown History cefdinir 300 mg capsule 300 mg PO Q12 infection #8 caps 04/01/24 Unknown Rx prednisone 20 mg tablet 40 mg (2 x 20 mg) PO BREAKFAST sob 04/01/24 Unknown Rx #5 tabs Allergy/AdvReac Type Severity Reaction Status Date / Time No Known Allergies Allergy Verified 04/04/24 14:54 Family History Grandmother Breast cancer Daughter Breast cancer Mother Colon cancer Surgical History History of appendectomy History of dilation and curettage History of left mastectomy (~08/2021) History of lumpectomy of left breast Hx of abdominoplasty History of cholecystectomy History of total knee replacement Social History household members: spouse Smoking Status: Never smoker alcohol intake: never substance use type: does not use ROS ROS Narrative Review of Systems: Constitutional: Patient admits to subjective fever with chills and weight loss due to lack of appetite from persistent GI upset. Eyes: Patient denies changes in vision or discharge from eyes. ENT: Patient denies runny nose, sore throat or ear pain. CV: Patient denies chest pain, palpitations or heart racing. Resp: Patient denies SOB or cough. GI: Patient admits to intractable nausea and vomiting with bilious emesis as per HPI. : Patient denies dysuria or hematuria. MSK: Patient admits to generalized weakness with ambulatory dysfunction. Skin: Patient denies rash, abscess or jaundice. Psych: Patient denies symptoms of uncontrolled depression or anxiety. Neuro: Patient denies headache, paresthesias or focal neurologic weakness. Allergy: Patient denies lip swelling, tongue swelling or urticaria. Hematology: Patient denies easy bleeding or easy bruisability. Endocrinology: Patient denies polyuria, polydipsia and polyphagia. 14 point ROS otherwise negative except for positives noted above. Vital Signs Vital Signs Vital Signs: 04/04/24 14:54 04/04/24 16:59 04/04/24 17:15 Temperature 96.9 F L 97.9 F Temperature Source Temporal Oral Pulse Rate 96 78 Respiratory Rate 18 15 Respiratory Effort Normal Non-Labored Respiratory Pattern Normal Blood Pressure 111/73 122/74 H Blood Pressure Mean 85 90 Pulse Ox 97 99 Oxygen Delivery Method Room Air Room Air 04/04/24 18:00 04/04/24 19:00 04/04/24 20:00 Temperature 98.1 F 98.2 F Temperature Source Oral Oral Pulse Rate 86 80 69 Respiratory Rate 25 H 18 27 H Respiratory Effort Respiratory Pattern Blood Pressure 110/55 L 124/69 H 117/58 L Blood Pressure Mean 73 87 77 Pulse Ox 99 99 99 Oxygen Delivery Method Room Air Room Air 04/04/24 20:00 04/04/24 21:00 04/04/24 22:00 Temperature 98.3 F 98.2 F 98.3 F Temperature Source Oral Oral Oral Pulse Rate 79 78 72 Respiratory Rate 17 18 14 Respiratory Effort Respiratory Pattern Blood Pressure 117/98 H 123/75 H 117/52 L Blood Pressure Mean 104 91 73 Pulse Ox 99 99 99 Oxygen Delivery Method Room Air Room Air Room Air Weight Weight: 212 lb 8.41 oz Body Mass Index (BMI) 41.7 Physical Exam Const alert, oriented x3 and no apparent distress Constitutional Narrative: Mild distress noted with patient appearing chronically ill. General Appearance: cooperative HEENT normocephalic, head/scalp atraumatic and hearing grossly normal bilaterally HEENT Narrative: Mucous membranes dry. Eyes PERRL and EOMs intact bilaterally Neck no lymphadenopathy and supple Resp normal respiratory effort, no retractions, no use of accessory muscles and clear to auscultation bilaterally Resp Narrative: Diminished breath sounds throughout. Cardio regular rate and regular rhythm GI normal to inspection, nondistended, normoactive bowel sounds, soft to palpation, non-tender and non-distended GI Narrative: Morbidly obese. Extremity normal to inspection, full ROM and no clubbing, cyanosis or edema Skin Skin Narrative: Patient has no evidence or rash, abscess or jaundice. Neuro oriented x3, CN's II-XII intact bilaterally, moves all extremities and no focal motor deficits Sensorium / Orientation: awake, alert, oriented to person, oriented to place and oriented to time Speech: speech normal Psych affect normal Results Medical Records Data Attestation: I reviewed the patient's medical records Lab / Micro Data Attestation: I reviewed the patient's lab results. 04/04/24 17:25 04/04/24 17:25 Labs: Laboratory Results - last 24 hr 04/04/24 17:25: WBC 14.2 H, RBC 4.50, Hgb 13.5, Hct 42.3, MCV 94.0, MCH 30.0, MCHC 31.9 L, RDW Std Deviation 50.9 H, RDW Coeff of Zachary 14.9 H, Plt Count 245, MPV 11.5, Immature Gran % (Auto) 1.300 H, Neut % (Auto) 79.8 H, Lymph % (Auto) 11.4 L, [place] % (Auto) 6.7, Eos % (Auto) 0.4, Baso % (Auto) 0.4, Absolute Neuts (auto) 11.4 H, Absolute Lymphs (auto) 1.62, Nucleated RBC % 0, PT 18.0 H, INR 1.5, APTT 31.9, Sodium 138, Potassium 3.0 L, Chloride 102, Carbon Dioxide 25.0, Anion Gap 11, BUN 14, Creatinine 0.92, Estim Creat Clear Calc 57.47, Est GFR (MDRD) Af Amer 77, Est GFR (MDRD) Non-Af 64, BUN/Creatinine Ratio 15.2, Glucose 102, Lactic Acid 2.0, Calcium 9.3, Troponin I High Sens 31 04/04/24 18:30: Urine Color Yellow, Urine Clarity Clear, Urine pH 6.0, Ur Specific [place] 1.015, Urine Protein 30 H, Urine Glucose (UA) Normal, Urine Ketones 15 H, Urine Occult Blood 10 H, Urine Nitrite Negative, Urine Bilirubin Negative, Urine Urobilinogen 1 H, Ur Leukocyte Esterase 25 H, Urine RBC 0-5 SEEN, Urine WBC 0-5 SEEN, Ur Squamous Epith Cells 0 SEEN, Urine Bacteria 2+, Hyaline Casts 0-5 SEEN, Urine Mucus 2+ 04/04/24 20:32: Troponin I High Sens 36 Micro: Microbiology 04/04/24 18:30 Mucosa - Nose SARS-CoV-2, Influenza & RSV (PCR) - Final SARS-CoV-2 (COVID 19) Imaging Radiology Impression Chest X-Ray 04/04/24 18:47 IMPRESSION: Stable chest. No acute intrathoracic abnormality. Electronically Signed: Leslee Ramirez MD at 20:15 EDT Reading Location ID and State: [facility] Tel , Service support , Assessment & Plan Assessment/Plan (1) COVID-19: (2) Hypokalemia: (3) BPPV (benign paroxysmal positional vertigo): QUALIFIERS: Laterality: unspecified laterality Qualified Code(s): H81.10 - Benign paroxysmal vertigo, unspecified ear (4) Generalized weakness: (5) Ambulatory dysfunction: (6) Pulmonary embolism: QUALIFIERS: Acute cor pulmonale presence: with acute cor pulmonale Chronicity: chronic Pulmonary embolism type: unspecified Qualified Code(s): I27.82 - Chronic pulmonary embolism; I26.09 - Other pulmonary embolism with acute cor pulmonale (7) DVT (deep venous thrombosis): QUALIFIERS: Affected thrombotic vein of extremity: unspecified vein of extremity Chronicity: chronic DVT location: lower extremity Laterality: unspecified laterality Qualified Code(s): I82.509 - Chronic embolism and thrombosis of unspecified deep veins of unspecified lower extremity PLAN: Plan 1. PCR assay returned positive for COVID-19 with a corresponding Leukocytosis of 14.2K this admission - Admit to general medical floor on contact and droplet precautions. Continue Decadron begun in the ER plus begin empiric Azithromycin. Finally, we will give vitamin D3, vitamin C and Zinc to help boost immunity and speed recovery. 2. Hypokalemia of 3 mmol/L present on admission complicating #1 - Give supplemental KCl and then recheck level in AM to ensure correction. 3. Generalized Weakness with Ambulatory Dysfunction due to #1 & #2 - PT/OT and Case Management to consult and treat with patient likely needing ECF given pattern of serial readmission noted below with help appreciated in advance. 4. Very recent admission here from March 27, 2024 to April 01, 2024 for treatment of acute cystitis; without hematuria complicated by intractable nausea and vomiting due to BPPV flare plus acute gout flare in her Left wrist - Noted with UA this admission showing signs of colonization rather than acute infection. Replace Scopolamine patch as before. Finally, we will continue IV Rocephin begun in the ER with patient missing her doses of oral antibiotics. 5. Recent admission to [facility] for intractable nausea and vomiting ~2 weeks ago - Noted. 6. History of DVT/PE; on full-dose Lovenox after recent thrombectomies from lungs and both lower extremities - Continue Eliquis as previous. 7. Admission here from February 07, 2024 to February 08, 2024 for treatment of ambulatory dysfunction and adult [id number] - Noted. 8. Morbid obesity; with BMI of 41.5 this admission adding to the complexity of #1 - #7 - Weight loss will be recommended. This complicates her case and may hamper her recovery. 9. Essential hypertension - Resume home regimen plus give prn IV Hydralazine for systolic blood pressure > 160 mmHg. 10. History of CVA - Noted. 11. History of ER+ breast cancer; s/p Left mastectomy (2021) on Anastrozole - Continue Anastrazole as previous. 12. Chronic anemia - Stable with hemoglobin of 13.5 g/dL present on admission. 13. History of cholecystectomy - Noted. 14. History of appendectomy - Noted. 15. History of abdominoplasty - Noted. 16. History of D&C - Noted. 17. History of foot fracture - Noted. 18. Osteoporosis - Stable. 19. Osteoarthritis - Stable. Give Tylenol prn. 20. DVT prophylaxis - Patient is on Eliquis for #6 which will be continued. Total time: Approximately 75 minutes. Charges/Coding Visit Charges Inpatient E&M: 52661 Init Hosp L3
[2024-04-04] MEDS: dexAMETHasone 10 MG/ML Vial 6 MG IV (22:30)
[2024-04-04 22:39] LABS: Reflex Lactate? Y
[2024-04-04 23:22] LABS: Lactic Acid 0.9 mmol/L (0.4-1.9)
[2024-04-05 00:19] VITALS: BP 129/68; PULSE 77; RESP 18; TEMP 36.9; O2SAT 97
[2024-04-05] MEDS: Scopolamine 1mg/72hr Patch 1 PATCH TD (00:32)
[2024-04-05] MEDS: KCL 20MEQ in 0.9% NS 20 MEQ/1,000 ML IV.SOLN. 70 MEQ IV ×2 (00:32→15:19)
[2024-04-05] MEDS: 0.9% Saline Lock 10 ML Syringe IV ×3 (00:32→21:42)
[2024-04-05 04:52] VITALS: BMI 40.8
[2024-04-05 05:27] VITALS: BP 117/65; PULSE 81; RESP 18; TEMP 36.6; O2SAT 99
[2024-04-05 06:25] LABS: Absolute Lymphocyte Count 0.47 X10^3/uL (0.83-4.51); Absolute Neutrophil Count 9.6 X10^3/uL (2.0-7.7); Basophil# 0.02 X10^3/uL; Basophil% 0.2 % (0-1); Eosinophil# 0.01 X10^3/uL; Eosinophils% 0.1 % (0-5); Hematocrit 35.8 % (37-47); Hemoglobin 11.8 g/dL (12.0-15.0); Lymphocyte # 0.47 X10^3/ul (0.83-4.51); Lymphocyte % 4.6 % (19-41); Mean Platelet Vol. 11.4 fl (6.2-12.0); Monocyte# 0.08 X10^3/uL; Monocyte% 0.8 % (0-10); NRBC Flagged by Analyzer 0 % (0-5); Neutrophil # 9.59 X10^3/uL (2.7-7.7); POSITIVE DIFFERENTIAL YES; POSITIVE MORPHOLOGY YES; Platelet Count 218 K/mm3 (150-450); RBC Distribution Width CV 14.9 % (11.6-14.6); RBC Distribution Width SD 51.7 fl (35.1-43.9); Red Blood Count 3.81 M/mm3 (4.2-5.4); White Blood Count 10.3 K/mm3 (4.4-11.0)
[2024-04-05 06:41] LABS: Differential Indicated SCAN CRITERIA MET
[2024-04-05 08:02] VITALS: O2SAT 94
[2024-04-05 10:10] VITALS: BP 108/58; PULSE 82; RESP 18; TEMP 36.9; O2SAT 97
[2024-04-05] MEDS: Anastrozole 1 MG TABLET PO (10:13)
[2024-04-05] MEDS: Lisinopril 10 MG Tablet PO (10:14)
[2024-04-05] MEDS: Cholecalciferol (Vit D3) 125 MCG CAPSULE (5,000 UNITS) PO (10:14)
[2024-04-05] MEDS: APIXABAN 5 MG TABLET PO ×2 (10:14→21:38)
[2024-04-05 10:15] LABS: ALB/GLOB Ratio 0.7 RATIO (0.9-2.4); AST(SGOT) 38 U/L (15-37); Alanine Aminotransfer ALT/SGPT 31 U/L (13-56); Albumin, Serum 2.3 g/dL (3.2-5.0); Alkaline Phosphatase 75 U/L (45-117); Anion Gap 13 (5-15); BUN 13 mg/dL (7-18); BUN/Creat Ratio 20.3 RATIO (10-20); Calcium,Total 8.5 mg/dL (8.5-10.1); Chloride 107 mmol/L (98-107); Creatinine, Serum 0.64 mg/dL (0.55-1.02); EST Glomerular Filtration Rate 97 mL/min (>60); Est Glom Filt Rate - Afr Amer 117 mL/min (>60); Estimated Creatinine Clearance 65.53 ml/min; Globulin 3.4 g/dL (2.2-4.2); Glucose 104 mg/dL (74-106); Magnesium 1.8 mg/dL (1.6-2.6); Potassium 3.8 mmol/L (3.5-5.1); Protein, Total 5.7 g/dL (6.4-8.2); Sodium Level 140 mmol/L (136-145)
[2024-04-05] MEDS: dexAMETHasone 10 MG/ML Vial 6 MG IV ×2 (10:15→21:38)
[2024-04-05] MEDS: Azithromycin 250 MG in Dextrose 5%-Water (250mL Bag) 250 ML IV (10:16)
[2024-04-05] MEDS: Famotidine 200 MG/20 ML MDV 20 MG in 0.9% Normal Saline (Pres. free 8 ML 300 MG IV ×2 (10:16→21:36)
--- NOTE | 2024-04-05 10:55 | CASEMGMT ---
Discharge Planning A list of SNF providers including quality and resource use data and consistent with the patient's preferred geographic region, medical needs, and insurance network was created in [employer] Guide.? This list was provided to the SW. Ila Valladares Discharge Planning Asst.
--- NOTE | 2024-04-05 15:01 | CASEMGMT ---
Readmission Note: Index: 03/27-04/01/24. Dx: UTI with intractable N/V Readmission: 04/04/24. Dx: COVID, Hypokalemia, Intractable N/V Patient readmits to [facility] ER with c/o N/V and generalized weakness. Pt was recently discharged from [facility] with [facility] that started care on Wednesday 04/04. The pt reports that her s/s began about 4 days [employer]. The pt was having difficulty today getting OOB and the the home PT activated EMS for the pt. The pt reports that the vomiting has been green/bile and has been having poor oral intake. This has complicated the pt ability to complete her oral course of antibiotics. The pt states that the oral ATB medication worsened her s/s. In the ER, the pt tested positive for COVID and was admitted to the PCU for further management. Moving forward, it is anticipated by the medical team that the pt will benefit from a SNF stay. SW to follow at this time.
--- NOTE | 2024-04-05 15:24 | PN_ITS ---
Subjective Subjective Patient seen and examined. She had no complaints today apart from feeling weak. She denied any fever, chills, shortness of breath, palpitations, nausea, vomiting or any other symptoms. Review of systems is otherwise negative. She is on room air. Objective Data Objective Data Vital Signs: Vital Signs Temp Pulse Resp BP Pulse Ox O2 Del Method 98.4 F 82 18 108/58 L 97 Room Air 04/05/24 10:10 04/05/24 10:10 04/05/24 10:10 04/05/24 10:10 04/05/24 10:10 04/05/24 10:15 Oxygen Delivery Method Room Air Weight: 209 lb 7.026 oz Body Mass Index (BMI) 40.8 Intake & Output: Intake and Output for Last 24 Hours 04/03/24 04/04/24 04/05/24 23:59 23:59 23:59 Intake Total 1050 / 1050 1193.83 / 1193.83 Output Total 400 / 400 Balance 1050 / 1050 793.83 / 793.83 Lab / Micro Data 04/05/24 05:29 04/05/24 05:29 Labs: Laboratory Results - last 24 hr 04/04/24 17:25: WBC 14.2 H, RBC 4.50, Hgb 13.5, Hct 42.3, MCV 94.0, MCH 30.0, M CHC 31.9 L, RDW Std Deviation 50.9 H, RDW Coeff of Zachary 14.9 H, Plt Count 245, MPV 11.5, Immature Gran % (Auto) 1.300 H, Neut % (Auto) 79.8 H, Lymph % (Auto) 11.4 L, [place] % (Auto) 6.7, Eos % (Auto) 0.4, Baso % (Auto) 0.4, Absolute Neuts (auto) 11.4 H, Absolute Lymphs (auto) 1.62, Nucleated RBC % 0, PT 18.0 H, INR 1.5, APTT 31.9, Sodium 138, Potassium 3.0 L, Chloride 102, Carbon Dioxide 25.0, Anion Gap 11, BUN 14, Creatinine 0.92, Estim Creat Clear Calc 57.47, Est GFR (MDRD) Af Amer 77, Est GFR (MDRD) Non-Af 64, BUN/Creatinine Ratio 15.2, Glucose 102, Lactic Acid 2.0, Calcium 9.3, Troponin I High Sens 31 04/04/24 18:30: Urine Color Yellow, Urine Clarity Clear, Urine pH 6.0, Ur Specific [place] 1.015, Urine Protein 30 H, Urine Glucose (UA) Normal, Urine Ketones 15 H, Urine Occult Blood 10 H, Urine Nitrite Negative, Urine Bilirubin Negative, Urine Urobilinogen 1 H, Ur Leukocyte Esterase 25 H, Urine RBC 0-5 SEEN, Urine WBC 0-5 SEEN, Ur Squamous Epith Cells 0 SEEN, Urine Bacteria 2+, Hyaline Casts 0-5 SEEN, Urine Mucus 2+ 04/04/24 20:32: Phosphorus 2.0 L, Troponin I High Sens 36 04/04/24 22:45: Lactic Acid 0.9 04/05/24 05:29: WBC 10.3, RBC 3.81 L, Hgb 11.8 L, Hct 35.8 L, MCV 94.0, MCH 31.0, MCHC 33.0, RDW Std Deviation 51.7 H, RDW Coeff of Zachary 14.9 H, Plt Count 218, MPV 11.4, Immature Gran % (Auto) 1.300 H, Neut % (Auto) 93.0 H, Lymph % (Auto) 4.6 L, [place] % (Auto) 0.8, Eos % (Auto) 0.1, Baso % (Auto) 0.2, Absolute Neuts (auto) 9.6 H, Absolute Lymphs (auto) 0.47 L, Nucleated RBC % 0, Sodium 140, Potassium 3.8, Chloride 107, Carbon Dioxide 20.0 L, Anion Gap 13, BUN 13, Creatinine 0.64, Estim Creat Clear Calc 65.53, Est GFR (MDRD) Af Amer 117, Est GFR (MDRD) Non-Af 97, BUN/Creatinine Ratio 20.3 H, Glucose 104, Calcium 8.5, Magnesium 1.8, Total Bilirubin 0.40, AST 38 H, ALT 31, Alkaline Phosphatase 75, Total Protein 5.7 L, Albumin 2.3 L, Globulin 3.4, Albumin/Globulin Ratio 0.7 L Micro: Microbiology 04/04/24 18:30 Mucosa - Nose SARS-CoV-2, Influenza & RSV (PCR) - Final SARS-CoV-2 (COVID 19) Radiography Diagnostic Testing: Radiology Impression Chest X-Ray 04/04/24 18:47 IMPRESSION: Stable chest. No acute intrathoracic abnormality. Electronically Signed: Leslee Ramirez MD at 20:15 EDT , Physical Exam Const alert, oriented x3 and no apparent distress Constitutional Narrative: obese, frail General Appearance: cooperative HEENT normocephalic, head/scalp atraumatic, moist oral mucous membranes and oropharynx normal Eyes EOMs intact bilaterally Neck no lymphadenopathy and supple Lymph Lymphatic: no lymphadenopathy noted Resp normal respiratory effort, normal air movement and clear to auscultation bilaterally Cardio regular rate, regular rhythm, S1 normal heart sound, S2 normal heart sound and no murmurs GI normal to inspection, nondistended, normoactive bowel sounds, soft to palpation and non-tender Extremity General Extremity: no tenderness to palpation of joints or extremities Skin General Skin Exam: no breakdown Neuro CN's II-XII intact bilaterally, no focal motor deficits, no sensory deficits noted and deep tendon reflexes 2+ bilaterally Motor Exam: general weakness Psych thought process normal and cooperative Appearance: appropriate Assessment & Plan Assessment/Plan (1) Hypokalemia: (2) COVID-19: PLAN: Plan #Weakness and debility due to covid 19 infection * asymptomatic from covid standpoint as she is on room air. * on decadron. Breathing treatment with bronchodilators * oxygen as needed. Titrate to maintain sats> 90% * Currently on azithromycin which was started empirically on admission. #History of BPPV: Meclizine. Zofran.. Currently not symptomatic. #Hypokalemia: Resolved. Potassium is 3.8 today. #Debility and weakness: Patient has been weak at home and having fallen when she was discharged home. PT OT on board. Will benefit from placement. #History of DVT and PE: On Eliquis #Morbid obesity: BMI is 40. Complicates acute care, expected recovery and prognosis #History of breast cancer: S/p left-sided mastectomy. On anastrozole. DVT prophylaxis: On Eliquis. CODE STATUS: Full code Disposition: Will benefit from placement. Charges/Coding Visit Charges Inpatient E&M: 28497 Subs Hosp L2
[2024-04-05 16:10] VITALS: BP 112/72; PULSE 80; RESP 16; TEMP 36.8; O2SAT 96
--- NOTE | 2024-04-05 17:38 | CASEMGMT ---
Social Work SW spoke w/pt in regard to discharge plan. Pt states she wants to go home, she does not want to go to a rehab facility. SW explained we can follow up again after therapy tomorrow to see how she is doing, and make sure she is moving well enough to go home at discharge. Pt states understanding. SW/CM will continue to follow for appropriate disposition. JOEL Carroll
[2024-04-05] MEDS: Ascorbic Acid 500 MG Tablet 1000 MG PO (17:46)
[2024-04-05 21:30] VITALS: BP 118/61; PULSE 79; RESP 16; TEMP 36.7; O2SAT 97
[2024-04-05] MEDS: Mirtazapine 15 MG Tablet PO (21:38)
[2024-04-05] MEDS: Ceftriaxone 1 GM/50 ML BAG IV (21:50)
[2024-04-06 03:10] VITALS: BMI 40.8
[2024-04-06 03:30] VITALS: BP 146/79; PULSE 73; RESP 16; TEMP 36.2; O2SAT 97
[2024-04-06] MEDS: 0.9% Saline Lock 10 ML Syringe IV ×3 (07:02→21:52)
[2024-04-06 07:19] LABS: Absolute Lymphocyte Count 0.64 X10^3/uL (0.83-4.51); Absolute Neutrophil Count 11.5 X10^3/uL (2.0-7.7); Basophil# 0.01 X10^3/uL; Basophil% 0.1 % (0-1); Hematocrit 34.5 % (37-47); Hemoglobin 11.2 g/dL (12.0-15.0); Lymphocyte # 0.64 X10^3/ul (0.83-4.51); Lymphocyte % 5.1 % (19-41); Mean Corp Hgb Conc 32.5 g/dL (32-36); Mean Corpuscular Hgb 30.6 pg (27.0-32.0); Mean Corpuscular Volume 94.3 fL (81-99); Mean Platelet Vol. 11.7 fl (6.2-12.0); Monocyte# 0.29 X10^3/uL; Monocyte% 2.3 % (0-10); NRBC Flagged by Analyzer 0 % (0-5); Neutrophil % 91.3 % (47-70); Platelet Count 201 K/mm3 (150-450); RBC Distribution Width CV 14.8 % (11.6-14.6); RBC Distribution Width SD 52.2 fl (35.1-43.9); Red Blood Count 3.66 M/mm3 (4.2-5.4); White Blood Count 12.6 K/mm3 (4.4-11.0)
[2024-04-06 07:38] LABS: Anion Gap 8 (5-15); BUN 14 mg/dL (7-18); BUN/Creat Ratio 19.9 RATIO (10-20); Calcium,Total 8.3 mg/dL (8.5-10.1); Chloride 109 mmol/L (98-107); EST Glomerular Filtration Rate 87 mL/min (>60); Est Glom Filt Rate - Afr Amer 105 mL/min (>60); Estimated Creatinine Clearance 65.45 ml/min; Glucose 154 mg/dL (74-106); Potassium 3.8 mmol/L (3.5-5.1); Sodium Level 138 mmol/L (136-145)
[2024-04-06 10:05] VITALS: BP 122/70; BP 122/74; PULSE 74; RESP 18; TEMP 36.9; O2SAT 97
[2024-04-06] MEDS: APIXABAN 5 MG TABLET PO ×2 (10:08→21:52)
[2024-04-06] MEDS: Lisinopril 10 MG Tablet PO (10:08)
[2024-04-06] MEDS: Cholecalciferol (Vit D3) 125 MCG CAPSULE (5,000 UNITS) PO (10:08)
[2024-04-06] MEDS: Anastrozole 1 MG TABLET PO (10:08)
[2024-04-06] MEDS: dexAMETHasone 10 MG/ML Vial 6 MG IV ×2 (10:10→21:51)
[2024-04-06] MEDS: Famotidine 200 MG/20 ML MDV 20 MG in 0.9% Normal Saline (Pres. free 8 ML 300 MG IV ×2 (10:10→21:52)
[2024-04-06] MEDS: Azithromycin 500 MG in Dextrose 5%-Water (250mL Bag) 250 ML 250 MG IV (10:11)
--- NOTE | 2024-04-06 13:51 | PCM.PN.HOSP ---
Reason for Visit Reason for Visit: Diagnoses Hypokalemia (04/04/24) Benign paroxysmal vertigo, unspecified ear (04/04/24) Other pulmonary embolism with acute cor pulmonale (04/04/24) Chronic pulmonary embolism (04/04/24) Chronic embolism and thrombosis of unspecified deep veins of unspecified lower extremity (04/04/24) Difficulty in walking, not elsewhere classified (04/04/24) Weakness (04/04/24) COVID-19 (04/04/24) Subjective Subjective Still nauseaated and having diarrhea. Objective Data Objective Data Vital Signs: Vital Signs Temp Pulse Resp BP Pulse Ox O2 Del Method 36.9 C 74 18 122/74 H 97 Room Air 04/06/24 10:05 04/06/24 10:05 04/06/24 10:05 04/06/24 10:05 04/06/24 10:05 04/06/24 10:05 Oxygen Delivery Method Room Air Weight: 94.8 kg Body Mass Index (BMI) 40.8 Intake & Output: Intake and Output for Last 24 Hours 04/04/24 04/05/24 04/06/24 23:59 23:59 23:59 Intake Total 1050 / 1050 2165.83 / 2415.83 1727 / 1727 Output Total 400 / 675 1025 / 1025 Balance 1050 / 1050 1765.83 / 1740.83 702 / 702 Lab / Micro Data 04/06/24 07:02 04/06/24 07:02 Labs: Laboratory Results - last 24 hr 04/06/24 07:02: WBC 12.6 H, RBC 3.66 L, Hgb 11.2 L, Hct 34.5 L, MCV 94.3, MCH 30.6, MCHC 32.5, RDW Std Deviation 52.2 H, RDW Coeff of Zachary 14.8 H, Plt Count 201, MPV 11.7, Immature Gran % (Auto) 1.200 H, Neut % (Auto) 91.3 H, Lymph % (Auto) 5.1 L, [place] % (Auto) 2.3, Eos % (Auto) 0.0, Baso % (Auto) 0.1, Absolute Neuts (auto) 11.5 H, Absolute Lymphs (auto) 0.64 L, Nucleated RBC % 0, Sodium 138, Potassium 3.8, Chloride 109 H, Carbon Dioxide 21.0, Anion Gap 8, BUN 14, Creatinine 0.70, Estim Creat Clear Calc 65.45, Est GFR (MDRD) Af Amer 105, Est GFR (MDRD) Non-Af 87, BUN/Creatinine Ratio 19.9, Glucose 154 H, Calcium 8.3 L Micro: Microbiology 04/04/24 18:30 Urine, Catheterized Urine Culture - Preliminary GNR Poss Pseudomonas sp 04/04/24 18:30 Mucosa - Nose SARS-CoV-2, Influenza & RSV (PCR) - Final SARS-CoV-2 (COVID 19) Physical Exam Const alert and no apparent distress HEENT head/scalp atraumatic and moist oral mucous membranes Resp normal respiratory effort, no retractions, no use of accessory muscles and clear to auscultation bilaterally Cardio regular rate, regular rhythm, S1 normal heart sound and S2 normal heart sound GI normal to inspection, nondistended, normoactive bowel sounds, soft to palpation, non-tender and non-distended Extremity normal to inspection and full ROM Neuro Sensorium / Orientation: awake and alert Assessment & Plan Assessment/Plan (1) Hypokalemia: (2) COVID-19: PLAN: Plan COVID-19 onset 4 days prior to arrival, which would make day 0 03/31 (was not checked from COVID-19 during that admission). on dexamethasone no infiltrate on CXR, will dc azithromycin Debility: likely exacerbated by COVID 19, nausea, diarrhea and recent hospitalization from 03/28- PT OT consulted but patient declined their services today as she was not feeling well. Recent urinary tract infection. Urinalysis here only shows less than Pseudomonas and previous culture showed E. coli that was greater than 100,000. Does not appear the patient is actually having urinary tract infection so we will discontinue the ceftriaxone and observe Diarrhea With patient recently on antibiotics and having frequent hospitalizations, will check a C. difficile VTE: History of thrombectomies. Continue with apixaban. VTE prophylaxis: Not indicated as patient is already anticoagulated. Charges/Coding Visit Charges Inpatient E&M: 19238 Subs Hosp L2
[2024-04-06 16:01] VITALS: BP 118/60; PULSE 81; RESP 16; TEMP 36.7; O2SAT 97
[2024-04-06] MEDS: KCL 20MEQ in 0.9% NS 20 MEQ/1,000 ML IV.SOLN. 70 MEQ IV (19:06)
[2024-04-06 19:50] VITALS: BP 138/73; PULSE 74; RESP 16; TEMP 36.2; O2SAT 97
[2024-04-06] MEDS: Mirtazapine 15 MG Tablet PO (21:52)
[2024-04-07] MEDS: oxyCODONE 5 MG Tablet 10 MG PO (00:26)
[2024-04-07 00:38] VITALS: BP 115/67; PULSE 73; RESP 18; TEMP 36.3; O2SAT 97
[2024-04-07 04:33] VITALS: BMI 40.8
[2024-04-07 05:00] VITALS: BP 128/67; PULSE 73; RESP 16; TEMP 36.4; O2SAT 98
[2024-04-07 08:48] VITALS: BP 132/67; PULSE 67; RESP 16; TEMP 36.1; O2SAT 98
[2024-04-07] MEDS: Nystatin Powder 15gm Bottle 1 APPLIC TOPICAL ×2 (08:52→20:27)
[2024-04-07] MEDS: Lisinopril 10 MG Tablet PO (08:52)
[2024-04-07] MEDS: Menthol/Lanolin/Calamine/Znox 113 GM Tube 1 APPLIC TOPICAL ×2 (08:52→20:27)
[2024-04-07] MEDS: dexAMETHasone 10 MG/ML Vial 6 MG IV ×2 (08:53→20:29)
[2024-04-07] MEDS: Anastrozole 1 MG TABLET PO (08:53)
[2024-04-07] MEDS: APIXABAN 5 MG TABLET PO ×2 (08:53→20:28)
[2024-04-07] MEDS: Famotidine 200 MG/20 ML MDV 20 MG in 0.9% Normal Saline (Pres. free 8 ML 300 MG IV ×2 (08:53→20:35)
[2024-04-07] MEDS: KCL 20MEQ in 0.9% NS 20 MEQ/1,000 ML IV.SOLN. 70 MEQ IV ×2 (09:04→23:31)
--- NOTE | 2024-04-07 09:15 | PCM.PN.HOSP ---
Reason for Visit Reason for Visit: Diagnoses Hypokalemia (04/04/24) Benign paroxysmal vertigo, unspecified ear (04/04/24) Other pulmonary embolism with acute cor pulmonale (04/04/24) Chronic pulmonary embolism (04/04/24) Chronic embolism and thrombosis of unspecified deep veins of unspecified lower extremity (04/04/24) Difficulty in walking, not elsewhere classified (04/04/24) Weakness (04/04/24) COVID-19 (04/04/24) Subjective Subjective Feeling better but still weak. No diarrhea. No further nausea. Objective Data Objective Data Vital Signs: Vital Signs Temp Pulse Resp BP Pulse Ox O2 Del Method 36.1 C L 67 16 132/67 H 98 Room Air 04/07/24 08:48 04/07/24 08:48 04/07/24 08:48 04/07/24 08:48 04/07/24 08:48 04/07/24 08:48 Oxygen Delivery Method Room Air Weight: 95 kg Body Mass Index (BMI) 40.8 Intake & Output: Intake and Output for Last 24 Hours 04/05/24 04/06/24 04/07/24 23:59 23:59 23:59 Intake Total 2165.83 / 2415.83 2228.33 / 2228.33 976.5 / 976.5 Output Total 400 / 675 1525 / 1775 300 / 300 Balance 1765.83 / 1740.83 703.33 / 453.33 676.5 / 676.5 Lab / Micro Data 04/06/24 07:02 04/06/24 07:02 Micro: Microbiology 04/04/24 18:30 Blood Culture (Wb) - Anticubital Right Blood Culture - Preliminary No growth in 48 hours. 04/04/24 18:30 Urine, Catheterized Urine Culture - Final Pseudomonas aeruginosa 04/04/24 18:30 Mucosa - Nose SARS-CoV-2, Influenza & RSV (PCR) - Final SARS-CoV-2 (COVID 19) Physical Exam Const alert and no apparent distress HEENT head/scalp atraumatic and moist oral mucous membranes Resp normal respiratory effort, no retractions, no use of accessory muscles and clear to auscultation bilaterally Cardio regular rate, regular rhythm, S1 normal heart sound and S2 normal heart sound GI normal to inspection, nondistended, normoactive bowel sounds, soft to palpation, non-tender and non-distended Extremity normal to inspection and full ROM Neuro Sensorium / Orientation: awake and alert Assessment & Plan Assessment/Plan (1) Hypokalemia: (2) COVID-19: PLAN: Plan COVID-19 onset 4 days prior to arrival, which would make day 0 03/31 (was not checked from COVID-19 during that admission). on dexamethasone no infiltrate on CXR, will dc azithromycin Debility: likely exacerbated by COVID 19, nausea, diarrhea and recent hospitalization from 03/28- Seen by Occupational Therapy and patient does require some assistance or taking off and on clothing. Occupational Therapy recommending additional therapy. Physical therapy not yet available. Recent urinary tract infection. Urinalysis here only shows less 1000 CFUs of Pseudomonas and previous culture showed E. coli that was greater than 100,000. Does not appear the patient is actually having urinary tract infection so we will discontinue the ceftriaxone and observe Diarrhea With patient recently on antibiotics and having frequent hospitalizations, will check a C. difficile VTE: History of thrombectomies. Continue with apixaban. VTE prophylaxis: Not indicated as patient is already anticoagulated. Charges/Coding Visit Charges Inpatient E&M: 75791 Subs Hosp L2
--- NOTE | 2024-04-07 13:53 | CHAPLAIN ---
Type of Pastoral Visit ___ Initial Visit ___ Follow-up Visit ___ On-call Visit ___ General Patient Visit ___ Spiritual Assessment ___ Family Conference ___ Bereavement ___ Rapid Response ___ Code Blue _x__ Other (describe below) Pastoral Care Referral From _x__ Patient ___ Family ___ Nurse ___ Physician ___ Cafe Or Restaurant Manager ___ Recreational Aide ___ Other (describe below) Sacrament/Intervention _x__ Active listening ___ Anointing ___ Denominational ___ Bereavement ___ Communion ___ Tea exploration ___ ___ Life review ___ Prayer ___ Reconciliation ___ Sacrament of Sick ___ Supportive presence ___ Wedding _x__ Other (describe below) Pastoral Comments phone call made into isolation room; patient is able to answer the phone and speak clearly; pt states that she is doing fine, is getting better, has good care, and that therapy is about to have her get up and walk; 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
[2024-04-07 14:45] VITALS: BP 130/89; PULSE 78; RESP 18; TEMP 36.6; O2SAT 99
[2024-04-07 20:20] VITALS: BP 119/66; PULSE 70; RESP 16; TEMP 36.1; O2SAT 100
[2024-04-07] MEDS: Mirtazapine 15 MG Tablet PO (20:28)
[2024-04-07] MEDS: 0.9% Saline Lock 10 ML Syringe IV (20:33)
[2024-04-07] MEDS: Scopolamine 1mg/72hr Patch 1 PATCH TD (23:26)
[2024-04-07] MEDS: MELATONIN 3 MG TABLET PO (23:28)
[2024-04-08 03:03] VITALS: BP 140/72; PULSE 64; RESP 16; TEMP 36.1; O2SAT 96
[2024-04-08 04:57] VITALS: BMI 40.7
[2024-04-08 08:39] VITALS: BP 146/79; PULSE 66; RESP 18; TEMP 36.3; O2SAT 98
[2024-04-08] MEDS: dexAMETHasone 10 MG/ML Vial 6 MG IV ×2 (08:41→20:52)
[2024-04-08] MEDS: Famotidine 200 MG/20 ML MDV 20 MG in 0.9% Normal Saline (Pres. free 8 ML 300 MG IV ×2 (08:41→20:58)
[2024-04-08] MEDS: Anastrozole 1 MG TABLET PO (08:42)
[2024-04-08] MEDS: Lisinopril 10 MG Tablet PO (08:42)
[2024-04-08] MEDS: APIXABAN 5 MG TABLET PO ×2 (08:42→20:52)
[2024-04-08] MEDS: 0.9% Saline Lock 10 ML Syringe IV ×2 (08:42→20:56)
[2024-04-08] MEDS: Menthol/Lanolin/Calamine/Znox 113 GM Tube 1 APPLIC TOPICAL ×2 (08:43→20:53)
[2024-04-08] MEDS: Nystatin Powder 15gm Bottle 1 APPLIC TOPICAL ×2 (08:43→20:53)
--- NOTE | 2024-04-08 09:12 | PN.HOSP_ITS ---
Reason for Visit Reason for Visit: Diagnoses Hypokalemia (04/04/24) Benign paroxysmal vertigo, unspecified ear (04/04/24) Other pulmonary embolism with acute cor pulmonale (04/04/24) Chronic pulmonary embolism (04/04/24) Chronic embolism and thrombosis of unspecified deep veins of unspecified lower extremity (04/04/24) Difficulty in walking, not elsewhere classified (04/04/24) Weakness (04/04/24) COVID-19 (04/04/24) Subjective Subjective feeling better Objective Data Objective Data Vital Signs: Vital Signs Temp Pulse Resp BP Pulse Ox O2 Del Method 36.3 C L 66 18 146/79 H 98 Room Air 04/08/24 08:39 04/08/24 08:39 04/08/24 08:39 04/08/24 08:39 04/08/24 08:39 04/08/24 09:02 Oxygen Delivery Method Room Air Weight: 94.7 kg Body Mass Index (BMI) 40.7 Intake & Output: Intake and Output for Last 24 Hours 04/06/24 04/07/24 04/08/24 23:59 23:59 23:59 Intake Total 2228.33 / 2228.33 2396.5 / 2396.5 10 / 10 Output Total 1525 / 1775 1200 / 1200 200 / 200 Balance 703.33 / 453.33 1196.5 / 1196.5 -190 / -190 Lab / Micro Data 04/06/24 07:02 04/06/24 07:02 Micro: Microbiology 04/04/24 18:30 Blood Culture (Wb) - Anticubital Right Blood Culture - Preliminary No growth in 48 hours. 04/04/24 18:30 Urine, Catheterized Urine Culture - Final Pseudomonas aeruginosa 04/04/24 18:30 Mucosa - Nose SARS-CoV-2, Influenza & RSV (PCR) - Final SARS-CoV-2 (COVID 19) Physical Exam Const alert and no apparent distress Resp normal respiratory effort, no retractions, no use of accessory muscles and clear to auscultation bilaterally Cardio regular rate, regular rhythm, S1 normal heart sound and S2 normal heart sound GI normal to inspection, nondistended, normoactive bowel sounds, soft to palpation, non-tender and non-distended Extremity normal to inspection Neuro Sensorium / Orientation: awake and alert Assessment & Plan Assessment/Plan (1) Hypokalemia: (2) COVID-19: PLAN: Plan COVID-19 * onset 4 days prior to arrival, which would make day 0 03/31 (was not checked from COVID-19 during that admission). * on dexamethasone * no infiltrate on CXR, will dc azithromycin Debility: * likely exacerbated by COVID 19, nausea, diarrhea and recent hospitalization from 03/28- * Seen by Occupational Therapy and patient does require some assistance or taking off and on clothing. Occupational Therapy recommending additional therapy. Physical therapy work with patient and she walked about 20'. Recommending additional therapy. Patient declined by TCU. Patient unsure about other nursing home facility wishes to go to over going home. Recent urinary tract infection. * Urinalysis here only shows less 1000 CFUs of Pseudomonas and previous culture showed E. coli that was greater than 100,000. Does not appear the patient is actually having urinary tract infection so we will discontinue the ceftriaxone and observe Diarrhea * With patient recently on antibiotics and having frequent hospitalizations, will check a C. difficile VTE: History of thrombectomies. Continue with apixaban. VTE prophylaxis: Not indicated as patient is already anticoagulated. Charges/Coding Visit Charges Inpatient E&M: 25171 Subs Hosp L2
--- NOTE | 2024-04-08 10:55 | CASEMGMT ---
Addendum entered by Irma Joya 04/08/24 11:50: TCU is unable to take patient. SW will notify patient and see if she will be agreeable to another facility or if she will want home with home health. Irma ESPINO Original Note: SW met with patient. Introduced self and role at [facility]. SW asked patient if she thought anymore about her discharge plan. Patient said she would go to [facility] T[facility], but she will not go anywhere else. SW told patient that SW will make a referral and let her know. SW did provide patient with a list of snf facility providers including quality and resource use data and consistent with patient?s preferred geographic region, medical needs, and insurance network were provided from the [employer] Guide. SW made a referral to [facility] TCU. Irma ESPINO
[2024-04-08] MEDS: KCL 20MEQ in 0.9% NS 20 MEQ/1,000 ML IV.SOLN. 70 MEQ IV (13:11)
--- NOTE | 2024-04-08 14:08 | CASEMGMT ---
SW let patient know that [facility] TCU is unable to take her. SW asked patient if she would be willing to try another facility on the list or if she would like to go home with home health. Patient said she does not know and she needs to think about it. SW told patient that she is likely ready for discharge so the sooner the better. SW will try and check back. Irma ESPINO
[2024-04-08 15:24] VITALS: BP 113/87; PULSE 102; RESP 18; TEMP 36.8; O2SAT 97
--- NOTE | 2024-04-08 16:10 | CASEMGMT ---
SW spoke with patient and she decided she wants to go home with home health. Patient said she does not want to go today. SW let patient know the home health that was arranged for her last visit can be re-initiated. Patient was agreeable. MERT notified JOSE HARDING. Plan: d/c home with home health. Irma ESPINO
--- NOTE | 2024-04-08 16:19 | CASEMGMT ---
Addendum entered by Titi Suarez 04/08/24 16:56: [facility] has not returned call and they are now closed until Thursday. Pt states that she is OK with this RN CM f/u on Thursday (Thursday is day) for the SOC date. Will follow. Original Note: This RN CM was notified by that the pt wants to DC home with [facility]. Pt is currently on 97% RA. The pt was recently set up with [facility] and denies a list and wants to go through [facility] again. TC to [facility] and referral made for SN, PT, & OT. Dr. Saldivar states that the pt will be discharging tomorrow. Green sheet placed on chart.
[2024-04-08] MEDS: Ondansetron 4 MG/2 ML Vial IV (17:10)
[2024-04-08 20:49] VITALS: BP 122/66; PULSE 75; RESP 16; TEMP 36.6; O2SAT 96
[2024-04-08] MEDS: Mirtazapine 15 MG Tablet PO (20:52)
[2024-04-09 03:22] VITALS: BP 122/72; PULSE 69; RESP 18; TEMP 36.3; O2SAT 97
[2024-04-09] MEDS: KCL 20MEQ in 0.9% NS 20 MEQ/1,000 ML IV.SOLN. 70 MEQ IV ×2 (03:26→19:07)
[2024-04-09 04:21] VITALS: BMI 42.7
[2024-04-09 09:42] VITALS: BP 137/64; PULSE 69; RESP 18; TEMP 36.4; O2SAT 98
[2024-04-09] MEDS: Anastrozole 1 MG TABLET PO (09:44)
[2024-04-09] MEDS: APIXABAN 5 MG TABLET PO ×2 (09:44→21:07)
[2024-04-09] MEDS: Lisinopril 10 MG Tablet PO (09:44)
[2024-04-09] MEDS: dexAMETHasone 10 MG/ML Vial 6 MG IV ×2 (09:45→21:08)
[2024-04-09] MEDS: Menthol/Lanolin/Calamine/Znox 113 GM Tube 1 APPLIC TOPICAL (09:46)
[2024-04-09] MEDS: Famotidine 200 MG/20 ML MDV 20 MG in 0.9% Normal Saline (Pres. free 8 ML 300 MG IV ×2 (09:46→21:08)
[2024-04-09] MEDS: Nystatin Powder 15gm Bottle 1 APPLIC TOPICAL (09:46)
--- NOTE | 2024-04-09 09:53 | PN.HOSP_ITS ---
Reason for Visit Reason for Visit: Diagnoses Hypokalemia (04/04/24) Benign paroxysmal vertigo, unspecified ear (04/04/24) Other pulmonary embolism with acute cor pulmonale (04/04/24) Chronic pulmonary embolism (04/04/24) Chronic embolism and thrombosis of unspecified deep veins of unspecified lower extremity (04/04/24) Difficulty in walking, not elsewhere classified (04/04/24) Weakness (04/04/24) COVID-19 (04/04/24) Subjective Subjective Breathing well. Would like another day to stay in the hospital because her significant other is currently not feeling well and he would need another day be able to take her. Objective Data Objective Data Vital Signs: Vital Signs Temp Pulse Resp BP Pulse Ox O2 Del Method 36.4 C L 69 18 137/64 H 98 Room Air 04/09/24 09:42 04/09/24 09:42 04/09/24 09:42 04/09/24 09:42 04/09/24 09:42 04/09/24 09:42 Oxygen Delivery Method Room Air Weight: 99.3 kg Body Mass Index (BMI) 42.7 Intake & Output: Intake and Output for Last 24 Hours 04/07/24 04/08/24 04/09/24 23:59 23:59 23:59 Intake Total 2396.5 / 2396.5 1276.67 / 1276.67 997.5 / 997.5 Output Total 1200 / 1200 200 / 200 Balance 1196.5 / 1196.5 1076.67 / 1076.67 997.5 / 997.5 Medical Nutrition Assessment Dietitian: Malnutrition Criteria Met Start: 04/08/24 15:08 Freq: Status: Active Protocol: Document 04/08/24 15:08 SB (Rec: 04/08/24 15:08 SB [id number]) Nutrition Malnutrition Evidence of Malnutrition Exists Yes Malnutrition (severe): Acute Illness/Injury Evidenced By Suboptimal Energy Intake ( Severe),Weight Loss (Severe) Intake Problem Inadequate Oral Intake Status Inactive Problem Clinical Problem Acute Disease or Injury Related Malnutrition Etiology related to acute illness and inadequate energy intake Signs/Symptoms as evidence by 5.8% unintentional weight loss x 1 month and PO meeting <50% of estimated nutritional needs x 1-2 months. Status Active Problem Unintended Weight Loss Status Inactive Problem Recommendation Dietitian Recommendations/Changes D/c cardiac diet and change to liberal regular diet d/t signs and symptoms of malnutrition. If PO intake continues to decline, recommend enteral nutrition support. Will monitor weight, as available. Reviewed and approved Chinyere Francisco RD, AKOSUA. Lab / Micro Data 04/06/24 07:02 04/06/24 07:02 Micro: Microbiology 04/04/24 18:30 Blood Culture (Wb) - Anticubital Right Blood Culture - Preliminary No growth in 48 hours. 04/04/24 18:30 Urine, Catheterized Urine Culture - Final Pseudomonas aeruginosa 04/04/24 18:30 Mucosa - Nose SARS-CoV-2, Influenza & RSV (PCR) - Final SARS-CoV-2 (COVID 19) Physical Exam Const alert and no apparent distress HEENT head/scalp atraumatic and moist oral mucous membranes Resp normal respiratory effort, no retractions, no use of accessory muscles and clear to auscultation bilaterally Cardio regular rate, regular rhythm, S1 normal heart sound and S2 normal heart sound GI normal to inspection, nondistended, normoactive bowel sounds, soft to palpation, non-tender and non-distended Neuro Sensorium / Orientation: awake and alert Assessment & Plan Assessment/Plan (1) Hypokalemia: (2) COVID-19: PLAN: Plan COVID-19 * onset 4 days prior to arrival, which would make day 0 03/31 (was not checked from COVID-19 during that admission). * on dexamethasone * no infiltrate on CXR, will dc azithromycin Debility: * likely exacerbated by COVID 19, nausea, diarrhea and recent hospitalization from 03/28- * Seen by Occupational Therapy and patient does require some assistance or taking off and on clothing. Occupational Therapy recommending additional therapy. Physical therapy work with patient and she walked about 20'. Recommending additional therapy. Patient declined by TCU. Plan to go home with [facility]. Recent urinary tract infection. * Urinalysis here only shows less 1000 CFUs of Pseudomonas and previous culture showed E. coli that was greater than 100,000. Does not appear the patient is actually having urinary tract infection so we will discontinue the ceftriaxone and observe Diarrhea * With patient recently on antibiotics and having frequent hospitalizations, will check a C. difficile VTE: History of thrombectomies. Continue with apixaban. VTE prophylaxis: Not indicated as patient is already anticoagulated. Disposition: The patient will be discharged to home with home health care. Patient requesting another day so her significant other can feel better. I told her I do not have any reason to keep her. I did check an ambulatory pulse ox but her numbers were good and does not require oxygen. Patient to be discharged home in stable condition.
--- NOTE | 2024-04-09 11:36 | CASEMGMT ---
JOSE HARDING called uncall [facility] nurse and discussed HHC at discharge. Patient had order for [facility] but was sent to ED and admitted and was never opened with [facility]. New order placed. [facility] RN states start of care would be for if patient agreeable. JOSE HARDING in to discuss [facility] with patient. Patient agreeable to start of care and states she will be staying at significant others apt at discharge. Patient denied further needs or concerns at discharge. JOSE HARDING updated [facility] RN that patient agreeable to start of care and that patient will be staying with significant other. JOSE HARDING updated discharge plan and green sheet placed on chart.
[2024-04-09 11:52] VITALS: O2SAT 95; O2SAT 98
--- NOTE | 2024-04-09 14:52 | DS.PCM_ITS ---
Providers Date of Admission: 04/04/24 Primary Care Physician: Dr. Kang Cannon MD Reason For Visit: COVID-19+, HYPOKALEMIA, INTRACTABLE N/V AND Diagnosis Discharge Diagnosis (1) Hypokalemia: Status: Acute Code(s): E87.6 - Hypokalemia (2) COVID-19: Status: Acute Code(s): U07.1 - COVID-19 Plan COVID-19 * onset 4 days prior to arrival, which would make day 0 03/31 (was not checked from COVID-19 during that admission). * on dexamethasone * no infiltrate on CXR, will dc azithromycin Debility: * likely exacerbated by COVID 19, nausea, diarrhea and recent hospitalization from 03/28- * Seen by Occupational Therapy and patient does require some assistance or taking off and on clothing. Occupational Therapy recommending additional therapy. Physical therapy work with patient and she walked about 20'. Recommending additional therapy. Patient declined by TCU. Plan to go home with [facility]. Recent urinary tract infection. * Urinalysis here only shows less 1000 CFUs of Pseudomonas and previous culture showed E. coli that was greater than 100,000. Does not appear the patient is actually having urinary tract infection so we will discontinue the ceftriaxone and observe Diarrhea * With patient recently on antibiotics and having frequent hospitalizations, will check a C. difficile VTE: History of thrombectomies. Continue with apixaban. VTE prophylaxis: Not indicated as patient is already anticoagulated. Disposition: The patient will be discharged to home with home health care. Patient requesting another day so her significant other can feel better. I told her I do not have any reason to keep her. I did check an ambulatory pulse ox but her numbers were good and does not require oxygen. Patient to be discharged home in stable condition. Medications at Discharge Home Medications lisinopril 10 mg tablet 10 mg PO DAILY BP 08/12/21 mirtazapine 15 mg tablet 15 mg PO QHS depressio 30 days #30 tabs 02/24/24 oxycodone 5 mg tablet 10 mg (2 x 5 mg) PO Q4H PRN PRN Pain Score 4-10 Or Pre Pt/Ot 3 days #36 tabs 02/24/24 meclizine 25 mg tablet 25 mg PO Q8H PRN PRN Dizziness #20 tabs 03/04/24 ondansetron 8 mg disintegrating tablet 8 mg PO Q8H PRN nausea and vomiting #20 tabs 03/04/24 anastrozole 1 mg tablet 1 mg PO DAILY breast cx #90 TABLETS 03/07/24 apixaban 5 mg tablet (Eliquis) 5 mg PO DAILY BLOOD CLOTS 03/27/24 baclofen 10 mg tablet 10 mg PO TID PRN PRN muscle spasm 03/27/24 Hospital Course Operations None Procedures None Summary of Care Provided Minutes Spent on Discharge: 32 Medical Records Data Medical Nutrition Assessment Dietitian: Malnutrition Criteria Met Start: 04/08/24 15:08 Freq: Status: Active Protocol: Document 04/08/24 15:08 SB (Rec: 04/08/24 15:08 SB [id number]) Nutrition Malnutrition Evidence of Malnutrition Exists Yes Malnutrition (severe): Acute Illness/Injury Evidenced By Suboptimal Energy Intake ( Severe),Weight Loss (Severe) Intake Problem Inadequate Oral Intake Status Inactive Problem Clinical Problem Acute Disease or Injury Related Malnutrition Etiology related to acute illness and inadequate energy intake Signs/Symptoms as evidence by 5.8% unintentional weight loss x 1 month and PO meeting <50% of estimated nutritional needs x 1-2 months. Status Active Problem Unintended Weight Loss Status Inactive Problem Recommendation Dietitian Recommendations/Changes D/c cardiac diet and change to liberal regular diet d/t signs and symptoms of malnutrition. If PO intake continues to decline, recommend enteral nutrition support. Will monitor weight, as available. Reviewed and approved Chinyere Francisco RD, LD. Weight / BMI Weight Weight: 99.3 kg Body Mass Index (BMI) 42.7 ABG / Lab / Microbiology Data 04/06/24 07:02 04/06/24 07:02 Microbiology: Microbiology 04/04/24 18:30 Blood Culture (Wb) - Anticubital Right Blood Culture - Preliminary No growth in 48 hours. 04/04/24 18:30 Urine, Catheterized Urine Culture - Final Pseudomonas aeruginosa 04/04/24 18:30 Mucosa - Nose SARS-CoV-2, Influenza & RSV (PCR) - Final SARS-CoV-2 (COVID 19) D/C Instructions Discharge Diet: Low fat / Low cholesterol Discharge Activity: Use Walker Meaningful Use Info Meaningful Use Meaningful Use Diagnoses (Choose all that apply): None applicable Ischemic Stroke Statin Dosing Therapy Reference: STATIN DOSE THERAPY REFERENCE: * Patients > 75 years receive moderate or high dose statin therapy. * Patients 75 years or YOUNGER should receive HIGH intensity statin dose unless contraindicated. You will be required to document reason for non-treatment if statin daily dose does not meet guidelines. HIGH DOSE STATIN THERAPY DAILY Atorvastatin > than or = to 40 mg Rosuvastatin > than or = to 20 mg Amlodipine + Atorvastatin > than or = to 2.5/40 mg Ezetimibe + Simvastatin 10/80 mg Simvastatin 80mg Discharge Plan Admission Admit Date/Time: 04/04/24 22:54 Primary Reason for Your Visit: MARIO Attending Provider: Merrick Saldivar Primary Care Provider: Kang Cannon Consulting Providers: Tian Bernard; Naye Chao Instructions Additional Instructions / Restrictions: Please wear a mask around others through April 11. Discharge Orders/Prescriptions Prescriptions: Continued lisinopril 10 mg tablet 10 mg PO DAILY Patient Comments: TAKE 1 TABLET BY MOUTH DAILY mirtazapine 15 mg Tablet 15 mg PO QHS 30 Days Qty: 30 0RF oxycodone 5 mg Tablet 10 mg PO Q4H PRN PRN (Reason: Pain Score 4-10 Or Pre Pt/Ot) 3 Days Qty: 36 0RF meclizine 25 mg tablet 25 mg PO Q8H PRN PRN (Reason: Dizziness) Qty: 20 0RF ondansetron 8 mg tablet,disintegrating 8 mg PO Q8H PRN (Reason: nausea and vomiting) Qty: 20 0RF Eliquis 5 mg tablet 5 mg PO DAILY Rx Instructions: BID X7 DAYS STARTING 03/18/24 THEN 1 TAB DAILY FOR 21 DAYS baclofen 10 mg tablet 10 mg PO TID PRN PRN (Reason: muscle spasm) anastrozole 1 mg tablet 1 mg PO DAILY Qty: 90 3RF Discontinued prednisone 20 mg Tablet 40 mg PO BREAKFAST Qty: 5 0RF Patient Comments: Patient states she has not been taking cefdinir 300 mg Capsule 300 mg PO Q12 Qty: 8 0RF Patient Comments: Patient states never got this prescription filled Referrals / Follow Up: Kang Cannon MD [Primary Care Provider] - Within 2 Weeks Disposition Disposition (needs filled in before D/C Order can be placed): Home Health Service Charges/Coding Visit Charges Inpatient E&M: 63004 Disch Hosp >30min
--- NOTE | 2024-04-09 15:10 | NURSING ---
I spoke with James with [facility] to let her know the pt will be d/c today. I also faxed over the d/c summary.
[2024-04-09 15:42] VITALS: BP 116/70; PULSE 70; RESP 18; TEMP 36.5; O2SAT 96
[2024-04-09] MEDS: Mirtazapine 15 MG Tablet PO (21:07)
[2024-04-09 21:15] VITALS: BP 123/67; PULSE 63; RESP 18; TEMP 36.8; O2SAT 97
[2024-04-10] MEDS: MELATONIN 3 MG TABLET PO ×2 (00:40→21:41)
[2024-04-10 03:45] VITALS: BP 120/80; PULSE 65; RESP 18; TEMP 36.6; O2SAT 97
[2024-04-10 04:03] VITALS: BMI 41.7
[2024-04-10 08:13] VITALS: BP 139/73; PULSE 66; RESP 18; TEMP 36.4; O2SAT 96
[2024-04-10] MEDS: Lisinopril 10 MG Tablet PO (08:18)
[2024-04-10] MEDS: dexAMETHasone 10 MG/ML Vial 6 MG IV (08:19)
[2024-04-10] MEDS: Nystatin Powder 15gm Bottle 1 APPLIC TOPICAL ×2 (08:19→21:34)
[2024-04-10] MEDS: Anastrozole 1 MG TABLET PO (08:19)
[2024-04-10] MEDS: APIXABAN 5 MG TABLET PO ×2 (08:19→21:33)
[2024-04-10] MEDS: Menthol/Lanolin/Calamine/Znox 113 GM Tube 1 APPLIC TOPICAL ×2 (08:19→21:33)
[2024-04-10] MEDS: Famotidine 200 MG/20 ML MDV 20 MG in 0.9% Normal Saline (Pres. free 8 ML 300 MG IV ×2 (08:20→21:33)
[2024-04-10] MEDS: KCL 20MEQ in 0.9% NS 20 MEQ/1,000 ML IV.SOLN. 70 MEQ IV ×2 (08:20→21:34)
--- NOTE | 2024-04-10 09:18 | PCM.PN.HOSP ---
Reason for Visit Reason for Visit: Diagnoses Hypokalemia (04/04/24) Benign paroxysmal vertigo, unspecified ear (04/04/24) Other pulmonary embolism with acute cor pulmonale (04/04/24) Chronic pulmonary embolism (04/04/24) Chronic embolism and thrombosis of unspecified deep veins of unspecified lower extremity (04/04/24) Difficulty in walking, not elsewhere classified (04/04/24) Weakness (04/04/24) COVID-19 (04/04/24) Subjective Subjective Yesterday, patient was saying that she would need another day because her significant other would be another day before she go back home as that would be enough time. I told her I could not justify that since she did not want to look at either options other than transitional care unit. Later in the afternoon/evening, patient states that she is now open to going to a custodial facility. Nursing was to inform the patient that she would need to actually look at the list and come up with some preliminary options so that we may start this process. Objective Data Objective Data Vital Signs: Vital Signs Temp Pulse Resp BP Pulse Ox O2 Del Method 36.4 C L 66 18 139/73 H 96 Room Air 04/10/24 08:13 04/10/24 08:13 04/10/24 08:13 04/10/24 08:13 04/10/24 08:13 04/10/24 08:13 Oxygen Delivery Method Room Air Weight: 96.9 kg Body Mass Index (BMI) 41.7 Intake & Output: Intake and Output for Last 24 Hours 04/08/24 04/09/24 04/10/24 23:59 23:59 23:59 Intake Total 1276.67 / 1276.67 2617.5 / 2867.5 1185.17 / 1185.17 Output Total 200 / 200 Balance 1076.67 / 1076.67 2617.5 / 2867.5 1185.17 / 1185.17 Medical Nutrition Assessment Dietitian: Malnutrition Criteria Met Start: 04/08/24 15:08 Freq: Status: Active Protocol: Document 04/08/24 15:08 SB (Rec: 04/08/24 15:08 SB [id number]) Nutrition Malnutrition Evidence of Malnutrition Exists Yes Malnutrition (severe): Acute Illness/Injury Evidenced By Suboptimal Energy Intake ( Severe),Weight Loss (Severe) Intake Problem Inadequate Oral Intake Status Inactive Problem Clinical Problem Acute Disease or Injury Related Malnutrition Etiology related to acute illness and inadequate energy intake Signs/Symptoms as evidence by 5.8% unintentional weight loss x 1 month and PO meeting <50% of estimated nutritional needs x 1-2 months. Status Active Problem Unintended Weight Loss Status Inactive Problem Recommendation Dietitian Recommendations/Changes D/c cardiac diet and change to liberal regular diet d/t signs and symptoms of malnutrition. If PO intake continues to decline, recommend enteral nutrition support. Will monitor weight, as available. Reviewed and approved Chinyere Francisco RD, LD. Lab / Micro Data 04/06/24 07:02 04/06/24 07:02 Micro: Microbiology 04/04/24 18:30 Blood Culture (Wb) - Anticubital Right Blood Culture - Final No growth in 5 days. 04/04/24 18:30 Urine, Catheterized Urine Culture - Final Pseudomonas aeruginosa 04/04/24 18:30 Mucosa - Nose SARS-CoV-2, Influenza & RSV (PCR) - Final SARS-CoV-2 (COVID 19) Physical Exam Const alert and no apparent distress Constitutional Narrative: No respiratory distress. No conversational dyspnea. Resp normal respiratory effort and no retractions Assessment & Plan Assessment/Plan (1) Hypokalemia: (2) COVID-19: PLAN: Plan COVID-19 Out of isolation. Completed dexamethasone. no infiltrate on CXR, will dc azithromycin Debility: likely exacerbated by COVID 19, nausea, diarrhea and recent hospitalization from 03/28- Seen by Occupational Therapy and patient does require some assistance or taking off and on clothing. Occupational Therapy recommending additional therapy. Physical therapy work with patient and she walked about 20'. Recommending additional therapy. Patient declined by TCU. Plan to go home with [facility]. Recent urinary tract infection. Urinalysis here only shows less 1000 CFUs of Pseudomonas and previous culture showed E. coli that was greater than 100,000. Does not appear the patient is actually having urinary tract infection so we will discontinue the ceftriaxone and observe Diarrhea With patient recently on antibiotics and having frequent hospitalizations, will check a C. difficile VTE: History of thrombectomies. Continue with apixaban. VTE prophylaxis: Not indicated as patient is already anticoagulated. Disposition: Patient had been declined by TCU and patient and at 1 point was unwilling to consider any other options so plan was for her to go home with home care. When she was actually discharged on the , after several hours, patient relented and stated that she will look at other options for custodial facility. Therefore, patient's hospitalization has been extended awaiting on her to evaluate that then have the process initiated in regards to finding a facility which likely will not happen until the . Patient has selected a couple options. Awaiting on case management and social work to assist on disposition. Patient medically stable for discharge. Charges/Coding Visit Charges Inpatient E&M: 38131 Subs Hosp L1
[2024-04-10 15:04] VITALS: BP 131/78; PULSE 72; RESP 18; TEMP 36.6; O2SAT 98
[2024-04-10 21:30] VITALS: BP 130/68; PULSE 72; RESP 18; TEMP 36.7; O2SAT 98
[2024-04-10] MEDS: Scopolamine 1mg/72hr Patch 1 PATCH TD (21:33)
[2024-04-10] MEDS: Mirtazapine 15 MG Tablet PO (21:33)
[2024-04-10] MEDS: 0.9% Saline Lock 10 ML Syringe IV (21:34)
[2024-04-11 03:30] VITALS: BP 119/64; PULSE 71; RESP 16; TEMP 36.7; O2SAT 97
[2024-04-11 04:29] VITALS: BMI 41.3
[2024-04-11] MEDS: APIXABAN 5 MG TABLET PO ×2 (08:48→20:26)
[2024-04-11] MEDS: Nystatin Powder 15gm Bottle 1 APPLIC TOPICAL ×2 (08:49→20:26)
[2024-04-11] MEDS: Menthol/Lanolin/Calamine/Znox 113 GM Tube 1 APPLIC TOPICAL ×2 (08:49→20:27)
[2024-04-11] MEDS: Anastrozole 1 MG TABLET PO (08:49)
[2024-04-11 09:30] VITALS: BP 113/58; PULSE 71; RESP 16; TEMP 36.4; O2SAT 100
[2024-04-11] MEDS: Lisinopril 10 MG Tablet PO (10:18)
[2024-04-11] MEDS: Famotidine 200 MG/20 ML MDV 20 MG in 0.9% Normal Saline (Pres. free 8 ML 300 MG IV ×2 (10:22→20:25)
[2024-04-11] MEDS: KCL 20MEQ in 0.9% NS 20 MEQ/1,000 ML IV.SOLN. 70 MEQ IV (11:55)
--- NOTE | 2024-04-11 15:59 | PCM.PN.HOSP ---
Reason for Visit Reason for Visit: Nausea/vomiting/generalized weakness Subjective Subjective Ms. Webster is a 74-year-old white female who presented to the emergency department at [facility] on 04/04/2024 with nausea, vomiting, and generalized weakness. She had a recent admission here from February 07, 2024 through February 08, 2024 for treatment of ambulatory dysfunction and adult failure to thrive and another admission at [facility] for intractable nausea and vomiting with the third admission here from March 27 through April 01, 2024 for treatment of acute cystitis and a gout flare. She reported this time her symptoms began about 4 days prior to presentation with a gradual onset of progressively worsening generalized weakness. She also admitted that she had recurrence of her intractable nausea and vomiting of bilious emesis with poor oral intake. Due to her poor oral intake she was not able to complete her home oral antibiotics of which she was discharged from her last hospitalization. She indicated nothing made her better or worse and reported subjective fever, chills, and dysuria but denied any headache, diarrhea, constipation, chest pain, shortness of breath or cough. Vital signs on presentation showed a temperature of 96.9, heart rate 96, respiratory 18, blood pressure 111/73 and pulse ox was 97% on room air CBC showed a white count of 14.2 with a left shift having a 79.8% neutrophilia and stable hemoglobin with a chronically known anemia. Chemistry panel showed mild hypokalemia with a potassium of 3.1 but was otherwise unremarkable with normal renal function. Lactic acid was normal. Troponin was 31 with a delta of 36. Chest x-ray showed no acute findings. COVID 19 PCR was positive. Blood culture was obtained on admission and found to be negative with no growth for 5 days and initial urine culture showed Pseudomonas however colony counts were less than 1000 CFU's per mL and antibiotics were discontinued. Her previous urine culture from her last hospitalization showed E. coli. Overall the patient was not doing well with physical and Occupational Therapy and stated that she felt like she needed to go somewhere for rehab. This occurred on 04/10/2024. She refuses to actively participate despite being told by multiple physicians and supporting staff about the importance of movement in her recovery. Objective Data Objective Data Vital Signs: Vital Signs Temp Pulse Resp BP Pulse Ox O2 Del Method 97.5 F L 71 16 113/58 L 100 Room Air 04/11/24 09:30 04/11/24 09:30 04/11/24 09:30 04/11/24 09:30 04/11/24 09:30 04/11/24 15:24 Oxygen Delivery Method Room Air Weight: 96 kg Body Mass Index (BMI) 41.3 Intake & Output: Intake and Output for Last 24 Hours 04/09/24 04/10/24 04/11/24 23:59 23:59 23:59 Intake Total 2617.5 / 2867.5 2981.50 / 2981.50 1350 / 1350 Balance 2617.5 / 2867.5 2981.50 / 2981.50 1350 / 1350 Medical Nutrition Assessment Dietitian: Malnutrition Criteria Met Start: 04/08/24 15:08 Freq: Status: Active Protocol: Document 04/08/24 15:08 SB (Rec: 04/08/24 15:08 SB [id number]) Nutrition Malnutrition Evidence of Malnutrition Exists Yes Malnutrition (severe): Acute Illness/Injury Evidenced By Suboptimal Energy Intake ( Severe),Weight Loss (Severe) Intake Problem Inadequate Oral Intake Status Inactive Problem Clinical Problem Acute Disease or Injury Related Malnutrition Etiology related to acute illness and inadequate energy intake Signs/Symptoms as evidence by 5.8% unintentional weight loss x 1 month and PO meeting <50% of estimated nutritional needs x 1-2 months. Status Active Problem Unintended Weight Loss Status Inactive Problem Recommendation Dietitian Recommendations/Changes D/c cardiac diet and change to liberal regular diet d/t signs and symptoms of malnutrition. If PO intake continues to decline, recommend enteral nutrition support. Will monitor weight, as available. Reviewed and approved Chinyere Francisco RD, LD. Lab / Micro Data 04/06/24 07:02 04/06/24 07:02 Micro: Microbiology 04/04/24 18:30 Blood Culture (Wb) - Anticubital Right Blood Culture - Final No growth in 5 days. 04/04/24 18:30 Urine, Catheterized Urine Culture - Final Pseudomonas aeruginosa 04/04/24 18:30 Mucosa - Nose SARS-CoV-2, Influenza & RSV (PCR) - Final SARS-CoV-2 (COVID 19) Physical Exam Const alert, oriented x3 and no apparent distress; Negative for average body habitus or healthy appearing Constitutional Narrative: Morbidly obese, older, white female, lying in bed, affect is flat and room is dark, therapy at bedside HEENT head/scalp atraumatic and moist oral mucous membranes HEENT Narrative: Dentures in place, Mallampati 3, no thrush Head and Scalp: normocephalic Resp normal respiratory effort, no retractions, no use of accessory muscles and clear to auscultation bilaterally Auscultation: Negative for rales, rhonchi or wheezes Cardio regular rate, regular rhythm, S1 normal heart sound, S2 normal heart sound, no murmurs, no rub, no gallops and no clicks GI normal to inspection, nondistended, normoactive bowel sounds, soft to palpation and non-tender Extremity no clubbing, cyanosis or edema Extremity Narrative: Pedal and radial pulses are 2+ Neuro oriented x3, moves all extremities and no focal motor deficits Speech: speech normal Psych Psych Narrative: Affect is flat mood seems depressed Assessment & Plan Assessment/Plan (1) Ambulatory dysfunction: (2) Generalized weakness: (3) COVID-19: (4) Dysphagia: (5) Adult failure to thrive: (6) Debility: (7) Leukocytosis: PLAN: Plan Generalized weakness and debility secondary to acute COVID-19 infection and adult failure to thrive -Dexamethasone has been completed -Antibiotics discontinued as there was no infiltrate on chest x-ray and patient has no signs of pneumonia -Continue physical and Occupational Therapy -Motivation is extremely poor -Will need placed at discharge and discuss further with case management/social work tomorrow -Will need pre-CERT prior to discharge--> patient was declined by TCU -Debility is acute on chronic and likely exacerbated by acute COVID-19 infection -Patient has seemed to have a significant decline since she was admitted to [facility] with acute PE Recent UTI -Urinalysis on admission showed less than 1000 CFU's of Pseudomonas and previous culture showed E. coli -Antibiotics were discontinued -With ongoing lethargy and nausea will recheck UA and culture -Start Cipro for now and reevaluate after UA and culture are resulted -I did express to the floor that I did not want antibiotics started until UA and culture were obtained Dysphagia -Patient reports some difficulty swallowing -Consult speech therapy Diarrhea -No documented bowel movement since 831 -C. difficile discontinued Hypokalemia -Resolved -Recheck lab in a.m. Leukocytosis -Repeat CBC in a.m. -Antibiotics as above for concern of recurrent UTI History of PE/DVT -Continue full anticoagulation with Eliquis -01/2024 History of left breast cancer -Type unclear but documented that it was ER positive -Continue home anastrozole -Continue outpatient follow-up as previously directed by oncology History of stroke -Previous CT brain shows small left frontal lacunar infarct -continue home Eliquis Chronic macrocytic anemia -hemoglobin is stable -continue to trend Essential hypertension -Continue lisinopril 10 mg daily Depression -Depression seen significantly worse at this time -Is on mirtazapine 15 mg nightly -Will increase to 30 mg nightly Morbid obesity -BMI is 41.3 -Recommend weight loss -complicates treatment, prognosis, outcomes DVT prophylaxis -Continue home Eliquis CODE STATUS -Full code as verified at the time of admission Charges/Coding Visit Charges Inpatient E&M: 15752 Subs Hosp L2
[2024-04-11 16:18] VITALS: BP 103/62; PULSE 79; RESP 16; TEMP 36.2; O2SAT 97
--- NOTE | 2024-04-11 16:19 | NURSING ---
in to check vs and iv fluids stopped. pt told that had to drink. when asked how feeling stated, oh i feel better when im resting now pt asked to elaborate of feeling sick and stated, its hard to describe and rubs upper epigastric area. stated, maybe feels like cramps? instructed to call when daughter here for update
[2024-04-11] MEDS: Ondansetron 4 MG/2 ML Vial IV (17:48)
[2024-04-11] MEDS: 0.9% Saline Lock 10 ML Syringe IV (17:48)
[2024-04-11] MEDS: Ciprofloxacin 400 MG/200 ML BAG 200 MG IV (20:39)
[2024-04-11] MEDS: Mirtazapine 30 MG Tablet PO (20:40)
[2024-04-11 22:00] VITALS: BP 100/52; PULSE 78; RESP 15; TEMP 36.7; O2SAT 97
[2024-04-11 22:48] VITALS: BMI 41.3
[2024-04-12] VITALS (9 sets, daily range): BP systolic 89–108; BP diastolic 50–70; PULSE 77–95; RESP 16–18; TEMP 36.1–36.6; O2SAT 95–98; BMI 41.4
--- NOTE | 2024-04-12 | GASB_PTH ---
PATIENT: BREANNA YANES LOC: [facility] U#:[id number] AGE/SX: 74/F ROOM: [facility] RE04/04/[address]: Dr. Makenna Albright DO : 1950 BED: 1 DIS: 04/13/2024 SPEC #: [id number] RECD: 04/12/24 18:33 STATUS: HAYDEE RECarmen #: [id number] MARIAM: 04/12/24 00:[address]: Vince Lester DEPT: SURGICAL PATHOLOGY RECD BY: Tony De La Paz ENTERED: 04/13/24 08:28 SP TYPE: Gastric Bx OTHR DR: MD Dr. Tian Christina DO Dr. Eric Jopperi, DO Dr. Kathryn Lee, DO Dr. Nana Yaa Koram, MD Tissues: Gastric mucous membrane Procedures: Surgery Specimen Level IV Comments: @ Ordering doctor for SUIV edited from to @ aaliyah VILLASENOR at 04/13/24 09 @ Submitting doctor edited from to @ aaliyah VILLASENOR at 04/13/24904 HEADER OPERATION: EGD, Dilatation of pylorus PRE-OP DIAGNOSIS: Intractable nausea/vomiting TISSUE SUBMITTED: Gastric body biopsy MICROSCOPIC DIAGNOSIS Gastric body, biopsy: Mild chronic inflammation. See comment. Sveta 04/14/2024 COMMENT The results of immunohistochemistry for Helicobacter pylori will be reported separately ([id number]). MICROSCOPIC DESCRIPTION Slides are reviewed. GROSS DESCRIPTION Received in fixative is one container labeled with the patient's name and designated Gastric body biopsy. The specimen consists of multiple irregular fragments of light madrid soft tissue that in aggregate measure 0.6 x 0.6 x 0.1 cm. The specimen is totally submitted in one cassette. 04/13/2024 TC:3 CPT:75887
[2024-04-12 05:37] LABS: Absolute Lymphocyte Count 1.47 X10^3/uL (0.83-4.51); Absolute Neutrophil Count 6.4 X10^3/uL (2.0-7.7); Basophil# 0.03 X10^3/uL; Basophil% 0.3 % (0-1); Eosinophil# 0.04 X10^3/uL; Eosinophils% 0.5 % (0-5); Hematocrit 34.9 % (37-47); Hemoglobin 11.3 g/dL (12.0-15.0); Lymphocyte # 1.47 X10^3/ul (0.83-4.51); Lymphocyte % 16.8 % (19-41); Mean Corp Hgb Conc 32.4 g/dL (32-36); Mean Corpuscular Hgb 30.5 pg (27.0-32.0); Mean Corpuscular Volume 94.1 fL (81-99); Mean Platelet Vol. 11.3 fl (6.2-12.0); Monocyte# 0.69 X10^3/uL; Monocyte% 7.9 % (0-10); NRBC Flagged by Analyzer 0 % (0-5); Neutrophil % 73.1 % (47-70); Platelet Count 170 K/mm3 (150-450); RBC Distribution Width CV 15.7 % (11.6-14.6); RBC Distribution Width SD 53.1 fl (35.1-43.9); Red Blood Count 3.71 M/mm3 (4.2-5.4); White Blood Count 8.8 K/mm3 (4.4-11.0)
[2024-04-12 06:01] LABS: ALB/GLOB Ratio 0.8 RATIO (0.9-2.4); AST(SGOT) 17 U/L (15-37); Alanine Aminotransfer ALT/SGPT 23 U/L (13-56); Albumin, Serum 2.2 g/dL (3.2-5.0); Alkaline Phosphatase 52 U/L (45-117); Anion Gap 8 (5-15); BUN 14 mg/dL (7-18); BUN/Creat Ratio 18.7 RATIO (10-20); Calcium,Total 8.2 mg/dL (8.5-10.1); Chloride 106 mmol/L (98-107); Creatinine, Serum 0.75 mg/dL (0.55-1.02); EST Glomerular Filtration Rate 81 mL/min (>60); Est Glom Filt Rate - Afr Amer 98 mL/min (>60); Estimated Creatinine Clearance 66.05 ml/min; Globulin 2.7 g/dL (2.2-4.2); Glucose 78 mg/dL (74-106); Magnesium 1.7 mg/dL (1.6-2.6); Phosphorus 2.6 mg/dL (2.5-4.9); Potassium 3.5 mmol/L (3.5-5.1); Protein, Total 4.9 g/dL (6.4-8.2); Sodium Level 136 mmol/L (136-145)
[2024-04-12 09:15] LABS: Bacteria 0 SEEN /hpf (None Seen); Mucous, Urine 0 SEEN /hpf (<or=2+); Red Blood Cells-Urine 0 SEEN /hpf (0-5)
[2024-04-12 09:17] LABS: Color, Urine Yellow (Yellow); Glucose, Dipstick Normal (Normal); Ketone-Dipstick Negative (Negative); Leukocyte Esterase-Dipstick 100 /ul (Negative); Nitrite-Dipstick Negative (Negative); Occult Blood-Urine Negative /ul (Negative); Protein-Dipstick Negative (Negative); Specific Gravity, Urine 1.015 (1.002-1.030); Urine Bilirubin Dipstick Negative (Negative); Urine Clarity Clear (Clear); Urine Urobilinogen Normal (Normal)
[2024-04-12] MEDS: Ascorbic Acid 500 MG Tablet 1000 MG PO (09:25)
[2024-04-12] MEDS: Anastrozole 1 MG TABLET PO (09:25)
[2024-04-12] MEDS: APIXABAN 5 MG TABLET PO ×2 (09:25→20:23)
[2024-04-12] MEDS: Lisinopril 10 MG Tablet PO (09:25)
[2024-04-12] MEDS: Cholecalciferol (Vit D3) 125 MCG CAPSULE (5,000 UNITS) PO (09:26)
[2024-04-12] MEDS: Menthol/Lanolin/Calamine/Znox 113 GM Tube 1 APPLIC TOPICAL ×2 (09:26→20:25)
[2024-04-12] MEDS: Pantoprazole Sodium 40 MG Tablet PO (09:28)
[2024-04-12] MEDS: Nystatin Powder 15gm Bottle 1 APPLIC TOPICAL ×2 (09:31→20:24)
[2024-04-12 09:36] LABS: Renal Epithelial Cells 0-5 SEEN /hpf (0-5); Squamous Epithelial Cells - UA 0-5 SEEN /hpf (5-10); White Blood Cells 0-5 SEEN /hpf (0-5)
--- NOTE | 2024-04-12 09:38 | CASEMGMT ---
SW met with patient. Introduced self and role at [facility]. SW asked patient about her plan for discharge. Patient stated she would like to go somewhere for rehab. SW found patient's SNF list and patient had 3 choices marked. SW confirmed patient's SNF choices are [facility], [facility], and [facility]. SW asked Ila to please make a referral to SW. Irma Joya PLACEMENT COORDINATOR SRINIVAS
--- NOTE | 2024-04-12 10:09 | CASEMGMT ---
Addendum entered by Ila Valladares 04/12/24 11:17: [facility] has accepted and will start precert. lIa Valladares DC Planning Asst. Original Note: Discharge Planning Referral sent via [facility] to [facility]. Ila Valladares DC Planning Asst.
[2024-04-12] MEDS: Lactated Ringers 1,000 ML 15 ML IV (11:59)
--- NOTE | 2024-04-12 12:04 | PCM.PRE.AN2 ---
ASA Classification* ASA Classification ASA Classification: 3 Assessment & Plan Anesthesia* Anesthesia Assessment Anesthesia Assessment: Discussed sedation and/or anesthesia options, risks, benefits, and alternatives with patient/parents/legal guardian/POA. Questions invited. The patient/parents/legal guardian/POA seems to understand and agrees to proceed with anesthesia plan. Reviewed the physical assessment, medical history, allergy history and patient home medications list prior to surgery/procedure/anesthetic and documented any changes. Performed airway and anesthesia risk assessments. Anesthesia Type Anesthesia Type: MAC History Source History Obtained from:: Patient and Chart Anesthesia Focused Assessment* Temperature: 97.2 F Pulse Rate: 95 Blood Pressure: 108/68 Respiratory Rate: 16 Pulse Ox: 95 Oxygen Delivery Method: Room Air Airway Assessment Mouth opens: >3 cm Mallampati Score: III Teeth Condition: Chipped/Broken (Several chipped.), Loose (Couple of loose lower incisors) and Missing (Several missing teeth.) Neck Range of motion (ROM): Limited ROM (Decreased extension.) Focused Labs Anesthesia Preop lab: CBC WBC 8.8 K/mm3 (4.4-11.0) 04/12/24 05:23 RBC 3.71 M/mm3 (4.2-5.4) L 04/12/24 05:23 Hgb 11.3 g/dL (12.0-15.0) L 04/12/24 05:23 Hct 34.9 % (37-47) L 04/12/24 05:23 Plt Count 170 K/mm3 (150-450) 04/12/24 05:23 CHEMISTRY Potassium 3.5 mmol/L (3.5-5.1) 04/12/24 05:23 Sodium 136 mmol/L (136-145) 04/12/24 05:23 Magnesium 1.7 mg/dL (1.6-2.6) 04/12/24 05:23 Phosphorus 2.6 mg/dL (2.5-4.9) 04/12/24 05:23 BUN 14 mg/dL (7-18) 04/12/24 05:23 Creatinine 0.75 mg/dL (0.55-1.02) 04/12/24 05:23 Glucose 78 mg/dL (74-106) 04/12/24 05:23 POC Glucose 151 mg/dL (74-106) H 01/23/24 11:25 TSH 0.541 uIU/mL (0.358-3.740) 03/28/24 04:28 COAG PT 18.0 SECONDS (11.7-14.9) H 04/04/24 17:25 Pre-Assessment Diagnosis/Proposed Procedure Planned Operative Procedure(s): EGD Anesthesia History Anesthesia History - animal behaviourist: Anesthesia History - animal behaviourist Hx Hospitalization No 09/27/21 15:42 Any Problems With Anesthesia No 09/27/21 15:42 Cholinesterase deficiency No 09/27/21 15:42 You/Your Family Experience No 09/27/21 15:42 fever (hyperthermia) with Relationship Recent Exposure to Contagious No 10/02/21 09:28 Disease Does patient have nerve No 09/27/21 15:42 stimulator Patient instructed to have device shut off --Does patient have Pacemaker or ICD? When Was Last Pacemaker Check QUESTION #4 FULL TEXT: You/Your Family Experience fever (hyperthermia) with Anesthesia Last Oral Intake Last Oral intake: Last Oral Intake NPO since Meds taken in AM with sips of water? Meds patient instructed to take am of surgery Any additional information?: Yes NPO since: 00:00 PONV PONV - animal behaviourist: PONV - animal behaviourist Female HX of Motion Sickness HX of N/V After Surgery Non-Smoker Duration of Surgery greater than 60 minutes Number of Risk Factors PONV Score Height & Weight Height & Weight: Anesthesia: Height & Weight Height 5 ft 04/08/24 11:03 Weight: 96.3 kg 04/12/24 04:53 Body Mass Index (BMI) 41.4 04/12/24 04:53 Respiratory Assessment Respiratory Assessment - animal behaviourist: Respiratory Tract Infection Hx - animal behaviourist Hx Respiratory Tract Infection No 09/27/21 15:42 STOP Sleep Apnea STOP Sleep Apnea - animal behaviourist: STOP Sleep Apnea - animal behaviourist Hx Hypertension Yes 04/05/24 14:43 Hx Sleep Apnea No 04/04/24 23:49 CPAP BIPAP Do you snore loudly (louder No 04/04/24 23:49 than talking or can be heard Do you often feel tired/ No 04/04/24 23:49 fatigued/ sleepy during daytime? Has anyone observed you stop No 04/04/24 23:49 breathing during sleep? STOP Results Negative 04/04/24 23:49 QUESTION #5 FULL TEXT : Do you snore loudly (louder than talking or can be heard through closed doors)? Tobacco Use History Tobacco Use History - animal behaviourist: Tobacco Use History - animal behaviourist Tobacco Use Smoking Status Never smoker 04/04/24 23:49 Hx Tobacco Use No 04/04/24 23:49 Years Smoking Packs Smoked per Day Smoking Cessation Date was within the last 15 years Hx Smoking Cessation Date Hx Smoking Cessation Counseling Hematologic Medial History Hematologic Hx - animal behaviourist: Hematologic Medical Hx - clinical documentation improvement specialist Hx of Blood Transfusion No 04/04/24 23:49 Hx of Transfusion in last 3 No 04/04/24 23:49 Months Date of Last Transfusion (if within last 3 months) Ever experience any problems No 04/04/24 23:49 with transfusion(s)? Specify any problems Hx of Preganancy in last 3 N/A 04/04/24 23:49 Months Nurse Filling Out Transfusion ALOWDEN 04/04/24 23:49 & Questions: Date: 04/05/24 04/04/24 23:49 Time: 00:14 04/04/24 23:49 Patient unable to answer at this time (ie. confused, unrespo /Reproduction History /Reproductive History - animal behaviourist: /Reproductive Hx- animal behaviourist Hx Now Gestational Age (in weeks): EDC: Hx Hx Para Hx Section SAB Active Medications Active Medications: Current Medications Generic Name Dose Route Start Last Admin Trade Name Freq PRN Reason Stop Dose Admin Acetaminophen 650 mg 04/04/24 23:49 Acetaminophen 325 Mg Tablet PO Q6H PRN PRN Pain 1-5/10 or Fever Anastrozole 1 mg 04/05/24 10:00 04/12/24 09:25 Anastrozole 1 Mg Tablet PO 1 mg DAILY NELLA Administration Apixaban 5 mg 04/05/24 10:00 04/12/24 09:25 Apixaban 5 Mg Tablet PO 5 mg BID NELLA Administration Ascorbic Acid 1,000 mg 04/05/24 08:00 04/12/24 09:25 Ascorbic Acid 500 Mg Tablet PO 1,000 mg BIDCM NELLA Administration Baclofen 5 mg 04/04/24 23:49 Baclofen 10 Mg Tablet PO TID PRN PRN muscle spasm Calamine/Phenol 1 applic 04/06/24 10:00 04/12/24 09:26 Menthol/Lanolin/Calamine/Znox 113 Gm Tube TOPICAL 1 applic BID NELLA Administration Protocol Cholecalciferol 125 mcg 04/05/24 10:00 04/12/24 09:26 Cholecalciferol (Vit D3) 125 Mcg Capsule (5,000 Units) PO 125 mcg DAILY NELLA Administration Sodium Chloride 250 mls @ 15 mls/hr 04/04/24 23:50 IV .[id number] PRN Additional IVPB Infusion Sodium Chloride 250 mls @ 15 mls/hr 04/04/24 23:50 IV .[id number] PRN Saline Flush Lactated Ringer's 1,000 mls @ 15 mls/hr 04/12/24 12:00 04/12/24 11:59 IV 15 mls/hr .Q48H NELLA Administration Lisinopril 10 mg 04/05/24 10:00 04/12/24 09:25 Lisinopril 10 Mg Tablet PO 10 mg DAILY NELLA Administration Protocol Meclizine HCl 25 mg 04/04/24 23:49 Meclizine Hcl 25 Mg Tablet PO Q8H PRN PRN Dizziness Mirtazapine 30 mg 04/11/24 22:00 04/11/24 20:40 Mirtazapine 30 Mg Tablet PO 30 mg QHS NELLA Administration Nystatin 1 applic 04/06/24 10:00 04/12/24 09:31 Nystatin Powder 15gm Bottle TOPICAL 1 applic BID NELLA Administration Protocol Ondansetron HCl 4 mg 04/04/24 23:49 04/11/24 17:48 Ondansetron 4 Mg/2 Ml Vial IV 4 mg Q6H PRN PRN Administration NAUSEA/VOMITING Oxycodone HCl 10 mg 04/04/24 23:49 04/07/24 00:26 Oxycodone 5 Mg Tablet PO 10 mg Q4H PRN PRN Administration Pain Score 6-10 Or Pre Pt/Ot Pantoprazole Sodium 40 mg 04/12/24 10:00 04/12/24 09:28 Pantoprazole Sodium 40 Mg Tablet PO 40 mg DAILY NELLA Administration Prochlorperazine Edisylate 5 mg 04/06/24 17:53 Prochlorperazine 10 Mg/2 Ml Vial IV Q6H PRN PRN NAUSEA/VOMITING Senna/Docusate Sodium 2 tablet 04/04/24 23:49 Senna/Docusate Sodium 1 Tablet PO BID PRN PRN Constipation Sodium Chloride 10 - 40 ml 04/04/24 23:50 04/11/24 17:48 0.9% Saline Lock 10 Ml Syringe IV 10 ml UD PRN Administration SALINE FLUSH PFSH Medical History Gout flare Gout History of pulmonary embolism Hypertension Current use of skilled nursing anticoagulation Bilateral pulmonary embolism Anemia Foot fracture, left Family history of colon cancer in mother Encounter for education ER+ (estrogen receptor positive status) Degenerative joint disease Hypertension Osteopenia after menopause Cancer of left female breast Post-menopausal Arthritis Easy bruising Excessive bleeding Non-smoker Shortness of breath on exertion Pulmonary embolism Hypertension UTI (urinary tract infection) DVT (deep venous thrombosis) Home Medications ?Medication ?Instructions ?Recorded ?Last Taken ?Type lisinopril 10 mg tablet 10 mg PO DAILY BP 08/12/21 10/02/21 History mirtazapine 15 mg tablet 15 mg PO QHS depressio 30 days #30 02/24/24 Unknown Rx tabs oxycodone 5 mg tablet 10 mg (2 x 5 mg) PO Q4H PRN PRN 02/24/24 Unknown Rx Pain Score 4-10 Or Pre Pt/Ot 3 days #36 tabs meclizine 25 mg tablet 25 mg PO Q8H PRN PRN Dizziness #20 03/04/24 Unknown Rx tabs ondansetron 8 mg disintegrating 8 mg PO Q8H PRN nausea and 03/04/24 Unknown Rx tablet vomiting #20 tabs anastrozole 1 mg tablet 1 mg PO DAILY breast cx #90 03/07/24 Unknown Rx TABLETS apixaban 5 mg tablet (Eliquis) 5 mg PO DAILY BLOOD CLOTS 03/27/24 Unknown History baclofen 10 mg tablet 10 mg PO TID PRN PRN muscle spasm 03/27/24 Unknown History Allergy/AdvReac Type Severity Reaction Status Date / Time No Known Allergies Allergy Verified 04/04/24 14:54 Family History Grandmother Breast cancer Daughter Breast cancer Mother Colon cancer Surgical History History of appendectomy History of dilation and curettage History of left mastectomy (~08/2021) History of lumpectomy of left breast Hx of abdominoplasty History of cholecystectomy History of total knee replacement Social History household members: spouse Smoking Status: Never smoker alcohol intake: never substance use type: does not use Review of Systems (Anesthesia) ROS Narrative System reviewed and no additional complaints, except as documented.
--- NOTE | 2024-04-12 12:06 | CON.PCM.GI_ITS ---
HPI Consult Data Date of Consult: 04/12/24 HPI Narrative Reason for Consultation: GI bleed with nausea vomiting HPI Narrative: BREANNA WEBSTER, is a 74 F with a past medical history of essential hypertension, morbid obesity; with BMI of 41.5 this admission, history of DVT/PE; on full-dose Lovenox after recent thrombectomies from lungs and both lower extremities. She presents with worsening weakness and lethargy. She had a recent admission here from February 07, 2024 to February 08, 2024 for treatment of ambulatory dysfunction and adult [id number] in addition to another admission at the [facility] for intractable nausea and vomiting ~2 weeks ago and a very recent admission here from March 27, 2024 to April 01, 2024 for treatment of acute cystitis. I was consulted because she has been experiencing intractable nausea and vomiting plus acute gout flare in her Left wrist who re-presents to [facility] ER complaining of nausea, vomiting and generalized weakness. Ms. Webster reports her symptoms began ~4 days prior to admission with the gradual-onset of progressively worsening generalized weakness with patient having difficulty just trying to get out of bed today so her home PT activated EMS for her. She also admits to a return of her intractable nausea and vomiting with bilious emesis and poor oral intake that also caused her to be unable to complete her course of antibiotics. She states nothing makes her symptoms better or worse. She admits to subjective fever, chills and dysuria but she denies headache, diarrhea, constipation, chest pain or SOB. 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 Bilateral pulmonary embolism Anemia Foot fracture, left Family history of colon cancer in mother Encounter for education ER+ (estrogen receptor positive status) Degenerative joint disease Hypertension Osteopenia after menopause Cancer of left female breast Post-menopausal Arthritis Easy bruising Excessive bleeding Non-smoker Shortness of breath on exertion Pulmonary embolism Hypertension UTI (urinary tract infection) DVT (deep venous thrombosis) Home Medications ?Medication ?Instructions ?Recorded ?Last Taken ?Type lisinopril 10 mg tablet 10 mg PO DAILY BP 08/12/21 10/02/21 History mirtazapine 15 mg tablet 15 mg PO QHS depressio 30 days #30 02/24/24 Unknown Rx tabs oxycodone 5 mg tablet 10 mg (2 x 5 mg) PO Q4H PRN PRN 02/24/24 Unknown Rx Pain Score 4-10 Or Pre Pt/Ot 3 days #36 tabs meclizine 25 mg tablet 25 mg PO Q8H PRN PRN Dizziness #20 03/04/24 Unknown Rx tabs ondansetron 8 mg disintegrating 8 mg PO Q8H PRN nausea and 03/04/24 Unknown Rx tablet vomiting #20 tabs anastrozole 1 mg tablet 1 mg PO DAILY breast cx #90 03/07/24 Unknown Rx TABLETS apixaban 5 mg tablet (Eliquis) 5 mg PO DAILY BLOOD CLOTS 03/27/24 Unknown History baclofen 10 mg tablet 10 mg PO TID PRN PRN muscle spasm 03/27/24 Unknown History Allergy/AdvReac Type Severity Reaction Status Date / Time No Known Allergies Allergy Verified 04/04/24 14:54 Family History Grandmother Breast cancer Daughter Breast cancer Mother Colon cancer Surgical History History of appendectomy History of dilation and curettage History of left mastectomy (~08/2021) History of lumpectomy of left breast Hx of abdominoplasty History of cholecystectomy History of total knee replacement Social History household members: spouse Smoking Status: Never smoker alcohol intake: never substance use type: does not use ROS ROS Narrative Review of Systems: Constitutional: Patient admits to subjective fever with chills and weight loss due to lack of appetite from persistent GI upset. Eyes: Patient denies changes in vision or discharge from eyes. ENT: Patient denies runny nose, sore throat or ear pain. CV: Patient denies chest pain, palpitations or heart racing. Resp: Patient denies SOB or cough. GI: Patient admits to intractable nausea and vomiting with bilious emesis as per HPI. : Patient denies dysuria or hematuria. MSK: Patient admits to generalized weakness with ambulatory dysfunction. Skin: Patient denies rash, abscess or jaundice. Psych: Patient denies symptoms of uncontrolled depression or anxiety. Neuro: Patient denies headache, paresthesias or focal neurologic weakness. Allergy: Patient denies lip swelling, tongue swelling or urticaria. Hematology: Patient denies easy bleeding or easy bruisability. Endocrinology: Patient denies polyuria, polydipsia and polyphagia. 14 point ROS otherwise negative except for positives noted above. Physical Exam Const alert and no apparent distress Constitutional Narrative: No respiratory distress. No conversational dyspnea. Resp normal respiratory effort and no retractions Medical Records Data Medical Nutrition Assessment Dietitian: Malnutrition Criteria Met Start: 04/08/24 15:08 Freq: Status: Active Protocol: Document 04/08/24 15:08 SB (Rec: 04/08/24 15:08 SB [id number]) Nutrition Malnutrition Evidence of Malnutrition Exists Yes Malnutrition (severe): Acute Illness/Injury Evidenced By Suboptimal Energy Intake ( Severe),Weight Loss (Severe) Intake Problem Inadequate Oral Intake Status Inactive Problem Clinical Problem Acute Disease or Injury Related Malnutrition Etiology related to acute illness and inadequate energy intake Signs/Symptoms as evidence by 5.8% unintentional weight loss x 1 month and PO meeting <50% of estimated nutritional needs x 1-2 months. Status Active Problem Unintended Weight Loss Status Inactive Problem Recommendation Dietitian Recommendations/Changes D/c cardiac diet and change to liberal regular diet d/t signs and symptoms of malnutrition. If PO intake continues to decline, recommend enteral nutrition support. Will monitor weight, as available. Reviewed and approved Chinyere Francisco RD, AKOSUA. Lab / Micro Data 04/12/24 05:23 04/12/24 05:23 Labs: Laboratory Results - last 24 hr 04/12/24 05:23: WBC 8.8, RBC 3.71 L, Hgb 11.3 L, Hct 34.9 L, MCV 94.1, MCH 30.5, MCHC 32.4, RDW Std Deviation 53.1 H, RDW Coeff of Zachary 15.7 H, Plt Count 170, MPV 11.3, Immature Gran % (Auto) 1.400 H, Neut % (Auto) 73.1 H, Lymph % (Auto) 16.8 L, Moore % (Auto) 7.9, Eos % (Auto) 0.5, Baso % (Auto) 0.3, Absolute Neuts (auto) 6.4, Absolute Lymphs (auto) 1.47, Nucleated RBC % 0, Sodium 136, Potassium 3.5, Chloride 106, Carbon Dioxide 22.0, Anion Gap 8, BUN 14, Creatinine 0.75, Estim Creat Clear Calc 66.05, Est GFR (MDRD) Af Amer 98, Est GFR (MDRD) Non-Af 81, BUN/Creatinine Ratio 18.7, Glucose 78, Calcium 8.2 L, Phosphorus 2.6, Magnesium 1.7, Total Bilirubin 0.80, AST 17, ALT 23, Alkaline Phosphatase 52, Total Protein 4.9 L, Albumin 2.2 L, Globulin 2.7, Albumin/Globulin Ratio 0.8 L 04/12/24 09:05: Urine Color Yellow, Urine Clarity Clear, Urine pH 6.0, Ur Specific [place] 1.015, Urine Protein Negative, Urine Glucose (UA) Normal, Urine Ketones Negative, Urine Occult Blood Negative, Urine Nitrite Negative, Urine Bilirubin Negative, Urine Urobilinogen Normal, Ur Leukocyte Esterase 100 H, Urine RBC 0 SEEN, Urine WBC 0-5 SEEN, Ur Squamous Epith Cells 0-5 SEEN, Ur Renal Epithelial Cell 0-5 SEEN, Urine Bacteria 0 SEEN, Urine Mucus 0 SEEN Assessment & Plan Assessment/Plan (1) COVID-19: (2) Hypokalemia: (3) BPPV (benign paroxysmal positional vertigo): QUALIFIERS: Laterality: unspecified laterality Qualified Code(s): H81.10 - Benign paroxysmal vertigo, unspecified ear (4) Generalized weakness: (5) Ambulatory dysfunction: (6) Pulmonary embolism: QUALIFIERS: Pulmonary embolism type: unspecified Chronicity: c hronic Acute cor pulmonale presence: with acute cor pulmonale Qualified Code(s): I27.82 - Chronic pulmonary embolism; I26.09 - Other pulmonary embolism with acute cor pulmonale (7) DVT (deep venous thrombosis): QUALIFIERS: DVT location: lower extremity Affected thrombotic vein of extremity: unspecified vein of extremity Chronicity: chronic L aterality: unspecified laterality Qualified Code(s): I82.509 - Chronic embolism and thrombosis of unspecified deep veins of unspecified lower extremity PLAN: Plan 74-year-old with recent diagnosis of COVID-19. She completed medical therapy and is still having persistent nausea vomiting. She was on Decadron which can lead to abdominal distress. She also had a very recent admission here from March 27, 2024 to April 01, 2024 for treatment of acute cystitis; without hematuria complicated by intractable nausea and vomiting due to BPPV. Since she is not getting any better we will perform an upper endoscopy to evaluate her upper GI tract. Continue scopolamine patch and Zofran for now. She was explained alternatives, risk, benefits include not withstanding bleeding, infection, sepsis, perforation, need for emergent urgent . She will have an ASA of 3. Charges/Coding Visit Charges Inpatient E&M: 68703 Init Hosp L3
--- NOTE | 2024-04-12 12:32 | OP.CCLET_ITS ---
04/12/2024 Rober Cannon [address] [place] [address] Re : Upper GI endoscopy procedure for Leyla Webster Dear Dr. Cannon This procedure was performed on Friday, April 12, 2024. My impressions and recommendations are as follows: Impressions : - LA Grade B reflux esophagitis with no bleeding. - Chronic gastritis. Biopsied. - Gastric stenosis was found at the pylorus. Dilated. - No gross lesions in the first portion of the duodenum. Recommendations : - Return patient to hospital [facility] for ongoing care. - Resume previous diet. - Use Reglan (metoclopramide) 10 mg IV QID. - Continue present medications. My findings are described in the full procedure note, which is enclosed. If I can be of further assistance, please feel free to contact me at . Sincerely, Vince Lester, 04/12/2024 12:32:16 PM This report has been signed electronically.
--- NOTE | 2024-04-12 12:32 | OP.EGD_ITS ---
Patient Name: Leyla Webster Procedure Date: 04/12/2024 12:15 PM Date of : 1950 Age: 74 Procedure: Upper GI endoscopy Indications: Epigastric abdominal pain, Functional Dyspepsia, Indigestion Providers: Vince Lester DO Medicines: Monitored Anesthesia Care Patient Profile: This is a 74 year old female. Refer to note in patient chart for documentation of history and physical. Patient has symptoms of acute epigastric abdominal pain and acute vomiting. Complications: No immediate complications. Procedure: Pre-Anesthesia Assessment: - Prior to the procedure, a History and Physical was performed, and patient medications and allergies were reviewed. The patient is competent. The risks and benefits of the procedure and the sedation options and risks were discussed with the patient. All questions were answered and informed consent was obtained. Patient identification and proposed procedure were verified by the physician in the pre-procedure area. Mental Status Examination: alert and oriented. Airway Examination: normal oropharyngeal airway and neck mobility. Respiratory Examination: clear to auscultation. CV Examination: normal. Prophylactic Antibiotics: The patient does not require prophylactic antibiotics. Prior Anticoagulants: The patient has taken no anticoagulant or antiplatelet agents. ASA Grade Assessment: III - A patient with severe systemic disease. After reviewing the risks and benefits, the patient was deemed in satisfactory condition to undergo the procedure. The anesthesia plan was to use monitored anesthesia care (MAC). Immediately prior to administration of medications, the patient was re-assessed for adequacy to receive sedatives. The heart rate, respiratory rate, oxygen saturations, blood pressure, adequacy of pulmonary ventilation, and response to care were monitored throughout the procedure. The physical status of the patient was re-assessed after the procedure. After obtaining informed consent, the endoscope was passed under direct vision. Throughout the procedure, the patient's blood pressure, pulse, and oxygen saturations were monitored continuously. The Endoscope was introduced through the mouth, and advanced to the second part of duodenum. The upper GI endoscopy was accomplished without difficulty. The patient tolerated the procedure well. Scope In: 12:19:42 PM Scope Out: 12:26:00 PM Total Procedure Duration Time 0 hours 6 minutes 18 seconds Findings: LA Grade B (one or more mucosal breaks greater than 5 mm, not extending between the tops of two mucosal folds) esophagitis with no bleeding was found 36 to 39 cm from the incisors. Diffuse moderate inflammation characterized by erosions and erythema was found in the entire examined stomach. Biopsies were taken with a cold forceps for histology. Verification of patient identification for the specimen was done. Estimated blood loss was minimal. Biopsies were taken with a cold forceps for Helicobacter pylori testing. Verification of patient identification for the specimen was done. Estimated blood loss was minimal. A benign-appearing, intrinsic moderate stenosis was found at the pylorus. This was non-traversed. A TTS dilator was passed through the scope. Dilation with an 18-19-20 mm pyloric balloon dilator was performed. The dilation site was examined and showed moderate improvement in luminal narrowing. Estimated blood loss was minimal. No gross lesions were noted in the first portion of the duodenum. Impression: - LA Grade B reflux esophagitis with no bleeding. - Chronic gastritis. Biopsied. - Gastric stenosis was found at the pylorus. Dilated. - No gross lesions in the first portion of the duodenum. Recommendation: - Return patient to hospital bah for ongoing care. - Resume previous diet. - Use Reglan (metoclopramide) 10 mg IV QID. - Continue present medications. Procedure Code(s): --- Professional --- 00111, Esophagogastroduodenoscopy, flexible, transoral; with dilation of gastric/duodenal stricture(s) (eg, balloon, bougie) 55546, 59,51, Esophagogastroduodenoscopy, flexible, transoral; with biopsy, single or multiple CPT copyright 2021 [employer]. All rights reserved. The codes documented in this report are preliminary and upon dsp engineer review may be revised to meet current compliance requirements. Vince Lester DO 04/12/2024 12:32:16 PM This report has been signed electronically. Number of Addenda: 0 Note Initiated On: 04/12/2024 12:15 PM
--- NOTE | 2024-04-12 12:34 | PCM.POST.ANE ---
Anesthesia: Postop Eval I Current Vital Signs Temperature: 97 F Pulse Rate: 84 Blood Pressure: 95/50 Respiratory Rate: 16 Pulse Ox: 98 Oxygen Delivery Method: Room Air Assessment Airway patent: Yes Spontaneous unlabored respirations: Yes Mental status: Asleep nausea: No Vomiting: No Anesthesia Complication: No Fluid Hydration Crystalloid volume administer (ml): 400 Total IV fluid infused: 400 Progress Note Anesthesia document: Postop Eval 1 completed: Yes
--- NOTE | 2024-04-12 13:42 | PCM.POSTANE2 ---
Anesthesia Postop Eval I Sum Postop Eval Completion status Anesthesia document: Postop Eval 1 completed: Yes Anesthesia Postop Eval I Summary Anesthesia Postop Eval I Summary: Anesthesia Postop Eval I: Assessment Summary Airway patent Yes 04/12/24 12:35 [email or web address] Spontaneous unlabored Yes 04/12/24 12:35 [email or web address] respirations Mental status Asleep 04/12/24 12:35 [email or web address] nausea No 04/12/24 12:35 [email or web address] Vomiting No 04/12/24 12:35 [email or web address] Anesthesia Postop Eval I: Fluid Summary Crystalloid volume administer 400 04/12/24 12:35 [email or web address] (ml) Colloids volume administered ( ml) Blood Product volume administered (ml) Total IV fluid infused 400 04/12/24 12:35 [email or web address] Anesthesia Postop Eval I: Summary Notes Anesthesia Complication No 04/12/24 12:35 [email or web address] Anesthesia Complication Comment: Post-operative progress note Anesthesia: Postop Eval II Evaluation Mental status: Awake Pain Level: 0 nausea: No Vomiting: No
--- NOTE | 2024-04-12 14:10 | PN.HOSP_ITS ---
Reason for Visit Reason for Visit: Nausea/vomiting/generalized weakness Subjective Subjective No issues overnight. Patient is currently up in chair states she has been out for couple hours and would like to go back to bed. EGD is planned for later today given her issues with ongoing intermittent nausea and vomiting. Denies any acute issues or complaints at this time. Is agreeable to placement at discharge for rehab after discharge. Patient does admit to being depressed. Objective Data Objective Data Vital Signs: Vital Signs Temp Pulse Resp BP Pulse Ox O2 Del Method 97.8 F 77 16 97/55 L 96 Room Air 04/12/24 13:05 04/12/24 13:05 04/12/24 13:05 04/12/24 13:05 04/12/24 13:05 04/12/24 13:05 Oxygen Delivery Method Room Air Weight: 96.3 kg Body Mass Index (BMI) 41.4 Intake & Output: Intake and Output for Last 24 Hours 04/10/24 04/11/24 04/12/24 23:59 23:59 23:59 Intake Total 2981.50 / 2981.50 1973. / 2033. 60 / 60 Balance 2981.50 / 2981.50 60 / 60 Medical Nutrition Assessment Dietitian: Malnutrition Criteria Met Start: 04/08/24 15:08 Freq: Status: Active Protocol: Document 04/08/24 15:08 SB (Rec: 04/08/24 15:08 SB [id number]) Nutrition Malnutrition Evidence of Malnutrition Exists Yes Malnutrition (severe): Acute Illness/Injury Evidenced By Suboptimal Energy Intake ( Severe),Weight Loss (Severe) Intake Problem Inadequate Oral Intake Status Inactive Problem Clinical Problem Acute Disease or Injury Related Malnutrition Etiology related to acute illness and inadequate energy intake Signs/Symptoms as evidence by 5.8% unintentional weight loss x 1 month and PO meeting <50% of estimated nutritional needs x 1-2 months. Status Active Problem Unintended Weight Loss Status Inactive Problem Recommendation Dietitian Recommendations/Changes D/c cardiac diet and change to liberal regular diet d/t signs and symptoms of malnutrition. If PO intake continues to decline, recommend enteral nutrition support. Will monitor weight, as available. Reviewed and approved Chinyere Francisco RD, AKOSUA. Lab / Micro Data 04/12/24 05:23 04/12/24 05:23 Labs: Laboratory Results - last 24 hr 04/12/24 05:23: WBC 8.8, RBC 3.71 L, Hgb 11.3 L, Hct 34.9 L, MCV 94.1, MCH 30.5, MCHC 32.4, RDW Std Deviation 53.1 H, RDW Coeff of Zachary 15.7 H, Plt Count 170, MPV 11.3, Immature Gran % (Auto) 1.400 H, Neut % (Auto) 73.1 H, Lymph % (Auto) 16.8 L, [place] % (Auto) 7.9, Eos % (Auto) 0.5, Baso % (Auto) 0.3, Absolute Neuts (auto) 6.4, Absolute Lymphs (auto) 1.47, Nucleated RBC % 0, Sodium 136, Potassium 3.5, Chloride 106, Carbon Dioxide 22.0, Anion Gap 8, BUN 14, Creatinine 0.75, Estim Creat Clear Calc 66.05, Est GFR (MDRD) Af Amer 98, Est GFR (MDRD) Non-Af 81, BUN/Creatinine Ratio 18.7, Glucose 78, Calcium 8.2 L, Phosphorus 2.6, Magnesium 1.7, Total Bilirubin 0.80, AST 17, ALT 23, Alkaline Phosphatase 52, Total Protein 4.9 L, Albumin 2.2 L, Globulin 2.7, Albumin/Globulin Ratio 0.8 L 04/12/24 09:05: Urine Color Yellow, Urine Clarity Clear, Urine pH 6.0, Ur Specific [place] 1.015, Urine Protein Negative, Urine Glucose (UA) Normal, Urine Ketones Negative, Urine Occult Blood Negative, Urine Nitrite Negative, Urine Bilirubin Negative, Urine Urobilinogen Normal, Ur Leukocyte Esterase 100 H, Urine RBC 0 SEEN, Urine WBC 0-5 SEEN, Ur Squamous Epith Cells 0-5 SEEN, Ur Renal Epithelial Cell 0-5 SEEN, Urine Bacteria 0 SEEN, Urine Mucus 0 SEEN Micro: Microbiology 04/04/24 18:30 Blood Culture (Wb) - Anticubital Right Blood Culture - Final No growth in 5 days. 04/04/24 18:30 Urine, Catheterized Urine Culture - Final Pseudomonas aeruginosa 04/04/24 18:30 Mucosa - Nose SARS-CoV-2, Influenza & RSV (PCR) - Final SARS-CoV-2 (COVID 19) Physical Exam Const alert, oriented x3 and no apparent distress; Negative for average body habitus or healthy appearing Constitutional Narrative: Morbidly obese, older, white female, sitting up in a chair at the bedside watching television, wrapped up in blankets General Appearance: cooperative HEENT normocephalic, head/scalp atraumatic, hearing grossly normal bilaterally and moist oral mucous membranes HEENT Narrative: Dentition is poor, Mallampati is 3, no thrush Resp normal respiratory effort, normal air movement, no retractions, no use of accessory muscles and clear to auscultation bilaterally Resp Narrative: Diminished breath sounds throughout. Auscultation: Negative for rales, rhonchi or wheezes Cardio regular rate, regular rhythm, S1 normal heart sound, S2 normal heart sound, no murmurs, no rub, no gallops and no clicks GI normal to inspection, nondistended, normoactive bowel sounds, soft to palpation and non-tender GI Narrative: Morbidly obese. Extremity no clubbing, cyanosis or edema Extremity Narrative: Pedal and radial pulses are 2+ Neuro oriented x3, moves all extremities and no focal motor deficits Speech: speech normal Motor Exam: general weakness Psych Psych Narrative: Affect is flat mood seems depressed Assessment & Plan Assessment/Plan (1) Ambulatory dysfunction: (2) Generalized weakness: (3) COVID-19: (4) Dysphagia: (5) Adult failure to thrive: (6) Debility: (7) Leukocytosis: PLAN: Plan Generalized weakness and debility secondary to acute COVID-19 infection and adult failure to thrive -Dexamethasone has been completed -Patient is out of isolation -Continue physical and Occupational Therapy -Motivation is extremely poor -Will need placed at discharge and discuss further with case management/social work tomorrow -Will need pre-CERT prior to discharge--> awaiting acceptance and pre-CERT -Debility is acute on chronic and likely exacerbated by acute COVID-19 infection -Patient has seemed to have a significant decline since she was admitted to [facility] with acute PE Recent UTI -UA was not consistent with fraction -Will hold on antibiotics -No current leukocytosis Recurrent nausea and vomiting -Consult GI for EGD -Continue PPI 40 mg daily -Discussed with Dr. Lester Dysphagia -Patient reports some difficulty swallowing -Speech therapy is following Diarrhea -No documented bowel movement since 831 -C. difficile discontinued Hypokalemia -Resolved -Recheck lab in a.m. Leukocytosis -Repeat CBC in a.m. -Antibiotics as above for concern of recurrent UTI History of PE/DVT -Continue full anticoagulation with Eliquis -01/2024 History of left breast cancer -Type unclear but documented that it was ER positive -Continue home anastrozole -Continue outpatient follow-up as previously directed by oncology History of stroke -Previous CT brain shows small left frontal lacunar infarct -continue home Eliquis Chronic macrocytic anemia -hemoglobin is stable -continue to trend Essential hypertension -Continue lisinopril 10 mg daily -Blood pressures currently well-controlled Depression -Depression seen significantly worse at this time and patient admits to worsening depression -Continue increased dose of mirtazapine at 30 mg nightly Morbid obesity -BMI is 41.5 -Recommend weight loss -complicates treatment, prognosis, outcomes DVT prophylaxis -Continue home Eliquis CODE STATUS -Full code as verified at the time of admission Charges/Coding Visit Charges Inpatient E&M: 05907 [facility] L3
--- NOTE | 2024-04-12 15:00 | IMM_PTH ---
PATIENT: BREANNA YANES LOC: [facility] U#:[id number] AGE/SX: 74/F ROOM: [facility] RE04/04/[address]: Dr. Makenna Albright DO : 1950 BED: 1 DIS: 04/13/2024 SPEC #: [id number] RECD: 04/13/24 09:11 STATUS: HAYDEE REQ #: [id number] MARIAM: 04/12/24 15:[address]: Vince Lester DEPT: IMMUNOHISTOCHEMISTRY RECD BY: Chandana Gandhi ENTERED: 04/13/24 09:11 SP TYPE: IMMUNO OTHR DR: MD Dr. Tian Christina DO Dr. Eric Jopperi, DO Dr. Kathryn Lee, DO Dr. Nana Yaa Koram, MD Tissues: Gastric mucous membrane Procedures: H Pylori (initial) Comments: @ Ordering doctor for H.PYLORI edited from to @ by JACKLYN at 04/13/24 0911 @ Submitting doctor edited from to @ by JACKLYN at 04/13/24910 PHYSICIAN & [place] [id number] SPECIMEN INFORMATION: Tissue Source: Gastric body biopsy Clinical Info: Intractable nausea/vomiting Specimen Number: [id number] CPT code: 52437 METHODOLOGY: Deparaffinized sections of prefer/formalin-fixed tissue or PAP/DQ stained slides are incubated with monoclonal/polyclonal antibodies/oligonucleotide probes. Localization is made via biotin free immunoperoxidase method. Appropriate controls are performed and reacted as expected. Results on target cell population are indicated in the following table: RESULTS: ANTIBODY / CLONE RESULT H Pylori (polyclonal) negative These tests were developed and their performance characteristics determined by [facility]. They may not have been cleared or approved by the [place]. Food and Drug Administration. The FDA has determined that such clearance or approval is not necessary. The above immunohistochemical/dualISH markers are ordered and reviewed by the Pathologist. INTERPRETATION: Gastric body, biopsy: Negative for Helicobacter pylori organisms. 04/14/2024
--- NOTE | 2024-04-12 16:24 | CHAPLAIN ---
Type of Pastoral Visit ___ Initial Visit ___ Follow-up Visit ___ On-call Visit ___ General Patient Visit ___ Spiritual Assessment ___ Family Conference ___ Bereavement ___ Rapid Response ___ Code Blue ___ Other (describe below) Pastoral Care Referral From ___ Patient ___ Family ___ Nurse ___ Physician ___ Helper Shear Operator ___ Headlight Assembler ___ Other (describe below) Sacrament/Intervention ___ Active listening ___ Anointing ___ Hinduism ___ Bereavement ___ Communion ___ Tea exploration ___ ___ Life review ___ Prayer ___ Reconciliation ___ Sacrament of Sick ___ Supportive presence ___ Wedding ___ Other (describe below) Pastoral Comments patient was sound asleep and did not awaken when door was opened
[2024-04-12] MEDS: Metoclopramide 10 MG/2 ML Vial IV (19:16)
[2024-04-12] MEDS: Mirtazapine 30 MG Tablet PO (20:23)
[2024-04-13] MEDS: Metoclopramide 10 MG/2 ML Vial IV ×3 (01:20→12:53)
[2024-04-13 02:38] VITALS: BP 100/58; PULSE 62; RESP 17; TEMP 36.6; O2SAT 96
[2024-04-13 03:28] VITALS: BMI 41.3
[2024-04-13 08:38] VITALS: BP 118/64; PULSE 80; RESP 16; TEMP 36.4; O2SAT 98
[2024-04-13] MEDS: Ascorbic Acid 500 MG Tablet 1000 MG PO (08:48)
--- NOTE | 2024-04-13 09:12 | CASEMGMT ---
SW received a message from [facility]. Insurance is requesting a peer to peer with physician prior to making their decision. This needs to be done by today at 1300. Phone number is option [phone]. SW notified physician who is not sure she will have time today as the hospital is nearly full. SW did ask therapy to see patient this am so SW could send today's therapy notes. PT saw patient and SW forwarded this note to [facility] via [employer]. Irma Joya BUS STARTERJoao ESPINO
[2024-04-13] MEDS: Cholecalciferol (Vit D3) 125 MCG CAPSULE (5,000 UNITS) PO (10:01)
[2024-04-13] MEDS: APIXABAN 5 MG TABLET PO (10:01)
[2024-04-13] MEDS: Pantoprazole Sodium 40 MG Tablet PO (10:01)
[2024-04-13] MEDS: Anastrozole 1 MG TABLET PO (10:01)
[2024-04-13] MEDS: Menthol/Lanolin/Calamine/Znox 113 GM Tube 1 APPLIC TOPICAL (10:02)
[2024-04-13] MEDS: Lisinopril 10 MG Tablet PO (10:02)
[2024-04-13] MEDS: Nystatin Powder 15gm Bottle 1 APPLIC TOPICAL (10:02)
--- NOTE | 2024-04-13 12:36 | CASEMGMT ---
Physician completed a peer to peer with patient's insurance and patient is being denied for SNF level of care. Patient stated she is not able to private pay. Patient does have Medicaid so SW asked [facility] if they could try and get patient approved for intermediate level of care under her [facility] Medicaid. Await response. Irma Joya LOBSTER MAN SRINIVAS
--- NOTE | 2024-04-13 13:00 | PCM.DC.SUM ---
Providers Date of Admission: 04/04/24 Date of Discharge: 04/13/24 Primary Care Physician: Dr. Kang Cannon MD Consultations 04/12/24 07:14 Consult: Gastroenterology Routine Consulting Provider: Monique Gastroenterology Reason for Consult: EGD for persistent nausea and vomiting EMERGENT Consult: No MD Notified: Yes Date Notified: 04/12/24 Time Notified: 07:14 Method of Notification: Verbal Reason For Visit: COVID-19+, HYPOKALEMIA, INTRACTABLE N/V AND Diagnosis Discharge Diagnosis (1) Ambulatory dysfunction: Status: Acute Code(s): R26.2 - Difficulty in walking, not elsewhere classified (2) Generalized weakness: Status: Acute Code(s): R53.1 - Weakness (3) COVID-19: Status: Acute Code(s): U07.1 - COVID-19 (4) Dysphagia: Status: Acute Code(s): R13.10 - Dysphagia, unspecified (5) Adult failure to thrive: Status: Acute Code(s): R62.7 - Adult failure to thrive (6) Debility: Status: Acute Code(s): R53.81 - Other malaise (7) Leukocytosis: Status: Acute Code(s): D72.829 - Elevated white blood cell count, unspecified Medications at Discharge Home Medications lisinopril 10 mg tablet 10 mg PO DAILY BP 08/12/21 oxycodone 5 mg tablet 10 mg (2 x 5 mg) PO Q4H PRN PRN Pain Score 4-10 Or Pre Pt/Ot 3 days #36 tabs 02/24/24 meclizine 25 mg tablet 25 mg PO Q8H PRN PRN Dizziness #20 tabs 03/04/24 ondansetron 8 mg disintegrating tablet 8 mg PO Q8H PRN nausea and vomiting #20 tabs 03/04/24 anastrozole 1 mg tablet 1 mg PO DAILY breast cx #90 TABLETS 03/07/24 baclofen 10 mg tablet 10 mg PO TID PRN PRN muscle spasm 03/27/24 apixaban 5 mg tablet (Eliquis) 5 mg PO DAILY BLOOD CLOTS #60 tabs 04/13/24 metoclopramide HCl 10 mg tablet (Reglan) 10 mg PO TID #90 tabs 04/13/24 mirtazapine 30 mg tablet 30 mg PO QHS #0 tabs 04/13/24 pantoprazole 40 mg tablet,delayed release 40 mg PO DAILY #0 tabs 04/13/24 Hospital Course Operations None Procedures EGD, EKG and - (CXR) Summary of Care Provided Minutes Spent on Discharge: 39 Hospital Course: Ms. Webster is a 74-year-old white female who presented to the emergency department at [facility] on 04/04/2024 with nausea, vomiting, and generalized weakness. She had a recent admission here from February 07, 2024 through February 08, 2024 for treatment of ambulatory dysfunction and adult failure to thrive and another admission at [facility] for intractable nausea and vomiting with the third admission here from March 27 through April 01, 2024 for treatment of acute cystitis and a gout flare. She reported this time her symptoms began about 4 days prior to presentation with a gradual onset of progressively worsening generalized weakness. She also admitted that she had recurrence of her intractable nausea and vomiting of bilious emesis with poor oral intake. Due to her poor oral intake she was not able to complete her home oral antibiotics of which she was discharged from her last hospitalization. She indicated nothing made her better or worse and reported subjective fever, chills, and dysuria but denied any headache, diarrhea, constipation, chest pain, shortness of breath or cough. Vital signs on presentation showed a temperature of 96.9, heart rate 96, respiratory 18, blood pressure 111/73 and pulse ox was 97% on room air CBC showed a white count of 14.2 with a left shift having a 79.8% neutrophilia and stable hemoglobin with a chronically known anemia. Chemistry panel showed mild hypokalemia with a potassium of 3.1 but was otherwise unremarkable with normal renal function. Lactic acid was normal. Troponin was 31 with a delta of 36. Chest x-ray showed no acute findings. COVID 19 PCR was positive. Blood culture was obtained on admission and found to be negative with no growth for 5 days and initial urine culture showed Pseudomonas however colony counts were less than 1000 CFU's per mL and antibiotics were discontinued. Her previous urine culture from her last hospitalization showed E. coli. We did do a repeat culture here which was unremarkable other than mixed organisms. For her COVID she was treated with Decadron and her period of isolation and Decadron were completed prior to discharge. She had ongoing issues with oral intake and intermittent nausea and vomiting so gastroenterology was consulted and an EGD was done on 04/12/2024. EGD demonstrated grade B esophagitis with no bleeding, diffuse moderate inflammation with erosions and erythema in the entire stomach which was biopsied and sent for H. pylori testing, and a benign intrinsic moderate stenosis at the pylorus that was not traversable with scope and dilated. At the dilation site she had improved luminal opening after dilation with no significant bleeding. PPI was initiated for her gastritis and GI recommended utilizing Reglan 4 times daily. Her nausea vomiting did seem to improve with this. She will be discharged on Reglan 3 times a day prior to meals and we have asked that after discharge from [facility] she follow-up with gastroenterology. Her depression did seem to be worse and per her report she felt more depressed. She declined participation frequently despite being strongly encouraged to do so. We did increase her Remeron from 15 mg to 30 mg and will continue this at discharge. The initial plan was to discharge home with home health care however the patient reported that she was too weak to go home and therapy did indicate she was not doing well so we did pursue residential facility. Unfortunately, insurance denied her skilled stay but she had a Medicaid supplement that approved her for ECF care. She was able to be discharged to [facility] on 04/13/2024 in stable condition. I have also asked her to follow-up with her primary care physician after discharge from [facility]. Discharge diagnoses: Generalized weakness and debility secondary to acute COVID-19 infection with chronic adult failure to thrive Esophagitis Gastritis Pyloric stenosis Recurrent nausea and vomiting History of recurrent UTI Hypokalemia-resolved Leukocytosis-resolved History of PE/DVT History of left breast cancer History of stroke Chronic macrocytic anemia Essential hypertension Depression Morbid obesity Physical Exam Const alert, oriented x3, no apparent distress and no limitations; Negative for average body habitus or healthy appearing Constitutional Narrative: Morbidly obese, older, white female, sitting up in a chair at the bedside, is dark and shades are drawn, wrapped up in blankets General Appearance: cooperative, comfortable, well kempt and well developed Exam Limitations: no limitations Nutritional Appearance: morbidly obese HEENT normocephalic, head/scalp atraumatic, hearing grossly normal bilaterally, moist oral mucous membranes and oropharynx normal HEENT Narrative: Mallampati 3, no thrush Eyes PERRL, EOMs intact bilaterally and conjunctivae normal Eyes Narrative: No scleral icterus Neck no lymphadenopathy and supple Neck Narrative: Trachea midline, no noted thyroid enlargement Resp normal respiratory effort, normal air movement, no retractions, no use of accessory muscles and clear to auscultation bilaterally Resp Narrative: Diminished breath sounds throughout and exam is limited by body habitus Auscultation: Negative for rales, rhonchi or wheezes Cardio regular rate, regular rhythm, S1 normal heart sound, S2 normal heart sound, no murmurs, no rub, no gallops and no clicks GI normal to inspection, nondistended, normoactive bowel sounds, soft to palpation and non-tender GI Narrative: Morbidly obese. Extremity no clubbing, cyanosis or edema Extremity Narrative: Pedal and radial pulses are 2+ Skin no rashes or lesions noted, no wounds, skin turgor normal and no jaundice Skin Narrative: Neuro oriented x3, moves all extremities and no focal motor deficits Speech: speech normal Motor Exam: general weakness Psych Psych Narrative: Affect is flat mood seems depressed Medical Records Data Medical Nutrition Assessment Dietitian: Malnutrition Criteria Met Start: 04/08/24 15:08 Freq: Status: Active Protocol: Document 04/08/24 15:08 SB (Rec: 04/08/24 15:08 SB [id number]) Nutrition Malnutrition Evidence of Malnutrition Exists Yes Malnutrition (severe): Acute Illness/Injury Evidenced By Suboptimal Energy Intake ( Severe),Weight Loss (Severe) Intake Problem Inadequate Oral Intake Status Inactive Problem Clinical Problem Acute Disease or Injury Related Malnutrition Etiology related to acute illness and inadequate energy intake Signs/Symptoms as evidence by 5.8% unintentional weight loss x 1 month and PO meeting <50% of estimated nutritional needs x 1-2 months. Status Active Problem Unintended Weight Loss Status Inactive Problem Recommendation Dietitian Recommendations/Changes D/c cardiac diet and change to liberal regular diet d/t signs and symptoms of malnutrition. If PO intake continues to decline, recommend enteral nutrition support. Will monitor weight, as available. Reviewed and approved Chinyere Francisco RD, LD. Weight / BMI Weight Weight: 96.1 kg Body Mass Index (BMI) 41.3 ABG / Lab / Microbiology Data 04/12/24 05:23 04/12/24 05:23 Microbiology: Microbiology 04/12/24 09:05 Urine, Clean Catch Urine Culture - Final Mixed Gram Positive Organisms 04/04/24 18:30 Blood Culture (Wb) - Anticubital Right Blood Culture - Final No growth in 5 days. 04/04/24 18:30 Urine, Catheterized Urine Culture - Final Pseudomonas aeruginosa 04/04/24 18:30 Mucosa - Nose SARS-CoV-2, Influenza & RSV (PCR) - Final SARS-CoV-2 (COVID 19) D/C Instructions Discharge Diet: Low fat / Low cholesterol Meaningful Use Info Meaningful Use Meaningful Use Diagnoses (Choose all that apply): None applicable Ischemic Stroke Statin Dosing Therapy Reference: STATIN DOSE THERAPY REFERENCE: * Patients > 75 years receive moderate or high dose statin therapy. * Patients 75 years or YOUNGER should receive HIGH intensity statin dose unless contraindicated. You will be required to document reason for non-treatment if statin daily dose does not meet guidelines. HIGH DOSE STATIN THERAPY DAILY Atorvastatin > than or = to 40 mg Rosuvastatin > than or = to 20 mg Amlodipine + Atorvastatin > than or = to 2.5/40 mg Ezetimibe + Simvastatin 10/80 mg Simvastatin 80mg Discharge Plan Admission Admit Date/Time: 04/04/24 22:54 Primary Reason for Your Visit: MARIO Attending Provider: Makenna Albright Primary Care Provider: Kang Cannon Consulting Providers: Tian Bernard; Naye Chao; Merrick Saldivar Discharge Orders/Prescriptions Prescriptions: New pantoprazole 40 mg Tablet,Delayed Release (Dr/Ec) 40 mg PO DAILY Qty: 0 0RF metoclopramide HCl [Reglan] 10 mg tablet 10 mg PO TID Qty: 90 0RF Rx Instructions: Take 30 min prior to meals mirtazapine 30 mg Tablet 30 mg PO QHS Qty: 0 0RF Continued lisinopril 10 mg tablet 10 mg PO DAILY Patient Comments: TAKE 1 TABLET BY MOUTH DAILY Eliquis 5 mg tablet 5 mg PO DAILY Qty: 60 0RF oxycodone 5 mg Tablet 10 mg PO Q4H PRN PRN (Reason: Pain Score 4-10 Or Pre Pt/Ot) 3 Days Qty: 36 0RF meclizine 25 mg tablet 25 mg PO Q8H PRN PRN (Reason: Dizziness) Qty: 20 0RF ondansetron 8 mg tablet,disintegrating 8 mg PO Q8H PRN (Reason: nausea and vomiting) Qty: 20 0RF baclofen 10 mg tablet 10 mg PO TID PRN PRN (Reason: muscle spasm) anastrozole 1 mg tablet 1 mg PO DAILY Qty: 90 3RF Discontinued mirtazapine 15 mg Tablet 15 mg PO QHS 30 Days Qty: 30 0RF prednisone 20 mg Tablet 40 mg PO BREAKFAST Qty: 5 0RF Patient Comments: Patient states she has not been taking cefdinir 300 mg Capsule 300 mg PO Q12 Qty: 8 0RF Patient Comments: Patient states never got this prescription filled Referrals / Follow Up: Kang Cannon MD [Primary Care Provider] - Within 2 Weeks Vince Lester DO [Med Staff - Active Staff] - Within 1 Month (call to get appt after D/C from [facility]) Disposition Disposition (needs filled in before D/C Order can be placed): NonSkilled NH/Intermed Care Charges/Coding Visit Charges Inpatient E&M: 90776 SNF Disch >30 Min
--- NOTE | 2024-04-13 13:14 | TREXTCAR_ITS ---
Diet Diet Order/Speech Therapy: 04/12/24 12:33 Diet: Regular - General Type of Dietary Supplement:: Magic Cup Dessert Diet Comments: Magic cup with lunch and dinner Routine Orders/Code Status Suppository Frequency: Daily PRN O2 Frequency: PRN Keep PO Greater than or Equal to (%): 89 Routine Lab Work: CBC (1 week) and BMP (1 week) Code Status: Full Code Suggestions for Active Care Change Position every (hours): 2 Hours to sit in a chair: 2 Times a day to sit in chair: 3 Therapies Weight Bearing: Full weight bearing Physical Therapy: Eval and Treat Occupational Therapy: Eval and Treat Problem/Diagnosis (1) Ambulatory dysfunction: Status: Acute Code(s): R26.2 - Difficulty in walking, not elsewhere classified (2) Generalized weakness: Status: Acute Code(s): R53.1 - Weakness (3) COVID-19: Status: Acute Code(s): U07.1 - COVID-19 (4) Dysphagia: Status: Acute Code(s): R13.10 - Dysphagia, unspecified (5) Adult failure to thrive: Status: Acute Code(s): R62.7 - Adult failure to thrive (6) Debility: Status: Acute Code(s): R53.81 - Other malaise (7) Leukocytosis: Status: Acute Code(s): D72.829 - Elevated white blood cell count, unspecified Allergies/Procedures Done in Hospital Allergies No Known Allergies Allergy (Verified 04/04/24 14:54) Procedures: EGD, EKG and - (CXR) Type of Care/Length of Stay Estimated LOS: Convalescent Care Less Than 30 days Type of Care Needed: Intermediate Rehab Potential: Fair Prognosis: Fair Additional Orders/Day of Discharge Day of Discharge: 04/13/24 Dietary and Speech Recommendations Dietitian Recommendations/Changes: Continue regular diet with magic cup lunch and dinner. If PO intake continues to decline, recommend enteral nutrition support. Will monitor weight, as available. Reviewed and approved by Roosevelt Escamilla, MS, RDN, LD. Discharge Plan Admission Admit Date/Time: 04/04/24 22:54 Primary Reason for Your Visit: COVID Attending Provider: Makenna Albright Primary Care Provider: Ranney,Christopher Consulting Providers: Tian Bernard; Naye Chao; Merrick Saldivar Discharge Orders/Prescriptions Prescriptions: New pantoprazole 40 mg Tablet,Delayed Release (Dr/Ec) 40 mg PO DAILY Qty: 0 0RF metoclopramide HCl [Reglan] 10 mg tablet 10 mg PO TID Qty: 90 0RF Rx Instructions: Take 30 min prior to meals mirtazapine 30 mg Tablet 30 mg PO QHS Qty: 0 0RF Continued lisinopril 10 mg tablet 10 mg PO DAILY Patient Comments: TAKE 1 TABLET BY MOUTH DAILY Eliquis 5 mg tablet 5 mg PO DAILY Qty: 60 0RF oxycodone 5 mg Tablet 10 mg PO Q4H PRN PRN (Reason: Pain Score 4-10 Or Pre Pt/Ot) 3 Days Qty: 36 0RF meclizine 25 mg tablet 25 mg PO Q8H PRN PRN (Reason: Dizziness) Qty: 20 0RF ondansetron 8 mg tablet,disintegrating 8 mg PO Q8H PRN (Reason: nausea and vomiting) Qty: 20 0RF baclofen 10 mg tablet 10 mg PO TID PRN PRN (Reason: muscle spasm) anastrozole 1 mg tablet 1 mg PO DAILY Qty: 90 3RF Discontinued mirtazapine 15 mg Tablet 15 mg PO QHS 30 Days Qty: 30 0RF prednisone 20 mg Tablet 40 mg PO BREAKFAST Qty: 5 0RF Patient Comments: Patient states she has not been taking cefdinir 300 mg Capsule 300 mg PO Q12 Qty: 8 0RF Patient Comments: Patient states never got this prescription filled Referrals / Follow Up: Kang Cannon MD [Primary Care Provider] - Within 2 Weeks Vince Lester DO [Med Staff - Active Staff] - Within 1 Month (call to get appt after D/C from [facility]) Disposition Disposition (needs filled in before D/C Order can be placed): NonSkilled NH/Intermed Care
--- NOTE | 2024-04-13 13:19 | CASEMGMT ---
CC said patient does not need a pre-cert to come to them intermediate. [facility] asked for a PASRR and then patient can come today. notified physician, patient, and RN. SW completed a PASRR in [facility] system. Plan: d/c to [facility] under intermediate level of care on a PASRR as requested by [facility]. Physicians will transport patient via wheelchair. Irma Joya MANAGER [place] SRINIVAS
--- NOTE | 2024-04-13 13:28 | PHA.DC.MR.R ---
Pharmacy [place] Med Reconciliation Pharmacy Service has performed discharge medication reconciliation for this patient. The patient's discharge medication list was reviewed for discrepancies and discrepancies were resolved. Medications at Discharge Home Medications lisinopril 10 mg tablet 10 mg PO DAILY BP 08/12/21 oxycodone 5 mg tablet 10 mg (2 x 5 mg) PO Q4H PRN PRN Pain Score 4-10 Or Pre Pt/Ot 3 days #36 tabs 02/24/24 meclizine 25 mg tablet 25 mg PO Q8H PRN PRN Dizziness #20 tabs 03/04/24 ondansetron 8 mg disintegrating tablet 8 mg PO Q8H PRN nausea and vomiting #20 tabs 03/04/24 anastrozole 1 mg tablet 1 mg PO DAILY breast cx #90 TABLETS 03/07/24 baclofen 10 mg tablet 10 mg PO TID PRN PRN muscle spasm 03/27/24 apixaban 5 mg tablet (Eliquis) 5 mg PO DAILY BLOOD CLOTS #60 tabs 04/13/24 metoclopramide HCl 10 mg tablet (Reglan) 10 mg PO TID #90 tabs 04/13/24 mirtazapine 30 mg tablet 30 mg PO QHS #0 tabs 04/13/24 pantoprazole 40 mg tablet,delayed release 40 mg PO DAILY #0 tabs 04/13/24
[2024-04-13 13:40] VITALS: BP 100/48; PULSE 94; RESP 17; TEMP 36.4; O2SAT 98
--- NOTE | 2024-04-13 14:22 | CASEMGMT ---
Patient is ready for discharge to [facility]. SW completed a PASRR. SW called patient's daughter and notified her that patient will be picked up at 4 today. Plan: d/c to [facility] under skilled level of care on a PASRR. Physicians will transport patient via wheelchair van. Irma ESPINO
--- NOTE | 2024-04-13 14:46 | CASEMGMT ---
Discharge Planning Discharge orders, signed med list, and transport time sent to [facility] via [facility]. Wheelchair transport was scheduled with [facility] for 4p. Nursing, SW, and patient updated. Ila Valladares DC Planning Asst.
== END 2024-04-13 15:48 | disposition intermediate care facility (04) | DRG 177 ==
LOC: ED 22:27 → PCU 23:58
PROVIDERS: Internal Medicine Gastroenterology; Student in an Organized Health Care Education/Training Program; Admitting Provider Internal Medicine; Emergency Provider Emergency Medicine; PCP Family Medicine; Visit Provider Internal Medicine
PROC: 0DJ08ZZ Inspection of Upper Intestinal Tract, Via Natural or Artificial Opening Endoscopic (ICD-10-PCS; CPT 43235; principal; 2024-04-12 14:55)
DX: U07.1 COVID-19 (principal); E43 Unspecified severe protein-calorie malnutrition; K31.1 Adult hypertrophic pyloric stenosis; Z68.41 Body mass index [BMI] 40.0-44.9, adult; R62.7 Adult failure to thrive; C50.912 Malignant neoplasm of unspecified site of left female breast; D72.829 Elevated white blood cell count, unspecified; E66.01 Morbid (severe) obesity due to excess calories; I10 Essential (primary) hypertension; F32.A Depression, unspecified; E87.6 Hypokalemia; R26.2 Difficulty in walking, not elsewhere classified; M19.90 Unspecified osteoarthritis, unspecified site; K29.50 Unspecified chronic gastritis without bleeding; K21.00 Gastro-esophageal reflux disease with esophagitis, without bleeding; H81.10 Benign paroxysmal vertigo, unspecified ear; R53.1 Weakness; R53.81 Other malaise; M81.0 Age-related osteoporosis without current pathological fracture; R13.10 Dysphagia, unspecified; Z17.0 Estrogen receptor positive status [ER+]; Z79.01 Long term (current) use of anticoagulants; Z79.811 Long term (current) use of aromatase inhibitors; Z79.891 Long term (current) use of opiate analgesic; Z90.12 Acquired absence of left breast and nipple; Z86.73 Personal history of transient ischemic attack (TIA), and cerebral infarction without residual deficits; Z86.718 Personal history of other venous thrombosis and embolism; Z86.711 Personal history of pulmonary embolism
CPT/HCPCS: 36415; 71046; 80048; 80053; 81001; 83605; 83735; 84100; 84484; 85025; 85610; 85730; 87040; 87077; 87086; 87088; 87184; 87186; 87631; 88305; 88342; 92610; 93005; 94668; 97110; 97162; 97166; 97530; 97535; 99285; J7030; J7120; A4216; J0744; J2405; J3490

== ENCOUNTER → 2024-04-14 05:00 | Outpatient (REF) | payer MEDICARE, MEDICAID, SELFPAY ==
[2024-04-14 08:45] LABS: Hematocrit 35.7 % (37-47); Hemoglobin 11.5 g/dL (12.0-15.0); Mean Corp Hgb Conc 32.2 g/dL (32-36); Mean Corpuscular Hgb 30.5 pg (27.0-32.0); Mean Corpuscular Volume 94.7 fL (81-99); Mean Platelet Vol. 12.5 fl (6.2-12.0); Platelet Count 165 K/mm3 (150-450); RBC Distribution Width SD 54.6 fl (35.1-43.9); Red Blood Count 3.77 M/mm3 (4.2-5.4); White Blood Count 8.6 K/mm3 (4.4-11.0)
[2024-04-14 08:54] LABS: Anion Gap 7 (5-15); BUN 18 mg/dL (7-18); Calcium,Total 8.6 mg/dL (8.5-10.1); Chloride 108 mmol/L (98-107); EST Glomerular Filtration Rate 66 mL/min (>60); Est Glom Filt Rate - Afr Amer 79 mL/min (>60); Glucose 79 mg/dL (74-106); Potassium 3.1 mmol/L (3.5-5.1); Sodium Level 140 mmol/L (136-145)
== END ==
LOC: OLS.SW 05:00
PROVIDERS: PCP Family Medicine; Visit Provider Family Medicine
DX: R62.7 Adult failure to thrive (principal)
CPT/HCPCS: 36415; 80048; 85027

== ENCOUNTER → 2024-04-21 | Outpatient (REF) | payer MEDICARE, MEDICAID, SELFPAY ==
[2024-04-21 09:35] LABS: Anion Gap 5 (5-15); BUN 22 mg/dL (7-18); BUN/Creat Ratio 16.9 RATIO (10-20); Calcium,Total 8.8 mg/dL (8.5-10.1); Chloride 110 mmol/L (98-107); EST Glomerular Filtration Rate 43 mL/min (>60); Est Glom Filt Rate - Afr Amer 52 mL/min (>60); Glucose 124 mg/dL (74-106); Potassium 3.9 mmol/L (3.5-5.1); Sodium Level 142 mmol/L (136-145)
== END ==
LOC: OLS.SW 05:00
PROVIDERS: PCP Family Medicine; Visit Provider Family Medicine
DX: D53.9 Nutritional anemia, unspecified (principal); D72.829 Elevated white blood cell count, unspecified
CPT/HCPCS: 36415; 80048

== ENCOUNTER → 2024-04-28 | Outpatient (REF) | payer MEDICARE, MEDICAID, SELFPAY ==
[2024-04-28 09:44] LABS: Anion Gap 8 (5-15); BUN 26 mg/dL (7-18); BUN/Creat Ratio 24.5 RATIO (10-20); Calcium,Total 9.3 mg/dL (8.5-10.1); Chloride 109 mmol/L (98-107); Creatinine, Serum 1.06 mg/dL (0.55-1.02); EST Glomerular Filtration Rate 54 mL/min (>60); Est Glom Filt Rate - Afr Amer 66 mL/min (>60); Glucose 89 mg/dL (74-106); Potassium 4.2 mmol/L (3.5-5.1); Sodium Level 140 mmol/L (136-145)
== END ==
LOC: OLS.SW 05:00
PROVIDERS: PCP Family Medicine; Visit Provider Family Medicine
DX: I10 Essential (primary) hypertension (principal); E46 Unspecified protein-calorie malnutrition; D53.9 Nutritional anemia, unspecified
CPT/HCPCS: 36415; 80048

== ENCOUNTER → 2024-05-17 | Outpatient (REF) | payer MEDICARE, MEDICAID, SELFPAY ==
[2024-05-17 09:35] LABS: Anion Gap 7 (5-15); BUN 32 mg/dL (7-18); BUN/Creat Ratio 22.7 RATIO (10-20); Calcium,Total 9.4 mg/dL (8.5-10.1); Chloride 109 mmol/L (98-107); Creatinine, Serum 1.41 mg/dL (0.55-1.02); EST Glomerular Filtration Rate 39 mL/min (>60); Est Glom Filt Rate - Afr Amer 47 mL/min (>60); Glucose 85 mg/dL (74-106); Potassium 4.2 mmol/L (3.5-5.1); Sodium Level 140 mmol/L (136-145)
== END ==
LOC: OLS.SW 05:00
PROVIDERS: PCP Family Medicine; Visit Provider Family Medicine
DX: R62.7 Adult failure to thrive (principal)
CPT/HCPCS: 36415; 80048

== ENCOUNTER → 2024-05-19 05:00 | Outpatient (REF) | payer MEDICARE, MEDICAID, SELFPAY ==
[2024-05-19 08:29] LABS: Anion Gap 5 (5-15); BUN 38 mg/dL (7-18); BUN/Creat Ratio 18.4 RATIO (10-20); Calcium,Total 9.4 mg/dL (8.5-10.1); Chloride 109 mmol/L (98-107); Creatinine, Serum 2.07 mg/dL (0.55-1.02); EST Glomerular Filtration Rate 25 mL/min (>60); Est Glom Filt Rate - Afr Amer 30 mL/min (>60); Glucose 104 mg/dL (74-106); Sodium Level 141 mmol/L (136-145)
== END ==
LOC: OLS.SW 05:00
PROVIDERS: PCP Family Medicine; Visit Provider Family Medicine
DX: D72.829 Elevated white blood cell count, unspecified (principal)
CPT/HCPCS: 36415; 80048

== ENCOUNTER → 2024-05-23 | Outpatient (REF) | payer MEDICARE, MEDICAID, SELFPAY ==
[2024-05-23 08:40] LABS: Anion Gap 7 (5-15); BUN 34 mg/dL (7-18); BUN/Creat Ratio 21.4 RATIO (10-20); Calcium,Total 9.4 mg/dL (8.5-10.1); Chloride 109 mmol/L (98-107); Creatinine, Serum 1.59 mg/dL (0.55-1.02); EST Glomerular Filtration Rate 34 mL/min (>60); Est Glom Filt Rate - Afr Amer 41 mL/min (>60); Glucose 112 mg/dL (74-106); Potassium 3.6 mmol/L (3.5-5.1); Sodium Level 142 mmol/L (136-145); Uric Acid 7.6 mg/dL (2.6-6.0)
== END ==
LOC: OLS.SW 05:00
PROVIDERS: PCP Family Medicine; Visit Provider Family Medicine
DX: M10.9 Gout, unspecified (principal); E87.6 Hypokalemia
CPT/HCPCS: 36415; 80048; 84550

== ENCOUNTER → 2024-06-01 | Outpatient (REF) | payer MEDICARE, MEDICAID, SELFPAY ==
[2024-06-01 08:29] LABS: Hematocrit 32.8 % (37-47); Hemoglobin 10.5 g/dL (12.0-15.0); Mean Corpuscular Hgb 32.3 pg (27.0-32.0); Mean Corpuscular Volume 100.9 fL (81-99); Mean Platelet Vol. 11.5 fl (6.2-12.0); Platelet Count 315 K/mm3 (150-450); RBC Distribution Width CV 16.4 % (11.6-14.6); RBC Distribution Width SD 60.2 fl (35.1-43.9); Red Blood Count 3.25 M/mm3 (4.2-5.4); White Blood Count 12.7 K/mm3 (4.4-11.0)
== END ==
LOC: OLS.SW 05:00
PROVIDERS: PCP Family Medicine; Visit Provider Family Medicine
DX: D69.9 Hemorrhagic condition, unspecified (principal)
CPT/HCPCS: 36415; 85027

== ENCOUNTER 2024-07-05 15:15 | Emergency (ER) | payer MEDICARE, MEDICAID, SELFPAY ==
[2024-07-05 15:15] VITALS: TEMP 30.5; BMI 38.5
--- NOTE | 2024-07-05 15:52 | EDS_ITS ---
HPI History of Present Illness Chief Complaint: CPR Detail of Chief Complaint: Cardiopulmonary arrest Informant: EMS Onset/Context/Timing Onset: Today and Hours Context: Sudden Onset Timing: Continuous Quality: Detailed HPI narrative Location: Presents from home Mechanism/Context: Yes other Current Severity: Severe Maximum Severity: Severe Worsened by: Based on monitor patient third-degree block with probable inferior myocardi Relieved by: Nothing Narrative Narrative: Patient is a 74-year-old woman with history of DVT and PE on Eliquis. She apparently went to the restroom. She had diarrhea. She then developed severe chest pain. She complained that elephant was sitting on her chest. She was asked to decline EMS. She was bradycardic. They transported immediately. She had loss of pulses and well. CPR/ACLS was initiated by squad. She arrived without an IV. She is being bagged valved and compressions were underway. Versus was able to obtain a peripheral line. This blew. I was unsuccessful with a IO right proximal humerus. IO was placed left proximal tibia. Shortly thereafter a peripheral line was established by nursing. Patient's pupils were small to midpoint. They were not reactive. She had no palpable pulses. The respiratory therapist was bagging her. Patient underwent ACLS treatment for pulseless bradycardia PEA. Please review nursing notes for times administration of medication and pulse checks. 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 Bilateral pulmonary embolism Anemia Foot fracture, left Family history of colon cancer in mother Encounter for education ER+ (estrogen receptor positive status) Degenerative joint disease Hypertension Osteopenia after menopause Cancer of left female breast Post-menopausal Arthritis Easy bruising Excessive bleeding Non-smoker Shortness of breath on exertion Pulmonary embolism Hypertension UTI (urinary tract infection) DVT (deep venous thrombosis) Home Medications ?Medication ?Instructions ?Recorded ?Last Taken ?Type lisinopril 10 mg tablet 10 mg PO DAILY BP 08/12/21 10/02/21 History oxycodone 5 mg tablet 10 mg (2 x 5 mg) PO Q4H PRN PRN 02/24/24 Unknown Rx Pain Score 4-10 Or Pre Pt/Ot 3 days #36 tabs meclizine 25 mg tablet 25 mg PO Q8H PRN PRN Dizziness #20 03/04/24 Unknown Rx tabs ondansetron 8 mg disintegrating 8 mg PO Q8H PRN nausea and 03/04/24 Unknown Rx tablet vomiting #20 tabs anastrozole 1 mg tablet 1 mg PO DAILY breast cx #90 03/07/24 Unknown Rx TABLETS baclofen 10 mg tablet 10 mg PO TID PRN PRN muscle spasm 03/27/24 Unknown History apixaban 5 mg tablet (Eliquis) 5 mg PO DAILY BLOOD CLOTS #60 tabs 04/13/24 Unknown Rx metoclopramide HCl 10 mg tablet 10 mg PO TID #90 tabs 04/13/24 Unknown Rx (Reglan) mirtazapine 30 mg tablet 30 mg PO QHS #0 tabs 04/13/24 Unknown Rx pantoprazole 40 mg tablet,delayed 40 mg PO DAILY #0 tabs 04/13/24 Unknown Rx release Allergy/AdvReac Type Severity Reaction Status Date / Time No Known Allergies Allergy Verified 04/04/24 14:54 Family History Grandmother Breast cancer Daughter Breast cancer Mother Colon cancer Surgical History History of appendectomy History of dilation and curettage History of left mastectomy (~08/2021) History of lumpectomy of left breast Hx of abdominoplasty History of cholecystectomy History of total knee replacement Social History household members: spouse Smoking Status: Never smoker alcohol intake: never substance use type: does not use ROS ROS ED Review of Systems ROS Unobtainable: other Details: Limited to what paramedics told me. EXAM Physical Exam Const Positive well nourished and well developed Constitutional Narrative: Patient is acid. CPR is in progress. General Appearance ED: well developed and pallor HEENT normocephalic and atraumatic Eyes EOMs intact bilaterally Eyes Narrative: 2 to 3 mm nonreactive. General Eye ED: Negative for pale conjunctiva or scleral icterus Neck full ROM and no lymphadenopathy Resp Resp Narrative: Breath sounds noted bilaterally when respiratory was ventilating patient by [id number]. Cardio Cardio Narrative: No palpable pulses GI non-distended and no masses Neuro No oriented x3 and No CN's II-XII intact bilaterally Neuro Narrative: GCS 3 Psych Psych Narrative: Unable to determine Skin Skin Narrative: Acid. General Skin Exam: pallor MDM MDM MDM Narrative Medical decision making narrative: Patient was treated for pulseless electrical activity with bradycardia. Please read nursing notes for times administration of meds. Patient was orotracheal intubated using glide scope with a 7.5 Turkish endotracheal tube. Breath sounds were noted bilaterally. There is appropriate color change. Intubation was performed by me. I/O proximal left tibia was placed by me. ACLS protocol for PEA and bradycardia. Total time bedside 15 minutes Rhythm Strip Rhythm Strip: Narrow complex bradycardia with marked ST elevation in lead II. No P waves Differential Diagnosis Differential Diagnosis: Suspect patient had an acute inferior myocardial infarction with heart block resulting in PEA. And spite of appropriate measures resuscitation was unsuccessful. Procedures Other Procedures Procedure(s): 1. Orotracheal intubation 2. I/O left proximal tibia 3. ACLS resuscitation for PEA and bradycardia Discharge Plan Triage Chief Complaint: CPR ED Provider: William Madsen Dx/Rx/DC Orders Clinical Impression: Acute ST elevation myocardial infarction (STEMI) of inferior wall, Cancer of left female breast , PEA (Pulseless electrical activity), Unsuccessful cardiopulmonary resuscitation, History of deep vein thrombosis, Anticoagulant long-term use Prescriptions: No Action lisinopril 10 mg tablet 10 mg PO DAILY Patient Comments: TAKE 1 TABLET BY MOUTH DAILY pantoprazole 40 mg Tablet,Delayed Release (Dr/Ec) 40 mg PO DAILY Qty: 0 0RF metoclopramide HCl [Reglan] 10 mg tablet 10 mg PO TID Qty: 90 0RF Rx Instructions: Take 30 min prior to meals Eliquis 5 mg tablet 5 mg PO DAILY Qty: 60 0RF mirtazapine 30 mg Tablet 30 mg PO QHS Qty: 0 0RF oxycodone 5 mg Tablet 10 mg PO Q4H PRN PRN (Reason: Pain Score 4-10 Or Pre Pt/Ot) 3 Days Qty: 36 0RF meclizine 25 mg tablet 25 mg PO Q8H PRN PRN (Reason: Dizziness) Qty: 20 0RF ondansetron 8 mg tablet,disintegrating 8 mg PO Q8H PRN (Reason: nausea and vomiting) Qty: 20 0RF baclofen 10 mg tablet 10 mg PO TID PRN PRN (Reason: muscle spasm) anastrozole 1 mg tablet 1 mg PO DAILY Qty: 90 3RF Primary Care Provider: Kang Cannon Referrals: Kang Cannon MD [Primary Care Provider] - Print Language: French Disposition Disposition:
--- NOTE | 2024-07-05 16:18 | CHAPLAIN ---
Type of Pastoral Visit ___ Initial Visit ___ Follow-up Visit ___ On-call Visit ___ General Patient Visit ___ Spiritual Assessment ___ Family Conference ___ Bereavement ___ Rapid Response _x__ Code Blue ___ Other (describe below) Pastoral Care Referral From ___ Patient ___ Family ___ Nurse ___ Physician ___ Medical Corps Officer ___ Hospital Security Officer _x__ Other (describe below) Sacrament/Intervention ___ Active listening ___ Anointing ___ Buddhist ___ Bereavement ___ Communion ___ Tea exploration ___ ___ Life review _x__ Prayer ___ Reconciliation ___ Sacrament of Sick _x__ Supportive presence ___ Wedding ___ Other (describe below) Pastoral Comments attended to the code blue and waited until the call of expiration was made; no family members were present; SW attempted contacts with family members but were unsuccessful at the time and thus this instructor dancing did not stay after
--- NOTE | 2024-07-05 17:09 | ED.RN ---
DR ADAMS TO TRIAGE TO TALK WITH DAUGHTER ALICIA MATHEWS . ASSISTED BY SOCIAL WORK AND FARHANA RAY
--- NOTE | 2024-07-05 17:35 | CHAPLAIN ---
Type of Pastoral Visit ___ Initial Visit ___ Follow-up Visit ___ On-call Visit ___ General Patient Visit ___ Spiritual Assessment _x__ Family Conference _x__ Bereavement ___ Rapid Response ___ Code Blue ___ Other (describe below) Pastoral Care Referral From ___ Patient ___ Family ___ Nurse ___ Physician ___ Senior Java Software Developer ___ Airline Counter Agent _x__ Other (describe below) Sacrament/Intervention _x__ Active listening ___ Anointing ___ Buddhist _x__ Bereavement ___ Communion ___ Tea exploration ___ ___ Life review _x__ Prayer ___ Reconciliation ___ Sacrament of Sick _x__ Supportive presence ___ Wedding ___ Other (describe below) Pastoral Comments this parts picker was called back to the ED as family had arrived for the ; accompanied the physician and the SW to meet the family and offer presence and consolation; took SO first back to the room of the and gave him time to reflect and to have prayer; SO then went to other family members and gave consolation; took daughter, friend, and then later the son-in-law into room of the and gave supportive presence, prayer, and words of comfort; brought beverages to family and assisted SW in giving attention and care
--- NOTE | 2024-07-05 20:27 | CM.ED ---
Social work Reason for referral: code blue This SW and MERT Gardner arrived for code blue and no family was present with patient. EMS informed SWs that patient's fiance was at home, but did not seem concerned when EMS brought patient to the hospital. MERT Gardner called patient's daughter and had to leave a voicemail. admissions consultant Miladis also called patient's daughter and could not get in contact with her. MERT Gardner also attempted to call the number listed for patient's fiance, but was unable to leave message. This SW spoke with HRO, Vicente, to see about the possibility of law enforcement going to patient's daughter's home to get in contact with patient's daughter. While SW was assisting another patient, patient?s fianc?, Adrien, and daughter, Trisha arrived to the ED with family friend, Laura. Patient?s family members were told about patient?s passing by Dr. Madsen with this SW and [facility] Chaplain Shen present in a separate room. Patient?s family members were tearful and reported being in shock, feeling as if ?this was a nightmare.? Ac took Adrien into patient?s room at his request and this SW remained with Trisha and Laura. This SW offered a supportive presence as Trisha and Laura grieved together. Trisha stated that she is patient?s only child and patient had 4 grandchildren. Patient also reportedly had two brothers. Trisha reported patient had a heart procedure done about 5 months ago where ?they cut into her pulmonary artery? and patient had been ?going downhill? since. Trisha stated she never expected patient?s though. Adrien returned to the room and hugged Trisha, stating how sorry he was for not being able to help patient more. Adrien stated he would be heading home at this time, reporting that he was ?okay,? and that he was ?used to because of the .? Ac verified that Adrien was okay to drive and then Ac walked with this SW to patient?s room with Trisha and Laura. Water and a prayer were provided for Trisha and Laura by Ac. This SW offered to call other family members, but Trisha stated she would be able to do so in a little bit. Trisha stated having to tell patient?s grandchildren and great grandchildren as being ?the hardest part.? Trisha stated that her , Nicolas, would be arriving shortly. At an appropriate time, this SW asked Trisha what home she would like to use, stating that there was no immediate need for that answer. Trisha stated she would ask her when he arrived due to wanting to pick one closer to patient?s brother. Patient?s family was given space to grieve. MERT reentered room and Trisha provided home of choice, [facility] in [place]. Trisha asked to speak to a nurse who was present in the room when patient , so MERT requested this. Nurse Dee Dee answered patient?s families questions and Dr. Madsen entered later to answer further questions. Provided empathic support and active listening throughout conversation. Offered to call support people as necessary and provided safe space for family to grieve. Patient?s family left while MERT was attending to another situation. Received word that everyone had released patient and call to home was last step. Called [facility] ([phone]) due to ED being busy. Updated cushion gum applicator Morgan of this. Spoke with Candy at home and provided necessary information. Nursing updated. No further needs identified at this time. Mahsa Greenwood, BRIDGE TENDER, MEDICINAL PLANT PICKER
== END 2024-07-05 21:38 ==
PROVIDERS: Emergency Provider Emergency Medicine; PCP Family Medicine; Visit Provider Emergency Medicine
DX: I21.19 ST elevation (STEMI) myocardial infarction involving other coronary artery of inferior wall (principal); I46.9 Cardiac arrest, cause unspecified; I44.2 Atrioventricular block, complete; C50.912 Malignant neoplasm of unspecified site of left female breast; R19.7 Diarrhea, unspecified; N18.9 Chronic kidney disease, unspecified; I12.9 Hypertensive chronic kidney disease with stage 1 through stage 4 chronic kidney disease, or unspecified chronic kidney disease; Z79.01 Long term (current) use of anticoagulants; Z86.711 Personal history of pulmonary embolism; Z86.718 Personal history of other venous thrombosis and embolism
CPT/HCPCS: 31500; 92950; 99283; A4216